=== PATIENT | female | born 1950 | race Caucasian/White ===

== ENCOUNTER 2016-04-28 19:50 | Observation (INO) | payer MEDICARE, OTHER, SELFPAY ==
[2016-04-28] MEDS ORDERED: Sodium Chloride 0.9% 1000 ML 1,000 ML IV STA ×2 (20:04→21:57)
[2016-04-28] MEDS ORDERED: PROVENTIL 2.5 MG/3 ML NEB IH ONE ×2 (20:06→20:31)
[2016-04-28] MEDS ORDERED: ROCEPHIN 1 Gm-D5w 50 ml Bag** 50 ML IV ONE ×2 (20:07→20:40)
[2016-04-28] MEDS ORDERED: Zithromax 250 MG TABLET PO ONE (20:08)
[2016-04-28] MEDS ORDERED: Phenergan 25 MG INJ IV ONE (20:08)
--- NOTE | 2016-04-28 20:15 | ERPHSYRPT ---
- History of Present Illness Time Seen by Provider: 04/28/16 19:56 Source: patient Exam Limitations: no limitations Patient Subjective Stated Complaint: reports with c/o "terrible case of the flu " with headache, malaise, productive cough, fever, "fullness in the chest" Triage Nursing Assessment: wc to treatment area - steady gait to cart - moves all extremitied with equal strength. alert/oriented - appropriate affect. skin hot/flushed/dry - no rash or injury appreciated. resps labored per exertion - audible wheezing - ronchi of the left upper lobe with scattered wheezing throughout Physician History: FOR THE PAST 2 DAYS PT HAS HAD NAUSEA, A FRONTAL HEADACHE, GENERALIZED ACHES, COUGH PRODUCTIVE OF YELLOW PHLEGM AND FEVER UP TO 100.4 DEGREES. Allergies/Adverse Reactions: No Known Drug Allergies Allergy (Verified 04/28/16 19:56) Home Medications: Aspirin [Aspirin EC] 325 mg PO QAM 10/09/13 [History] Atorvastatin Calcium [Lipitor] 80 mg PO QHS 10/09/13 [History] Clopidogrel Bisulfate 75 mg [PLAVIX 75 MG Tablet] 75 mg PO DAILY 10/09/13 [History] Levothyroxine Sodium [Synthroid] 150 mcg PO QAM 10/09/13 [History] Lisinopril [Zestril 40 mg] 40 mg PO BID 10/09/13 [History] Metformin HCl 1000 mg [Glucophage 1000 MG] 1,000 mg PO BID 10/09/13 [History] Acetaminophen [Acetaminophen Extra Strength] 500 mg PO Q4HPRN PRN 02/03/15 [ History] Cilostazol [Pletal] 50 mg PO BID 02/03/15 [History] Citalopram Hydrobromide 20 mg* [ceLEXa 20 MG] 20 mg PO HS 02/03/15 [History] Cyclobenzaprine HCl 10 mg [Cyclobenzaprine 10 MG] 10 mg PO DAILY PRN PRN 02/03/15 [History] Ergocalciferol (Vitamin D2) [Vitamin D2] 50,000 iu PO UD 02/03/15 [History] Fluticasone Propionate [Flonase Nasal] 2 spray IH DAILY 02/03/15 [History] Gabapentin [Neurontin] 600 mg PO TID 02/03/15 [History] Glipizide 5 mg PO BID 02/03/15 [History] Metoprolol Succinate [Toprol Xl] 200 mg PO HS 02/03/15 [History] Potassium Chloride [K-Tab ER] 10 meq PO DAILY 02/03/15 [History] Sennosides/Docusate Sodium [Stool Soft-Stimulant Lax Tab] 1 tab PO DAILY PRN PRN 02/03/15 [History] Ropinirole HCl [Requip] 3 mg PO BID 04/19/15 [History] Hx Tetanus, Diphtheria Vaccination/Date Given: (5 years ago) Hx Influenza Vaccination/Date Given: Yes Hx Pneumococcal Vaccination/Date Given: Yes - Review of Systems Constitutional: Fever Respiratory: Cough Abdominal/Gastrointestinal: Nausea Musculoskeletal: Myalgias Neurological: Headache All Other Systems: Reviewed and Negative - Past Medical History Pertinent Past Medical History: Yes Neurological History: No Pertinent History ENT History: No Pertinent History Cardiac History: High Cholesterol, Hypertension, Myocardial Infarction (RI) Respiratory History: COPD Endocrine Medical History: Diabetes Type II, Other Musculoskeletal History: Fractures, Osteoarthritis GI Medical History: No Pertinent History History: No Pertinent History Psycho-Social History: Depression Female Reproductive Disorders: Other Other Medical History: THYROID NODULE, HX RI WITHOUT SURGERY, R ANKLE FX W/ ORIF 2007 - Past Surgical History Past Surgical History: Yes Neuro Surgical History: No Pertinent History Cardiac: No Pertinent History Respiratory: No Pertinent History Gastrointestinal: No Pertinent History Genitourinary: No Pertinent History Musculoskeletal: Other Female Surgical History: Tubal Ligation Other Surgical History: RIGHT ANKLE SURGERY, thyroidectomy - Social History Smoking Status: Current some day smoker How long have you smoked: 1/2 PPD Exposure to second hand smoke: No Drug Use: none Patient Lives Alone: No - Female History Hx Last Menstrual Period: n/a - Nursing Vital Signs Nursing Vital Signs: Initial Vital Signs Temperature 100.1 F Temperature Source Rectal Pulse Rate 134 Respiratory Rate 18 Blood Pressure [] 102/40 Pain Intensity 0 - Physical Exam General Appearance: alert Eye Exam: PERRL/EOMI Ears, Nose, Throat Exam: dry mucous membranes, pharyngeal erythema, other ( CERUMEN OCCLUSION OF RIGHT EAR) Neck Exam: normal inspection Respiratory Exam: wheezing (MILD EXPIRATORY WHEEZING OVER ALL THOMAS.) Cardiovascular Exam: normal heart sounds Gastrointestinal/Abdomen Exam: soft, normal bowel sounds Back Exam: normal range of motion Extremity Exam: pedal edema (+1 ANKLE EDEMA BILATERALLY) Neurologic Exam: alert, cooperative Skin Exam: warm, dry SpO2 Interpretation: normal SpO2: 97 Oxygen Delivery: Room Air - Course Nursing assessment & vital signs reviewed: Yes EKG Interpreted by Me: RATE (121), Sinus Tach, NORMAL AXIS, NORMAL INTERVALS - Radiology Exams Chest X-ray Interpretation: Interpreted by me (QUESTIONABLE LLL INFILTRATE) Ordered Tests: Active Orders 24 hr Category Date Time Status Core Fitter STAT Care 04/28/16 20:04 Active EKG-ER Only STAT Care 04/28/16 20:04 Active IV Insertion STAT Care 04/28/16 20:04 Active Oxygen-ED Only NASAL CANNULA 2 lpm Care 04/28/16 22:05 Active Pulse Oximetry (ED) STAT Care 04/28/16 20:04 Active cath [Cath for Specimen-Straight] STAT Care 04/28/16 21:58 Active CHEST 1 VIEW (PORTABLE) Stat Exams 04/28/16 20:05 Taken AMYLASE Stat Lab 04/28/16 20:25 Completed BLOOD CULTURE Stat Lab 04/28/16 20:30 Received CBC W DIFF Stat Lab 04/28/16 20:25 Completed CMP Stat Lab 04/28/16 20:25 Completed CULTURE, THROAT Stat Lab 04/28/16 20:30 Received CULTURE,SPUTUM Stat Lab 04/28/16 21:59 Ordered LIPASE Stat Lab 04/28/16 20:25 Completed MAGNESIUM Stat Lab 04/28/16 20:25 Completed [place] Screen Stat Lab 04/28/16 20:25 Completed NT PRO BNP Stat Lab 04/28/16 20:25 Completed STREP SCREEN-BETA A Stat Lab 04/28/16 20:30 Completed TROPONIN Stat Lab 04/28/16 20:25 Completed UA Stat Lab 04/28/16 20:05 Ordered Respiratory Nebulizer STAT RT 04/28/16 20:07 Completed Medication Summary Generic Name Dose Route Start Last Admin Trade Name Freq PRN Reason Stop Dose Admin Sodium Chloride 1,000 mls @ 999 mls/hr 04/28/16 21:57 04/28/16 22:00 Sodium Chloride 0.9% 1000 Ml IV 04/28/16 22:57 999 mls/hr .Q1H1M STA Administration Magnesium Oxide 400 mg 04/28/16 22:00 04/28/16 21:43 Mag-Ox 400 PO 05/28/16 21:59 400 mg BID ARELY Administration Discontinued Medications Generic Name Dose Route Start Last Admin Trade Name Belkys PRJa Reason Stop Dose Admin Albuterol Sulfate 2.5 mg 04/28/16 20:06 04/28/16 20:43 Proventil 2.5 Mg/3 Ml Neb IH 04/28/16 20:07 2.5 mg STAT ONE Administration Albuterol Sulfate Confirm 04/28/16 20:31 Proventil 2.5 Mg/3 Ml Neb Administered 04/28/16 20:32 Dose 2.5 mg IH .STK-MED ONE Azithromycin 500 mg 04/28/16 20:08 04/28/16 20:48 Zithromax 250 Mg Tablet PO 04/28/16 20:09 500 mg STAT ONE Administration Azithromycin Confirm 04/28/16 20:40 Zithromax 250 Mg Tablet Administered 04/28/16 20:41 Dose 500 mg .ROUTE .STK-MED ONE Sodium Chloride 1,000 mls @ 999 mls/hr 04/28/16 20:04 04/28/16 20:48 Sodium Chloride 0.9% 1000 Ml IV 04/28/16 21:04 999 mls/hr .Q1H1M STA Administration Ceftriaxone Sodium/Dextrose 50 mls @ 100 mls/hr 04/28/16 20:07 04/28/16 20:48 Rocephin 1 Gm-D5w 50 Ml Bag IV 04/28/16 20:36 100 mls/hr STAT ONE Administration Sodium Chloride Confirm 04/28/16 20:40 Sodium Chloride 0.9% 1000 Ml Administered 04/28/16 20:41 Dose 1,000 mls @ ud .ROUTE .STK-MED ONE Ceftriaxone Sodium/Dextrose Confirm 04/28/16 20:40 Rocephin 1 Gm-D5w 50 Ml Bag Administered 04/28/16 20:41 Dose 50 mls @ ud IV .STK-MED ONE Sodium Chloride Confirm 04/28/16 21:58 Sodium Chloride 0.9% 1000 Ml Administered 04/28/16 21:59 Dose 1,000 mls @ ud .ROUTE .STK-MED ONE Magnesium Oxide Confirm 04/28/16 21:38 Mag-Ox 400 Administered 04/28/16 21:39 Dose 400 mg .ROUTE .STK-MED ONE Promethazine HCl 12.5 mg 04/28/16 20:08 04/28/16 20:48 Phenergan 25 Mg Inj IV 04/28/16 20:09 12.5 mg STAT ONE Administration Promethazine HCl Confirm 04/28/16 20:39 Phenergan 25 Mg Inj Administered 04/28/16 20:40 Dose 25 mg .ROUTE .STK-MED ONE Lab/Rad Data: Laboratory Result Diagrams 04/28/16 20:25 04/28/16 20:25 Laboratory Results 04/28/16 04/28/16 04/28/16 Range/Units 20:30 20:30 20:25 WBC (4.0-10.5) K/mm3 RBC (4.1-5.4) M/mm3 Hgb (12.0-16.0) gm/dl Hct (35-47) % MCV (78-100) fl MCH (26-32) pg MCHC (32-36) g/dl RDW (11.5-14.0) % Plt Count (150-450) K/mm3 MPV (6-9.5) fl Gran % (36.0-66.0) % Lymphocytes % (24.0-44.0) % Monocytes % (0.0-12.0) % Eosinophils % (0.00-5.0) % Basophils % (0.0-0.4) % Basophils # (0-0.4) Sodium (136-145) mEq/L Potassium (3.5-5.1) mEq/L Chloride (98-107) mEq/L Carbon Dioxide (21-32) mEq/L Anion Gap (5-15) MEQ/L BUN (9-20) mg/dL Creatinine (0.55-1.30) mg/dl Estimated GFR ML/MIN Glucose (70-110) MG/DL Calcium (8.5-10.1) mg/dL Magnesium (1.8-2.4) mg/dL Total Bilirubin (0.2-1.0) mg/dL AST (15-37) U/L ALT (12-78) U/L Alkaline Phosphatase (46-116) U/L Troponin I (0.000-0.056) ng/ml NT-Pro-B Natriuret Pep (0-125) pg/ml Serum Total Protein (6.4-8.2) gm/dL Albumin (3.4-5.0) g/dL Amylase (25-115) U/L Lipase (73-393) U/L Monoscreen NEGATIVE (Negative) Streptococcus Screen NEGATIVE (Negative) Resp Infection Panel NEGATIVE (Negative) 04/28/16 04/28/16 04/28/16 Range/Units 20:25 20:25 20:25 WBC 10.2 (4.0-10.5) K/mm3 RBC 4.58 (4.1-5.4) M/mm3 Hgb 12.2 (12.0-16.0) gm/dl Hct 37.7 (35-47) % MCV 82.3 (78-100) fl MCH 26.6 (26-32) pg MCHC 32.4 (32-36) g/dl RDW 15.8 H (11.5-14.0) % Plt Count 290 (150-450) K/mm3 MPV 10.4 H (6-9.5) fl Gran % 75.7 H (36.0-66.0) % Lymphocytes % 16.0 L (24.0-44.0) % Monocytes % 8.0 (0.0-12.0) % Eosinophils % 0.2 (0.00-5.0) % Basophils % 0.1 (0.0-0.4) % Basophils # 0.01 (0-0.4) Sodium 135 L (136-145) mEq/L Potassium 4.2 (3.5-5.1) mEq/L Chloride 95 L (98-107) mEq/L Carbon Dioxide 27.3 (21-32) mEq/L Anion Gap 16.8 H (5-15) MEQ/L BUN 23 H (9-20) mg/dL Creatinine 1.37 H (0.55-1.30) mg/dl Estimated GFR 41 ML/MIN Glucose 307 H (70-110) MG/DL Calcium 7.5 L (8.5-10.1) mg/dL Magnesium 1.7 L (1.8-2.4) mg/dL Total Bilirubin 0.6 (0.2-1.0) mg/dL AST 15 (15-37) U/L ALT 10 L (12-78) U/L Alkaline Phosphatase 124 H (46-116) U/L Troponin I < 0.017 (0.000-0.056) ng/ml NT-Pro-B Natriuret Pep 935 H (0-125) pg/ml Serum Total Protein 7.5 (6.4-8.2) gm/dL Albumin 3.5 (3.4-5.0) g/dL Amylase 32 (25-115) U/L Lipase 163 (73-393) U/L Monoscreen (Negative) Streptococcus Screen (Negative) Resp Infection Panel (Negative) - Progress Discussed with : Rebecca (TFR - 1644) - Departure Time of Disposition: 22:22 Departure Disposition: Observation Clinical Impression: BRONCHITIS, PHARYNGITIS, DM, HTN, ARTHRITIS, DEPRESSION, MILD DEHYDRATION, COPD , TACHYCARDIA Condition: Fair Critical Care Time: No Referrals: ROLANDO SALMERON [Primary Care Provider] -
[2016-04-28 20:38] LABS: BASOPHIL % 0.1 % (0.0-0.4); Eosinophil % 0.2 % (0.00-5.0); Granulocytes % 75.7 % (36.0-66.0); Mean Cell Volume 82.3 fl (78-100); Mean Corpuscular Hemoglobin 26.6 pg (26-32); Mean Platelet Volume 10.4 fl (6-9.5); Platelet Count 290 K/mm3 (150-450); Red Blood Count 4.58 M/mm3 (4.1-5.4); Red Cell Distribution Width 15.8 % (11.5-14.0); White Blood Count 10.2 K/mm3 (4.0-10.5)
[2016-04-28] MEDS ORDERED: Phenergan 25 MG INJ ONE (20:39)
[2016-04-28] MEDS ORDERED: Sodium Chloride 0.9% 1000 ML 1,000 ML ONE (20:40)
[2016-04-28] MEDS ORDERED: Zithromax 250 MG TABLET ONE (20:40)
[2016-04-28 21:06] LABS: ALBUMIN 3.5 g/dL (3.4-5.0); ANION GAP 16.8 MEQ/L (5-15); BILIRUBIN,TOTAL 0.6 mg/dL (0.2-1.0); Carbon Dioxide 27.3 mEq/L (21-32); MAGNESIUM 1.7 mg/dL (1.8-2.4); Potassium 4.2 mEq/L (3.5-5.1); Total Protein 7.5 gm/dL (6.4-8.2)
[2016-04-28] MEDS ORDERED: MAG-OX 400 ONE (21:38)
[2016-04-28] MEDS ORDERED: Sodium Chloride 0.9% 1000 ML 2,000 ML ONE (21:58)
[2016-04-28] MEDS ORDERED: MAG-OX 400 PO SCH (22:00)
[2016-04-28 22:23] LABS: Bacteria RARE /HPF (NEGATIVE); COMPLETE URINE MICROSCOPIC? YES; Collection Type CLEAN CATCH; Epithelial Cells FEW /HPF (FEW)
[2016-04-28] MEDS ORDERED: DILAUDID 2 MG INJECTION IV PRN (22:55)
[2016-04-28] MEDS ORDERED: PROVENTIL 2.5 MG/3 ML NEB IH PRN (22:55)
[2016-04-28] MEDS ORDERED: TYLENOL 325 MG PO PRN (22:55)
[2016-04-28] MEDS ORDERED: Phenergan 25 MG INJ IV PRN (22:55)
[2016-04-28] MEDS ORDERED: ZOCOR 20MG ONE (23:45)
[2016-04-28] MEDS ORDERED: NEURONTIN 300 MG PO ONE (23:49)
[2016-04-28] MEDS ORDERED: REQUIP 2MG TAB PO ONE (23:50)
[2016-04-28] MEDS: Sodium Chloride 0.9% 1000 ML 1,000 ML IV SCH (23:58)
[2016-04-28] MEDS: Pletal 100 MG PO SCH (23:59)
[2016-04-28] MEDS: ZOCOR 20MG PO SCH (23:59)
[2016-04-29] MEDS: NovoLOG Insulin SQ PRN ×5 (00:33→22:38)
[2016-04-29] MEDS: NYSTOP 30 GM CREAM TOP SCH ×3 (00:34→22:31)
[2016-04-29] MEDS: DUONEB 0.5-3 MG/3 ml Neb IH SCH ×6 (03:28→22:44)
[2016-04-29 05:39] LABS: BASOPHIL % 0.1 % (0.0-0.4); Granulocytes % 68.7 % (36.0-66.0); Lymphocytes % 22.7 % (24.0-44.0); Mean Cell Volume 84.6 fl (78-100); Monocytes % 7.5 % (0.0-12.0); Platelet Count 238 K/mm3 (150-450); Red Cell Distribution Width 15.6 % (11.5-14.0); White Blood Count 7.2 K/mm3 (4.0-10.5)
[2016-04-29 05:46] LABS: Mean Corpuscular Hemoglobin 26.8 pg (26-32)
[2016-04-29 06:21] LABS: ALBUMIN 2.7 g/dL (3.4-5.0); ALKALINE PHOSPHATASE 92 U/L (46-116); ANION GAP 15.3 MEQ/L (5-15); BILIRUBIN,TOTAL 0.4 mg/dL (0.2-1.0); BLOOD UREA NITROGEN 14 mg/dL (9-20); CHLORIDE 103 mEq/L (98-107); Carbon Dioxide 25.5 mEq/L (21-32); Glucose 196 MG/DL (70-110); MAGNESIUM 1.6 mg/dL (1.8-2.4); Potassium 3.9 mEq/L (3.5-5.1); SGOT/AST 11 U/L (15-37); SGPT/ALT 8 U/L (12-78); SODIUM 140 mEq/L (136-145)
[2016-04-29 06:22] LABS: TROPONIN < 0.017 ng/ml (0.000-0.056)
[2016-04-29] MEDS: Sodium Chloride 0.9% 1000 ML 1,000 ML IV SCH ×3 (06:34→20:28)
[2016-04-29] MEDS: Pletal 100 MG PO SCH ×2 (07:42→16:35)
[2016-04-29] MEDS: Norco 10/325 MG Tablet PO PRN ×4 (07:42→22:35)
--- NOTE | 2016-04-29 08:34 | XRAY ---
Indication: Cough and general malaise. Comparison: February 03, 2015 Portable chest clear. Heart and mediastinal structures within normal limits for portable technique. Bony thorax intact again with mild degenerative changes. Impression: Nonacute chest.
--- NOTE | 2016-04-29 08:36 | XRAY ---
Indication: Cough. Comparison: One day earlier. Portable apical lordotic chest remains clear. Heart and mediastinal structures stable and within normal limits. No new/acute findings. Impression: Stable nonacute chest.
[2016-04-29] MEDS ORDERED: NYSTOP 15 GM CREAM TOP SCH (10:00)
--- NOTE | 2016-04-29 11:01 | PCM.HP ---
History of Present Illness - Chief Complaint Chief Complaint: bronchitis, deydration, tachycardia History of Present Illness: is a 65 year old female pt of mine from [facility] who came to the ER yesterday d/o 2d of increased sputum and cough, low grade fever, and general malaise. She was not tolerating po well. She was found to have stable chest film but HR stayed elevated in the 120s so she was admitted for bronchitis and dehydration. She is feeling much better this morning and asking to go home. - Review of Systems Constitutional: Fever Respiratory: Cough, Wheezing Abdominal/Gastrointestinal: Nausea, Appetite Changes Psychological: No Suicidal Ideations All Other Systems: Reviewed and Negative Medications & Allergies Home Medications: Home Medication List Aspirin [Aspirin EC] 325 mg PO QAM 10/09/13 [History Confirmed 04/28/16] Atorvastatin Calcium [Lipitor] 80 mg PO QHS 10/09/13 [History Confirmed 04/28/16 ] Clopidogrel Bisulfate 75 mg [PLAVIX 75 MG Tablet] 75 mg PO DAILY 10/09/13 [History Confirmed 04/28/16] Levothyroxine Sodium [Synthroid] 150 mcg PO QAM 10/09/13 [History Confirmed 10/05] Lisinopril [Zestril 40 mg] 40 mg PO BID 10/09/13 [History Confirmed 04/28/16] Metformin HCl 1000 mg [Glucophage 1000 MG] 1,000 mg PO BID 10/09/13 [History Confirmed 04/28/16] Acetaminophen [Acetaminophen Extra Strength] 500 mg PO Q4HPRN PRN 02/03/15 [ History Confirmed 04/28/16] Cilostazol [Pletal] 50 mg PO BID 02/03/15 [History Confirmed 04/28/16] Citalopram Hydrobromide 20 mg* [ceLEXa 20 MG] 20 mg PO HS 02/03/15 [History Confirmed 04/28/16] Cyclobenzaprine HCl 10 mg [Cyclobenzaprine 10 MG] 10 mg PO DAILY PRN PRN 02/03/15 [History Confirmed 04/28/16] Ergocalciferol (Vitamin D2) [Vitamin D2] 50,000 iu PO UD 02/03/15 [History Confirmed 04/28/16] Fluticasone Propionate [Flonase Nasal] 2 spray IH DAILY 02/03/15 [History Confirmed 04/28/16] Gabapentin [Neurontin] 600 mg PO TID 02/03/15 [History Confirmed 04/28/16] Glipizide 5 mg PO BID 02/03/15 [History Confirmed 04/28/16] Metoprolol Succinate [Toprol Xl] 200 mg PO HS 02/03/15 [History Confirmed ] Potassium Chloride [K-Tab ER] 10 meq PO DAILY 02/03/15 [History Confirmed ] Sennosides/Docusate Sodium [Stool Soft-Stimulant Lax Tab] 1 tab PO DAILY PRN PRN 02/03/15 [History Confirmed 04/28/16] Ropinirole HCl [Requip] 3 mg PO BID 04/19/15 [History Confirmed 04/28/16] Allergies/Adverse Reactions: Allergies Allergy/AdvReac Type Severity Reaction Status Date / Time No Known Drug Allergies Allergy Verified 04/28/16 19:56 - Past Medical History Past Medical History: Yes Neurological History: No Pertinent History ENT History: No Pertinent History Cardiac History: High Cholesterol, Hypertension, Myocardial Infarction (RI) Respiratory History: COPD Endocrine Medical History: Diabetes Type II, Other Musculoskelatal History: Fractures, Osteoarthritis GI Medical History: No Pertinent History History: No Pertinent History Pyscho-Social History: Depression Reproductive Disorders: Other Comment: THYROID NODULE, HX RI WITHOUT SURGERY, R ANKLE FX W/ ORIF 2007 - Female History Hx Last Menstrual Period: n/a - Past Surgical History Past Surgical History: Yes Neuro Surgical History: No Pertinent History Cardiac History: No Pertinent History Respiratory Surgery: No Pertinent History GI Surgical History: No Pertinent History Genitourinary Surgical Hx: No Pertinent History Musculskeletal Surgical Hx: Other Female Surgical History: Tubal Ligation Other Surgical History: RIGHT ANKLE SURGERY, thyroidectomy - Social History Smoking Status: Current every day smoker How long have you smoked: 30 years Exposure to second hand smoke: Yes Alcohol: None Drug Use: none - Physical Exam Vital Signs: Vital Signs - 24 hr Temp Pulse Resp BP Pulse Ox 04/29/16 10:43 116 H 20 95 04/29/16 07:32 98.3 F 107 H 22 133/62 04/29/16 07:07 104 H 20 98 04/29/16 03:41 98.7 F 108 H 28 H 100/50 95 04/29/16 03:31 104 H 24 93 L 04/29/16 00:34 125 H 22 94 L 04/29/16 00:03 99.3 F 124 H 25 H 129/57 95 04/28/16 22:22 97 04/28/16 22:01 134 H 18 102/40 95 04/28/16 21:59 100.1 F 130 H 24 94 L 04/28/16 21:44 128 H 20 137/59 94 L 04/28/16 20:57 118 H 18 124/68 96 04/28/16 20:44 118 H 19 94 L 04/28/16 20:15 94 L 04/28/16 19:57 100.2 F 120 H 24 131/61 96 Oxygen-Last 24 hours O2 Percentage 2 Liters = 28% O2 Percentage 2 Liters = 28% O2 Percentage 2 Liters = 28% O2 Percentage 2 Liters = 28% General Appearance: no apparent distress Neurologic Exam: alert, oriented x 3, cooperative Eye Exam: eyes nml inspection Neck Exam: normal inspection, non-tender, No lymphadenopathy Respiratory Exam: wheezing (moderate, throughout), other (fair to good air exchange), No crackles/rales, No rhonchi Cardiovascular Exam: normal heart sounds, tachycardia, No murmur Gastrointestinal/Abdomen Exam: soft, other (hypoactive bowel sounds), No tenderness, No distention Back Exam: normal inspection Extremity Exam: swelling (trace LE edema bilat) Skin Exam: normal color, warm, dry Results - Labs Lab/Micro Results: Accuchecks Date 04/29/16 Date 04/29/16 Time 07:30 Time 00:15 Accucheck Value: 219 Accucheck Value: 277 Lab Results-Last 24 Hours 04/29/16 04/29/16 Range/Units 05:10 05:10 WBC 7.2 (4.0-10.5) K/mm3 RBC 3.50 L (4.1-5.4) M/mm3 Hgb 9.4 L (12.0-16.0) gm/dl Hct 29.6 L (35-47) % MCV 84.6 (78-100) fl MCH 26.8 (26-32) pg MCHC 31.8 L (32-36) g/dl RDW 15.6 H (11.5-14.0) % Plt Count 238 (150-450) K/mm3 MPV 10.0 H (6-9.5) fl Gran % 68.7 H (36.0-66.0) % Lymphocytes % 22.7 L (24.0-44.0) % Monocytes % 7.5 (0.0-12.0) % Eosinophils % 1.0 (0.00-5.0) % Basophils % 0.1 (0.0-0.4) % Basophils # 0.01 (0-0.4) Sodium 140 (136-145) mEq/L Potassium 3.9 (3.5-5.1) mEq/L Chloride 103 (98-107) mEq/L Carbon Dioxide 25.5 (21-32) mEq/L Anion Gap 15.3 H (5-15) MEQ/L BUN 14 (9-20) mg/dL Creatinine 0.97 (0.55-1.30) mg/dl Estimated GFR > 60 ML/MIN Glucose 196 H (70-110) MG/DL Calcium 6.6 L (8.5-10.1) mg/dL Magnesium 1.6 L (1.8-2.4) mg/dL Total Bilirubin 0.4 (0.2-1.0) mg/dL AST 11 L (15-37) U/L ALT 8 L (12-78) U/L Alkaline Phosphatase 92 (46-116) U/L Troponin I < 0.017 (0.000-0.056) ng/ml Serum Total Protein 6.0 L (6.4-8.2) gm/dL Albumin 2.7 L (3.4-5.0) g/dL Accuchecks Date 04/29/16 Date 04/29/16 Time 07:30 Time 00:15 Accucheck Value: 219 Accucheck Value: 277 - Other Procedures and Tests Respiratory Therapy 04/29/16 03:00 neb [Respiratory Nebulizer] Q4H Assessment/Plan (1) COPD exacerbation Current Visit: Yes Status: Acute Assessment & Plan: She feels better but needs at least one more day on IV antibiotics. Quite wheezy here. Code(s): J44.1 - CHRONIC OBSTRUCTIVE PULMONARY DISEASE W (ACUTE) EXACERBATION (2) Renal insufficiency Current Visit: Yes Status: Resolved Assessment & Plan: resolved today with IV fluids. (3) Hypomagnesemia Current Visit: Yes Status: Acute Assessment & Plan: recheck in the morning. Code(s): E83.42 - HYPOMAGNESEMIA (4) Dehydration Current Visit: Yes Status: Resolved Code(s): E86.0 - DEHYDRATION (5) Tachycardia Current Visit: Yes Status: Acute Assessment & Plan: She did not take her home meds the day of admission, which included Toprol XR 200 mg at hs. It was also not ordered last night; nurse did call me to order night time meds but we did not discuss the toprol XR. I ordered a one time short acting dose now, and will start the Toprol XL tonight as usual. Code(s): R00.0 - TACHYCARDIA, UNSPECIFIED (6) Diabetes Current Visit: No Status: Chronic Qualifiers: Diabetes mellitus type: type 2 Diabetes mellitus complication status: without complication Diabetes mellitus tank terminal gauger insulin use: without tank terminal gauger use Qualified Code(s): E11.9 - Type 2 diabetes mellitus without complications Assessment & Plan: will check BS, I held her po meds for worry for hypoglycemia and possibility of further imaging. Code(s): E11.9 - TYPE 2 DIABETES MELLITUS WITHOUT COMPLICATIONS
[2016-04-29] MEDS ORDERED: Toprol Xl 50 MG PO ONE (11:02)
[2016-04-29] MEDS: ENOXAPARIN SODIUM SQ SCH (11:22)
[2016-04-29] MEDS ORDERED: TYLENOL EXTRA STRENGTH 500 MG PO PRN (12:17)
[2016-04-29] MEDS ORDERED: Cyclobenzaprine 10 MG PO PRN (12:17)
[2016-04-29] MEDS: SYNTHROID 150 MCG PO SCH (13:00)
[2016-04-29] MEDS: Klor Con 10 MEQ PO SCH (13:00)
[2016-04-29] MEDS: PLAVIX 75 MG Tablet PO SCH (13:00)
[2016-04-29] MEDS: Robitussin-Dm Syrup PO PRN ×2 (13:06→22:32)
[2016-04-29] MEDS ORDERED: NON-FORMULARY ITEM (Gabapentin [Neurontin] 600 MG) PO SCH (15:00)
[2016-04-29] MEDS: NEURONTIN 300 MG PO SCH ×2 (15:14→22:33)
[2016-04-29] MEDS ORDERED: ceLEXa 20 MG PO SCH (22:00)
[2016-04-29] MEDS ORDERED: Toprol Xl 100 MG PO SCH (22:00)
[2016-04-29] MEDS ORDERED: ROPINIROLE HCL 3 MG PO SCH (22:00)
[2016-04-29] MEDS ORDERED: ROCEPHIN 1 Gm-D5w 50 ml Bag** 50 ML IV SCH (22:00)
[2016-04-29] MEDS ORDERED: NON-FORMULARY ITEM (Lisinopril [Zestril 40 Mg] 40 MG) PO SCH (22:00)
[2016-04-29] MEDS ORDERED: Zithromax 500 MG/ 250 ML NaCl Premix 250 ML IV SCH (22:00)
[2016-04-29] MEDS: REQUIP 2MG TAB PO SCH (22:34)
[2016-04-29] MEDS: Zestril 20 MG PO SCH (22:35)
[2016-04-29] MEDS: ZOCOR 20MG PO SCH (22:35)
[2016-04-30] MEDS: DUONEB 0.5-3 MG/3 ml Neb IH SCH ×2 (03:00→06:57)
[2016-04-30 05:14] LABS: BASOPHIL % 0.1 % (0.0-0.4); Eosinophil % 2.2 % (0.00-5.0); Granulocytes % 73.8 % (36.0-66.0); Lymphocytes % 17.4 % (24.0-44.0); Mean Cell Volume 87.9 fl (78-100); Mean Platelet Volume 10.3 fl (6-9.5); Monocytes % 6.5 % (0.0-12.0); Platelet Count 223 K/mm3 (150-450); Red Blood Count 3.48 M/mm3 (4.1-5.4); Red Cell Distribution Width 15.9 % (11.5-14.0); White Blood Count 8.9 K/mm3 (4.0-10.5)
[2016-04-30] MEDS: Sodium Chloride 0.9% 1000 ML 1,000 ML IV SCH (05:55)
[2016-04-30] MEDS: NovoLOG Insulin SQ PRN (07:56)
[2016-04-30] MEDS: Pletal 100 MG PO SCH (07:56)
[2016-04-30] MEDS: Robitussin-Dm Syrup PO PRN (07:57)
[2016-04-30 08:02] VITALS: BP 139/63; PULSE 105; O2SAT 97
[2016-04-30] MEDS: SYNTHROID 150 MCG PO SCH (08:09)
[2016-04-30] MEDS: PLAVIX 75 MG Tablet PO SCH (08:09)
[2016-04-30] MEDS: REQUIP 2MG TAB PO SCH (08:09)
[2016-04-30] MEDS: Zestril 20 MG PO SCH (08:09)
[2016-04-30] MEDS: NEURONTIN 300 MG PO SCH (08:10)
[2016-04-30] MEDS: Norco 10/325 MG Tablet PO PRN (08:10)
[2016-04-30] MEDS: Klor Con 10 MEQ PO SCH (08:10)
[2016-04-30] MEDS: NYSTOP 30 GM CREAM TOP SCH (08:14)
--- NOTE | 2016-04-30 08:37 | PCM.DS ---
Discharge Summary Date of Admission: 04/28/16 22:53 Admitting Physician: ROLANDO SALMERON Primary Care Provider: ROLANDO SALMERON Allergies Allergies No Known Drug Allergies Allergy (Verified 04/28/16 19:56) Hospital Summary - Hospital Course Hospital Course: She is feeling "fine" this morning just states she is a little rattly. Damián po fine. - Vitals & Intake/Output Vital Signs: Vital Signs Temperature 99.6 F 04/30/16 07:30 Pulse Rate 105 H 04/30/16 07:30 Respiratory Rate 20 04/30/16 07:46 Blood Pressure 139/63 04/30/16 07:30 O2 Sat by Pulse Oximetry 97 04/30/16 07:30 Oxygen-Last Documented O2 Percentage 2 Liters = 28% Intake & Output: Intake & Output 04/27/16 04/28/16 04/29/16 04/30/16 11:59 11:59 11:59 11:59 Intake Total 633 4263 Output Total 800 2600 Balance -167 1663 Weight 104.825 kg 108.817 kg - Lab Result Diagrams: 04/30/16 04:35 04/29/16 05:10 Lab Results-Last 24 Hrs: Accuchecks Date 04/30/16 Date 04/30/16 Date 04/29/16 Time 07:30 Time 22:00 Time 16:30 Accucheck Value: 230 Accucheck Value: 291 Accucheck Value: 286 Accucheck Value: 299 Lab Results-Last 24 Hours 04/30/16 04/30/16 Range/Units 04:35 04:35 WBC 8.9 (4.0-10.5) K/mm3 RBC 3.48 L (4.1-5.4) M/mm3 Hgb 9.4 L (12.0-16.0) gm/dl Hct 30.6 L (35-47) % MCV 87.9 (78-100) fl MCH 27.0 (26-32) pg MCHC 30.7 L (32-36) g/dl RDW 15.9 H (11.5-14.0) % Plt Count 223 (150-450) K/mm3 MPV 10.3 H (6-9.5) fl Gran % 73.8 H (36.0-66.0) % Lymphocytes % 17.4 L (24.0-44.0) % Monocytes % 6.5 (0.0-12.0) % Eosinophils % 2.2 (0.00-5.0) % Basophils % 0.1 (0.0-0.4) % Basophils # 0.01 (0-0.4) Glucose (70-110) MG/DL Magnesium Pending Micro Results-Entire Visit: Accuchecks Date 04/30/16 Date 04/30/16 Date 04/29/16 Time 07:30 Time 22:00 Time 16:30 Accucheck Value: 230 Accucheck Value: 291 Accucheck Value: 286 Accucheck Value: 299 - Procedures and Test Procedures and Tests throughout Hospitalization: Therapy Orders & Screens 04/29/16 03:00 neb [Respiratory Nebulizer] Q4H Comment: Diagnosis: bronchitis, deydration, tachycardia 04/30/16 05:29 neb [Respiratory Nebulizer] UD Comment: ALBUTEROL Q2PRN Diagnosis: bronchitis, deydration, tachycardia Discharge Exam General Appearance: no apparent distress Neurologic Exam: alert, oriented x 3, cooperative Skin Exam: normal color, warm, dry Respiratory Exam: diminished breath sounds (good air exchange), prolonged expirations, wheezing (some exp wheeze in RUL), No crackles/rales, No rhonchi Cardiovascular Exam: regular rate/rhythm, normal heart sounds Extremity Exam: No pedal edema, No swelling Back Exam: normal inspection Final Diagnosis/Problem List - Final Discharge Diagnosis/Problem (1) COPD exacerbation Current Visit: Yes Status: Acute Assessment & Plan: Much improved. Home today and po antibiotics and steroids. f/u in office with me in 1 wk. (2) Renal insufficiency Current Visit: Yes Status: Resolved Assessment & Plan: Good today. (3) Hypomagnesemia Current Visit: Yes Status: Resolved (4) Dehydration Current Visit: Yes Status: Resolved (5) Tachycardia Current Visit: Yes Status: Resolved Assessment & Plan: Likely due to missing her toprol. WNL this morning. (6) Diabetes Current Visit: No Status: Chronic Assessment & Plan: BS elevated here in the 200s. Has only had some sliding scale insulin, which she is not on at home. Will send home on regular home meds, no insulin, as her steroid dose will be lower at home. Recheck BS when off the steroids. - Discharge Disposition: Home, Self-Care Condition: Stable Prescriptions: New Amoxicillin/Potassium Clav [Augmentin 875-125 Tablet] 875 mg PO BID #20 tablet Albuterol/Ipratropium 3ml Neb* [DUONEB 0.5-3 MG/3 ml Neb] 3 ml IH Q4H PRN PRN #30 ampul.neb PRN Reason: Shortness Of Breath Prednisone 20 mg [Deltasone 20 mg] 20 mg PO DAILY #17 tablet Continue Metformin HCl 1000 mg [Glucophage 1000 MG] 1,000 mg PO BID Lisinopril [Zestril 40 mg] 40 mg PO BID Levothyroxine Sodium [Synthroid] 150 mcg PO QAM Clopidogrel Bisulfate 75 mg [PLAVIX 75 MG Tablet] 75 mg PO DAILY Atorvastatin Calcium [Lipitor] 80 mg PO QHS Aspirin [Aspirin EC] 325 mg PO QAM Ergocalciferol (Vitamin D2) [Vitamin D2] 50,000 iu PO UD Metoprolol Succinate [Toprol Xl] 200 mg PO HS Glipizide 5 mg PO BID Potassium Chloride [K-Tab ER] 10 meq PO DAILY Gabapentin [Neurontin] 600 mg PO TID Sennosides/Docusate Sodium [Stool Soft-Stimulant Lax Tab] 1 tab PO DAILY PRN PRN PRN Reason: Constipation Cyclobenzaprine HCl 10 mg [Cyclobenzaprine 10 MG] 10 mg PO DAILY PRN PRN PRN Reason: Pain Cilostazol [Pletal] 50 mg PO BID Acetaminophen [Acetaminophen Extra Strength] 500 mg PO Q4HPRN PRN PRN Reason: Pain Fluticasone Propionate [Flonase Nasal] 2 spray IH DAILY Citalopram Hydrobromide 20 mg* [ceLEXa 20 MG] 20 mg PO HS Ropinirole HCl [Requip] 3 mg PO BID Instructions: Pharyngitis/Tonsillopharyngitis -- Adult, Bronchitis, Quit Smoking Follow up with: ROLANDO SALMERON [Primary Care Provider] -
[2016-04-30] MEDS: ENOXAPARIN SODIUM SQ SCH (09:37)
[2016-04-30] MEDS ORDERED: SYNTHROID 125 MCG PO SCH (10:00)
[2016-04-30] MEDS ORDERED: FLUTICASONE PROPIONATE IH SCH (10:00)
[2016-04-30] MEDS ORDERED: Ecotrin 325 MG PO SCH (10:00)
[2016-04-30] MEDS ORDERED: Flonase NASAL NS SCH (10:00)
[2016-04-30] MEDS ORDERED: ECOTRIN 81 MG PO SCH (10:00)
== END 2016-04-30 10:20 | disposition home or self-care (01) ==
LOC: ED 19:50 → MED SURG 22:53
PROVIDERS: ADMIT Family Medicine; ATTEND Family Medicine
DX: J44.1 Chronic obstructive pulmonary disease with (acute) exacerbation (principal); N28.9 Disorder of kidney and ureter, unspecified; E83.42 Hypomagnesemia; E86.0 Dehydration; R00.0 Tachycardia, unspecified; I10 Essential (primary) hypertension; E11.9 Type 2 diabetes mellitus without complications; Z79.4 Long term (current) use of insulin; M19.90 Unspecified osteoarthritis, unspecified site; Z79.899 Other long term (current) drug therapy; I25.2 Old myocardial infarction; Z72.0 Tobacco use
CPT/HCPCS: 82962 ×3; 93268 ×2; 93041; 96374; 96365; 99285; 99284; 36000; 96360; 96361; 93005 ×2; 87040; 82150; 81000; 86308; 36415 ×3; 87430; 83690; 83880; 83735 ×3; 87070; 85025 ×3; 80048; 80053 ×2; 84484 ×2; 87631; 71010 ×2; 94640 ×5; 94760 ×2; P9612; G0378; J0456; J0696; J1650; J2550

== ENCOUNTER 2016-05-15 16:58 | Inpatient (IN) | payer MEDICARE ==
[2016-05-15] MEDS ORDERED: NovoLOG Insulin SQ PRN ×2 (17:27→19:15)
[2016-05-15] MEDS: DUONEB 0.5-3 MG/3 ml Neb IH SCH (17:31)
[2016-05-15 17:44] LABS: BASOPHIL % 0.2 % (0.0-0.4); Eosinophil % 0.2 % (0.00-5.0); Granulocytes % 73.6 % (36.0-66.0); Lymphocytes % 19.6 % (24.0-44.0); Mean Cell Volume 82.8 fl (78-100); Mean Corpuscular Hemoglobin 27.2 pg (26-32); Mean Platelet Volume 11.4 fl (6-9.5); Monocytes % 6.4 % (0.0-12.0); Platelet Count 346 K/mm3 (150-450); Red Blood Count 4.64 M/mm3 (4.1-5.4); Red Cell Distribution Width 14.9 % (11.5-14.0); White Blood Count 13.7 K/mm3 (4.0-10.5)
[2016-05-15 18:11] LABS: ALBUMIN 3.5 g/dL (3.4-5.0); ANION GAP 15.6 MEQ/L (5-15); BILIRUBIN,TOTAL 0.3 mg/dL (0.2-1.0); Carbon Dioxide 29.2 mEq/L (21-32); Potassium 4.7 mEq/L (3.5-5.1); Total Protein 7.7 gm/dL (6.4-8.2)
[2016-05-15] MEDS ORDERED: Senokot-S Tablet PO PRN (18:27)
[2016-05-15] MEDS ORDERED: TYLENOL EXTRA STRENGTH 500 MG PO PRN (18:27)
[2016-05-15] MEDS ORDERED: DUONEB 0.5-3 MG/3 ml Neb IH PRN (18:27)
[2016-05-15] MEDS ORDERED: Cyclobenzaprine 10 MG PO PRN (18:27)
[2016-05-15] MEDS: solu-MEDROL 40 MG IV SCH (18:57)
[2016-05-15] MEDS: ROCEPHIN 1 Gm-D5w 50 ml Bag** 50 ML IV SCH (19:00)
[2016-05-15] MEDS ORDERED: NovoLOG Insulin SQ ONE ×2 (19:15→21:54)
--- NOTE | 2016-05-15 21:28 | XRAY ---
Indication: COPD exacerbation. Bronchitis. Admission. Comparison: April 29, 2016. PA/lateral chest hyperinflated and clear. Heart and mediastinal structures are stable and within normal limits. No new/acute cardiopulmonary findings. Impression: Nonacute hyperinflated chest. Comment: Preliminary interpretation was made by [facility]. No discrepancy.
[2016-05-15] MEDS ORDERED: NON-FORMULARY ITEM (Gabapentin [Neurontin] 600 MG) PO SCH (22:00)
[2016-05-15] MEDS ORDERED: Lantus Insulin SQ SCH (22:00)
[2016-05-15] MEDS ORDERED: NON-FORMULARY ITEM (Atorvastatin Calcium [Lipitor] 80 MG) PO SCH (22:00)
[2016-05-15] MEDS ORDERED: ROPINIROLE HCL 3 MG PO SCH (22:00)
[2016-05-15] MEDS ORDERED: CILOSTAZOL 50 MG PO SCH (22:00)
[2016-05-15] MEDS: Zithromax 500 MG/ 250 ML NaCl Premix 250 ML IV SCH (22:14)
[2016-05-15] MEDS: Toprol Xl 100 MG PO SCH (22:15)
[2016-05-15] MEDS: NEURONTIN 300 MG PO SCH (22:15)
[2016-05-15] MEDS: ZOCOR 20MG PO SCH (22:15)
[2016-05-15] MEDS: REQUIP 2MG TAB PO SCH (22:15)
[2016-05-15] MEDS: ceLEXa 20 MG PO SCH (22:16)
[2016-05-16] MEDS: DUONEB 0.5-3 MG/3 ml Neb IH SCH ×4 (00:22→19:09)
[2016-05-16 00:52] LABS: Collection Type CLEAN CATCH
[2016-05-16 00:53] LABS: COMPLETE URINE MICROSCOPIC? NO
[2016-05-16] MEDS: solu-MEDROL 40 MG IV SCH ×2 (03:38→09:20)
[2016-05-16] MEDS: Ecotrin 325 MG PO SCH (09:16)
[2016-05-16] MEDS: NEURONTIN 300 MG PO SCH ×3 (09:16→22:51)
[2016-05-16] MEDS: REQUIP 2MG TAB PO SCH ×2 (09:16→22:51)
[2016-05-16] MEDS: Pletal 100 MG PO SCH ×2 (09:17→16:10)
[2016-05-16] MEDS: SYNTHROID 150 MCG PO SCH (09:17)
[2016-05-16] MEDS: Zestril 20 MG PO SCH (09:17)
[2016-05-16] MEDS: Klor Con 10 MEQ PO SCH (09:18)
[2016-05-16] MEDS: PLAVIX 75 MG Tablet PO SCH (09:18)
[2016-05-16] MEDS: ROCEPHIN 1 Gm-D5w 50 ml Bag** 50 ML IV SCH (09:18)
[2016-05-16] MEDS ORDERED: NON-FORMULARY ITEM (Lisinopril [Zestril 40 Mg] 40 MG) PO SCH (10:00)
[2016-05-16] MEDS ORDERED: ECOTRIN 81 MG PO SCH (10:00)
[2016-05-16] MEDS ORDERED: SYNTHROID 125 MCG PO SCH (10:00)
[2016-05-16] MEDS ORDERED: NovoLOG Insulin SQ PRN ×3 (11:57→18:10)
[2016-05-16] MEDS ORDERED: NovoLOG Insulin SQ ONE ×2 (17:40→21:32)
[2016-05-16] MEDS ORDERED: Lantus Insulin SQ ONE (17:40)
[2016-05-16] MEDS: Zithromax 500 MG/ 250 ML NaCl Premix 250 ML IV SCH (21:04)
[2016-05-16] MEDS: ZOCOR 20MG PO SCH (22:50)
[2016-05-16] MEDS: ceLEXa 20 MG PO SCH (22:51)
[2016-05-16] MEDS: Toprol Xl 100 MG PO SCH (22:51)
[2016-05-17] MEDS: DUONEB 0.5-3 MG/3 ml Neb IH SCH ×2 (00:14→06:29)
[2016-05-17] MEDS: NovoLOG Insulin SQ PRN ×2 (06:01→08:32)
[2016-05-17 07:50] VITALS: O2SAT 94
[2016-05-17] MEDS: ROCEPHIN 1 Gm-D5w 50 ml Bag** 50 ML IV SCH (08:30)
[2016-05-17] MEDS: REQUIP 2MG TAB PO SCH (08:30)
[2016-05-17] MEDS: Zestril 20 MG PO SCH (08:30)
[2016-05-17] MEDS: Klor Con 10 MEQ PO SCH (08:31)
[2016-05-17] MEDS: SYNTHROID 150 MCG PO SCH (08:31)
[2016-05-17] MEDS: Pletal 100 MG PO SCH (08:31)
[2016-05-17] MEDS: NEURONTIN 300 MG PO SCH (08:31)
[2016-05-17] MEDS: Ecotrin 325 MG PO SCH (08:32)
[2016-05-17] MEDS: PLAVIX 75 MG Tablet PO SCH (08:32)
[2016-05-17] MEDS ORDERED: DELTASONE 10 MG PO SCH (10:00)
--- NOTE | 2016-05-17 10:54 | PCM.DCORD ---
- Discharge Discharge Date: 05/17/16 Disposition: Home, Self-Care Condition: Stable Prescriptions: New Amoxicillin/Potassium Clav [Augmentin 875-125 Tablet] 1 each PO DAILY #14 tablet Prednisone 5 mg [Deltasone 5 mg] 5 mg PO DAILY #18 tablet Continue Metformin HCl 1000 mg [Glucophage 1000 MG] 1,000 mg PO BID Lisinopril [Zestril 40 mg] 40 mg PO DAILY Levothyroxine Sodium [Synthroid] 150 mcg PO QAM Clopidogrel Bisulfate 75 mg [PLAVIX 75 MG Tablet] 75 mg PO DAILY Atorvastatin Calcium [Lipitor] 80 mg PO QHS Aspirin [Aspirin EC] 325 mg PO QAM Ergocalciferol (Vitamin D2) [Vitamin D2] 50,000 iu PO UD Metoprolol Succinate [Toprol Xl] 200 mg PO HS Glipizide 5 mg PO BID Potassium Chloride [K-Tab ER] 10 meq PO DAILY Gabapentin [Neurontin] 600 mg PO TID Sennosides/Docusate Sodium [Stool Soft-Stimulant Lax Tab] 1 tab PO DAILY PRN PRN PRN Reason: Constipation Cyclobenzaprine HCl 10 mg [Cyclobenzaprine 10 MG] 10 mg PO DAILY PRN PRN PRN Reason: Pain Cilostazol [Pletal] 50 mg PO BID Acetaminophen [Acetaminophen Extra Strength] 500 mg PO Q4HPRN PRN PRN Reason: Pain Citalopram Hydrobromide 20 mg* [ceLEXa 20 MG] 20 mg PO HS Ropinirole HCl [Requip] 3 mg PO BID Albuterol/Ipratropium 3ml Neb* [DUONEB 0.5-3 MG/3 ml Neb] 3 ml IH Q4H PRN PRN #30 ampul.neb PRN Reason: Shortness Of Breath Discontinued Prednisone 20 mg [Deltasone 20 mg] 20 mg PO DAILY #17 tablet Follow up with: ROLANDO SALMERON [Primary Care Provider] - 1 Week Forms: Patient Portal Information
[2016-05-17 11:27] VITALS: BP 142/65; PULSE 91
--- NOTE | 2016-05-18 13:23 | SSS ---
DISCHARGE DIAGNOSES: 1) ACUTE EXACERBATION OF CHRONIC OBSTRUCTIVE PULMONARY DISEASE. 2) DIABETES MELLITUS. 3) HYPERGLYCEMIA. HISTORY: The patient is a 65 year-old white female who had presented to the hospital. She had been admitted a few weeks ago with bronchitis and pneumonia. The patient reports that she was not getting any better and actually getting worse with more shortness of breath. The patient was noted to be wheezing and was felt to need to be admitted to the hospital for evaluation and management. HOSPITAL COURSE: The patient was admitted to the hospital reid and started on Rocephin, Zithromax and given IV steroids. She did improve with her breathing. However her blood sugars were in the 600 range. The patient was treated with high dose sliding scale coverage and given additional coverage with 30 units of IV Humalog as well as 30 units of IV Lantus to get her sugars down. By the morning of 05/17/2016, the patient's sugar was down to 177. The patient was noted to have a sugar high of 601. Her other studies during her stay showed a normal UA other than glucose. She had BUN 53, creatinine 1.71. Sodium slightly low at 132 which was felt to be hyponatremia. Potassium was normal at 4.7. Liver enzymes were normal. Hemoglobin A1C was noted to be 12.6. Her CBC showed a white blood cell count 13,700, hemoglobin 12.6, PLT 346,000. There appeared to be a mild left shift with 73.6% granulocytes. The patient's chest x-ray showed nonacute hyperinflated chest. The patient was treated for exacerbation of chronic obstructive pulmonary disease. She is being sent home on prednisone 15 mg for three days, 10 mg for three days, and then 5 mg for three days and then Augmentin 875 mg twice a day. The patient does not wear home oxygen but she does have a nebulizer machine at home for her use. She was instructed to continue her usual home medications and follow up with her doctor next week.
== END 2016-05-17 11:45 | disposition home or self-care (01) | DRG 192 ==
LOC: MED SURG 16:58
PROVIDERS: ADMIT Family Medicine; ATTEND Family Medicine
DX: J44.1 Chronic obstructive pulmonary disease with (acute) exacerbation (principal); E11.65 Type 2 diabetes mellitus with hyperglycemia; E03.9 Hypothyroidism, unspecified; I25.2 Old myocardial infarction
CPT/HCPCS: 36415; 71020; 80053; 81002; 82947; 82962; 83036; 85025; 94640; 94760; J0456; J0696; J2920; J7506

== ENCOUNTER 2017-09-23 18:55 | Emergency (ER) | payer MEDICARE ==
[2017-09-23 19:20] VITALS: BP 129/82
--- NOTE | 2017-09-23 19:21 | ERPHSYRPT ---
- History of Present Illness Time Seen by Provider: 09/23/17 19:10 Source: patient Exam Limitations: no limitations Physician History: 66 y/o female comes to the ER after having a repeat CBC that showed a Hgb of 7.7. Last week the Hgb was 8.6. Pt mentions she last received a blood transfusion many years ago and had a colonoscopy 15 years ago. Pt denies any dizziness, chest pain, shortness of breath, palpitations, blurry vision, hematochezia or melena. Timing/Duration: today Severity: mild Modifying Factors: Improves With: nothing Associated Symptoms: denies symptoms Allergies/Adverse Reactions: No Known Drug Allergies Allergy (Verified 09/23/17 19:20) Home Medications: Aspirin [Aspirin EC] 325 mg PO QAM 10/09/13 [History] Atorvastatin Calcium [Lipitor] 40 mg PO QHS 10/09/13 [History] Clopidogrel Bisulfate 75 mg [PLAVIX 75 MG Tablet] 75 mg PO DAILY 10/09/13 [History] Levothyroxine Sodium [Synthroid] 88 mcg PO QAM 10/09/13 [History] Lisinopril [Zestril 40 mg] 20 mg PO DAILY 10/09/13 [History] Metformin HCl 1000 mg [Glucophage 1000 MG] 1,000 mg PO BID 10/09/13 [History] Acetaminophen [Acetaminophen Extra Strength] 500 mg PO Q4HPRN PRN 02/03/15 [ History] Cyclobenzaprine HCl 10 mg [Cyclobenzaprine 10 MG] 10 mg PO DAILY PRN PRN 02/03/15 [History] Ergocalciferol (Vitamin D2) [Vitamin D2] 50,000 iu PO UD 02/03/15 [History] Gabapentin [Neurontin] 600 mg PO TID 02/03/15 [History] Glipizide 5 mg PO BID 02/03/15 [History] Metoprolol Succinate [Toprol Xl] 100 mg PO HS 02/03/15 [History] Potassium Chloride [K-Tab ER] 10 meq PO DAILY 02/03/15 [History] Sennosides/Docusate Sodium [Stool Softener-Stim Lax Tablet] 1 tab PO DAILY PRN PRN 02/03/15 [History] Ropinirole HCl [Requip] 3 mg PO TID 04/19/15 [History] Albuterol Sulfate [Ventolin Hfa] 18 gm IH Q4HPRN PRN 08/17/17 [History] Budesonide/Formoterol Fumarate [Symbicort 160-4.5 Mcg Inhaler] 10.2 gm IH BID [History] Calcium Carbonate/Vitamin D3 [Calcium 600 + Vit D Tablet] 1 each PO DAILY [History] Duloxetine HCl 30 mg [Cymbalta 30 MG Capsule] 30 mg PO DAILY 08/17/17 [ History] Duloxetine HCl [Cymbalta] 60 mg PO DAILY 08/17/17 [History] Fluticasone/Salmeterol [Advair 250-50 Diskus] 1 puff IH BID 08/17/17 [History] Furosemide 40 mg [Lasix 40 MG] 40 mg PO DAILY 08/17/17 [History] Insulin Aspart [Novolog Flexpen] 15 unit SQ TID 08/17/17 [History] Insulin Degludec [Tresiba Flextouch U-200] 60 unit SQ DAILY 08/17/17 [History] Levothyroxine Sodium 75 Mcg [Synthroid 75 Mcg] 75 mcg PO DAILY 08/17/17 [ History] Promethazine HCl 25 mg PO Q8HPRN PRN 08/17/17 [History] Tiotropium [place] Inhaler [Spiriva 18 Mcg/Cap Inhaler] 1 puff IH DAILY [History] Amitriptyline HCl 25 mg [Elavil 25 mg] 25 mg PO HS 08/19/17 [History] Aspirin EC 325 mg [Ecotrin 325 MG] 325 mg PO DAILY 08/19/17 [History] Celecoxib 100 mg [celeBREX 100 MG] 100 mg PO DAILY 08/19/17 [History] Methocarbamol [Robaxin-750] 750 mg PO HS 08/19/17 [History] Hx Tetanus, Diphtheria Vaccination/Date Given: (5 years ago) Hx Influenza Vaccination/Date Given: Yes Hx Pneumococcal Vaccination/Date Given: Yes - Review of Systems Constitutional: No Fever, No Chills Eyes: No Symptoms Ears, Nose, & Throat: No Symptoms Respiratory: No Cough, No Dyspnea Cardiac: No Chest Pain, No Edema, No Syncope Abdominal/Gastrointestinal: No Abdominal Pain, No Nausea, No Vomiting, No Diarrhea Genitourinary Symptoms: No Dysuria Musculoskeletal: No Back Pain, No Neck Pain Skin: No Rash Neurological: No Dizziness, No Focal Weakness, No Sensory Changes Psychological: No Symptoms Endocrine: No Symptoms All Other Systems: Reviewed and Negative - Past Medical History Pertinent Past Medical History: Yes Neurological History: No Pertinent History ENT History: No Pertinent History Cardiac History: High Cholesterol, Hypertension, Myocardial Infarction ([place]) Respiratory History: COPD Endocrine Medical History: Diabetes Type II, Other Musculoskeletal History: Fractures, Osteoarthritis GI Medical History: No Pertinent History History: No Pertinent History Psycho-Social History: Depression Female Reproductive Disorders: No Pertinent History Other Medical History: THYROID NODULE, HX [place] WITHOUT SURGERY, R ANKLE FX W/ ORIF 2007 - Past Surgical History Past Surgical History: Yes Neuro Surgical History: No Pertinent History Cardiac: No Pertinent History Respiratory: No Pertinent History Gastrointestinal: No Pertinent History Genitourinary: No Pertinent History Musculoskeletal: Other Female Surgical History: Tubal Ligation Other Surgical History: RIGHT ANKLE SURGERY, thyroidectomy - Social History Smoking Status: Current every day smoker How long have you smoked: 30 years Exposure to second hand smoke: Yes Drug Use: none Patient Lives Alone: No - Nursing Vital Signs Nursing Vital Signs: Initial Vital Signs Temperature 99 F 09/23/17 19:05 Pulse Rate 94 H 09/23/17 19:05 Respiratory Rate 18 09/23/17 19:05 Blood Pressure 129/82 09/23/17 19:05 O2 Sat by Pulse Oximetry 96 09/23/17 19:05 Pain Scale Pain Intensity 0 - Physical Exam General Appearance: no apparent distress, alert Eye Exam: PERRL/EOMI, pale conjunctivae Ears, Nose, Throat Exam: normal ENT inspection, TMs normal, pharynx normal, moist mucous membranes Neck Exam: normal inspection, non-tender, supple, full range of motion Respiratory Exam: normal breath sounds, lungs clear, No respiratory distress Cardiovascular Exam: regular rate/rhythm, normal heart sounds, normal peripheral pulses Gastrointestinal/Abdomen Exam: soft, normal bowel sounds, No tenderness, No mass Back Exam: normal inspection, normal range of motion, No CVA tenderness, No vertebral tenderness Extremity Exam: normal inspection, normal range of motion, pelvis stable Neurologic Exam: alert, oriented x 3, cooperative, normal mood/affect, nml cerebellar function, nml station & gait, sensation nml, No motor deficits Skin Exam: normal color, warm, dry, No rash Lymphatic Exam: No adenopathy - Course Nursing assessment & vital signs reviewed: Yes EKG Interpreted by Me: RATE, NORMAL AXIS, NORMAL INTERVALS, NORMAL QRS Ordered Tests: Active Orders 24 hr Category Date Time Status Line Puller STAT Care 09/23/17 19:15 Active EKG-ER Only STAT Care 09/23/17 19:13 Active IV Insertion STAT Care 09/23/17 19:13 Active CBC W DIFF Stat Lab 09/23/17 19:15 Completed CK-Creatinine Phosphokinase Stat Lab 09/23/17 19:15 Completed CMP Stat Lab 09/23/17 19:15 Completed MAGNESIUM Stat Lab 09/23/17 19:15 Completed PROTIME WITH INR Stat Lab 09/23/17 19:15 Completed PTT Stat Lab 09/23/17 19:15 Completed TROPONIN Q3H Lab 09/23/17 19:15 Completed TROPONIN Q3H Lab 09/23/17 22:15 Ordered TROPONIN Q3H Lab 09/24/17 01:15 Ordered TROPONIN Q3H Lab 09/24/17 04:15 Ordered TROPONIN Q3H Lab 09/24/17 07:15 Ordered Respiratory Nebulizer STAT RT 09/23/17 19:37 Active Medication Summary Discontinued Medications Generic Name Dose Route Start Last Admin Trade Name Freq PRN Reason Stop Dose Admin Albuterol/Ipratropium 3 ml 09/23/17 19:37 09/23/17 20:11 Duoneb 0.5-3 Mg/3 Ml Neb IH 09/23/17 19:38 3 ml STAT ONE Administration Albuterol/Ipratropium Confirm 09/23/17 20:07 Duoneb 0.5-3 Mg/3 Ml Neb Administered 09/23/17 20:08 Dose 3 ml IH .STK-MED ONE Lab/Rad Data: Laboratory Result Diagrams 09/23/17 19:15 09/23/17 19:15 Laboratory Results 09/23/17 09/23/17 09/23/17 Range/Units 19:15 19:15 19:15 WBC (4.0-10.5) K/mm3 RBC (4.1-5.4) M/mm3 Hgb (12.0-16.0) gm/dl Hct (35-47) % MCV (78-100) fl MCH (26-32) pg MCHC (32-36) g/dl RDW (11.5-14.0) % Plt Count (150-450) K/mm3 MPV (6-9.5) fl Gran % (36.0-66.0) % Eos # (Auto) (0-0.5) Absolute Lymphs (auto) (1.0-4.6) Absolute Monos (auto) (0.0-1.3) Lymphocytes % (24.0-44.0) % Monocytes % (0.0-12.0) % Eosinophils % (0.00-5.0) % Basophils % (0.0-0.4) % Absolute Granulocytes (1.4-6.9) Basophils # (0-0.4) PT 11.3 (9.95-12.35) SECONDS INR 0.97 (0.8-3.0) APTT 29.8 (25.3-37.0) SECONDS Sodium (137-145) mmol/L Potassium (3.5-5.1) mmol/L Chloride (98-107) mmol/L Carbon Dioxide (22-30) mmol/L Anion Gap (5-15) MEQ/L BUN (7-17) mg/dL Creatinine (0.52-1.04) mg/dL Estimated GFR ML/MIN Glucose (74-106) mg/dL Calcium (8.4-10.2) mg/dL Magnesium (1.6-2.3) mg/dL Total Bilirubin (0.2-1.3) mg/dL AST (14-36) U/L ALT (0-35) U/L Alkaline Phosphatase (38-126) U/L Creatine Kinase (30-135) U/L Troponin I < 0.012 (0.000-0.034) ng/mL Serum Total Protein (6.3-8.2) g/dL Albumin (3.5-5.0) g/dL ABO Group A Rh Factor POSITIVE Antibody Screen NEGATIVE (NEGATIVE) 09/23/17 09/23/17 Range/Units 19:15 19:15 WBC 9.5 (4.0-10.5) K/mm3 RBC 3.72 L (4.1-5.4) M/mm3 Hgb 8.0 L (12.0-16.0) gm/dl Hct 25.8 L (35-47) % MCV 69.4 L (78-100) fl MCH 21.5 L (26-32) pg MCHC 31.0 L (32-36) g/dl RDW 17.4 H (11.5-14.0) % Plt Count 334 (150-450) K/mm3 MPV 9.8 H (6-9.5) fl Gran % 75.1 H (36.0-66.0) % Eos # (Auto) 0.11 (0-0.5) Absolute Lymphs (auto) 1.67 (1.0-4.6) Absolute Monos (auto) 0.56 (0.0-1.3) Lymphocytes % 17.7 L (24.0-44.0) % Monocytes % 5.9 (0.0-12.0) % Eosinophils % 1.2 (0.00-5.0) % Basophils % 0.1 (0.0-0.4) % Absolute Granulocytes 7.11 H (1.4-6.9) Basophils # 0.01 (0-0.4) PT (9.95-12.35) SECONDS INR (0.8-3.0) APTT (25.3-37.0) SECONDS Sodium 129 L (137-145) mmol/L Potassium 4.3 (3.5-5.1) mmol/L Chloride 90 L (98-107) mmol/L Carbon Dioxide 29 (22-30) mmol/L Anion Gap 15.5 H (5-15) MEQ/L BUN 14 (7-17) mg/dL Creatinine 1.09 H (0.52-1.04) mg/dL Estimated GFR 53.4 ML/MIN Glucose 150 H (74-106) mg/dL Calcium 7.3 L (8.4-10.2) mg/dL Magnesium 1.3 L (1.6-2.3) mg/dL Total Bilirubin 0.30 (0.2-1.3) mg/dL AST 17 (14-36) U/L ALT 11 (0-35) U/L Alkaline Phosphatase 105 (38-126) U/L Creatine Kinase 44 (30-135) U/L Troponin I (0.000-0.034) ng/mL Serum Total Protein 7.3 (6.3-8.2) g/dL Albumin 4.4 (3.5-5.0) g/dL ABO Group Rh Factor Antibody Screen (NEGATIVE) - Progress Progress: improved Progress Note: 09/23/17 20:49 Pt has a Hgb of 8.0 and remains asymptomatic. From previous labs, patient has Fe deficiency anemia. Pt will be started on iron supplementation. I spoke to Dr Jorge who agrees that the patient does not need any blood transfusion. Pt has agreed to F/U with Dr Fernandez as an outpatient next week. - Departure Time of Disposition: 20:51 Departure Disposition: Home Clinical Impression: Iron deficiency anemia Qualifiers: Iron deficiency anemia type: unspecified iron deficiency Qualified Code(s): D50.9 - Iron deficiency anemia, unspecified Condition: Stable Critical Care Time: No Referrals: ROLANDO FERNANDEZ [Primary Care Provider] - Instructions: Anemia Caused by Low Iron, Adult (DC) Additional Instructions: Follow up with Dr Fernandez next week. Return to the ER if you should have any dizziness, shortness of breath, chest pain or worsening weakness. Prescriptions: Ferrous Sulfate 325 mg PO TID #90 tablet
[2017-09-23 19:28] LABS: BASOPHIL % 0.1 % (0.0-0.4); Basophil (Absolute #) 0.01 (0-0.4); Eosinophil % 1.2 % (0.00-5.0); Eosinophil (Absolute #) 0.11 (0-0.5); Granulocyte Absolute (ANC) 7.11 (1.4-6.9); Granulocytes % 75.1 % (36.0-66.0); Hematocrit 25.8 % (35-47); Lymphocyte (Absolute #) 1.67 (1.0-4.6); Lymphocytes % 17.7 % (24.0-44.0); Mean Cell Volume 69.4 fl (78-100); Mean Corpuscular Hemoglobin 21.5 pg (26-32); Mean Platelet Volume 9.8 fl (6-9.5); Monocyte (Absolute #) 0.56 (0.0-1.3); Monocytes % 5.9 % (0.0-12.0); Platelet Count 334 K/mm3 (150-450); Red Blood Count 3.72 M/mm3 (4.1-5.4); Red Cell Distribution Width 17.4 % (11.5-14.0); White Blood Count 9.5 K/mm3 (4.0-10.5)
[2017-09-23] MEDS ORDERED: DUONEB 0.5-3 MG/3 ml Neb IH ONE ×2 (19:37→20:07)
[2017-09-23 19:49] LABS: INR 0.97 (0.8-3.0)
[2017-09-23 19:51] LABS: PTT 29.8 SECONDS (25.3-37.0)
[2017-09-23 19:52] LABS: ALBUMIN 4.4 g/dL (3.5-5.0); ANION GAP 15.5 MEQ/L (5-15); BILIRUBIN,TOTAL 0.3 mg/dL (0.2-1.3); Calcium 7.3 mg/dL (8.4-10.2); Creatinine 1 1.09 mg/dL (0.52-1.04); Potassium 4.3 mmol/L (3.5-5.1); Total Protein 7.3 g/dL (6.3-8.2)
[2017-09-23 20:39] LABS: ABO TYPING A; Antibody Screen NEGATIVE (NEGATIVE); RH TYPING POSITIVE
[2017-09-23 21:21] VITALS: PULSE 90; O2SAT 96
== END 2017-09-23 21:26 | disposition home or self-care (01) ==
LOC: ED 18:55
DX: D50.9 Iron deficiency anemia, unspecified (principal); Z79.82 Long term (current) use of aspirin; Z79.899 Other long term (current) drug therapy
CPT/HCPCS: 36000; 36415; 80053; 82550; 83735; 84484; 85025; 85610; 85730; 86850; 86900; 86901; 93005; 93041; 94640; 99284; A9270-GY

== ENCOUNTER 2018-07-15 20:06 | Inpatient (IN) | payer MEDICARE ==
[~2018-07-15 20:06] MED LIST: Calcium 500MG W/Vit D Tablet ONE; Cymbalta 30 MG Capsule ONE; DUONEB 0.5-3 MG/3 ml Neb IH ONE; Neurontin 400 MG ONE; NovoLOG Insulin ONE; PLAVIX 75 MG Tablet ONE; REQUIP 2MG TAB ONE; ROCEPHIN 1 Gm-D5w 50 ml Bag** 1 G/50 ML IVPB IV ONE; Toprol Xl 100 MG PO ONE; Toprol Xl 50 MG PO ONE; Zithromax 500 MG/ 250 ML NaCl Premix 500 MG/250 ML IVPB IV ONE
[2018-07-15] MEDS ORDERED: TYLENOL 325 MG PO ONE (20:14)
[2018-07-15] MEDS ORDERED: solu-MEDROL 125 MG IV ONE (20:14)
[2018-07-15] MEDS ORDERED: ROCEPHIN 1 Gm-D5w 50 ml Bag** 1 G/50 ML IVPB IV STA (20:14)
[2018-07-15] MEDS ORDERED: DUONEB 0.5-3 MG/3 ml Neb IH ONE ×2 (20:14→20:39)
[2018-07-15] MEDS ORDERED: Zithromax 500 MG/ 250 ML NaCl Premix 500 MG/250 ML IVPB IV STA (20:14)
[2018-07-15 20:49] LABS: BASOPHIL % 0.1 % (0.0-0.4); Basophil (Absolute #) 0.02 (0-0.4); Eosinophil % 0.1 % (0.00-5.0); Eosinophil (Absolute #) 0.02 (0-0.5); Granulocyte Absolute (ANC) 18.03 (1.4-6.9); Granulocytes % 89.6 % (36.0-66.0); Lymphocyte (Absolute #) 1.21 (1.0-4.6); Mean Cell Volume 75.9 fl (78-100); Mean Corpuscular Hgb Concent. 31.4 g/dl (32-36); Mean Platelet Volume 10.1 fl (6-9.5); Monocyte (Absolute #) 0.84 (0.0-1.3); Monocytes % 4.2 % (0.0-12.0); Platelet Count 298 K/mm3 (150-450); Red Blood Count 4.61 M/mm3 (4.1-5.4); Red Cell Distribution Width 17.1 % (11.5-14.0); White Blood Count 20.1 K/mm3 (4.0-10.5)
[2018-07-15 21:00] LABS: ALBUMIN 4.4 g/dL (3.5-5.0); ANION GAP 19.2 MEQ/L (5-15); BILIRUBIN,TOTAL 0.8 mg/dL (0.2-1.3); Calcium 7.2 mg/dL (8.4-10.2); Creatinine 1 1.11 mg/dL (0.52-1.04); Mean Corpuscular Hemoglobin 23.8 pg (26-32); Potassium 4.1 mmol/L (3.5-5.1); Total Protein 8.2 g/dL (6.3-8.2)
[2018-07-15] MEDS ORDERED: TYLENOL 325 MG ONE (21:03)
[2018-07-15] MEDS ORDERED: solu-MEDROL 125 MG ONE (21:03)
[2018-07-15] MEDS ORDERED: Zithromax 500 MG/ 250 ML NaCl Premix 500 MG/250 ML IVPB IV ONE ×2 (21:04→22:19)
[2018-07-15] MEDS ORDERED: ROCEPHIN 1 Gm-D5w 50 ml Bag** 1 G/50 ML IVPB IV ONE (21:04)
[2018-07-15 21:19] LABS: Slide Review 1 YES
[2018-07-15 21:27] LABS: INFLUENZA A NEGATIVE (NEGATIVE); INFLUENZA B NEGATIVE (NEGATIVE); RESPIRATORY SYNCTIAL VIRUS NEGATIVE (Negative)
[2018-07-15] MEDS ORDERED: Lasix 40 MG/4 ML IV ONE (21:31)
--- NOTE | 2018-07-15 22:04 | ERPHSYRPT ---
- History of Present Illness Source: patient Exam Limitations: no limitations Patient Subjective Stated Complaint: family states that pt has had pne and was sick from february until may. states she started coughing again on wednesday and has had fever today of 101.4- no tylenol or motrin taken at home. family states pt was seen by social economist today. Triage Nursing Assessment: pt alert and oreinted, answers questions approp. pt in per wheelchiar, transfer to stretcher with assist of 2. respirations nonlabored. lungs with insp and exp wheezes and coarse. skin warm and dry. heart rate Physician History: Pt is a 67 y/o female with a h/o PNA. She presented to the ED complaining of cough, SOB and fever. Pt is a smoker and smokes 1-2 ppd. She does have a h/o COPD and CHF. Today, secondary to her dyspnea, she came to the ED. Pt denies chest pain or palpitations. Nop N/V/D or abdominal pain. No dysuria, frequency and urgency. Timing/Duration: day(s) Activities at Onset: none Severity of Dyspnea-Max: moderate Severity of Dyspnea-Current: moderate Possible Cause: occasional episodes Modifying Factors: Improves With: albuterol nebulizer, exertion, oxygen Associated Symptoms: cough, edema, fever, wheezing, weakness, leg swelling Allergies/Adverse Reactions: No Known Drug Allergies Allergy (Verified 07/15/18 20:26) Home Medications: Aspirin [Aspirin EC] 325 mg PO QAM 10/09/13 [History] Atorvastatin Calcium [Lipitor] 40 mg PO QHS 10/09/13 [History] Clopidogrel Bisulfate 75 mg [PLAVIX 75 MG Tablet] 75 mg PO DAILY 10/09/13 [History] Levothyroxine Sodium [Synthroid] 88 mcg PO QAM 10/09/13 [History] Lisinopril [Zestril 40 mg] 20 mg PO DAILY 10/09/13 [History] Metformin HCl 1000 mg [Glucophage 1000 MG] 1,000 mg PO BID 10/09/13 [History] Acetaminophen [Acetaminophen Extra Strength] 500 mg PO Q4HPRN PRN 02/03/15 [ History] Cyclobenzaprine HCl 10 mg [Cyclobenzaprine 10 MG] 10 mg PO DAILY PRN PRN 02/03/15 [History] Ergocalciferol (Vitamin D2) [Vitamin D2] 50,000 iu PO UD 02/03/15 [History] Gabapentin [Neurontin] 600 mg PO TID 02/03/15 [History] Glipizide 5 mg PO BID 02/03/15 [History] Metoprolol Succinate [Toprol Xl] 100 mg PO HS 02/03/15 [History] Potassium Chloride [K-Tab ER] 10 meq PO DAILY 02/03/15 [History] Sennosides/Docusate Sodium [Stool Softener-Stim Lax Tablet] 1 tab PO DAILY PRN PRN 02/03/15 [History] Ropinirole HCl [Requip] 3 mg PO TID 04/19/15 [History] Albuterol Sulfate [Ventolin Hfa] 18 gm IH Q4HPRN PRN 08/17/17 [History] Budesonide/Formoterol Fumarate [Symbicort 160-4.5 Mcg Inhaler] 10.2 gm IH BID [History] Calcium Carbonate/Vitamin D3 [Calcium 600 + Vit D Tablet] 1 each PO DAILY [History] Duloxetine HCl 30 mg [Cymbalta 30 MG Capsule] 30 mg PO DAILY 08/17/17 [ History] Duloxetine HCl [Cymbalta] 60 mg PO DAILY 08/17/17 [History] Fluticasone/Salmeterol [Advair 250-50 Diskus] 1 puff IH BID 08/17/17 [History] Furosemide 40 mg [Lasix 40 MG] 40 mg PO DAILY 08/17/17 [History] Insulin Aspart [Novolog Flexpen] 15 unit SQ TID 08/17/17 [History] Insulin Degludec [Tresiba Flextouch U-200] 60 unit SQ DAILY 08/17/17 [History] Levothyroxine Sodium 75 Mcg [Synthroid 75 Mcg] 75 mcg PO DAILY 08/17/17 [ History] Promethazine HCl 25 mg PO Q8HPRN PRN 08/17/17 [History] Tiotropium [place] Inhaler [Spiriva 18 Mcg/Cap Inhaler] 1 puff IH DAILY [History] Amitriptyline HCl 25 mg [Elavil 25 mg] 25 mg PO HS 08/19/17 [History] Aspirin EC 325 mg [Ecotrin 325 MG] 325 mg PO DAILY 08/19/17 [History] Celecoxib 100 mg [celeBREX 100 MG] 100 mg PO DAILY 08/19/17 [History] Methocarbamol [Robaxin-750] 750 mg PO HS 08/19/17 [History] Hx Tetanus, Diphtheria Vaccination/Date Given: Yes (5 years ago) Hx Influenza Vaccination/Date Given: Yes Hx Pneumococcal Vaccination/Date Given: Yes Immunizations Up to Date: Yes - Review of Systems Constitutional: Fever, Lethargy, Weakness Eyes: No Symptoms Ears, Nose, & Throat: No Symptoms Respiratory: Cough, Dyspnea, Dyspnea on Exertion (FOSTER), Wheezing Cardiac: Edema Abdominal/Gastrointestinal: No Abdominal Pain, No Nausea, No Vomiting, No Diarrhea Genitourinary Symptoms: No Dysuria Musculoskeletal: No Back Pain, No Neck Pain Skin: No Rash Neurological: No Dizziness, No Focal Weakness, No Sensory Changes Psychological: No Symptoms - Past Medical History Pertinent Past Medical History: Yes Neurological History: No Pertinent History ENT History: No Pertinent History Cardiac History: High Cholesterol, Hypertension, Myocardial Infarction (PR) Respiratory History: COPD Endocrine Medical History: Diabetes Type II, Other Musculoskeletal History: Fractures, Osteoarthritis GI Medical History: No Pertinent History History: No Pertinent History Psycho-Social History: Depression Female Reproductive Disorders: No Pertinent History Other Medical History: THYROID NODULE, HX PR WITHOUT SURGERY, R ANKLE FX W/ ORIF 2007 - Past Surgical History Past Surgical History: Yes Neuro Surgical History: No Pertinent History Cardiac: No Pertinent History Respiratory: No Pertinent History Gastrointestinal: No Pertinent History Genitourinary: No Pertinent History Musculoskeletal: Other Female Surgical History: Tubal Ligation Other Surgical History: RIGHT ANKLE SURGERY, thyroidectomy - Social History Smoking Status: Current every day smoker How long have you smoked: years Exposure to second hand smoke: Yes Drug Use: none Patient Lives Alone: No - Nursing Vital Signs Nursing Vital Signs: Initial Vital Signs Temperature 101.9 F 07/15/18 20:12 Pulse Rate 115 H 07/15/18 20:12 Respiratory Rate 32 H 07/15/18 20:12 Blood Pressure 146/64 07/15/18 20:12 O2 Sat by Pulse Oximetry 95 07/15/18 20:12 Pain Scale Pain Intensity 0 - Physical Exam General Appearance: moderate distress, lethargy Eye Exam: PERRL/EOMI Neck Exam: normal inspection, supple Respiratory Exam: respiratory distress, accessory muscle use, rhonchi, wheezing Cardiovascular/Chest Exam: normal heart sounds, regular rate/rhythm, tachycardia Abdominal/Gastrointestinal Exam: soft, No tenderness, No distention, No mass Extremity Exam: non-tender, normal range of motion, normal inspection, no calf tenderness, swelling Neurologic Exam: alert, oriented x 3, cooperative, japanese tutor II-XII nml as tested, sensation nml, No motor deficits Skin Exam: normal color, warm, No dry SpO2 Interpretation: hypoxic SpO2: 93 O2 Delivery: Nasal Cannula - Course Nursing assessment & vital signs reviewed: Yes Ordered Tests: Active Orders 24 hr Category Date Time Status EKG-ER Only STAT Care 07/15/18 20:23 Active IV Insertion STAT Care 07/15/18 20:14 Active CHEST 1 VIEW (PORTABLE) Stat Exams 07/15/18 20:16 Completed CHEST WITH CONTRAST [CT] Stat Exams 07/15/18 22:54 Taken BLOOD CULTURE Stat Lab 07/15/18 20:39 Received BNP [NT PRO BNP] Stat Lab 07/15/18 20:22 Completed CBC W DIFF Stat Lab 07/15/18 20:25 Completed CMP Stat Lab 07/15/18 20:25 Completed CULTURE,SPUTUM Stat Lab 07/15/18 20:15 Uncollected D-DIMER QUANTITATION Stat Lab 07/15/18 22:36 Completed TROPONIN Q3H Lab 07/15/18 20:30 Completed TROPONIN Q3H Lab 07/15/18 23:30 Ordered UA W/RFX UR CULTURE Stat Lab 07/16/18 00:54 Received Peak Expiratory Flow Rate ONCE RT 07/15/18 20:14 Active Respiratory Nebulizer STAT RT 07/15/18 20:17 Completed Respiratory Therapy Assessment UD RT 07/15/18 20:54 Active Medication Summary Discontinued Medications Generic Name Dose Route Start Last Admin Trade Name Freq PRN Reason Stop Dose Admin Acetaminophen 975 mg 07/15/18 20:14 07/15/18 21:07 Tylenol 325 Mg PO 07/15/18 20:15 975 mg STAT ONE Administration Acetaminophen Confirm 07/15/18 21:03 Tylenol 325 Mg Administered 07/15/18 21:04 Dose 975 mg .ROUTE .STK-MED ONE Albuterol/Ipratropium 3 ml 07/15/18 20:14 07/15/18 20:40 Duoneb 0.5-3 Mg/3 Ml Neb IH 07/15/18 20:15 3 ml STAT ONE Administration Albuterol/Ipratropium Confirm 07/15/18 20:39 Duoneb 0.5-3 Mg/3 Ml Neb Administered 07/15/18 20:40 Dose 3 ml IH .STK-MED ONE Furosemide 40 mg 07/15/18 21:31 07/15/18 22:23 Lasix 40 Mg/4 Ml IV 07/15/18 21:32 40 mg STAT ONE Administration Furosemide Confirm 07/15/18 22:18 Lasix 40 Mg/4 Ml Administered 07/15/18 22:19 Dose 40 mg .ROUTE .STK-MED ONE Ceftriaxone Sodium/Dextrose 1 g in 50 mls @ 100 mls/hr 07/15/18 20:14 21:09 Rocephin 1 Gm-D5w 50 Ml Bag IV 07/15/18 20:43 100 ml/hr STAT STA 100 mls/hr Administration Azithromycin 500 mg in 250 mls @ 250 mls/hr 07/15/18 20:14 07/15/18 22:23 Zithromax 500 Mg/ 250 Ml Nacl Premix IV 07/15/18 21:13 250 mls/hr STAT STA Administration Azithromycin Confirm 07/15/18 21:04 Zithromax 500 Mg/ 250 Ml Nacl Premix Administered 07/15/18 21:05 Dose 500 mg in 250 mls @ ud IV .STK-MED ONE Ceftriaxone Sodium/Dextrose Confirm 07/15/18 21:04 Rocephin 1 Gm-D5w 50 Ml Bag Administered 07/15/18 21:05 Dose 1 g in 50 mls @ ud IV .STK-MED ONE Azithromycin Confirm 07/15/18 22:19 Zithromax 500 Mg/ 250 Ml Nacl Premix Administered 07/15/18 22:20 Dose 500 mg in 250 mls @ ud IV .STK-MED ONE Methylprednisolone Sodium Succinate 125 mg 07/15/18 20:14 07/15/18 21:08 Solu-Medrol 125 Mg IV 07/15/18 20:15 125 mg STAT ONE Administration Methylprednisolone Sodium Succinate Confirm 07/15/18 21:03 Solu-Medrol 125 Mg Administered 07/15/18 21:04 Dose 125 mg .ROUTE .STK-MED ONE Lab/Rad Data: Laboratory Result Diagrams 07/15/18 20:25 07/15/18 20:25 Laboratory Results 07/15/18 07/15/18 07/15/18 Range/Units 22:36 20:30 20:25 WBC (4.0-10.5) K/mm3 RBC (4.1-5.4) M/mm3 Hgb (12.0-16.0) gm/dl Hct (35-47) % MCV (78-100) fl MCH (26-32) pg MCHC (32-36) g/dl RDW (11.5-14.0) % Plt Count (150-450) K/mm3 MPV (6-9.5) fl Gran % (36.0-66.0) % Eos # (Auto) (0-0.5) Absolute Lymphs (auto) (1.0-4.6) Absolute Monos (auto) (0.0-1.3) Lymphocytes % (24.0-44.0) % Monocytes % (0.0-12.0) % Eosinophils % (0.00-5.0) % Basophils % (0.0-0.4) % Absolute Granulocytes (1.4-6.9) Basophils # (0-0.4) D-Dimer 782 H* (215-500) ng/mL Sodium (137-145) mmol/L Potassium (3.5-5.1) mmol/L Chloride (98-107) mmol/L Carbon Dioxide (22-30) mmol/L Anion Gap (5-15) MEQ/L BUN (7-17) mg/dL Creatinine (0.52-1.04) mg/dL Estimated GFR ML/MIN Glucose (74-106) mg/dL Calcium (8.4-10.2) mg/dL Total Bilirubin (0.2-1.3) mg/dL AST (14-36) U/L ALT (0-35) U/L Alkaline Phosphatase (38-126) U/L Troponin I < 0.012 (0.000-0.034) ng/mL NT-Pro-B Natriuret Pep (0-900) pg/mL Serum Total Protein (6.3-8.2) g/dL Albumin (3.5-5.0) g/dL Influenza Type A Ag NEGATIVE (NEGATIVE) Influenza Type B Ag NEGATIVE (NEGATIVE) RSV (PCR) NEGATIVE (Negative) Slides for Path Review 07/15/18 07/15/18 07/15/18 Range/Units 20:25 20:25 20:22 WBC 20.1 H (4.0-10.5) K/mm3 RBC 4.61 (4.1-5.4) M/mm3 Hgb 11.0 L (12.0-16.0) gm/dl Hct 35.0 (35-47) % MCV 75.9 L (78-100) fl MCH 23.8 L (26-32) pg MCHC 31.4 L (32-36) g/dl RDW 17.1 H (11.5-14.0) % Plt Count 298 (150-450) K/mm3 MPV 10.1 H (6-9.5) fl Gran % 89.6 H (36.0-66.0) % Eos # (Auto) 0.02 (0-0.5) Absolute Lymphs (auto) 1.21 (1.0-4.6) Absolute Monos (auto) 0.84 (0.0-1.3) Lymphocytes % 6.0 L (24.0-44.0) % Monocytes % 4.2 (0.0-12.0) % Eosinophils % 0.1 (0.00-5.0) % Basophils % 0.1 (0.0-0.4) % Absolute Granulocytes 18.03 H (1.4-6.9) Basophils # 0.02 (0-0.4) D-Dimer (215-500) ng/mL Sodium 136 L (137-145) mmol/L Potassium 4.1 (3.5-5.1) mmol/L Chloride 94 L (98-107) mmol/L Carbon Dioxide 26 (22-30) mmol/L Anion Gap 19.2 H (5-15) MEQ/L BUN 12 (7-17) mg/dL Creatinine 1.11 H (0.52-1.04) mg/dL Estimated GFR 52.1 ML/MIN Glucose 194 H (74-106) mg/dL Calcium 7.2 L (8.4-10.2) mg/dL Total Bilirubin 0.80 (0.2-1.3) mg/dL AST 20 (14-36) U/L ALT 12 (0-35) U/L Alkaline Phosphatase 145 H (38-126) U/L Troponin I (0.000-0.034) ng/mL NT-Pro-B Natriuret Pep 2770 H (0-900) pg/mL Serum Total Protein 8.2 (6.3-8.2) g/dL Albumin 4.4 (3.5-5.0) g/dL Influenza Type A Ag (NEGATIVE) Influenza Type B Ag (NEGATIVE) RSV (PCR) (Negative) Slides for Path Review YES - Progress Air Movement: fair Progress Note: 07/16/18 01:16 Pt was evaluated in the ED. She is severely SOB, and coughing. She has fever and chills. WBCs are 20, and pro BNP is 2770. Pt was given Azithromycin, and Rocephin, Solu Medrol, and nebs were ordered, and Lasix 40 [address] IV was ordered[address] Hilton accepted the pt for admission. Pt is agreeable. Blood Culture(s) Obtained: Yes Antibiotics given: Yes Discussed with : Rebecca Will see patient in: other - Departure Departure Disposition: In-patient Admission Clinical Impression: PNA (pneumonia) Condition: Stable Critical Care Time: No Referrals: ROLANDO SALMERON [Primary Care Provider] - Additional Instructions: Pt will be admitted to the hospital for CAP and CHF.
[2018-07-15] MEDS ORDERED: Lasix 40 MG/4 ML ONE (22:18)
--- NOTE | 2018-07-15 22:18 | XRAY ---
Indication: Fever, cough, short of breath. Comparison: May 16, 2018. Portable chest again demonstrates right infrahilar infiltrate versus atelectasis. Remaining heart and lungs unremarkable. Bony thorax intact.
[2018-07-16] MEDS ORDERED: solu-MEDROL 40 MG IV SCH (01:30)
[2018-07-16] MEDS ORDERED: DUONEB 0.5-3 MG/3 ml Neb IH ONE (01:31)
[2018-07-16 01:39] LABS: Appearance CLEAR (CLEAR); Bilirubin NEGATIVE (NEGATIVE); Blood SMALL Ery/ul (0-5); Glucose NEGATIVE (NEGATIVE); Ketones NEGATIVE (NEGATIVE); Leukocyte Esterase NEGATIVE (NEGATIVE); Nitrite NEGATIVE (NEGATIVE); Protein,Urine Dip 30 (Negative); Specific Gravity 1.008 (1.005-1.025); Urobilinogen NEGATIVE mg/dL (0-1)
[2018-07-16] MEDS ORDERED: solu-MEDROL 125 MG ONE (01:51)
[2018-07-16] MEDS: DUONEB 0.5-3 MG/3 ml Neb IH SCH ×6 (02:54→23:13)
[2018-07-16] MEDS ORDERED: solu-MEDROL 40 MG ONE (06:01)
[2018-07-16 06:04] LABS: Hemoglobin 10.6 gm/dl (12.0-16.0); Mean Cell Volume 75.2 fl (78-100); Mean Corpuscular Hgb Concent. 31.2 g/dl (32-36); Mean Platelet Volume 10.1 fl (6-9.5); Platelet Count 300 K/mm3 (150-450); Red Blood Count 4.52 M/mm3 (4.1-5.4); Red Cell Distribution Width 17.4 % (11.5-14.0); White Blood Count 19.1 K/mm3 (4.0-10.5)
[2018-07-16 06:09] LABS: Mean Corpuscular Hemoglobin 23.4 pg (26-32)
[2018-07-16 06:26] LABS: ANION GAP 16.4 MEQ/L (5-15); Creatinine 1 1.2 mg/dL (0.52-1.04)
[2018-07-16] MEDS: Advair Hfa 115/21 Common canister IH SCH ×2 (07:32→20:08)
--- NOTE | 2018-07-16 07:34 | XRAY ---
Indication: Fever, cough, short of breath. Elevated d-dimer. Elevated WBC. Multiple contiguous axial images obtained through the chest using 80 cc Isovue 370 contrast and PE protocol. Comparison: None There is satisfactory opacification of the pulmonary arteries to include the lobar and segmental branches. No filling defect or pulmonary embolus. Heart is not enlarged. Aorta is normal in course and caliber. No pathologic mediastinal/hilar lymphadenopathy. Examination of the lung parenchyma demonstrates diffuse patchy airspace disease bilaterally without consolidation or large effusion. Bony thorax intact with mild degenerative changes throughout the spine. Limited upper abdomen demonstrates fatty liver and 13.5 cm splenomegaly. Impression: 1. Negative pulmonary embolus. 2. Diffuse bilateral patchy airspace disease. 3. Incidental fatty liver and splenomegaly. Comment: Preliminary interpretation was made by [facility]. No critical discrepancy. CTDI 23.69
--- NOTE | 2018-07-16 08:50 | PCM.HP ---
History of Present Illness - Chief Complaint Chief Complaint: PNE History of Present Illness: is a 67 year old female pt familiar to me (but has been seeing MONICA Connelly) with COPD, DM II (on insulin), HTN, depression, hypothyroidism, carotid artery stenosis, CAD (with hx HI) and tobacco abuse who was admitted through the ER with PNA. Per pt she had been treated for pneumonia about February through May by Ashlie June and felt good for about 3 weeks, then 6d ago she started having increased cough. Per her family she was "lethargic," sleeping a lot, with poor po intake. In the ER temp was 101.9 and her WBC were 20.1. BNP 2770. Her d-dimer was elevated but CTA of the chest was negative for PE. Her CXR showed R infrahilar infiltrates v atelectasis. Estimated GFR was 52.1. She was started on IV zithromax and rocephin and given 1 dose IV lasix in the ER. CTA of the chest did show, on preliminary read, scattered mass-like ground glass consolidations bilaterally up to 2cm in size which could be infection vs inhalation vs inflammation. Pt is a poor historian. She would like to go home today. Her family notes she is much more awake than she has been for some time. She is tolerating po. WBC are 19.1 this morning. Estimated GFR is 47.6. - Review of Systems Constitutional: Fever, Lethargy Respiratory: Cough Cardiac: Edema (chronic in bilat LE; increased recently) Psychological: No Suicidal Ideations All Other Systems: Reviewed and Negative Medications & Allergies Home Medications: Home Medication List Aspirin [Aspirin EC] 325 mg PO [facility] 10/09/13 [History Confirmed 07/16/18] Clopidogrel Bisulfate 75 mg [PLAVIX 75 MG Tablet] 75 mg PO HS 10/09/13 [ History Confirmed 07/16/18] Metformin HCl 1000 mg [Glucophage 1000 MG] 1,000 mg PO BID 10/09/13 [History Confirmed 07/16/18] Metoprolol Succinate [Toprol Xl] 100 mg PO HS 02/03/15 [History Confirmed ] Potassium Chloride [K-Tab ER] 10 meq PO DAILY 02/03/15 [History Confirmed ] Duloxetine HCl [Cymbalta] 60 mg PO HS 08/17/17 [History Confirmed 07/16/18] Fluticasone/Salmeterol [Advair 250-50 Diskus] 1 puff IH BID 08/17/17 [History Confirmed 07/16/18] Furosemide 40 mg [Lasix 40 MG] 40 mg PO QAM 08/17/17 [History Confirmed ] Insulin Aspart [Novolog Flexpen] 15 unit SQ AC 08/17/17 [History Confirmed 07/16] Insulin Degludec [Tresiba Flextouch U-200] 90 unit SQ QAM 08/17/17 [History Confirmed 07/16/18] Promethazine HCl 25 mg PO Q8HPRN PRN 08/17/17 [History Confirmed 07/16/18] AMITRIPTYLINE HCL 50 mg Tab [AMITRIPTYLINE HCL 50 mg Tablet] 50 mg PO HS [History Confirmed 07/16/18] Albuterol 8 gm Mdi Hfa [Ventolin Hfa MDI] 2 puff IH Q4HPRN PRN 07/16/18 [ History Confirmed 07/16/18] Albuterol/Ipratropium 3ml Neb* [DUONEB 0.5-3 MG/3 ml Neb] 2.5 mg IH Q6HPRN PRN 07/16/18 [History Confirmed 07/16/18] Atorvastatin Calcium [Lipitor] 40 mg PO HS 07/16/18 [History Confirmed 07/16/18] Gabapentin [Neurontin] 800 mg PO QID 07/16/18 [History Confirmed 07/16/18] Levothyroxine Sodium 100 Mcg [Synthroid 100 Mcg] 100 mcg PO DAILY 07/16/18 [History Confirmed 07/16/18] Levothyroxine Sodium 88 Mcg [Synthroid 88 Mcg] 88 mcg PO DAILY 07/16/18 [ History Confirmed 07/16/18] Lisinopril 20 mg [Zestril 20 MG] 20 mg PO DAILY 07/16/18 [History Confirmed 07/16/18] Ropinirole HCl 4 mg PO TID 07/16/18 [History Confirmed 07/16/18] Topiramate 25 mg [Topamax 25 MG] 25 mg PO HS 07/16/18 [History Confirmed 07/16/18] Allergies/Adverse Reactions: Allergies Allergy/AdvReac Type Severity Reaction Status Date / Time No Known Drug Allergies Allergy Verified 07/15/18 20:26 - Past Medical History Past Medical History: Yes Neurological History: No Pertinent History ENT History: No Pertinent History Cardiac History: High Cholesterol, Hypertension, Myocardial Infarction (HI) Respiratory History: COPD Endocrine Medical History: Diabetes Type II, Other Musculoskelatal History: Fractures, Osteoarthritis GI Medical History: No Pertinent History History: No Pertinent History Pyscho-Social History: Depression Reproductive Disorders: No Pertinent History Comment: THYROID NODULE, HX HI WITHOUT SURGERY, R ANKLE FX W/ ORIF 2007 - Female History Are you now?: No - Past Surgical History Past Surgical History: Yes Neuro Surgical History: No Pertinent History Cardiac History: No Pertinent History Respiratory Surgery: No Pertinent History GI Surgical History: No Pertinent History, Other Genitourinary Surgical Hx: No Pertinent History Musculskeletal Surgical Hx: Other Female Surgical History: Tubal Ligation Other Surgical History: RIGHT ANKLE SURGERY, thyroidectomy, left carotid endartertectomy - Social History Smoking Status: Current every day smoker How long have you smoked: years Exposure to second hand smoke: Yes Alcohol: None Drug Use: none - Physical Exam Vital Signs: Vital Signs - 24 hr Temp Pulse Resp BP Pulse Ox 07/16/18 07:32 86 18 95 07/16/18 07:30 98.5 F 89 19 139/59 93 L 07/16/18 04:30 98.5 F 93 H 19 145/66 96 07/16/18 04:00 19 07/16/18 03:39 98.4 F 98 H 18 133/61 96 07/16/18 03:08 96 07/16/18 03:02 96 H 20 96 07/16/18 02:37 98.5 F 93 H 19 145/66 96 07/16/18 02:07 96 H 18 169/79 96 07/16/18 01:19 93 L 07/15/18 23:53 98.4 F 94 H 24 146/64 95 07/15/18 20:40 111 H 18 93 L 07/15/18 20:12 101.9 F 115 H 32 H 146/64 95 Oxygen-Last 24 hours O2 Percentage 2 Liters = 28% O2 Percentage 2 Liters = 28% O2 Percentage 2 Liters = 28% O2 Percentage 2 Liters = 28% O2 Percentage 2 Liters = 28% O2 Percentage 2 Liters = 28% General Appearance: no apparent distress, alert Neurologic Exam: oriented x 3, cooperative Eye Exam: eyes nml inspection Ears, Nose, Throat Exam: moist mucous membranes Neck Exam: normal inspection, non-tender, No lymphadenopathy Respiratory Exam: diminished breath sounds (fair to good air exchange) Cardiovascular Exam: regular rate/rhythm, normal heart sounds, No murmur Gastrointestinal/Abdomen Exam: soft, normal bowel sounds, No tenderness, No distention, No mass, No guarding, No rebound Back Exam: normal inspection, No rash Extremity Exam: other (bilat LE with chronic venous stasis change, mild erythma , trace pitting edema) Skin Exam: warm, dry, No rash Results - Labs Lab/Micro Results: Lab Results-Last 24 Hours 07/15/18 07/15/18 07/15/18 Range/Units 02:17 20:22 20:25 WBC 20.1 H (4.0-10.5) K/mm3 RBC 4.61 (4.1-5.4) M/mm3 Hgb 11.0 L (12.0-16.0) gm/dl Hct 35.0 (35-47) % MCV 75.9 L (78-100) fl MCH 23.8 L (26-32) pg MCHC 31.4 L (32-36) g/dl RDW 17.1 H (11.5-14.0) % Plt Count 298 (150-450) K/mm3 MPV 10.1 H (6-9.5) fl Gran % 89.6 H (36.0-66.0) % Eos # (Auto) 0.02 (0-0.5) Absolute Lymphs (auto) 1.21 (1.0-4.6) Absolute Monos (auto) 0.84 (0.0-1.3) Lymphocytes % 6.0 L (24.0-44.0) % Monocytes % 4.2 (0.0-12.0) % Eosinophils % 0.1 (0.00-5.0) % Basophils % 0.1 (0.0-0.4) % Absolute Granulocytes 18.03 H (1.4-6.9) Basophils # 0.02 (0-0.4) D-Dimer (215-500) ng/mL Sodium (137-145) mmol/L Potassium (3.5-5.1) mmol/L Chloride (98-107) mmol/L Carbon Dioxide (22-30) mmol/L Anion Gap (5-15) MEQ/L BUN (7-17) mg/dL Creatinine (0.52-1.04) mg/dL Estimated GFR ML/MIN Glucose (74-106) mg/dL Lactic Acid (0.4-2.0) Calcium (8.4-10.2) mg/dL Total Bilirubin (0.2-1.3) mg/dL AST (14-36) U/L ALT (0-35) U/L Alkaline Phosphatase (38-126) U/L Troponin I < 0.012 (0.000-0.034) ng/mL NT-Pro-B Natriuret Pep 2770 H (0-900) pg/mL Serum Total Protein (6.3-8.2) g/dL Albumin (3.5-5.0) g/dL Urine Color (YELLOW) Urine Appearance (CLEAR) Urine pH (5-6) Ur Specific [place] (1.005-1.025) Urine Protein (Negative) Urine Ketones (NEGATIVE) Urine Blood (0-5) Jose/ul Urine Nitrite (NEGATIVE) Urine Bilirubin (NEGATIVE) Urine Urobilinogen (0-1) mg/dL Ur Leukocyte Esterase (NEGATIVE) Urine WBC (Auto) (0-5) /HPF Urine RBC (Auto) (0-2) /HPF U Hyaline Cast (Auto) (0-2) /LPF U Epithel Cells (Auto) (FEW) /HPF Urine Bacteria (Auto) (NEGATIVE) /HPF Urine Culture Reflexed (NO) Urine Glucose (NEGATIVE) mg/dL Influenza Type A Ag (NEGATIVE) Influenza Type B Ag (NEGATIVE) RSV (PCR) (Negative) Slides for Path Review YES 07/15/18 07/15/18 07/15/18 Range/Units 20:25 20:25 20:30 WBC (4.0-10.5) K/mm3 RBC (4.1-5.4) M/mm3 Hgb (12.0-16.0) gm/dl Hct (35-47) % MCV (78-100) fl MCH (26-32) pg MCHC (32-36) g/dl RDW (11.5-14.0) % Plt Count (150-450) K/mm3 MPV (6-9.5) fl Gran % (36.0-66.0) % Eos # (Auto) (0-0.5) Absolute Lymphs (auto) (1.0-4.6) Absolute Monos (auto) (0.0-1.3) Lymphocytes % (24.0-44.0) % Monocytes % (0.0-12.0) % Eosinophils % (0.00-5.0) % Basophils % (0.0-0.4) % Absolute Granulocytes (1.4-6.9) Basophils # (0-0.4) D-Dimer (215-500) ng/mL Sodium 136 L (137-145) mmol/L Potassium 4.1 (3.5-5.1) mmol/L Chloride 94 L (98-107) mmol/L Carbon Dioxide 26 (22-30) mmol/L Anion Gap 19.2 H (5-15) MEQ/L BUN 12 (7-17) mg/dL Creatinine 1.11 H (0.52-1.04) mg/dL Estimated GFR 52.1 ML/MIN Glucose 194 H (74-106) mg/dL Lactic Acid (0.4-2.0) Calcium 7.2 L (8.4-10.2) mg/dL Total Bilirubin 0.80 (0.2-1.3) mg/dL AST 20 (14-36) U/L ALT 12 (0-35) U/L Alkaline Phosphatase 145 H (38-126) U/L Troponin I < 0.012 (0.000-0.034) ng/mL NT-Pro-B Natriuret Pep (0-900) pg/mL Serum Total Protein 8.2 (6.3-8.2) g/dL Albumin 4.4 (3.5-5.0) g/dL Urine Color (YELLOW) Urine Appearance (CLEAR) Urine pH (5-6) Ur Specific [place] (1.005-1.025) Urine Protein (Negative) Urine Ketones (NEGATIVE) Urine Blood (0-5) Jose/ul Urine Nitrite (NEGATIVE) Urine Bilirubin (NEGATIVE) Urine Urobilinogen (0-1) mg/dL Ur Leukocyte Esterase (NEGATIVE) Urine WBC (Auto) (0-5) /HPF Urine RBC (Auto) (0-2) /HPF U Hyaline Cast (Auto) (0-2) /LPF U Epithel Cells (Auto) (FEW) /HPF Urine Bacteria (Auto) (NEGATIVE) /HPF Urine Culture Reflexed (NO) Urine Glucose (NEGATIVE) mg/dL Influenza Type A Ag NEGATIVE (NEGATIVE) Influenza Type B Ag NEGATIVE (NEGATIVE) RSV (PCR) NEGATIVE (Negative) Slides for Path Review 07/15/18 07/16/18 07/16/18 Range/Units 22:36 00:54 05:30 WBC (4.0-10.5) K/mm3 RBC (4.1-5.4) M/mm3 Hgb (12.0-16.0) gm/dl Hct (35-47) % MCV (78-100) fl MCH (26-32) pg MCHC (32-36) g/dl RDW (11.5-14.0) % Plt Count (150-450) K/mm3 MPV (6-9.5) fl Gran % (36.0-66.0) % Eos # (Auto) (0-0.5) Absolute Lymphs (auto) (1.0-4.6) Absolute Monos (auto) (0.0-1.3) Lymphocytes % (24.0-44.0) % Monocytes % (0.0-12.0) % Eosinophils % (0.00-5.0) % Basophils % (0.0-0.4) % Absolute Granulocytes (1.4-6.9) Basophils # (0-0.4) D-Dimer 782 H* (215-500) ng/mL Sodium (137-145) mmol/L Potassium (3.5-5.1) mmol/L Chloride (98-107) mmol/L Carbon Dioxide (22-30) mmol/L Anion Gap (5-15) MEQ/L BUN (7-17) mg/dL Creatinine (0.52-1.04) mg/dL Estimated GFR ML/MIN Glucose (74-106) mg/dL Lactic Acid 1.3 (0.4-2.0) Calcium (8.4-10.2) mg/dL Total Bilirubin (0.2-1.3) mg/dL AST (14-36) U/L ALT (0-35) U/L Alkaline Phosphatase (38-126) U/L Troponin I (0.000-0.034) ng/mL NT-Pro-B Natriuret Pep (0-900) pg/mL Serum Total Protein (6.3-8.2) g/dL Albumin (3.5-5.0) g/dL Urine Color STRAW (YELLOW) Urine Appearance CLEAR (CLEAR) Urine pH 6.0 (5-6) Ur Specific [place] 1.008 (1.005-1.025) Urine Protein 30 (Negative) Urine Ketones NEGATIVE (NEGATIVE) Urine Blood SMALL (0-5) Jose/ul Urine Nitrite NEGATIVE (NEGATIVE) Urine Bilirubin NEGATIVE (NEGATIVE) Urine Urobilinogen NEGATIVE (0-1) mg/dL Ur Leukocyte Esterase NEGATIVE (NEGATIVE) Urine WBC (Auto) NONE (0-5) /HPF Urine RBC (Auto) NONE (0-2) /HPF U Hyaline Cast (Auto) 6-10 (0-2) /LPF U Epithel Cells (Auto) NONE (FEW) /HPF Urine Bacteria (Auto) NONE (NEGATIVE) /HPF Urine Culture Reflexed YES (NO) Urine Glucose NEGATIVE (NEGATIVE) mg/dL Influenza Type A Ag (NEGATIVE) Influenza Type B Ag (NEGATIVE) RSV (PCR) (Negative) Slides for Path Review 07/16/18 07/16/18 Range/Units 05:33 05:33 WBC 19.1 H (4.0-10.5) K/mm3 RBC 4.52 (4.1-5.4) M/mm3 Hgb 10.6 L (12.0-16.0) gm/dl Hct 34.0 L (35-47) % MCV 75.2 L (78-100) fl MCH 23.4 L (26-32) pg MCHC 31.2 L (32-36) g/dl RDW 17.4 H (11.5-14.0) % Plt Count 300 (150-450) K/mm3 MPV 10.1 H (6-9.5) fl Gran % (36.0-66.0) % Eos # (Auto) (0-0.5) Absolute Lymphs (auto) (1.0-4.6) Absolute Monos (auto) (0.0-1.3) Lymphocytes % (24.0-44.0) % Monocytes % (0.0-12.0) % Eosinophils % (0.00-5.0) % Basophils % (0.0-0.4) % Absolute Granulocytes (1.4-6.9) Basophils # (0-0.4) D-Dimer (215-500) ng/mL Sodium 135 L (137-145) mmol/L Potassium 4.0 (3.5-5.1) mmol/L Chloride 94 L (98-107) mmol/L Carbon Dioxide 29 (22-30) mmol/L Anion Gap 16.4 H (5-15) MEQ/L BUN 15 (7-17) mg/dL Creatinine 1.20 H (0.52-1.04) mg/dL Estimated GFR 47.6 ML/MIN Glucose 343 H (74-106) mg/dL Lactic Acid (0.4-2.0) Calcium 7.0 L (8.4-10.2) mg/dL Total Bilirubin (0.2-1.3) mg/dL AST (14-36) U/L ALT (0-35) U/L Alkaline Phosphatase (38-126) U/L Troponin I (0.000-0.034) ng/mL NT-Pro-B Natriuret Pep 4070 H (0-900) pg/mL Serum Total Protein (6.3-8.2) g/dL Albumin (3.5-5.0) g/dL Urine Color (YELLOW) Urine Appearance (CLEAR) Urine pH (5-6) Ur Specific [place] (1.005-1.025) Urine Protein (Negative) Urine Ketones (NEGATIVE) Urine Blood (0-5) Jose/ul Urine Nitrite (NEGATIVE) Urine Bilirubin (NEGATIVE) Urine Urobilinogen (0-1) mg/dL Ur Leukocyte Esterase (NEGATIVE) Urine WBC (Auto) (0-5) /HPF Urine RBC (Auto) (0-2) /HPF U Hyaline Cast (Auto) (0-2) /LPF U Epithel Cells (Auto) (FEW) /HPF Urine Bacteria (Auto) (NEGATIVE) /HPF Urine Culture Reflexed (NO) Urine Glucose (NEGATIVE) mg/dL Influenza Type A Ag (NEGATIVE) Influenza Type B Ag (NEGATIVE) RSV (PCR) (Negative) Slides for Path Review - Radiology Impressions Radiology Exams & Impressions: Radiology Procedures Category Date Time Status CHEST 1 VIEW (PORTABLE) Stat Exams 07/15/18 20:16 Completed CHEST WITH CONTRAST [CT] Stat Exams 07/15/18 22:54 Completed ECHO W/2D AND DOPPLER [US] Routine Exams 07/18/18 09:00 Ordered - Other Procedures and Tests Respiratory Therapy 07/15/18 20:14 Peak Expiratory Flow Rate ONCE 07/15/18 20:54 Respiratory Therapy Assessment Q4H 07/16/18 01:20 Oxygen NASAL CANNULA 2 lpm Assessment/Plan (1) COPD exacerbation Current Visit: No Status: Acute Assessment & Plan: Just started IV rocephin and zithromax last night. In ER it was reported that her lungs sounded "terrible" actually but this morning approx 1 hr after her breathing tx she sounds fairly good. She wants to go right home but I discussed with her the severity of her illness with elevated temperature and WBC of 20,000 on admission, with risk of sepsis. She agrees to stay several days; I let her know she has to be afebrile for 24 hours and WBC have to be decreased; however attaining both these goals does not ensure she will be discharged to home that day. Code(s): J44.1 - CHRONIC OBSTRUCTIVE PULMONARY DISEASE W (ACUTE) EXACERBATION (2) CAD (coronary artery disease) Current Visit: Yes Status: Chronic Qualifiers: Coronary Disease-Associated Artery/Lesion type: unspecified vessel or lesion type [place] vs. transplanted heart: [place] heart Associated angina: without angina Qualified Code(s): I25.10 - Atherosclerotic heart disease of [place] coronary artery without angina pectoris Code(s): I25.10 - ATHSCL HEART DISEASE OF [place] CORONARY ARTERY W/O ANG PCTRS (3) CHF (congestive heart failure) Current Visit: Yes Status: Chronic Qualifiers: Heart failure chronicity: unspecified Assessment & Plan: She does have some mild edema and elevated BNP but I think the majority of her issue is infectious; however will keep fluid status in mind as I am gently hydrating while keeping her po lasix. Code(s): I50.9 - HEART FAILURE, UNSPECIFIED (4) Carotid artery stenosis Current Visit: Yes Status: Chronic Qualifiers: Laterality: unspecified laterality Qualified Code(s): I65.29 - Occlusion and stenosis of unspecified carotid artery Assessment & Plan: sees Dr. Huitron - last seen yesterday. He ordered an arterial doppler of the LE which we will do on Wednesday if she is still here. Code(s): I65.29 - OCCLUSION AND STENOSIS OF UNSPECIFIED CAROTID ARTERY (5) Diabetes Current Visit: No Status: Chronic Qualifiers: Diabetes mellitus type: type 2 Diabetes mellitus termite control representative insulin use: without assisted use Diabetes mellitus complication status: without complication Qualified Code(s): E11.9 - Type 2 diabetes mellitus without complications Code(s): E11.9 - TYPE 2 DIABETES MELLITUS WITHOUT COMPLICATIONS
[2018-07-16] MEDS: NovoLOG Insulin SQ PRN ×4 (09:18→21:34)
[2018-07-16] MEDS ORDERED: PHENERGAN 25 MG PO PRN (09:48)
[2018-07-16] MEDS ORDERED: Ventolin Hfa MDI IH PRN (09:48)
[2018-07-16] MEDS ORDERED: PROVENTIL COMMON CANISTER IH PRN (09:58)
[2018-07-16] MEDS ORDERED: Lasix 40 MG/4 ML IV SCH (10:00)
[2018-07-16] MEDS ORDERED: ROPINIROLE HCL 4 MG PO SCH (10:00)
[2018-07-16] MEDS ORDERED: INSULIN DEGLUDEC 90 UNIT SQ SCH (10:00)
[2018-07-16] MEDS: REQUIP 2MG TAB PO SCH ×3 (10:23→20:42)
[2018-07-16] MEDS: Lantus Insulin SQ SCH (10:23)
[2018-07-16] MEDS: Neurontin 400 MG PO SCH ×4 (10:23→20:42)
[2018-07-16] MEDS: Ecotrin 325 MG PO SCH (10:24)
[2018-07-16] MEDS: SYNTHROID 88 MCG PO SCH (10:24)
[2018-07-16] MEDS: Sodium Chloride 0.9% 1000 ML 1,000 ML IV SCH (10:24)
[2018-07-16] MEDS: Klor Con 10 MEQ PO SCH (10:24)
[2018-07-16] MEDS: Zestril 20 MG PO SCH (10:24)
[2018-07-16] MEDS: SYNTHROID 100 MCG PO SCH (10:24)
[2018-07-16] MEDS ORDERED: INSULIN ASPART 15 UNIT SQ SCH (11:30)
[2018-07-16] MEDS: ENOXAPARIN SODIUM SQ SCH (11:51)
[2018-07-16] MEDS: NovoLOG Insulin SQ SCH ×2 (11:52→17:32)
[2018-07-16] MEDS: solu-MEDROL 40 MG IV SCH (17:35)
[2018-07-16 17:39] LABS: A-aADO2 74; ABG HEMOGLOBIN 9.7; ABG POTASSIUM 3.3 (3.5-5.1); ABG SITE LEFT BRACHIAL; ARTERIAL BLD GAS O2 SATURATION 97.8 % (95-100); ARTERIAL BLOOD GAS FIO2 28 %; ARTERIAL BLOOD GAS PCO2 40 mmHg (35-45); ARTERIAL BLOOD GAS PO2 76 mmHg (75-100); ARTERIAL BLOOD GAS pH 7.43 (7.35-7.45); HCO3- 26.5 (22-28); HGB O2 SAT 95.3 g/dF (94-100); Methhemoglobin 0.6 % (1.4-1.5); paO2 pAO1 0.51
[2018-07-16] MEDS: Zithromax 500 MG/ 250 ML NaCl Premix 500 MG/250 ML IVPB IV SCH (20:40)
[2018-07-16] MEDS: Cymbalta 30 MG Capsule PO SCH (20:41)
[2018-07-16] MEDS: Toprol Xl 100 MG PO SCH (20:41)
[2018-07-16] MEDS: PLAVIX 75 MG Tablet PO SCH (20:42)
[2018-07-16] MEDS: ZOCOR 20MG PO SCH (20:42)
[2018-07-16] MEDS: Topamax 25 MG PO SCH (20:43)
[2018-07-16] MEDS: ROCEPHIN 1 Gm-D5w 50 ml Bag** 1 G/50 ML IVPB IV SCH (21:34)
[2018-07-16] MEDS ORDERED: NON-FORMULARY ITEM (Atorvastatin Calcium [Lipitor] 40 MG) PO SCH (22:00)
[2018-07-16] MEDS ORDERED: NON-FORMULARY ITEM (Duloxetine Hcl [Cymbalta] 60 MG) PO SCH (22:00)
[2018-07-17] MEDS: Sodium Chloride 0.9% 1000 ML 1,000 ML IV SCH ×3 (00:14→23:51)
[2018-07-17] MEDS: DUONEB 0.5-3 MG/3 ml Neb IH SCH ×6 (03:50→23:37)
[2018-07-17] MEDS: solu-MEDROL 40 MG IV SCH ×3 (05:47→21:01)
[2018-07-17 06:17] LABS: Hematocrit 27.5 % (35-47); Hemoglobin 8.6 gm/dl (12.0-16.0); Mean Cell Volume 75.5 fl (78-100); Mean Corpuscular Hemoglobin 23.6 pg (26-32); Mean Corpuscular Hgb Concent. 31.3 g/dl (32-36); Mean Platelet Volume 10.1 fl (6-9.5); Platelet Count 269 K/mm3 (150-450); Red Blood Count 3.64 M/mm3 (4.1-5.4); Red Cell Distribution Width 17.6 % (11.5-14.0); White Blood Count 17.1 K/mm3 (4.0-10.5)
[2018-07-17 06:45] LABS: ANION GAP 16.7 MEQ/L (5-15); Creatinine 1 1.88 mg/dL (0.52-1.04)
[2018-07-17] MEDS: Advair Hfa 115/21 Common canister IH SCH ×2 (07:39→19:30)
[2018-07-17] MEDS: NovoLOG Insulin SQ SCH ×3 (08:23→17:13)
[2018-07-17] MEDS: NovoLOG Insulin SQ PRN ×4 (08:24→21:44)
[2018-07-17] MEDS ORDERED: Sodium Chloride 0.9% 500 ML 500 ML IV ONE ×2 (09:00→16:03)
[2018-07-17] MEDS: Neurontin 400 MG PO SCH ×4 (12:15→21:01)
[2018-07-17] MEDS: SYNTHROID 100 MCG PO SCH (12:15)
[2018-07-17] MEDS: REQUIP 2MG TAB PO SCH ×3 (12:15→21:02)
[2018-07-17] MEDS: Ecotrin 325 MG PO SCH (12:15)
[2018-07-17] MEDS: Zestril 20 MG PO SCH (12:16)
[2018-07-17] MEDS: Klor Con 10 MEQ PO SCH (12:16)
[2018-07-17] MEDS: Lasix 40 MG PO SCH (12:16)
[2018-07-17] MEDS: SYNTHROID 88 MCG PO SCH (12:16)
[2018-07-17] MEDS: ENOXAPARIN SODIUM SQ SCH (12:21)
[2018-07-17] MEDS: Lantus Insulin SQ SCH (12:21)
--- NOTE | 2018-07-17 13:18 | PCM.NOTE ---
Date and Time: 07/17/18 1311 Subjective Assessment: Pt is sitting up getting a breathing tx. Damián po. would like to go home today but understands the need to stay. Her Calcium came back 6.0 this morning. She does note that her thyroid has been removed, and when she saw Dr. Almeida last week he prescibed some calcium and she had not picked that up yet. - Review of Systems Constitutional: No Fever Respiratory: Cough, Short Of Breath Objective Exam General Appearance: no apparent distress, alert Neurologic Exam: oriented x 3, cooperative Skin Exam: normal color, warm, dry, No rash Ears, Nose, Throat Exam: moist mucous membranes Respiratory Exam: diminished breath sounds (poor to fair air exchang), prolonged expirations, wheezing (throughout), No crackles/rales, No rhonchi Cardiovascular Exam: regular rate/rhythm, normal heart sounds, No murmur Extremity Exam: normal inspection, No pedal edema, No swelling Back Exam: normal inspection, No rash OBJECTIVE DATA Vital Signs: Vital Signs - 24 hr Temp Pulse Resp BP Pulse Ox 07/17/18 11:58 98.0 F 89 19 115/58 98 07/17/18 11:23 78 18 97 07/17/18 07:40 78 18 96 07/17/18 07:34 97.5 F 85 20 108/57 98 07/17/18 04:00 97.6 F 96 H 20 108/53 99 07/17/18 03:51 100 H 22 97 07/17/18 00:00 97.8 F 94 H 24 112/53 95 07/16/18 23:14 97 H 18 88 L 07/16/18 20:10 102 H 18 95 07/16/18 20:00 98.3 F 106 H 22 110/53 95 07/16/18 16:00 98.7 F 105 H 18 131/57 93 L 07/16/18 14:35 101 H 18 98 Oxygen-Last 24 hours O2 Percentage 2 Liters = 28% O2 Percentage 2 Liters = 28% O2 Percentage 2 Liters = 28% O2 Percentage 2 Liters = 28% O2 Percentage 2 Liters = 28% O2 Percentage 2 Liters = 28% Pain Assessment - Last Documented Pain Intensity 0 Pain Scale Used 0-10 Pain Scale Intake and Output: Intake & Output 07/15/18 07/16/18 07/17/1819 11:59 11:59 11:59 11:59 Intake Total 120 1436 Output Total 8780 Balance 120 -314 Weight 101.3 kg 103.9 kg Lab Results: Accuchecks Date 07/17/18 Date 07/16/18 Date 07/16/18 Time 08:24 Time 22:00 Time 16:30 Accucheck Value: 488 Accucheck Value: 274 Accucheck Value: 254 Accucheck Value: 447 Lab Results-Last 24 Hours 07/16/18 07/17/18 07/17/18 Range/Units 07:25 05:47 05:47 WBC 17.1 H (4.0-10.5) K/mm3 RBC 3.64 L (4.1-5.4) M/mm3 Hgb 8.6 L (12.0-16.0) gm/dl Hct 27.5 L (35-47) % MCV 75.5 L (78-100) fl MCH 23.6 L (26-32) pg MCHC 31.3 L (32-36) g/dl RDW 17.6 H (11.5-14.0) % Plt Count 269 (150-450) K/mm3 MPV 10.1 H (6-9.5) fl Puncture Site LEFT BRACHIAL pCO2 40 (35-45) mmHg pO2 76 (75-100) mmHg Base Excess 2.0 (-2.0-2.0) O2 Saturation 95.3 (94-100) g/dF ABG pH 7.43 (7.35-7.45) ABG HCO3 26.5 (22-28) ABG O2 Sat (Measured) 97.8 (95-100) % Valentino Test NOT APPLICABLE A-a Gradient 74 a/A Ratio 0.51 Hemoglobin 9.7 Carboxyhemoglobin 2.0 (0.0-6.9) % THgb Methemoglobin 0.6 L (1.4-1.5) % Potassium 3.3 L 4.0 (3.5-5.1) Temperature 37.0 C POC O2 Flow Rate 28 % Sodium 134 L (137-145) mmol/L Chloride 94 L (98-107) mmol/L Carbon Dioxide 27 (22-30) mmol/L Anion Gap 16.7 H (5-15) MEQ/L BUN 36 H (7-17) mg/dL Creatinine 1.88 H (0.52-1.04) mg/dL Estimated GFR 28.4 ML/MIN Glucose 260 H (74-106) mg/dL Calcium 6.0 L (8.4-10.2) mg/dL Radiology Exams: Radiology Procedures Category Date Time Status CHEST 1 VIEW (PORTABLE) Stat Exams 07/15/18 20:16 Completed CHEST WITH CONTRAST [CT] Stat Exams 07/15/18 22:54 Completed ECHO W/2D AND DOPPLER [US] Routine Exams 07/18/18 09:00 Ordered Assessment/Plan (1) COPD exacerbation Current Visit: No Status: Acute Assessment & Plan: She is quite wheezy today. On zithromax and rocephin IV day #2. On IV steroid 40mg q12h - I have changed to to 40mg IV q8h. Receiving breathing tx. Her WBC are starting to decrease; was 20.1 at admission, now 17.1. Will become confounded by steroid effect. Code(s): J44.1 - CHRONIC OBSTRUCTIVE PULMONARY DISEASE W (ACUTE) EXACERBATION (2) Chronic renal failure Current Visit: Yes Status: Acute Qualifiers: Chronic kidney disease stage: stage 3 (moderate) Qualified Code(s): N18.3 - Chronic kidney disease, stage 3 (moderate) Assessment & Plan: kidney function has actually worsened; gave pt 500cc bolus NS this morning and will repeat this afternoon. IVF to run at 100cc/hr otherwise. (3) Hypocalcemia Current Visit: Yes Status: Acute Assessment & Plan: I have ordered an ionized ca, PTH, and Vit D level. I anticipate the PTH will be low given her thyroid resection. Code(s): E83.51 - HYPOCALCEMIA (4) CAD (coronary artery disease) Current Visit: Yes Status: Chronic Qualifiers: Coronary Disease-Associated Artery/Lesion type: unspecified vessel or lesion type [place] vs. transplanted heart: [place] heart Associated angina: without angina Qualified Code(s): I25.10 - Atherosclerotic heart disease of [place] coronary artery without angina pectoris Code(s): I25.10 - ATHSCL HEART DISEASE OF [place] CORONARY ARTERY W/O ANG PCTRS (5) CHF (congestive heart failure) Current Visit: Yes Status: Chronic Qualifiers: Heart failure chronicity: unspecified Code(s): I50.9 - HEART FAILURE, UNSPECIFIED (6) Carotid artery stenosis Current Visit: Yes Status: Chronic Qualifiers: Laterality: unspecified laterality Qualified Code(s): I65.29 - Occlusion and stenosis of unspecified carotid artery Code(s): I65.29 - OCCLUSION AND STENOSIS OF UNSPECIFIED CAROTID ARTERY (7) Diabetes Current Visit: No Status: Chronic Qualifiers: Diabetes mellitus type: type 2 Diabetes mellitus nursing home insulin use: without nursing home use Diabetes mellitus complication status: with kidney complications Diabetes mellitus complication detail: with chronic kidney disease Chronic kidney disease stage: stage 3 (moderate) Qualified Code(s): E11.22 - Type 2 diabetes mellitus with diabetic chronic kidney disease; N18.3 - Chronic kidney disease, stage 3 (moderate) Code(s): E11.9 - TYPE 2 DIABETES MELLITUS WITHOUT COMPLICATIONS (8) Anemia Current Visit: Yes Status: Acute Qualifiers: Anemia type: due to chronic kidney disease Chronic kidney disease stage: stage 3 (moderate) Qualified Code(s): N18.3 - Chronic kidney disease, stage 3 (moderate); D63.1 - Anemia in chronic kidney disease Assessment & Plan: acute on chronic - probably exacerbated by fluid resuscitation. recheck tomorrow. hgb 8.6 today, was 10.6 yesterday and 11 at admission. Code(s): D64.9 - ANEMIA, UNSPECIFIED
[2018-07-17] MEDS: Calcium 500MG W/Vit D Tablet PO SCH ×2 (14:40→21:01)
[2018-07-17] MEDS: ROCEPHIN 1 Gm-D5w 50 ml Bag** 1 G/50 ML IVPB IV SCH (21:00)
[2018-07-17] MEDS: ZOCOR 20MG PO SCH (21:01)
[2018-07-17] MEDS: Topamax 25 MG PO SCH (21:01)
[2018-07-17] MEDS: Cymbalta 30 MG Capsule PO SCH (21:01)
[2018-07-17] MEDS: PLAVIX 75 MG Tablet PO SCH (21:02)
[2018-07-17] MEDS: Toprol Xl 100 MG PO SCH (21:02)
[2018-07-17] MEDS: Zithromax 500 MG/ 250 ML NaCl Premix 500 MG/250 ML IVPB IV SCH (21:44)
[2018-07-18] MEDS: DUONEB 0.5-3 MG/3 ml Neb IH SCH ×6 (03:52→22:54)
[2018-07-18 06:00] LABS: Hematocrit 27.4 % (35-47); Hemoglobin 8.3 gm/dl (12.0-16.0); Mean Cell Volume 76.8 fl (78-100); Mean Corpuscular Hemoglobin 23.2 pg (26-32); Mean Corpuscular Hgb Concent. 30.3 g/dl (32-36); Mean Platelet Volume 9.8 fl (6-9.5); Platelet Count 264 K/mm3 (150-450); Red Blood Count 3.57 M/mm3 (4.1-5.4); Red Cell Distribution Width 17.8 % (11.5-14.0); White Blood Count 13.6 K/mm3 (4.0-10.5)
[2018-07-18 06:43] LABS: ANION GAP 16.8 MEQ/L (5-15); Calcium 6.6 mg/dL (8.4-10.2); Creatinine 1 1.8 mg/dL (0.52-1.04); Potassium 4.4 mmol/L (3.5-5.1)
[2018-07-18] MEDS: solu-MEDROL 40 MG IV SCH ×3 (06:46→21:34)
[2018-07-18] MEDS: Advair Hfa 115/21 Common canister IH SCH ×2 (07:05→19:01)
[2018-07-18] MEDS: NovoLOG Insulin SQ PRN ×4 (08:24→21:35)
[2018-07-18] MEDS: NovoLOG Insulin SQ SCH ×3 (08:24→16:32)
[2018-07-18] MEDS: REQUIP 2MG TAB PO SCH ×3 (08:49→21:33)
[2018-07-18] MEDS: SYNTHROID 100 MCG PO SCH (08:49)
[2018-07-18] MEDS: Lasix 40 MG PO SCH (08:49)
[2018-07-18] MEDS: Zestril 20 MG PO SCH (08:49)
[2018-07-18] MEDS: ENOXAPARIN SODIUM SQ SCH (08:49)
[2018-07-18] MEDS: SYNTHROID 88 MCG PO SCH (08:50)
[2018-07-18] MEDS: Calcium 500MG W/Vit D Tablet PO SCH ×2 (08:50→21:32)
[2018-07-18] MEDS: Lantus Insulin SQ SCH (08:50)
[2018-07-18] MEDS: Klor Con 10 MEQ PO SCH (08:50)
[2018-07-18] MEDS: Ecotrin 325 MG PO SCH (08:50)
[2018-07-18] MEDS: Neurontin 400 MG PO SCH ×4 (08:50→21:33)
--- NOTE | 2018-07-18 09:02 | PCM.NOTE ---
Date and Time: 07/18/18 0856 Subjective Assessment: Pt is feeling better. Sat 95% on 2L NC. Damián po. - Review of Systems Constitutional: No Fever Respiratory: Cough, Short Of Breath Objective Exam General Appearance: no apparent distress, alert Neurologic Exam: oriented x 3, cooperative Skin Exam: normal color, warm, dry, No rash Respiratory Exam: diminished breath sounds (fair air exchange), prolonged expirations, wheezing (throughout), No crackles/rales, No rhonchi Cardiovascular Exam: regular rate/rhythm, normal heart sounds, No murmur Gastrointestinal/Abdomen Exam: soft, normal bowel sounds, No tenderness Extremity Exam: No pedal edema, No swelling Back Exam: normal inspection, No rash OBJECTIVE DATA Vital Signs: Vital Signs - 24 hr Temp Pulse Resp BP Pulse Ox 07/18/18 07:45 98.2 F 89 17 182/85 95 07/18/18 07:30 82 16 98 07/18/18 04:05 98.5 F 94 H 24 137/65 95 07/18/18 04:00 24 07/18/18 03:53 94 H 20 96 07/18/18 00:10 98.5 F 103 H 19 145/66 96 07/18/18 00:00 20 07/17/18 23:39 97 H 20 95 07/17/18 20:00 98.3 F 106 H 21 136/70 94 L 07/17/18 19:32 99 H 18 96 07/17/18 16:00 97.9 F 100 H 18 98/61 96 07/17/18 15:00 84 20 97 07/17/18 11:58 98.0 F 89 19 115/58 98 07/17/18 11:23 78 18 97 Oxygen-Last 24 hours O2 Percentage 2 Liters = 28% O2 Percentage 2 Liters = 28% O2 Percentage 2 Liters = 28% O2 Percentage 2 Liters = 28% O2 Percentage 2 Liters = 28% O2 Percentage 2 Liters = 28% Pain Assessment - Last Documented Pain Intensity 0 Pain Scale Used 0-10 Pain Scale Intake and Output: Intake & Output 07/15/18 07/16/18 07/17/18 07/18/18 11:59 11:59 11:59 11:59 Intake Total 120 1436 4073 Output Total 1750 1500 Balance 120 -314 5923 Weight 101.3 kg 103.9 kg 107.3 kg Lab Results: Accuchecks Date 07/17/18 Time 21:30 Accucheck Value: 194 Accucheck Value: 347 Accucheck Value: 417 Accucheck Value: 488 Lab Results-Last 24 Hours 07/17/18 07/17/18 07/17/18 Range/Units 13:21 13:30 13:30 WBC (4.0-10.5) K/mm3 RBC (4.1-5.4) M/mm3 Hgb (12.0-16.0) gm/dl Hct (35-47) % MCV (78-100) fl MCH (26-32) pg MCHC (32-36) g/dl RDW (11.5-14.0) % Plt Count (150-450) K/mm3 MPV (6-9.5) fl Ionized Calcium 0.73 L* (1.12-1.32) mmml/L Sodium (137-145) mmol/L Potassium (3.5-5.1) mmol/L Chloride (98-107) mmol/L Carbon Dioxide (22-30) mmol/L Anion Gap (5-15) MEQ/L BUN (7-17) mg/dL Creatinine (0.52-1.04) mg/dL Estimated GFR ML/MIN Glucose (74-106) mg/dL Calcium (8.4-10.2) mg/dL Magnesium 1.8 (1.6-2.3) mg/dL 25-OH Vitamin D Total 44.7 (30-100) ng/mL 07/18/18 07/18/18 Range/Units 05:00 05:26 WBC 13.6 H (4.0-10.5) K/mm3 RBC 3.57 L (4.1-5.4) M/mm3 Hgb 8.3 L (12.0-16.0) gm/dl Hct 27.4 L (35-47) % MCV 76.8 L (78-100) fl MCH 23.2 L (26-32) pg MCHC 30.3 L (32-36) g/dl RDW 17.8 H (11.5-14.0) % Plt Count 264 (150-450) K/mm3 MPV 9.8 H (6-9.5) fl Ionized Calcium (1.12-1.32) mmml/L Sodium 136 L (137-145) mmol/L Potassium 4.4 (3.5-5.1) mmol/L Chloride 98 (98-107) mmol/L Carbon Dioxide 25 (22-30) mmol/L Anion Gap 16.8 H (5-15) MEQ/L BUN 48 H (7-17) mg/dL Creatinine 1.80 H (0.52-1.04) mg/dL Estimated GFR 29.8 ML/MIN Glucose 179 H (74-106) mg/dL Calcium 6.6 L (8.4-10.2) mg/dL Magnesium (1.6-2.3) mg/dL 25-OH Vitamin D Total (30-100) ng/mL Radiology Exams: Radiology Procedures Category Date Time Status ECHO W/2D AND DOPPLER [US] Routine Exams 07/18/18 09:00 Ordered Assessment/Plan (1) COPD exacerbation Current Visit: No Status: Acute Assessment & Plan: She is on zithromax/rocephin day #3 and solumedrol 40mg IV TID. Improving. Code(s): J44.1 - CHRONIC OBSTRUCTIVE PULMONARY DISEASE W (ACUTE) EXACERBATION (2) Chronic renal failure Current Visit: Yes Status: Acute Qualifiers: Chronic kidney disease stage: stage 3 (moderate) Qualified Code(s): N18.3 - Chronic kidney disease, stage 3 (moderate) Assessment & Plan: Her renal function is not improving, despite IV fluids. Will consult Dr. Almeida today - she saw his DRILL SERGEANT last week but didn't picker box operator the calcium pills yet. (3) Hypocalcemia Current Visit: Yes Status: Acute Assessment & Plan: s/p thyroidectomy. Code(s): E83.51 - HYPOCALCEMIA (4) CAD (coronary artery disease) Current Visit: Yes Status: Chronic Qualifiers: Coronary Disease-Associated Artery/Lesion type: unspecified vessel or lesion type [place] vs. transplanted heart: [place] heart Associated angina: without angina Qualified Code(s): I25.10 - Atherosclerotic heart disease of [place] coronary artery without angina pectoris Code(s): I25.10 - ATHSCL HEART DISEASE OF [place] CORONARY ARTERY W/O ANG PCTRS (5) CHF (congestive heart failure) Current Visit: Yes Status: Chronic Qualifiers: Heart failure chronicity: unspecified Code(s): I50.9 - HEART FAILURE, UNSPECIFIED (6) Carotid artery stenosis Current Visit: Yes Status: Chronic Qualifiers: Laterality: unspecified laterality Qualified Code(s): I65.29 - Occlusion and stenosis of unspecified carotid artery Code(s): I65.29 - OCCLUSION AND STENOSIS OF UNSPECIFIED CAROTID ARTERY (7) Diabetes Current Visit: No Status: Chronic Qualifiers: Diabetes mellitus type: type 2 Diabetes mellitus intermediate card tender insulin use: without intermediate card tender use Diabetes mellitus complication status: with kidney complications Diabetes mellitus complication detail: with chronic kidney disease Chronic kidney disease stage: stage 3 (moderate) Qualified Code(s): E11.22 - Type 2 diabetes mellitus with diabetic chronic kidney disease; N18.3 - Chronic kidney disease, stage 3 (moderate) Code(s): E11.9 - TYPE 2 DIABETES MELLITUS WITHOUT COMPLICATIONS (8) Anemia Current Visit: Yes Status: Acute Qualifiers: Anemia type: due to chronic kidney disease Chronic kidney disease stage: stage 3 (moderate) Qualified Code(s): N18.3 - Chronic kidney disease, stage 3 (moderate); D63.1 - Anemia in chronic kidney disease Assessment & Plan: hgb stable at 8.3 today. Code(s): D64.9 - ANEMIA, UNSPECIFIED
[2018-07-18] MEDS: Sodium Chloride 0.9% 1000 ML 1,000 ML IV SCH (12:37)
[2018-07-18] MEDS ORDERED: Sodium Chloride 0.9% 500 ML 500 ML IV SCH (14:00)
[2018-07-18 14:16] LABS: Iron 33 ug/dL (37-170); Iron Saturation 9 % (20-39); TIBC 360 ug/dL (265-462)
[2018-07-18 15:16] LABS: Folate (Folic Acid) 5.39 ng/mL (2.76 - >20)
[2018-07-18] MEDS ORDERED: BUMEX 1 MG IV SCH (17:00)
[2018-07-18] MEDS: BUMEX 1 MG IV SCH (18:07)
[2018-07-18] MEDS: NON-FORMULARY ITEM PO SCH (18:08)
[2018-07-18] MEDS: Venofer 100 MG/5 ML*** 200 MG in Sodium Chloride 0.9% 100 ML IVPB 100 ML IV SCH (18:13)
[2018-07-18 18:15] LABS: Appearance CLEAR (CLEAR); Bilirubin NEGATIVE (NEGATIVE); Blood NEGATIVE Ery/ul (0-5); Glucose NEGATIVE (NEGATIVE); Ketones NEGATIVE (NEGATIVE); Leukocyte Esterase NEGATIVE (NEGATIVE); Nitrite NEGATIVE (NEGATIVE); Protein,Urine Dip NEGATIVE (Negative); Urobilinogen NEGATIVE mg/dL (0-1)
[2018-07-18 18:56] LABS: CREATININE,URINE RANDOM 35.3 MG/DL
[2018-07-18] MEDS: Cymbalta 30 MG Capsule PO SCH (21:32)
[2018-07-18] MEDS: PLAVIX 75 MG Tablet PO SCH (21:33)
[2018-07-18] MEDS: Topamax 25 MG PO SCH (21:34)
[2018-07-18] MEDS: ROCEPHIN 1 Gm-D5w 50 ml Bag** 1 G/50 ML IVPB IV SCH (21:34)
[2018-07-18] MEDS: Toprol Xl 100 MG PO SCH (21:34)
[2018-07-18] MEDS: Zithromax 500 MG/ 250 ML NaCl Premix 500 MG/250 ML IVPB IV SCH (23:25)
[2018-07-19] MEDS: DUONEB 0.5-3 MG/3 ml Neb IH SCH ×6 (03:23→23:53)
[2018-07-19] MEDS: solu-MEDROL 40 MG IV SCH ×2 (06:04→17:39)
[2018-07-19 06:05] LABS: Hemoglobin 9.6 gm/dl (12.0-16.0); Mean Cell Volume 77.9 fl (78-100); Mean Platelet Volume 9.9 fl (6-9.5); Platelet Count 302 K/mm3 (150-450); Red Blood Count 4.11 M/mm3 (4.1-5.4); White Blood Count 11.9 K/mm3 (4.0-10.5)
[2018-07-19 06:07] LABS: Mean Corpuscular Hemoglobin 23.3 pg (26-32)
[2018-07-19 06:13] LABS: ALBUMIN 4.1 g/dL (3.5-5.0); ANION GAP 17.3 MEQ/L (5-15); BILIRUBIN,TOTAL 0.3 mg/dL (0.2-1.3); Calcium 7.2 mg/dL (8.4-10.2); Creatinine 1 1.75 mg/dL (0.52-1.04); MAGNESIUM 1.9 mg/dL (1.6-2.3); Total Protein 7.6 g/dL (6.3-8.2)
[2018-07-19] MEDS: Advair Hfa 115/21 Common canister IH SCH ×2 (07:06→19:41)
[2018-07-19] MEDS: NovoLOG Insulin SQ SCH ×3 (08:18→17:00)
--- NOTE | 2018-07-19 09:12 | PCM.NOTE ---
Date and Time: 07/19/18907 Subjective Assessment: Pt slept well. Still having SOB but is better than at admission. She is on 2L NC. - Review of Systems Constitutional: No Fever Respiratory: Cough, Short Of Breath Objective Exam General Appearance: no apparent distress, alert Neurologic Exam: oriented x 3, cooperative Skin Exam: normal color, warm, dry, No rash Respiratory Exam: diminished breath sounds (poor to fair air exchange), rhonchi (scattered), wheezing (throughout), No crackles/rales Cardiovascular Exam: regular rate/rhythm, normal heart sounds, No murmur Extremity Exam: No pedal edema, No swelling OBJECTIVE DATA Vital Signs: Vital Signs - 24 hr Temp Pulse Resp BP Pulse Ox 07/19/18 08:00 97.4 F 81 18 174/73 98 07/19/18 06:50 84 20 92 L 07/19/18 04:00 97.4 F 79 27 H 153/67 94 L 07/19/18 03:23 16 07/19/18 00:00 96.7 F 83 18 189/81 95 07/18/18 22:54 86 18 95 07/18/18 20:00 98.3 F 96 H 28 H 170/79 93 L 07/18/18 19:00 94 H 20 98 07/18/18 16:00 98.0 F 90 18 172/74 07/18/18 15:12 88 18 96 07/18/18 12:00 98.4 F 88 18 170/72 94 L 07/18/18 10:13 84 18 96 Oxygen-Last 24 hours O2 Percentage 2 Liters = 28% O2 Percentage 2 Liters = 28% O2 Percentage 2 Liters = 28% O2 Percentage 2 Liters = 28% O2 Percentage 2 Liters = 28% Pain Assessment - Last Documented Pain Intensity 0 Pain Scale Used 0-10 Pain Scale Intake and Output: Intake & Output 07/16/18 07/17/18 07/18/18 07/19/18 11:59 11:59 11:59 11:59 Intake Total 120 1436 4073 1941 Output Total 1750 1500 1900 Balance 120 -743 7335 41 Weight 101.3 kg 103.9 kg 107.3 kg 108 kg Lab Results: Accuchecks Date 07/18/18 Date 07/18/18 Date 07/18/18 Time 16:35 Time 12:05 Accucheck Value: 184 Accucheck Value: 197 Accucheck Value: 217 Lab Results-Last 24 Hours 07/18/18 07/18/18 07/18/18 Range/Units 05:00 05:00 17:20 WBC (4.0-10.5) K/mm3 RBC (4.1-5.4) M/mm3 Hgb (12.0-16.0) gm/dl Hct (35-47) % MCV (78-100) fl MCH (26-32) pg MCHC (32-36) g/dl RDW (11.5-14.0) % Plt Count (150-450) K/mm3 MPV (6-9.5) fl Sodium (137-145) mmol/L Potassium (3.5-5.1) mmol/L Chloride (98-107) mmol/L Carbon Dioxide (22-30) mmol/L Anion Gap (5-15) MEQ/L BUN (7-17) mg/dL Creatinine (0.52-1.04) mg/dL Estimated GFR ML/MIN Glucose (74-106) mg/dL Calcium (8.4-10.2) mg/dL Magnesium (1.6-2.3) mg/dL Iron 33 L (37-170) ug/dL TIBC 360 (265-462) ug/dL Iron Saturation 9 L (20-39) % Ferritin 25.0 (11.1-264) ng/mL Total Bilirubin (0.2-1.3) mg/dL AST (14-36) U/L ALT (0-35) U/L Alkaline Phosphatase (38-126) U/L Serum Total Protein (6.3-8.2) g/dL Albumin (3.5-5.0) g/dL Vitamin B12 318 (239-931) pg/mL Folic Acid 5.39 (2.76 - >20) ng/mL Urine Color STRAW (YELLOW) Urine Appearance CLEAR (CLEAR) Urine pH 5.0 (5-6) Ur Specific [place] 1.010 (1.005-1.025) Urine Protein NEGATIVE (Negative) Urine Ketones NEGATIVE (NEGATIVE) Urine Blood NEGATIVE (0-5) Jose/ul Urine Nitrite NEGATIVE (NEGATIVE) Urine Bilirubin NEGATIVE (NEGATIVE) Urine Urobilinogen NEGATIVE (0-1) mg/dL Ur Leukocyte Esterase NEGATIVE (NEGATIVE) Urine WBC (Auto) NONE (0-5) /HPF Urine RBC (Auto) NONE (0-2) /HPF U Hyaline Cast (Auto) 3-5 (0-2) /LPF U Epithel Cells (Auto) NONE (FEW) /HPF Urine Bacteria (Auto) NONE (NEGATIVE) /HPF Ur Random Creatinine MG/DL U Random Total Protein (0-12) mg/dL Urine Glucose NEGATIVE (NEGATIVE) mg/dL 07/18/18 07/19/18 07/19/18 Range/Units 17:20 05:25 05:25 WBC 11.9 H (4.0-10.5) K/mm3 RBC 4.11 (4.1-5.4) M/mm3 Hgb 9.6 L (12.0-16.0) gm/dl Hct 32.0 L (35-47) % MCV 77.9 L (78-100) fl MCH 23.3 L (26-32) pg MCHC 30.0 L (32-36) g/dl RDW 18.0 H (11.5-14.0) % Plt Count 302 (150-450) K/mm3 MPV 9.9 H (6-9.5) fl Sodium 138 (137-145) mmol/L Potassium 5.0 (3.5-5.1) mmol/L Chloride 97 L (98-107) mmol/L Carbon Dioxide 29 (22-30) mmol/L Anion Gap 17.3 H (5-15) MEQ/L BUN 51 H (7-17) mg/dL Creatinine 1.75 H (0.52-1.04) mg/dL Estimated GFR 30.8 ML/MIN Glucose 129 H (74-106) mg/dL Calcium 7.2 L (8.4-10.2) mg/dL Magnesium 1.9 (1.6-2.3) mg/dL Iron (37-170) ug/dL TIBC (265-462) ug/dL Iron Saturation (20-39) % Ferritin (11.1-264) ng/mL Total Bilirubin 0.30 (0.2-1.3) mg/dL AST 27 (14-36) U/L ALT 19 (0-35) U/L Alkaline Phosphatase 86 (38-126) U/L Serum Total Protein 7.6 (6.3-8.2) g/dL Albumin 4.1 (3.5-5.0) g/dL Vitamin B12 (239-931) pg/mL Folic Acid (2.76 - >20) ng/mL Urine Color (YELLOW) Urine Appearance (CLEAR) Urine pH (5-6) Ur Specific [place] (1.005-1.025) Urine Protein (Negative) Urine Ketones (NEGATIVE) Urine Blood (0-5) Jose/ul Urine Nitrite (NEGATIVE) Urine Bilirubin (NEGATIVE) Urine Urobilinogen (0-1) mg/dL Ur Leukocyte Esterase (NEGATIVE) Urine WBC (Auto) (0-5) /HPF Urine RBC (Auto) (0-2) /HPF U Hyaline Cast (Auto) (0-2) /LPF U Epithel Cells (Auto) (FEW) /HPF Urine Bacteria (Auto) (NEGATIVE) /HPF Ur Random Creatinine 35.3 MG/DL U Random Total Protein 18 H (0-12) mg/dL Urine Glucose (NEGATIVE) mg/dL Radiology Exams: Radiology Procedures Category Date Time Status ECHO W/2D AND DOPPLER [US] Routine Exams 07/18/18 09:00 Taken Multi-Disciplinary Progress Notes: Multi-Disciplinary Progress Notes 07/18/18 11:51 Case Management Note by Meme Trujillo DISCHARGE PLAN REVIEWED, INDEPENDENT WITH ALL ADL'S. DENIES ADDNL NEEDS FOR DISCHARGE. PLANS FOR [facility] TO CONTINUE FOR ALL HOME OXYGEN NEEDS. CAN ASSIST IF NEEDED. Initialized on 07/18/18 11:51 - END OF NOTE Assessment/Plan (1) COPD exacerbation Current Visit: No Status: Acute Assessment & Plan: with some improvement. On zithromax and rocephin day #4. On IV solumedrol 40mg TID. Will decrease the solumedrol and see how she does - she is anxious to go home but will not be ready likely for several days. Code(s): J44.1 - CHRONIC OBSTRUCTIVE PULMONARY DISEASE W (ACUTE) EXACERBATION (2) Chronic renal failure Current Visit: Yes Status: Acute Qualifiers: Chronic kidney disease stage: stage 3 (moderate) Qualified Code(s): N18.3 - Chronic kidney disease, stage 3 (moderate) Assessment & Plan: Dr. Almeida saw her yesterday, thank you. Her renal function mildly improved today , with BUN/Cr 51 and 1.75. (3) Hypocalcemia Current Visit: Yes Status: Chronic Assessment & Plan: asx Code(s): E83.51 - HYPOCALCEMIA (4) CAD (coronary artery disease) Current Visit: Yes Status: Chronic Qualifiers: Coronary Disease-Associated Artery/Lesion type: unspecified vessel or lesion type [place] vs. transplanted heart: [place] heart Associated angina: without angina Qualified Code(s): I25.10 - Atherosclerotic heart disease of [place] coronary artery without angina pectoris Code(s): I25.10 - ATHSCL HEART DISEASE OF [place] CORONARY ARTERY W/O ANG PCTRS (5) CHF (congestive heart failure) Current Visit: Yes Status: Chronic Qualifiers: Heart failure chronicity: unspecified Code(s): I50.9 - HEART FAILURE, UNSPECIFIED (6) Carotid artery stenosis Current Visit: Yes Status: Chronic Qualifiers: Laterality: unspecified laterality Qualified Code(s): I65.29 - Occlusion and stenosis of unspecified carotid artery Code(s): I65.29 - OCCLUSION AND STENOSIS OF UNSPECIFIED CAROTID ARTERY (7) Diabetes Current Visit: No Status: Chronic Qualifiers: Diabetes mellitus type: type 2 Diabetes mellitus senior living insulin use: without intermediate frame tender use Diabetes mellitus complication status: with kidney complications Diabetes mellitus complication detail: with chronic kidney disease Chronic kidney disease stage: stage 3 (moderate) Qualified Code(s): E11.22 - Type 2 diabetes mellitus with diabetic chronic kidney disease; N18.3 - Chronic kidney disease, stage 3 (moderate) Assessment & Plan: BS 184-197 Code(s): E11.9 - TYPE 2 DIABETES MELLITUS WITHOUT COMPLICATIONS (8) Anemia Current Visit: Yes Status: Acute Qualifiers: Anemia type: due to chronic kidney disease Chronic kidney disease stage: stage 3 (moderate) Qualified Code(s): N18.3 - Chronic kidney disease, stage 3 (moderate); D63.1 - Anemia in chronic kidney disease Code(s): D64.9 - ANEMIA, UNSPECIFIED (9) HTN (hypertension) Current Visit: Yes Status: Acute Qualifiers: Hypertension type: essential hypertension Qualified Code(s): I10 - Essential (primary) hypertension Assessment & Plan: BP 184-197 systolic - on recheck 174 systolic. Increasing amlodipine to 10mg po daily. Code(s): I10 - ESSENTIAL (PRIMARY) HYPERTENSION
--- NOTE | 2018-07-19 09:34 | CONS ---
CONSULT DATE: 07/18/2018 REASON FOR CONSULT: Evaluation of increased BUN and creatinine. HISTORY: Teresa Joseph is a very pleasant 67 year-old lady who is well known to me. The patient has a baseline creatinine of around 1.4 to 1.5 mg%. She has chronic kidney disease stage III. The patient is a chronic smoker and still smokes about one to two packs of cigarettes per day. She was brought to the hospital because of complaints of cough. The patient had fever. The patient's creatinine initially was recorded around 1.2. Subsequently it was noted to have gone to around 1.88 mg%. A renal consultation was called. During the course of hospitalization the patient was initially was given IV Lasix and p.o. Lasix was continued. She was given high dose steroids. She was also given fluids. Creatinine remained high as a result creatinine remained high. The patient is eating and drinking well. There is no issue with p.o. intake. Leg swelling is present. Shortness of breath is present. Cough is present. No dysuria. No hematuria. She had been hemodynamically fluctuating. She has been hypo and hypertensive both. At this time she is on fluids at 70 cc/hour. The patient is not on any nonsteroidal. She was not on any nonsteroidal at home. She wears intranasal oxygen. No dysuria at this time. She is on Zocor and Zithromax and is not on any nephrotoxic medications. MEDICATIONS: Home medications were reviewed which include: Lipitor, Plavix, Celebrex, lisinopril, Lasix, potassium, Calcitriol, gabapentin, metoprolol. In the hospital medications were noted. Details of those were noted. ALLERGIES: NKDA. REVIEW OF SYSTEMS: Basically positive for shortness of breath, leg swelling. Cough is present, yellow color phlegm was present. No chest pain. No abdominal pain. No fall, trauma, focal weaknesses. Appetite has been fair. No dysuria or hematuria. No bleeding from any of the orifices. All systems were reviewed in detail and pertinent mentioned here and in history of present illness and the rest was negative. PAST MEDICAL HISTORY: Dyslipidemia. Chronic kidney disease stage IV. Coronary artery disease. Hypertension. Diabetes mellitus type 2. Diabetic peripheral neuropathy. Tendency for fluid retention and edema. Hypothyroidism. Depression. The patient was on chronic use of nonsteroidals at home in the form of Celebrex. PAST SURGICAL HISTORY: Right ankle surgery. Thyroidectomy. Tubal ligation. SOCIAL HISTORY: Lifelong smoker. Smokes one to two packs per day. FAMILY HISTORY: No history of renal problems in the family. PHYSICAL EXAMINATION: Reveals a lady who is lying in bed in mild respiratory distress when she talks in full sentences. Blood pressure was noted to be 137/65, pulse rate 94/minute, respiratory rate 24/minute, temperature 98.5F. Saturating 95% on 2 liters. HEENT: Normocephalic, atraumatic, pale conjunctivae, nonicteric sclera. NECK: Supple. Questionable hepatojugular reflex. CHEST: Bilateral rales, occasional rhonchi. CVS: S1, S2 normal. No rub or gallop. ABDOMEN: Soft, nontender. No organomegaly. EXTREMITIES: 1 to +2 edema bilaterally. SKIN: No skin rash seen. Skin turgor normal. MUSCULOSKELETAL: No acute joint swelling or redness noted. NEUROLOGIC: Nonfocal exam. Alert, awake, oriented x3. LAB DATA AND TESTS: Labs were reviewed and pertinent labs creatinine 1.8, glucose 179, BUN 48, sodium 136, calcium 6.6. ASSESSMENT: 1) ACUTE KIDNEY INJURY ON CHRONIC KIDNEY DISEASE STAGE III: Etiology of acute kidney injury could be multifactorial. Initially the patient had hypoxemia infection which could have contributed. The possibility of cardiorenal syndrome arises. Also fluctuating blood pressure, high blood sugar could have further caused acute kidney injury in patient. The patient throughout has been on lisinopril as well. At this time creatinine levels are flattening. Baseline is around 1.4 mg%. Recently creatinine has been around 1.8 mg% in hospital. I doubt presence of any dehydration. The patient is eating and drinking well. Clinically appears to be swollen. I will reduce IV fluids to 10 cc/hour, start her on IV diuretic. Hold lisinopril, monitor urine studies. If the patient has a component of ATN may take a few days to week before it improves. If it is pure cardiorenal the renal function should improve with diuretics. Continue to monitor closely. 2) HYPOCALCEMIA: Status post thyroidectomy with possible removal of parathyroid. Calcium level 6.6. Start Calcitriol. Increase calcium supplementation. May worsen because of initiation of IV diuretics. It could have also become low in the recent past because of aggressive IV fluids given. 3) ANEMIA, NOT OTHERWISE SPECIFIED: Hemoglobin was less than 9. I did order iron studies and subsequently reviewed them. They were low. Will start IV iron. 4) HYPERTENSION: Fluctuating blood pressure. It had been low yesterday at around 98/61. At this time around 137 hold lisinopril. Diuretics are being increased. 5) ACUTE BRONCHITIS/CAP (COMMUNITY-ACQUIRED PNEUMONIA): Continue present antibiotics. 6) DIABETES MELLITUS TYPE 2: Hyperglycemia has been present more so because of recent increase in steroids. We will increase to high dose sliding scale coverage. I concur with the present medications. I will follow up the patient closely.
[2018-07-19] MEDS: Ecotrin 325 MG PO SCH (10:25)
[2018-07-19] MEDS: Calcium 500MG W/Vit D Tablet PO SCH ×3 (10:25→21:27)
[2018-07-19] MEDS: BUMEX 1 MG IV SCH ×2 (10:25→17:10)
[2018-07-19] MEDS: ENOXAPARIN SODIUM SQ SCH (10:26)
[2018-07-19] MEDS: Klor Con 10 MEQ PO SCH (10:26)
[2018-07-19] MEDS: Neurontin 400 MG PO SCH ×4 (10:27→21:28)
[2018-07-19] MEDS: SYNTHROID 88 MCG PO SCH (10:27)
[2018-07-19] MEDS: REQUIP 2MG TAB PO SCH ×3 (10:27→21:26)
[2018-07-19] MEDS: SYNTHROID 100 MCG PO SCH (10:27)
[2018-07-19] MEDS: NON-FORMULARY ITEM PO SCH (10:27)
[2018-07-19] MEDS: Lantus Insulin SQ SCH (10:28)
[2018-07-19] MEDS: Venofer 100 MG/5 ML*** 200 MG in Sodium Chloride 0.9% 100 ML IVPB 100 ML IV SCH (11:42)
[2018-07-19] MEDS: NovoLOG Insulin SQ PRN ×3 (11:44→21:25)
[2018-07-19] MEDS ORDERED: TYLENOL 325 MG PO PRN (17:20)
[2018-07-19] MEDS: ROCEPHIN 1 Gm-D5w 50 ml Bag** 1 G/50 ML IVPB IV SCH (21:19)
[2018-07-19] MEDS: Topamax 25 MG PO SCH (21:25)
[2018-07-19] MEDS: Cymbalta 30 MG Capsule PO SCH (21:26)
[2018-07-19] MEDS: PLAVIX 75 MG Tablet PO SCH (21:27)
[2018-07-19] MEDS: Toprol Xl 100 MG PO SCH (21:55)
[2018-07-19] MEDS: Zithromax 500 MG/ 250 ML NaCl Premix 500 MG/250 ML IVPB IV SCH (21:56)
[2018-07-20] MEDS: DUONEB 0.5-3 MG/3 ml Neb IH SCH ×6 (03:51→23:22)
[2018-07-20] MEDS: solu-MEDROL 40 MG IV SCH ×2 (05:16→17:36)
[2018-07-20 06:09] LABS: Hematocrit 31.7 % (35-47); Hemoglobin 9.7 gm/dl (12.0-16.0); Mean Cell Volume 76.9 fl (78-100); Mean Corpuscular Hemoglobin 23.5 pg (26-32); Mean Corpuscular Hgb Concent. 30.6 g/dl (32-36); Mean Platelet Volume 9.6 fl (6-9.5); Platelet Count 297 K/mm3 (150-450); Red Blood Count 4.12 M/mm3 (4.1-5.4); Red Cell Distribution Width 17.8 % (11.5-14.0); White Blood Count 12.9 K/mm3 (4.0-10.5)
[2018-07-20 06:32] LABS: ANION GAP 14.8 MEQ/L (5-15); Calcium 7.7 mg/dL (8.4-10.2); Creatinine 1 1.28 mg/dL (0.52-1.04); Potassium 4.2 mmol/L (3.5-5.1)
[2018-07-20] MEDS: Advair Hfa 115/21 Common canister IH SCH ×2 (07:10→19:41)
[2018-07-20] MEDS: NovoLOG Insulin SQ SCH ×3 (07:45→17:36)
--- NOTE | 2018-07-20 07:59 | PCM.NOTE ---
Date and Time: 07/20/18 0756 Subjective Assessment: She is still feeling wheezy. Damián po. Her BS this a.m. was 37 - has been elevated prior to that. - Review of Systems Constitutional: No Fever Respiratory: Cough, Short Of Breath Objective Exam General Appearance: no apparent distress, alert Neurologic Exam: oriented x 3, cooperative Skin Exam: normal color, warm, dry, No rash Ears, Nose, Throat Exam: moist mucous membranes Respiratory Exam: diminished breath sounds (fair air exchange), prolonged expirations, wheezing (throughout), No crackles/rales, No rhonchi Cardiovascular Exam: regular rate/rhythm, normal heart sounds, No murmur Gastrointestinal/Abdomen Exam: soft, normal bowel sounds, No tenderness, No distention, No mass, No guarding, No rebound Extremity Exam: normal inspection, No pedal edema, No swelling Back Exam: normal inspection, No rash OBJECTIVE DATA Vital Signs: Vital Signs - 24 hr Temp Pulse Resp BP Pulse Ox 07/20/18 07:14 80 20 92 L 07/20/18 04:00 98.1 F 82 19 172/72 96 07/20/18 03:51 73 18 95 07/20/18 00:00 97.5 F 81 17 161/67 96 07/19/18 23:54 96 H 20 96 07/19/18 20:00 98.6 F 94 H 22 168/71 98 07/19/18 19:41 96 H 18 96 07/19/18 16:00 18 07/19/18 15:56 98.7 F 88 18 184/79 95 07/19/18 15:53 88 18 93 L 07/19/18 15:00 88 18 97 07/19/18 11:25 98.4 F 88 18 149/63 97 07/19/18 10:55 89 20 94 L 07/19/18 08:00 97.4 F 81 18 174/73 98 Oxygen-Last 24 hours O2 Percentage 2 Liters = 28% O2 Percentage 2 Liters = 28% O2 Percentage 2 Liters = 28% O2 Percentage 3 Liters = 32% O2 Percentage 2 Liters = 28% O2 Percentage 2 Liters = 28% Pain Assessment - Last Documented Pain Intensity 0 Pain Scale Used 0-10 Pain Scale Intake and Output: Intake & Output 07/17/18 07/18/18 07/19/18 07/20/18 11:59 11:59 11:59 11:59 Intake Total 1431 2581 1941 969 Output Total 1750 1500 1900 4950 Balance -314 5309 41 -3981 Weight 103.9 kg 107.3 kg 108 kg Lab Results: Accuchecks Date 07/19/18 Date 07/19/18 Time 21:00 Time 16:30 Accucheck Value: 182 Accucheck Value: 222 Accucheck Value: 370 Lab Results-Last 24 Hours 07/20/18 07/20/18 Range/Units 05:40 05:40 WBC 12.9 H (4.0-10.5) K/mm3 RBC 4.12 (4.1-5.4) M/mm3 Hgb 9.7 L (12.0-16.0) gm/dl Hct 31.7 L (35-47) % MCV 76.9 L (78-100) fl MCH 23.5 L (26-32) pg MCHC 30.6 L (32-36) g/dl RDW 17.8 H (11.5-14.0) % Plt Count 297 (150-450) K/mm3 MPV 9.6 H (6-9.5) fl Sodium 138 (137-145) mmol/L Potassium 4.2 (3.5-5.1) mmol/L Chloride 95 L (98-107) mmol/L Carbon Dioxide 33 H (22-30) mmol/L Anion Gap 14.8 (5-15) MEQ/L BUN 49 H (7-17) mg/dL Creatinine 1.28 H (0.52-1.04) mg/dL Estimated GFR 44.2 ML/MIN Glucose 37 L* (74-106) mg/dL Calcium 7.7 L (8.4-10.2) mg/dL Radiology Exams: Radiology Procedures Category Date Time Status ECHO W/2D AND DOPPLER [US] Routine Exams 07/18/18 09:00 Taken Multi-Disciplinary Progress Notes: Multi-Disciplinary Progress Notes 07/19/18 10:15 (created 07/19/18 13:15) Case Management Note by Meme Trujillo PLANS TO RETURN HOME TO PRE EPISODIC LEVEL OF FNX, INDEPENDENT WITH ALL ADL'S. DENIES ADDNL NEEDS AT PRESENT TIME. Initialized on 07/19/18 13:15 - END OF NOTE Assessment/Plan (1) COPD exacerbation Current Visit: No Status: Acute Assessment & Plan: Still quite wheezy. Changing abx from rocephin/zithromax (completed 4d) to levaquin. Pt may be interested in swing bed stay; would start that tomorrow if stable. Still on IV solumedrol 40 BID and 2L O2 per NC. Code(s): J44.1 - CHRONIC OBSTRUCTIVE PULMONARY DISEASE W (ACUTE) EXACERBATION (2) Chronic renal failure Current Visit: Yes Status: Chronic Qualifiers: Chronic kidney disease stage: stage 3 (moderate) Qualified Code(s): N18.3 - Chronic kidney disease, stage 3 (moderate) Assessment & Plan: Improved eGFR this morning at 44.2. (3) Hypocalcemia Current Visit: Yes Status: Chronic Code(s): E83.51 - HYPOCALCEMIA (4) CAD (coronary artery disease) Current Visit: Yes Status: Chronic Qualifiers: Coronary Disease-Associated Artery/Lesion type: unspecified vessel or lesion type [place] vs. transplanted heart: [place] heart Associated angina: without angina Qualified Code(s): I25.10 - Atherosclerotic heart disease of [place] coronary artery without angina pectoris Code(s): I25.10 - ATHSCL HEART DISEASE OF [place] CORONARY ARTERY W/O ANG PCTRS (5) CHF (congestive heart failure) Current Visit: Yes Status: Chronic Qualifiers: Heart failure chronicity: unspecified Code(s): I50.9 - HEART FAILURE, UNSPECIFIED (6) Carotid artery stenosis Current Visit: Yes Status: Chronic Qualifiers: Laterality: unspecified laterality Qualified Code(s): I65.29 - Occlusion and stenosis of unspecified carotid artery Code(s): I65.29 - OCCLUSION AND STENOSIS OF UNSPECIFIED CAROTID ARTERY (7) Diabetes Current Visit: No Status: Chronic Qualifiers: Diabetes mellitus type: type 2 Diabetes mellitus alf insulin use: without termite control representative use Diabetes mellitus complication status: with kidney complications Diabetes mellitus complication detail: with chronic kidney disease Chronic kidney disease stage: stage 3 (moderate) Qualified Code(s): E11.22 - Type 2 diabetes mellitus with diabetic chronic kidney disease; N18.3 - Chronic kidney disease, stage 3 (moderate) Assessment & Plan: Decreased her lantus to 80 units from 90 each morning. decreased her regular insulin from 15 units with meals to 10 units with meals. Code(s): E11.9 - TYPE 2 DIABETES MELLITUS WITHOUT COMPLICATIONS (8) Anemia Current Visit: Yes Status: Acute Qualifiers: Anemia type: due to chronic kidney disease Chronic kidney disease stage: stage 3 (moderate) Qualified Code(s): N18.3 - Chronic kidney disease, stage 3 (moderate); D63.1 - Anemia in chronic kidney disease Code(s): D64.9 - ANEMIA, UNSPECIFIED (9) HTN (hypertension) Current Visit: Yes Status: Acute Qualifiers: Hypertension type: essential hypertension Qualified Code(s): I10 - Essential (primary) hypertension Assessment & Plan: Increased amlodipine yesterday - to 10mg. Still bp 160s-170s. will see what they are tomorrow. Code(s): I10 - ESSENTIAL (PRIMARY) HYPERTENSION
[2018-07-20] MEDS: ENOXAPARIN SODIUM SQ SCH (09:44)
[2018-07-20] MEDS: Klor Con 10 MEQ PO SCH (09:44)
[2018-07-20] MEDS: SYNTHROID 100 MCG PO SCH (09:44)
[2018-07-20] MEDS: REQUIP 2MG TAB PO SCH ×3 (09:44→22:58)
[2018-07-20] MEDS: Neurontin 400 MG PO SCH ×4 (09:44→22:57)
[2018-07-20] MEDS: SYNTHROID 88 MCG PO SCH (09:44)
[2018-07-20] MEDS: Calcium 500MG W/Vit D Tablet PO SCH ×3 (09:44→22:58)
[2018-07-20] MEDS: Levofloxacin 500MG/100ML D5W 500 MG/100 ML BAG IV SCH (09:45)
[2018-07-20] MEDS: Ecotrin 325 MG PO SCH (09:45)
[2018-07-20] MEDS: NON-FORMULARY ITEM PO SCH (09:45)
[2018-07-20] MEDS: BUMEX 1 MG IV SCH ×4 (09:45→23:40)
[2018-07-20] MEDS ORDERED: Lantus Insulin SQ SCH (10:00)
[2018-07-20] MEDS: Venofer 100 MG/5 ML*** 200 MG in Sodium Chloride 0.9% 100 ML IVPB 100 ML IV SCH (11:16)
[2018-07-20] MEDS: NovoLOG Insulin SQ PRN ×2 (11:57→22:57)
[2018-07-20] MEDS: Toprol Xl 100 MG PO SCH (22:57)
[2018-07-20] MEDS: PLAVIX 75 MG Tablet PO SCH (22:57)
[2018-07-20] MEDS: Topamax 25 MG PO SCH (22:58)
[2018-07-20] MEDS: Cymbalta 30 MG Capsule PO SCH (22:58)
[2018-07-20] MEDS: Apresoline 25 MG TABLET PO SCH (22:58)
[2018-07-21] MEDS: DUONEB 0.5-3 MG/3 ml Neb IH SCH ×4 (03:25→14:50)
[2018-07-21] MEDS: solu-MEDROL 40 MG IV SCH (05:28)
[2018-07-21] MEDS: BUMEX 1 MG IV SCH ×2 (05:28→13:08)
[2018-07-21 06:18] LABS: Hematocrit 32.1 % (35-47); Hemoglobin 10.1 gm/dl (12.0-16.0); Mean Corpuscular Hgb Concent. 31.5 g/dl (32-36); Mean Platelet Volume 9.7 fl (6-9.5); Platelet Count 353 K/mm3 (150-450); Red Blood Count 4.28 M/mm3 (4.1-5.4); Red Cell Distribution Width 17.5 % (11.5-14.0); White Blood Count 15.1 K/mm3 (4.0-10.5)
[2018-07-21 06:26] LABS: Mean Corpuscular Hemoglobin 23.5 pg (26-32)
[2018-07-21 06:32] LABS: ALBUMIN 3.7 g/dL (3.5-5.0); ANION GAP 13.4 MEQ/L (5-15); BILIRUBIN,TOTAL 0.3 mg/dL (0.2-1.3); Calcium 8.1 mg/dL (8.4-10.2); Creatinine 1 1.14 mg/dL (0.52-1.04); MAGNESIUM 1.7 mg/dL (1.6-2.3); Potassium 3.6 mmol/L (3.5-5.1); Total Protein 6.9 g/dL (6.3-8.2)
[2018-07-21] MEDS: Advair Hfa 115/21 Common canister IH SCH (07:34)
[2018-07-21] MEDS ORDERED: Lantus Insulin SQ SCH ×2 (08:17→09:05)
--- NOTE | 2018-07-21 09:04 | PCM.DS ---
Discharge Summary Date of Admission: 07/16/18 02:36 Admitting Physician: ROLANDO SALMERON Consults: Consults on Case 07/18/18 08:56 Consult Nephrology ROUTINE Primary Care Provider: ROLANDO SALMERON Allergies Allergies No Known Drug Allergies Allergy (Verified 07/15/18 20:26) Hospital Summary - Hospital Course Hospital Course: Pt is a 67 yo pt of mine from [facility] with DM, COPD, HTN, hypothyroid, and hx [place] who was admitted to [facility] for PNA and COPD exacerbation. CXR showed infrahilar infiltrate; CT chest with neg PE, diffuse patchy airspace dz. She was treated with several days of IV rocephin and zithromax, with IV solumedrol; she remained quite wheezy up until today. Did change abx to levaquin yesterday. SHe is feeling much better. She has an echo cardiogram for which the read is pending. Her BS were initially in the 300s-400s, but the last 2 mornings her BS was 37 on BMP. She improved with po intake. I decreased her home lantus to 80units yesterday - upon further questioning today, she doesn't always take her home insulin and yesterday's BS were all in the 100s - decreasing further to 60 units today. Her IV solumedrol will be discontinued today and she will start on po. Renal function was poor when she was admitted, with eGFR of 28. Nephrology was consulted, thank you. Her eGFR has gradually risen and is 50.5 today. Pt's hemoglobin was 8.1 initiall, now 10 this morning. She was started on IV infusion by Dr. Hunt. Will be discharged to swing bed. - Vitals & Intake/Output Vital Signs: Vital Signs Temperature 96.0 F 07/21/18 08:00 Pulse Rate 75 07/21/18 08:00 Respiratory Rate 18 07/21/18 08:00 Blood Pressure 126/58 07/21/18 08:00 O2 Sat by Pulse Oximetry 98 07/21/18 08:00 Oxygen-Last Documented O2 Percentage 2 Liters = 28% Intake & Output: Intake & Output 07/18/18 07/19/18 07/20/18 07/21/18 11:59 11:59 11:59 11:59 Intake Total 4073 7844 287 9525 Output Total 7707 9181 0675 9635 Balance 5620 70 -1329 -1822 Weight 107.3 kg 108 kg 108.1 kg 104.8 kg - Lab Result Diagrams: 07/21/18 05:41 07/21/18 05:41 Lab Results-Last 24 Hrs: Accuchecks Accucheck Value: 188 Accucheck Value: 124 Accucheck Value: 170 Lab Results-Last 24 Hours 07/17/18 07/21/18 07/21/18 Range/Units 13:30 05:41 05:41 WBC 15.1 H (4.0-10.5) K/mm3 RBC 4.28 (4.1-5.4) M/mm3 Hgb 10.1 L (12.0-16.0) gm/dl Hct 32.1 L (35-47) % MCV 75.0 L (78-100) fl MCH 23.5 L (26-32) pg MCHC 31.5 L (32-36) g/dl RDW 17.5 H (11.5-14.0) % Plt Count 353 (150-450) K/mm3 MPV 9.7 H (6-9.5) fl Sodium 138 (137-145) mmol/L Potassium 3.6 (3.5-5.1) mmol/L Chloride 90 L (98-107) mmol/L Carbon Dioxide 38 H (22-30) mmol/L Anion Gap 13.4 (5-15) MEQ/L BUN 46 H (7-17) mg/dL Creatinine 1.14 H (0.52-1.04) mg/dL Estimated GFR 50.5 ML/MIN Glucose 37 L* (74-106) mg/dL Calcium 8.1 L (8.4-10.2) mg/dL Magnesium 1.7 (1.6-2.3) mg/dL Total Bilirubin 0.30 (0.2-1.3) mg/dL AST 27 (14-36) U/L ALT 21 (0-35) U/L Alkaline Phosphatase 69 (38-126) U/L Serum Total Protein 6.9 (6.3-8.2) g/dL Albumin 3.7 (3.5-5.0) g/dL PTH Intact 18 (15-72) pg/mL Micro Results-Entire Visit: Microbiology 07/15/18 20:25 Blood Culture Gram Stain - Final Blood Not Reportable Blood Culture - Final NO GROWTH 07/15/18 20:39 Blood Culture Gram Stain - Final Blood Not Reportable Blood Culture - Final NO GROWTH 07/16/18 00:54 Urine Culture - Final Clean Catch Midstream NO GROWTH Accuchecks Accucheck Value: 188 Accucheck Value: 124 Accucheck Value: 170 - Procedures and Test Procedures and Tests throughout Hospitalization: Therapy Orders & Screens 07/15/18 20:14 Peak Expiratory Flow Rate ONCE Comment: Reason For Exam: 07/15/18 20:17 Respiratory Nebulizer STAT Comment: Diagnosis: Shortness of Breath 07/15/18 20:54 Respiratory Therapy Assessment Q4H Comment: Diagnosis: Shortness of Breath 07/16/18 01:20 Oxygen NASAL CANNULA 2 lpm Comment: Diagnosis: Shortness of Breath 07/16/18 04:46 OT Screen per Nursing Assess Comment: Protocol Order Physician Instructions: Greater than 3 points order OT Admission Screening Reason For Exam: Triggered on Admission Diagnosis: PNE Open Wound/Cellutlitis/Pressure Ulcers: No Acute Fx/ORIF/Change in wt bearing status: No Severe MUSCULOSKELETAL pain: No ADL Dysfunction: Yes Acute CVA w/Hemiparesis/Hemiplegia: No Decreased Functional Mobility/Strength: Yes Sprain/Strain: No Acute Post-op Mobility Dysfunction: No Total Points: 4 PT Screen per Nursing Assess ONCE Comment: Protocol Order Physician Instructions: Greater than 3 points order PT Admission Screenin Reason For Exam: Triggered on Admission Diagnosis: PNE Open Wound/Cellutlitis/Pressure Ulcers: No Acute Fx/ORIF/Change in wt bearing status: No Severe MUSCULOSKELETAL pain: No ADL Dysfunction: Yes Acute CVA w/Hemiparesis/Hemiplegia: No Decreased Functional Mobility/Strength: Yes Sprain/Strain: No Acute Post-op Mobility Dysfunction: No Total Points: 4 RT Screen per Nursing Assess ONCE Comment: Protocol Order Physician Instructions: Greater than 3 points order RT Admission Screen Reason For Exam: Triggered on Admission Diagnosis: PNE Diagnosis: PNE Pneumonia: Yes Home O2: Yes: 2L-pt will not wear at home Asthma: No CHF: Yes Home CPAP/BIPAP: No Home Nebs/MDI: Yes Total Points: 16 Discharge Exam General Appearance: no apparent distress, alert, other (sitting on side of bed, comfortable) Neurologic Exam: oriented x 3, cooperative Skin Exam: normal color, warm, dry, No rash Respiratory Exam: diminished breath sounds (good air exchange), prolonged expirations, No crackles/rales, No rhonchi, No wheezing Cardiovascular Exam: regular rate/rhythm, normal heart sounds, No murmur Extremity Exam: swelling (1+ pretibial edema bilat) Back Exam: normal inspection, No rash Final Diagnosis/Problem List - Final Discharge Diagnosis/Problem (1) PNA (pneumonia) Current Visit: Yes Status: Acute Assessment & Plan: Much better since changing antibiotic to levaquin - day #2 today. Will discharge pt to swing bed. Start po prednisone instead of IV steroid. I anticipate she will need several days on the levaquin before discharge - goal is home Wednesday. Code(s): J18.9 - PNEUMONIA, UNSPECIFIED ORGANISM (2) COPD exacerbation Current Visit: No Status: Acute Code(s): J44.1 - CHRONIC OBSTRUCTIVE PULMONARY DISEASE W (ACUTE) EXACERBATION (3) Chronic renal failure Current Visit: Yes Status: Chronic Assessment & Plan: improved. (4) Hypocalcemia Current Visit: Yes Status: Chronic Code(s): E83.51 - HYPOCALCEMIA (5) CAD (coronary artery disease) Current Visit: Yes Status: Chronic Code(s): I25.10 - ATHSCL HEART DISEASE OF [place] CORONARY ARTERY W/O ANG PCTRS (6) CHF (congestive heart failure) Current Visit: Yes Status: Chronic Code(s): I50.9 - HEART FAILURE, UNSPECIFIED (7) Carotid artery stenosis Current Visit: Yes Status: Chronic Code(s): I65.29 - OCCLUSION AND STENOSIS OF UNSPECIFIED CAROTID ARTERY (8) Diabetes Current Visit: No Status: Chronic Code(s): E11.9 - TYPE 2 DIABETES MELLITUS WITHOUT COMPLICATIONS (9) Anemia Current Visit: Yes Status: Acute Assessment & Plan: on iron infusion Code(s): D64.9 - ANEMIA, UNSPECIFIED (10) HTN (hypertension) Current Visit: Yes Status: Chronic Assessment & Plan: increased BP here - Dr. Hunt added hydralazine TID yesterday. Code(s): I10 - ESSENTIAL (PRIMARY) HYPERTENSION - Discharge Disposition: Swing Bed @ [facility] Condition: Stable Prescriptions: No Action Metformin HCl 1000 mg [Glucophage 1000 MG] 1,000 mg PO BID Clopidogrel Bisulfate 75 mg [PLAVIX 75 MG Tablet] 75 mg PO HS Aspirin [Aspirin EC] 325 mg PO QAM Metoprolol Succinate [Toprol Xl] 100 mg PO HS Potassium Chloride [K-Tab ER] 10 meq PO DAILY Insulin Degludec [Tresiba Flextouch U-200] 90 unit SQ QAM Promethazine HCl 25 mg PO Q8HPRN PRN PRN Reason: Nausea/Vomiting Insulin Aspart [Novolog Flexpen] 15 unit SQ AC Furosemide 40 mg [Lasix 40 MG] 40 mg PO QAM Duloxetine HCl [Cymbalta] 60 mg PO HS Fluticasone/Salmeterol [Advair 250-50 Diskus] 1 puff IH BID Ropinirole HCl 4 mg PO TID Gabapentin [Neurontin] 800 mg PO QID Lisinopril 20 mg [Zestril 20 MG] 20 mg PO DAILY Levothyroxine Sodium 88 Mcg [Synthroid 88 Mcg] 88 mcg PO DAILY Levothyroxine Sodium 100 Mcg [Synthroid 100 Mcg] 100 mcg PO DAILY Topiramate 25 mg [Topamax 25 MG] 25 mg PO HS AMITRIPTYLINE HCL 50 mg Tab [AMITRIPTYLINE HCL 50 mg Tablet] 50 mg PO HS Atorvastatin Calcium [Lipitor] 40 mg PO HS Albuterol/Ipratropium 3ml Neb* [DUONEB 0.5-3 MG/3 ml Neb] 2.5 mg IH Q6HPRN PRN PRN Reason: Shortness Of Breath/Wheezing Albuterol 8 gm Mdi Hfa [Ventolin Hfa MDI] 2 puff IH Q4HPRN PRN PRN Reason: Shortness Of Breath/Wheezing Follow up with: ROLANDO SALMERON [Primary Care Provider] - 1 Week
[2018-07-21] MEDS: SYNTHROID 88 MCG PO SCH (09:26)
[2018-07-21] MEDS: Neurontin 400 MG PO SCH ×2 (09:26→13:17)
[2018-07-21] MEDS: Apresoline 25 MG TABLET PO SCH ×2 (09:26→15:12)
[2018-07-21] MEDS: Klor Con 10 MEQ PO SCH (09:27)
[2018-07-21] MEDS: ENOXAPARIN SODIUM SQ SCH (09:27)
[2018-07-21] MEDS: SYNTHROID 100 MCG PO SCH (09:27)
[2018-07-21] MEDS: REQUIP 2MG TAB PO SCH ×2 (09:27→15:12)
[2018-07-21] MEDS: Calcium 500MG W/Vit D Tablet PO SCH ×2 (09:27→15:12)
[2018-07-21] MEDS: Ecotrin 325 MG PO SCH (09:27)
[2018-07-21] MEDS: NON-FORMULARY ITEM PO SCH (09:28)
[2018-07-21] MEDS: Levofloxacin 500MG/100ML D5W 500 MG/100 ML BAG IV SCH (09:29)
[2018-07-21] MEDS ORDERED: DELTASONE 20 MG PO SCH (10:00)
[2018-07-21] MEDS: Venofer 100 MG/5 ML*** 200 MG in Sodium Chloride 0.9% 100 ML IVPB 100 ML IV SCH (10:48)
[2018-07-21] MEDS: NovoLOG Insulin SQ PRN (13:19)
[2018-07-21 13:24] VITALS: BP 116/85
[2018-07-21 14:59] VITALS: PULSE 89; O2SAT 98
[2018-07-23] MEDS ORDERED: BUMEX 1 MG IV SCH (22:00)
== END 2018-07-21 15:20 | disposition swing bed (61) | DRG 194 ==
LOC: ED 20:06 → MED SURG 07-16 02:36
PROVIDERS: ADMIT Family Medicine; ATTEND Family Medicine
DX: J18.9 Pneumonia, unspecified organism (principal); J44.1 Chronic obstructive pulmonary disease with (acute) exacerbation; E11.9 Type 2 diabetes mellitus without complications; F17.200 Nicotine dependence, unspecified, uncomplicated; I12.9 Hypertensive chronic kidney disease with stage 1 through stage 4 chronic kidney disease, or unspecified chronic kidney disease; Z79.01 Long term (current) use of anticoagulants; Z79.899 Other long term (current) drug therapy; N18.3 Chronic kidney disease, stage 3 (moderate); E03.9 Hypothyroidism, unspecified; E83.51 Hypocalcemia; I50.9 Heart failure, unspecified; I25.10 Atherosclerotic heart disease of native coronary artery without angina pectoris; R91.1 Solitary pulmonary nodule; E78.00 Pure hypercholesterolemia, unspecified; I65.29 Occlusion and stenosis of unspecified carotid artery; D50.9 Iron deficiency anemia, unspecified
CPT/HCPCS: 36000; 36415; 36600; 71045; 71260; 80048; 80053; 81001; 82306; 82330; 82375; 82570; 82607; 82728; 82746; 82803; 82962; 83540; 83550; 83605; 83735; 83880; 83970; 84156; 84300; 84484; 85025; 85027; 85379; 87040; 87086; 87205; 87631; 93306; 94150; 94640; 94760; 94762; 96365; 96367; 96374; 96375; 99285; J0456; J0696; J1650; J1756; J1940; J1956; J2920; J2930; A9270-GY

== ENCOUNTER 2018-07-21 13:28 | Inpatient (IN) | payer MEDICARE ==
[2018-07-21] MEDS ORDERED: PHENERGAN 25 MG PO PRN (15:31)
[2018-07-21] MEDS ORDERED: PROVENTIL COMMON CANISTER IH PRN (15:31)
[2018-07-21] MEDS ORDERED: Aplisol ID ONE (15:31)
[2018-07-21] MEDS ORDERED: TYLENOL 325 MG PO PRN (15:31)
[2018-07-21] MEDS: Neurontin 400 MG PO SCH ×2 (18:16→22:11)
[2018-07-21] MEDS: NovoLOG Insulin SQ SCH (18:17)
[2018-07-21] MEDS: BUMEX 1 MG IV SCH ×2 (18:17→23:48)
[2018-07-21] MEDS: NovoLOG Insulin SQ PRN ×2 (18:17→22:22)
[2018-07-21] MEDS: DUONEB 0.5-3 MG/3 ml Neb IH SCH ×2 (19:40→23:21)
[2018-07-21] MEDS: Advair Hfa 115/21 Common canister IH SCH (19:43)
[2018-07-21] MEDS: PLAVIX 75 MG Tablet PO SCH (22:11)
[2018-07-21] MEDS: Apresoline 25 MG TABLET PO SCH (22:11)
[2018-07-21] MEDS: Cymbalta 30 MG Capsule PO SCH (22:11)
[2018-07-21] MEDS: Calcium 500MG W/Vit D Tablet PO SCH (22:12)
[2018-07-21] MEDS: REQUIP 2MG TAB PO SCH (22:12)
[2018-07-21] MEDS: Topamax 25 MG PO SCH (22:12)
[2018-07-21] MEDS: Toprol Xl 100 MG PO SCH (22:12)
[2018-07-21] MEDS: Sodium Chloride 0.9% 500 ML 500 ML IV SCH (22:22)
[2018-07-22] MEDS: DUONEB 0.5-3 MG/3 ml Neb IH SCH ×6 (03:29→23:20)
[2018-07-22] MEDS: BUMEX 1 MG IV SCH ×3 (05:28→17:19)
[2018-07-22 05:51] LABS: Hematocrit 33.4 % (35-47); Hemoglobin 10.2 gm/dl (12.0-16.0); Mean Cell Volume 75.7 fl (78-100); Mean Corpuscular Hemoglobin 23.1 pg (26-32); Mean Corpuscular Hgb Concent. 30.5 g/dl (32-36); Mean Platelet Volume 9.2 fl (6-9.5); Platelet Count 278 K/mm3 (150-450); Red Blood Count 4.41 M/mm3 (4.1-5.4); Red Cell Distribution Width 17.8 % (11.5-14.0); White Blood Count 12.7 K/mm3 (4.0-10.5)
[2018-07-22 06:07] LABS: ALBUMIN 3.6 g/dL (3.5-5.0); BILIRUBIN,TOTAL 0.4 mg/dL (0.2-1.3); Calcium 8.1 mg/dL (8.4-10.2); Creatinine 1 1.28 mg/dL (0.52-1.04); MAGNESIUM 1.6 mg/dL (1.6-2.3); Potassium 3.5 mmol/L (3.5-5.1); Total Protein 6.7 g/dL (6.3-8.2)
[2018-07-22 07:03] LABS: ANION GAP 15.5 MEQ/L (5-15)
[2018-07-22] MEDS: Advair Hfa 115/21 Common canister IH SCH ×2 (07:06→19:15)
[2018-07-22] MEDS: NovoLOG Insulin SQ SCH ×2 (08:10→11:39)
[2018-07-22] MEDS: Levofloxacin 500MG/100ML D5W 500 MG/100 ML BAG IV SCH (09:43)
[2018-07-22] MEDS: SYNTHROID 88 MCG PO SCH (09:52)
[2018-07-22] MEDS: Apresoline 25 MG TABLET PO SCH ×3 (09:52→21:55)
[2018-07-22] MEDS: Calcium 500MG W/Vit D Tablet PO SCH ×3 (09:52→21:55)
[2018-07-22] MEDS: DELTASONE 20 MG PO SCH (09:52)
[2018-07-22] MEDS: REQUIP 2MG TAB PO SCH ×3 (09:52→21:55)
[2018-07-22] MEDS: Klor Con 10 MEQ PO SCH (09:52)
[2018-07-22] MEDS: Ecotrin 325 MG PO SCH (09:52)
[2018-07-22] MEDS: SYNTHROID 100 MCG PO SCH (09:52)
[2018-07-22] MEDS: ENOXAPARIN SODIUM SQ SCH (09:52)
[2018-07-22] MEDS: Neurontin 400 MG PO SCH ×4 (09:52→21:55)
[2018-07-22] MEDS: NON-FORMULARY ITEM PO SCH (09:53)
[2018-07-22] MEDS: Lantus Insulin SQ SCH (09:53)
[2018-07-22] MEDS ORDERED: Venofer 100 MG/5 ML*** 200 MG in Sodium Chloride 0.9% 100 ML IVPB 100 ML IV SCH (10:00)
[2018-07-22] MEDS: NovoLOG Insulin SQ PRN ×2 (11:39→21:54)
--- NOTE | 2018-07-22 16:33 | XRAY ---
Indication: Leg pain. CAD. Two-dimensional sonogram and color Doppler imaging of the major arteries of the left and right leg was performed. Comparison: December 11, 2013. Examination of the right leg again demonstrates minimal scattered arteriosclerotic disease in the common femoral and proximal superficial femoral arteries with normal multiphasic arterial waveforms. Mid to distal superficial femoral and popliteal arteries again demonstrate mild/moderate disease with now monophasic arterial waveforms. Widely patent posterior tibial and dorsal pedal arteries with now monophasic arterial waveforms. Right arm brachial pressures 132. Right ankle pressure is 80. Ankle-brachial index is 0.61 favoring moderate ischemic disease. No previous ankle-brachial index. Examination of the left leg again demonstrates minimal scattered disease in the common femoral, superficial femoral,, popliteal, posterior tibial, and dorsal pedal arteries with normal multiphasic arterial waveforms. No critical stenosis/obstruction. Left upper echo pressures 120. Left ankle pressure is 110. Clinical brachial index is 0.83 favoring mild ischemic disease. No previous ankle-brachial index. Impression: 1. Worsening right leg arterial sonogram as detailed. Ankle-brachial index 0.61 favors moderate ischemic disease. 2. Stable scattered arteriosclerotic disease in the left leg without critical stenosis/obstruction. Ankle-brachial index 0.83 favors mild ischemic disease. 3. CTA abdominal aorta with bilateral runoff may yield further information.
[2018-07-22] MEDS: Cymbalta 30 MG Capsule PO SCH (21:55)
[2018-07-22] MEDS: Toprol Xl 100 MG PO SCH (21:56)
[2018-07-22] MEDS: PLAVIX 75 MG Tablet PO SCH (21:56)
[2018-07-22] MEDS: Topamax 25 MG PO SCH (21:56)
[2018-07-23] MEDS: BUMEX 1 MG IV SCH ×3 (00:49→07:30)
[2018-07-23] MEDS: DUONEB 0.5-3 MG/3 ml Neb IH SCH ×6 (03:24→23:13)
[2018-07-23 05:45] LABS: Hematocrit 30.8 % (35-47); Hemoglobin 9.5 gm/dl (12.0-16.0); Mean Cell Volume 76.2 fl (78-100); Mean Corpuscular Hemoglobin 23.5 pg (26-32); Mean Corpuscular Hgb Concent. 30.8 g/dl (32-36); Mean Platelet Volume 9.7 fl (6-9.5); Platelet Count 248 K/mm3 (150-450); Red Blood Count 4.04 M/mm3 (4.1-5.4); Red Cell Distribution Width 17.8 % (11.5-14.0)
[2018-07-23] MEDS: Advair Hfa 115/21 Common canister IH SCH ×2 (06:01→19:05)
[2018-07-23 06:15] LABS: ALBUMIN 3.1 g/dL (3.5-5.0); ALKALINE PHOSPHATASE 53 U/L (38-126); BLOOD UREA NITROGEN 58 mg/dL (7-17); CHLORIDE 84 mmol/L (98-107); Calcium 7.9 mg/dL (8.4-10.2); Creatinine 1 1.46 mg/dL (0.52-1.04); MAGNESIUM 1.7 mg/dL (1.6-2.3); Potassium 3.8 mmol/L (3.5-5.1); SGOT/AST 18 U/L (14-36); SGPT/ALT 19 U/L (0-35); SODIUM 133 mmol/L (137-145); Total Protein 5.9 g/dL (6.3-8.2)
[2018-07-23 06:21] LABS: Carbon Dioxide 39 mmol/L (22-30)
[2018-07-23 06:28] LABS: Glucose 50 mg/dL (74-106)
[2018-07-23] MEDS: NovoLOG Insulin SQ SCH ×2 (07:30→12:18)
[2018-07-23] MEDS: Sodium Chloride 0.9% 500 ML 500 ML IV SCH (07:48)
[2018-07-23] MEDS: ENOXAPARIN SODIUM SQ SCH (09:05)
[2018-07-23] MEDS: REQUIP 2MG TAB PO SCH ×3 (09:05→21:41)
[2018-07-23] MEDS: Ecotrin 325 MG PO SCH (09:06)
[2018-07-23] MEDS: SYNTHROID 88 MCG PO SCH (09:06)
[2018-07-23] MEDS: Klor Con 10 MEQ PO SCH (09:06)
[2018-07-23] MEDS: SYNTHROID 100 MCG PO SCH (09:06)
[2018-07-23] MEDS: Calcium 500MG W/Vit D Tablet PO SCH ×3 (09:06→21:17)
[2018-07-23] MEDS: DELTASONE 20 MG PO SCH (09:06)
[2018-07-23] MEDS: Neurontin 400 MG PO SCH ×4 (09:06→21:16)
[2018-07-23] MEDS: Apresoline 25 MG TABLET PO SCH ×3 (09:06→21:17)
[2018-07-23] MEDS: Levofloxacin 500MG/100ML D5W 500 MG/100 ML BAG IV SCH (09:07)
[2018-07-23] MEDS: NON-FORMULARY ITEM PO SCH (09:20)
[2018-07-23] MEDS ORDERED: Levofloxacin 250MG Tablet PO SCH (10:00)
--- NOTE | 2018-07-23 10:44 | PCM.NOTE ---
Date and Time: 07/23/18 1036 Subjective Assessment: She is feeling "1,000% better" than at admission. Still on O2 per NC. Would like to go home. Her BS was 50 this morning. She does admit that at home she snacks all the time instead of eating meals and she does probably eat at night where she doesn't here. - Review of Systems Constitutional: No Fever Respiratory: Cough Objective Exam General Appearance: no apparent distress, alert Neurologic Exam: oriented x 3, cooperative Skin Exam: normal color, warm, dry, No rash Respiratory Exam: lungs clear, diminished breath sounds (good air exchange), No crackles/rales, No rhonchi, No wheezing Cardiovascular Exam: regular rate/rhythm, normal heart sounds, No murmur Extremity Exam: swelling (trace pretibial edema bilat) Back Exam: normal inspection, No rash OBJECTIVE DATA Vital Signs: Vital Signs - 24 hr Temp Pulse Resp BP Pulse Ox 07/23/18 07:32 98.4 F 77 20 101/55 100 07/23/18 06:02 72 20 98 07/23/18 03:25 71 20 98 07/23/18 03:07 20 07/23/18 00:00 18 07/22/18 23:20 81 18 93 L 07/22/18 20:00 99.0 F 94 H 20 133/60 93 L 07/22/18 19:15 91 H 18 94 L 07/22/18 16:00 18 07/22/18 14:22 857 H 18 96 07/22/18 12:00 18 Oxygen-Last 24 hours O2 Percentage 2 Liters = 28% O2 Percentage 2 Liters = 28% Oxygen Flowrate (L/min)-RT 2 Pain Assessment - Last Documented Pain Intensity 0 Pain Scale Used 0-10 Pain Scale,FLACC Intake and Output: Intake & Output 07/20/18 07/21/18 07/22/18 07/23/18 11:59 11:59 11:59 11:59 Intake Total 2969 907 Output Total 5450 600 Balance -2481 307 Weight 104.1 kg 103.8 kg Lab Results: Accuchecks Date 07/23/18 Date 07/23/18 Date 07/22/18 Date 07/22/18 Date 07/22/18 Time 07:29 Time 06:00 Time 22:00 Time 16:29 Time 11:30 Accucheck Value: 140 Accucheck Value: 50 Accucheck Value: 433 Accucheck Value: 135 Accucheck Value: 245 Lab Results-Last 24 Hours 07/23/18 07/23/18 Range/Units 05:43 05:43 WBC 11.0 H (4.0-10.5) K/mm3 RBC 4.04 L (4.1-5.4) M/mm3 Hgb 9.5 L (12.0-16.0) gm/dl Hct 30.8 L (35-47) % MCV 76.2 L (78-100) fl MCH 23.5 L (26-32) pg MCHC 30.8 L (32-36) g/dl RDW 17.8 H (11.5-14.0) % Plt Count 248 (150-450) K/mm3 MPV 9.7 H (6-9.5) fl Sodium 133 L (137-145) mmol/L Potassium 3.8 (3.5-5.1) mmol/L Chloride 84 L (98-107) mmol/L Carbon Dioxide 39 H (22-30) mmol/L Anion Gap Not Reportable BUN 58 H (7-17) mg/dL Creatinine 1.46 H (0.52-1.04) mg/dL Estimated GFR 38.0 ML/MIN Glucose 50 L (74-106) mg/dL Calcium 7.9 L (8.4-10.2) mg/dL Magnesium 1.7 (1.6-2.3) mg/dL Total Bilirubin 0.30 (0.2-1.3) mg/dL AST 18 (14-36) U/L ALT 19 (0-35) U/L Alkaline Phosphatase 53 (38-126) U/L Serum Total Protein 5.9 L (6.3-8.2) g/dL Albumin 3.1 L (3.5-5.0) g/dL Radiology Exams: Radiology Procedures Category Date Time Status ARTERIAL BILAT LOWER EXTREMITY [US] Routine Exams 07/22/18 15:35 Completed Assessment/Plan (1) PNA (pneumonia) Current Visit: No Status: Acute Qualifiers: Pneumonia type: due to unspecified organism Laterality: unspecified laterality Lung location: unspecified part of lung Qualified Code(s): J18.9 - Pneumonia, unspecified organism Assessment & Plan: Much improved. Likely home tomorrow on po levaquin, po prednisone in a taper. Code(s): J18.9 - PNEUMONIA, UNSPECIFIED ORGANISM (2) Anemia Current Visit: No Status: Acute Qualifiers: Anemia type: due to chronic kidney disease Chronic kidney disease stage: stage 3 (moderate) Qualified Code(s): N18.3 - Chronic kidney disease, stage 3 (moderate); D63.1 - Anemia in chronic kidney disease Assessment & Plan: Had iron infusion. Nephrology has consulted. Code(s): D64.9 - ANEMIA, UNSPECIFIED (3) COPD exacerbation Current Visit: No Status: Acute Code(s): J44.1 - CHRONIC OBSTRUCTIVE PULMONARY DISEASE W (ACUTE) EXACERBATION (4) CAD (coronary artery disease) Current Visit: No Status: Chronic Qualifiers: Coronary Disease-Associated Artery/Lesion type: [place] artery [place] vs. transplanted heart: [place] heart Associated angina: without angina Qualified Code(s): I25.10 - Atherosclerotic heart disease of [place] coronary artery without angina pectoris Assessment & Plan: Her arterial doppler was done (had been ordered by leaf binner) Code(s): I25.10 - ATHSCL HEART DISEASE OF [place] CORONARY ARTERY W/O ANG PCTRS (5) CHF (congestive heart failure) Current Visit: No Status: Chronic Qualifiers: Heart failure type: unspecified Heart failure chronicity: chronic Qualified Code(s): I50.9 - Heart failure, unspecified Assessment & Plan: echo pending Code(s): I50.9 - HEART FAILURE, UNSPECIFIED (6) Chronic renal failure Current Visit: No Status: Chronic Qualifiers: Chronic kidney disease stage: stage 3 (moderate) Assessment & Plan: on bumex. nephrology has been following, thank you. (7) Diabetes Current Visit: No Status: Chronic Qualifiers: Diabetes mellitus type: type 2 Diabetes mellitus termite control technician insulin use: with termite control technician use Diabetes mellitus complication status: with kidney complications Diabetes mellitus complication detail: with chronic kidney disease Assessment & Plan: With recent hypoglycemia, probably because at home she is uncompliant with diet and insulin regimen. Currently on 60 units long acting insulin daily, and 10 units with 1st and 2nd meals of the day. Still had BS 50 this morning. Advised if she usually snacks at night at home, go ahead and snack at night here. Will probably have to adjust the insulin again after she returns home and starts her usual pattern of eating (although she states she is going to do better when she goes home). Code(s): E11.9 - TYPE 2 DIABETES MELLITUS WITHOUT COMPLICATIONS (8) HTN (hypertension) Current Visit: No Status: Chronic Qualifiers: Hypertension type: essential hypertension Assessment & Plan: BP much better. Code(s): I10 - ESSENTIAL (PRIMARY) HYPERTENSION
[2018-07-23] MEDS: Levofloxacin 250MG Tablet PO SCH (10:57)
[2018-07-23] MEDS: Lantus Insulin SQ SCH (10:57)
[2018-07-23] MEDS: BUMEX 1 MG PO SCH ×2 (12:12→17:07)
[2018-07-23] MEDS: NovoLOG Insulin SQ PRN ×2 (17:37→21:21)
[2018-07-23] MEDS: PLAVIX 75 MG Tablet PO SCH (21:16)
[2018-07-23] MEDS: Toprol Xl 100 MG PO SCH (21:16)
[2018-07-23] MEDS: Cymbalta 30 MG Capsule PO SCH (21:16)
[2018-07-23] MEDS: Topamax 25 MG PO SCH (21:16)
[2018-07-24] MEDS: BUMEX 1 MG PO SCH ×3 (00:06→12:00)
[2018-07-24] MEDS: DUONEB 0.5-3 MG/3 ml Neb IH SCH ×3 (03:27→11:20)
[2018-07-24] MEDS: Advair Hfa 115/21 Common canister IH SCH (07:12)
[2018-07-24] MEDS: NovoLOG Insulin SQ SCH ×2 (07:39→12:00)
[2018-07-24] MEDS: Calcium 500MG W/Vit D Tablet PO SCH (10:25)
[2018-07-24] MEDS: DELTASONE 20 MG PO SCH (10:25)
[2018-07-24] MEDS: Apresoline 25 MG TABLET PO SCH (10:25)
[2018-07-24] MEDS: ENOXAPARIN SODIUM SQ SCH (10:26)
[2018-07-24] MEDS: SYNTHROID 88 MCG PO SCH (10:26)
[2018-07-24] MEDS: Neurontin 400 MG PO SCH (10:26)
[2018-07-24] MEDS: SYNTHROID 100 MCG PO SCH (10:26)
[2018-07-24] MEDS: Lantus Insulin SQ SCH (10:26)
[2018-07-24] MEDS: Klor Con 10 MEQ PO SCH (10:26)
[2018-07-24] MEDS: Ecotrin 325 MG PO SCH (10:26)
[2018-07-24] MEDS: Levofloxacin 250MG Tablet PO SCH (10:26)
--- NOTE | 2018-07-24 10:26 | PCM.DS ---
Discharge Summary Date of Admission: 07/21/18 15:21 Admitting Physician: ROLANDO SALMERON Consults: Consults on Case 07/21/18 15:31 Consult Nephrology ROUTINE Primary Care Provider: ROLANDO SALMERON Allergies Allergies No Known Drug Allergies Allergy (Verified 07/15/18 20:26) Hospital Summary - Hospital Course Hospital Course: Pt is a 67 yo female pt of mine from [facility] with COPD, DM, CAD (hx [place]), HTN, PAD, hypothyroid who was admitted from acute care bed while being treated for pneumonia/COPD exacerbation and DM with hypoglycemia. She was treated in acute care then discharged to swing bed, had really started improving when abx changed to IV levaquin. Her breathing has been good while in swing bed. She is on 2-3L NC here - at home previously was on O2 only at night (and was usually noncompliant with that). Pt;s BS into the 30s-50s in the morning x 3 here; I adjusted her insulin several times, but when I was discussing with her she admitted that her diet here is very different than at home. Last night I had instructed her to please go ahead and eat a snack at night and her BS this morning was 105. She is asx with the lows. I emphasized the danger - "(low blood sugar) will kill you" - and will set her up with Dr. Anne. Continue current insulin regimen in the meantime, and pt it is to check BS QID. Dr. Almeida was consulted during this patient's stay; in swing bed Dr. Hunt came to see her, thank you, and increased her bumex. - Vitals & Intake/Output Vital Signs: Vital Signs Temperature 98.0 F 07/24/18 07:35 Pulse Rate 74 07/24/18 07:35 Respiratory Rate 18 07/24/18 07:35 Blood Pressure 125/56 07/24/18 07:35 O2 Sat by Pulse Oximetry 99 07/24/18 07:35 Oxygen-Last Documented O2 Percentage 2 Liters = 28% Intake & Output: Intake & Output 07/21/18 07/22/18 07/23/18 07/24/18 11:59 11:59 11:59 11:59 Intake Total 2969 907 240 Output Total 5450 600 300 Balance -2481 307 -60 Weight 104.1 kg 103.8 kg 102.6 kg - Lab Result Diagrams: 07/23/18 05:43 07/23/18 05:43 Lab Results-Last 24 Hrs: Accuchecks Date 07/24/18 Date 07/23/18 Date 07/23/18 Time 07:30 Time 17:00 Time 11:30 Accucheck Value: 105 Accucheck Value: 381 Accucheck Value: 159 Accucheck Value: 226 Micro Results-Entire Visit: Accuchecks Date 07/24/18 Date 07/23/18 Date 07/23/18 Time 07:30 Time 17:00 Time 11:30 Accucheck Value: 105 Accucheck Value: 381 Accucheck Value: 159 Accucheck Value: 226 - Radiology Exams Ordered Rad Exams-Entire Visit: Radiology Procedures Category Date Time Status ARTERIAL BILAT LOWER EXTREMITY [US] Routine Exams 07/22/18 15:35 Completed - Procedures and Test Procedures and Tests throughout Hospitalization: Therapy Orders & Screens 07/21/18 15:31 PT Eval & Treat (MD Order) ROUTINE Reason for Eval:: DECONDITIONING R/T COPD, CHF, RENAL FAILURE Diagnosis: DECONDITIONING R/T COPD, CHF, RENAL FAILURE Oxygen NASAL CANNULA 2 lpm Comment: Diagnosis: Shortness of Breath Peak Expiratory Flow Rate ONCE Comment: Reason For Exam: Respiratory Therapy Assessment UD Comment: Diagnosis: Shortness of Breath 07/21/18 19:45 Respiratory Therapy Assessment DAILY Comment: Diagnosis: DECONDITIONING R/T COPD, CHF, RENAL FAILURE Discharge Exam General Appearance: no apparent distress, alert, obese Neurologic Exam: oriented x 3, cooperative Skin Exam: normal color, warm, dry, No rash Ears, Nose, Throat Exam: moist mucous membranes Neck Exam: normal inspection Respiratory Exam: normal breath sounds, lungs clear, No crackles/rales, No rhonchi, No wheezing Cardiovascular Exam: regular rate/rhythm, normal heart sounds, No murmur Extremity Exam: swelling (1+ pretibial edema bilat) Final Diagnosis/Problem List - Final Discharge Diagnosis/Problem (1) PNA (pneumonia) Current Visit: No Status: Acute Assessment & Plan: Much improved. Home to finish 10d levaquin. Steroid taper, as she has had a longer course of steroid than usual. on po prednisone already. Code(s): J18.9 - PNEUMONIA, UNSPECIFIED ORGANISM (2) Anemia Current Visit: No Status: Chronic Assessment & Plan: Had iron infusion here. Per Dr. Almeida. My officed to schedule f/u with him in 1 week. Code(s): D64.9 - ANEMIA, UNSPECIFIED (3) COPD exacerbation Current Visit: No Status: Acute Code(s): J44.1 - CHRONIC OBSTRUCTIVE PULMONARY DISEASE W (ACUTE) EXACERBATION (4) CAD (coronary artery disease) Current Visit: No Status: Chronic Code(s): I25.10 - ATHSCL HEART DISEASE OF [place] CORONARY ARTERY W/O ANG PCTRS (5) CHF (congestive heart failure) Current Visit: No Status: Chronic Code(s): I50.9 - HEART FAILURE, UNSPECIFIED (6) Chronic renal failure Current Visit: No Status: Chronic (7) Diabetes Current Visit: No Status: Chronic Assessment & Plan: My office to refer to Dr. Anne. Code(s): E11.9 - TYPE 2 DIABETES MELLITUS WITHOUT COMPLICATIONS (8) HTN (hypertension) Current Visit: No Status: Chronic Assessment & Plan: BP better than at admission - did increase meds. home on new regimen. Code(s): I10 - ESSENTIAL (PRIMARY) HYPERTENSION (9) PAD (peripheral artery disease) Current Visit: Yes Status: Chronic Assessment & Plan: Arterial doppler done while here - my office is faxing results to Dr. Huitron. Code(s): I73.9 - PERIPHERAL VASCULAR DISEASE, UNSPECIFIED (10) Lesion of lung Current Visit: Yes Status: Acute Assessment & Plan: 2 cm ground glass lesions, may be due to infection, vs inhalation - need rechecked. My office to order repeat CT chest in August 2018. Code(s): R91.1 - SOLITARY PULMONARY NODULE - Discharge Disposition: Home, Self-Care Condition: Good Prescriptions: New HydrALAzine HCL 25 MG TAB [Apresoline 25 MG TABLET] 25 mg PO TID #90 tablet Bumetanide 1 mg [Bumex 1 mg] 2 mg PO BID #30 tablet Prednisone 10 mg [Deltasone 10 mg] 10 mg PO DAILY #9 tablet Levofloxacin [Levofloxacin 250MG Tablet] 250 mg PO DAILY #5 tab Insulin Aspart [NovoLOG Insulin] 10 unit SQ AC #1 unit Insulin Aspart [NovoLOG Insulin] 10 unit SQ 0730,1130 #1 unit Insulin Degludec [Tresiba Flextouch U-100] 60 unit SQ QAM #1 insuln.pen Continue Clopidogrel Bisulfate 75 mg [PLAVIX 75 MG Tablet] 75 mg PO HS Aspirin [Aspirin EC] 325 mg PO QAM Metoprolol Succinate [Toprol Xl] 100 mg PO HS Potassium Chloride [K-Tab ER] 10 meq PO DAILY Promethazine HCl 25 mg PO Q8HPRN PRN PRN Reason: Nausea/Vomiting Duloxetine HCl [Cymbalta] 60 mg PO HS Fluticasone/Salmeterol [Advair 250-50 Diskus] 1 puff IH BID Ropinirole HCl 4 mg PO TID Gabapentin [Neurontin] 800 mg PO QID Levothyroxine Sodium 88 Mcg [Synthroid 88 Mcg] 88 mcg PO DAILY Levothyroxine Sodium 100 Mcg [Synthroid 100 Mcg] 100 mcg PO DAILY Topiramate 25 mg [Topamax 25 MG] 25 mg PO HS AMITRIPTYLINE HCL 50 mg Tab [AMITRIPTYLINE HCL 50 mg Tablet] 50 mg PO HS Atorvastatin Calcium [Lipitor] 40 mg PO HS Albuterol/Ipratropium 3ml Neb* [DUONEB 0.5-3 MG/3 ml Neb] 2.5 mg IH Q6HPRN PRN PRN Reason: Shortness Of Breath/Wheezing Albuterol 8 gm Mdi Hfa [Ventolin Hfa MDI] 2 puff IH Q4HPRN PRN PRN Reason: Shortness Of Breath/Wheezing Discontinued Metformin HCl 1000 mg [Glucophage 1000 MG] 1,000 mg PO BID Insulin Degludec [Tresiba Flextouch U-200] 90 unit SQ QAM Insulin Aspart [Novolog Flexpen] 15 unit SQ AC Furosemide 40 mg [Lasix 40 MG] 40 mg PO QAM Lisinopril 20 mg [Zestril 20 MG] 20 mg PO DAILY Follow up with: ROLANDO SALMERON [Primary Care Provider] - 1 Week
[2018-07-24] MEDS: NON-FORMULARY ITEM PO SCH (10:27)
[2018-07-24] MEDS: REQUIP 2MG TAB PO SCH (11:31)
[2018-07-24 13:05] VITALS: BP 130/60; PULSE 85; O2SAT 93
== END 2018-07-24 12:10 | disposition home or self-care (01) | DRG 194 ==
LOC: MED SURG 15:21
PROVIDERS: ADMIT Family Medicine; ATTEND Family Medicine
DX: J18.9 Pneumonia, unspecified organism (principal); J44.1 Chronic obstructive pulmonary disease with (acute) exacerbation; E11.9 Type 2 diabetes mellitus without complications; N18.3 Chronic kidney disease, stage 3 (moderate); I50.9 Heart failure, unspecified; I25.10 Atherosclerotic heart disease of native coronary artery without angina pectoris; E03.9 Hypothyroidism, unspecified; Z99.81 Dependence on supplemental oxygen; D64.9 Anemia, unspecified; I10 Essential (primary) hypertension; I73.9 Peripheral vascular disease, unspecified; R91.1 Solitary pulmonary nodule; Z79.899 Other long term (current) drug therapy
CPT/HCPCS: 36415; 80053; 82962; 83735; 85027; 93925; 94150; 94640; 94760; J1650; J1756; J1956; A9270-GY

== ENCOUNTER 2018-08-01 13:06 | Emergency (ER) | payer MEDICARE ==
[2018-08-01] MEDS ORDERED: DUONEB 0.5-3 MG/3 ml Neb IH ONE ×2 (13:45→13:52)
[2018-08-01 14:16] LABS: BASOPHIL % 0.2 % (0.0-0.4); Basophil (Absolute #) 0.02 (0-0.4); Eosinophil (Absolute #) 0.11 (0-0.5); Granulocyte Absolute (ANC) 8.16 (1.4-6.9); Granulocytes % 76.9 % (36.0-66.0); Hematocrit 28.4 % (35-47); Hemoglobin 8.4 gm/dl (12.0-16.0); Lymphocyte (Absolute #) 1.67 (1.0-4.6); Lymphocytes % 15.7 % (24.0-44.0); Mean Cell Volume 78.9 fl (78-100); Mean Corpuscular Hemoglobin 23.3 pg (26-32); Mean Corpuscular Hgb Concent. 29.6 g/dl (32-36); Mean Platelet Volume 10.5 fl (6-9.5); Monocyte (Absolute #) 0.66 (0.0-1.3); Monocytes % 6.2 % (0.0-12.0); Platelet Count 247 K/mm3 (150-450); Red Cell Distribution Width 19.8 % (11.5-14.0); White Blood Count 10.6 K/mm3 (4.0-10.5)
--- NOTE | 2018-08-01 14:18 | XRAY ---
Indication: Wheezing. Short of breath. Hypoglycemia. Comparison: July 15, 2018. Portable chest is clear. Heart and mediastinal structures within normal limits for AP portable technique. No new/acute findings. Impression: Nonacute chest.
[2018-08-01 14:42] LABS: ALBUMIN 3.6 g/dL (3.5-5.0); ANION GAP 14.2 MEQ/L (5-15); BILIRUBIN,TOTAL 0.4 mg/dL (0.2-1.3); Creatinine 1 1.47 mg/dL (0.52-1.04); MAGNESIUM 1.7 mg/dL (1.6-2.3); Potassium 3.7 mmol/L (3.5-5.1); Total Protein 6.6 g/dL (6.3-8.2)
[2018-08-01 14:45] LABS: Calcium 5.7 mg/dL (8.4-10.2)
[2018-08-01] MEDS ORDERED: solu-MEDROL 125 MG IV ONE (15:35)
[2018-08-01] MEDS ORDERED: Lasix 40 MG/4 ML IV ONE (15:35)
[2018-08-01] MEDS ORDERED: Calcium Gluconate 10% 1000 MG IV ONE ×2 (15:35→16:22)
[2018-08-01] MEDS ORDERED: Lasix 40 MG/4 ML ONE (16:23)
[2018-08-01] MEDS ORDERED: solu-MEDROL 125 MG ONE (16:23)
[2018-08-01] MEDS ORDERED: D5w 100ML Mini Bag 100 ML 100 ML IV ONE (16:23)
[2018-08-01] MEDS ORDERED: VIBRAMYCIN 100 MG IV ONE (16:23)
[2018-08-01] MEDS ORDERED: PROVENTIL 2.5 MG/3 ML NEB IH ONE ×2 (17:09→17:18)
--- NOTE | 2018-08-01 17:15 | ERPHSYRPT ---
- History of Present Illness Source: patient, family Exam Limitations: no limitations Patient Subjective Stated Complaint: pt arrived by POV, in wc, alert, resp labored with movement which is normal for her. she recently just got out of hospital for CHF a week ago. she is here today because her family is concerned with her blood sugar, they are afraid it drop, the lowest bs was 155. pt states she cant explain it but she does not feel right, Triage Nursing Assessment: pt alert, resp easy at rest, arrived per wc, skin w/d /p. edema to lower legs which pt is being treated for, abd soft, Physician History: Pt is a 67 y/o female that presented to the ER with SOB, wheezing and low blood glucose. Per pt her BG was 150, and as she understood, her BG now is too low, and she was worried. Pt states, was hospitalized recently, with CHF and COPD exacerbation, and she is not feeling well now. Timing/Duration: today Activities at Onset: none Severity of Dyspnea-Max: moderate Severity of Dyspnea-Current: mild Possible Cause: occasional episodes Modifying Factors: Improves With: nothing Associated Symptoms: cough, edema, wheezing Allergies/Adverse Reactions: No Known Drug Allergies Allergy (Verified 08/01/18 13:32) Home Medications: Aspirin [Aspirin EC] 325 mg PO QA 10/09/13 [History] Clopidogrel Bisulfate 75 mg [PLAVIX 75 MG Tablet] 75 mg PO HS 10/09/13 [ History] Metoprolol Succinate [Toprol Xl] 100 mg PO HS 02/03/15 [History] Potassium Chloride [K-Tab ER] 10 meq PO DAILY 02/03/15 [History] Duloxetine HCl [Cymbalta] 60 mg PO HS 08/17/17 [History] Fluticasone/Salmeterol [Advair 250-50 Diskus] 1 puff IH BID 08/17/17 [History] Promethazine HCl 25 mg PO Q8HPRN PRN 08/17/17 [History] AMITRIPTYLINE HCL 50 mg Tab [AMITRIPTYLINE HCL 50 mg Tablet] 50 mg PO HS [History] Albuterol 8 gm Mdi Hfa [Ventolin Hfa MDI] 2 puff IH Q4HPRN PRN 07/16/18 [ History] Albuterol/Ipratropium 3ml Neb* [DUONEB 0.5-3 MG/3 ml Neb] 2.5 mg IH Q6HPRN PRN 07/16/18 [History] Atorvastatin Calcium [Lipitor] 40 mg PO HS 07/16/18 [History] Gabapentin [Neurontin] 800 mg PO QID 07/16/18 [History] Levothyroxine Sodium 100 Mcg [Synthroid 100 Mcg] 100 mcg PO DAILY 07/16/18 [History] Levothyroxine Sodium 88 Mcg [Synthroid 88 Mcg] 88 mcg PO DAILY 07/16/18 [ History] Ropinirole HCl 4 mg PO TID 07/16/18 [History] Topiramate 25 mg [Topamax 25 MG] 25 mg PO HS 07/16/18 [History] Hx Tetanus, Diphtheria Vaccination/Date Given: Yes (5 years ago) Hx Influenza Vaccination/Date Given: Yes Hx Pneumococcal Vaccination/Date Given: Yes Immunizations Up to Date: Yes - Review of Systems Constitutional: Fatigue Eyes: No Symptoms Ears, Nose, & Throat: No Symptoms Respiratory: Dyspnea, Dyspnea on Exertion (FOSTER), Wheezing Cardiac: Edema, No Chest Pain, No Syncope Abdominal/Gastrointestinal: No Abdominal Pain, No Nausea, No Vomiting, No Diarrhea Musculoskeletal: No Back Pain, No Neck Pain Neurological: No Dizziness, No Focal Weakness, No Sensory Changes - Past Medical History Pertinent Past Medical History: Yes Neurological History: No Pertinent History ENT History: No Pertinent History Cardiac History: High Cholesterol, Hypertension, Myocardial Infarction ([place]) Respiratory History: COPD Endocrine Medical History: Diabetes Type II, Other Musculoskeletal History: Fractures, Osteoarthritis GI Medical History: No Pertinent History History: No Pertinent History Psycho-Social History: Depression Female Reproductive Disorders: No Pertinent History Other Medical History: THYROID NODULE, HX [place] WITHOUT SURGERY, R ANKLE FX W/ ORIF 2007 - Past Surgical History Past Surgical History: Yes Neuro Surgical History: No Pertinent History Cardiac: No Pertinent History Respiratory: No Pertinent History Gastrointestinal: No Pertinent History, Other Genitourinary: No Pertinent History Musculoskeletal: Other Female Surgical History: Tubal Ligation Other Surgical History: RIGHT ANKLE SURGERY, thyroidectomy, left carotid endartertectomy - Social History Smoking Status: Current every day smoker How long have you smoked: years Exposure to second hand smoke: Yes Drug Use: none Patient Lives Alone: No - Female History Hx Last Menstrual Period: post Hx Now: No - Nursing Vital Signs Nursing Vital Signs: Initial Vital Signs Temperature 98.4 F 08/01/18 13:20 Pulse Rate 80 08/01/18 13:20 Respiratory Rate 16 08/01/18 13:20 Blood Pressure 101/48 08/01/18 13:20 O2 Sat by Pulse Oximetry 96 08/01/18 13:20 Pain Scale Pain Intensity 0 - Physical Exam General Appearance: no apparent distress, alert Eye Exam: PERRL/EOMI Ears, Nose, Throat Exam: hearing grossly normal Neck Exam: normal inspection, supple Respiratory Exam: respiratory distress, accessory muscle use, prolonged expirations, wheezing Cardiovascular/Chest Exam: normal heart sounds, regular rate/rhythm Abdominal/Gastrointestinal Exam: soft, No tenderness, No distention, No mass Extremity Exam: non-tender, normal range of motion, normal inspection, no calf tenderness, no pedal edema Neurologic Exam: alert, oriented x 3, cooperative, accounts receivable specialist II-XII nml as tested, sensation nml, No motor deficits SpO2 Interpretation: normal SpO2: 99 O2 Delivery: Room Air - Course Nursing assessment & vital signs reviewed: Yes - Radiology Exams Chest X-ray Interpretation: Reviewed by me (Non acute chest) Ordered Tests: Active Orders 24 hr Category Date Time Status CHEST 1 VIEW (PORTABLE) Stat Exams 08/01/18 13:44 Completed CBC W DIFF Stat Lab 08/01/18 14:10 Completed CMP Stat Lab 08/01/18 14:10 Completed Lactic Acid Stat Lab 08/01/18 13:43 Completed MAGNESIUM Stat Lab 08/01/18 14:10 Completed NT PRO BNP Stat Lab 08/01/18 14:10 Completed TROPONIN Q3H Lab 08/01/18 14:10 Completed TROPONIN Q3H Lab 08/01/18 16:45 Ordered TROPONIN Q3H Lab 08/01/18 19:45 Ordered TROPONIN Q3H Lab 08/01/18 22:45 Ordered TROPONIN Q3H Lab 08/02/18 01:45 Ordered UA W/RFX UR CULTURE Stat Lab 08/01/18 13:44 Uncollected Peak Expiratory Flow Rate ONCE RT 08/01/18 14:01 Completed Respiratory Therapy Assessment DAILY RT 08/01/18 14:02 Completed Medication Summary Generic Name Dose Route Start Last Admin Trade Name Belkys PRN Reason Stop Dose Admin Doxycycline Hyclate 100 mg/ 100 mls @ 100 mls/hr 08/01/18 22:00 Dextrose IV 08/31/18 21:59 Q12HT ARELY Discontinued Medications Generic Name Dose Route Start Last Admin Trade Name Belkys PRN Reason Stop Dose Admin Albuterol/Ipratropium 3 ml 08/01/18 13:45 08/01/18 13:58 Duoneb 0.5-3 Mg/3 Ml Neb IH 08/01/18 13:46 3 ml STAT ONE Administration Albuterol/Ipratropium Confirm 08/01/18 13:52 Duoneb 0.5-3 Mg/3 Ml Neb Administered 08/01/18 13:53 Dose 3 ml IH .STK-MED ONE Calcium Gluconate 2,000 mg 08/01/18 15:35 08/01/18 16:55 Calcium Gluconate 10% 1000 Mg IV 08/01/18 15:36 2,000 mg STAT ONE Administration Calcium Gluconate Confirm 08/01/18 16:22 Calcium Gluconate 10% 1000 Mg Administered 08/01/18 16:23 Dose 2,000 mg IV .STK-MED ONE Doxycycline Hyclate Confirm 08/01/18 16:23 Vibramycin 100 Mg Administered 08/01/18 16:24 Dose 100 mg IV .STK-MED ONE Furosemide 40 mg 08/01/18 15:35 08/01/18 16:53 Lasix 40 Mg/4 Ml IV 08/01/18 15:36 40 mg STAT ONE Administration Furosemide Confirm 08/01/18 16:23 Lasix 40 Mg/4 Ml Administered 08/01/18 16:24 Dose 40 mg .ROUTE .STK-MED ONE Dextrose Confirm 08/01/18 16:23 D5w 100ml Mini Bag 100 Ml Administered 08/01/18 16:24 Dose 100 mls @ ud IV .STK-MED ONE Methylprednisolone Sodium Succinate 125 mg 08/01/18 15:35 08/01/18 16:46 Solu-Medrol 125 Mg IV 08/01/18 15:36 125 mg STAT ONE Administration Methylprednisolone Sodium Succinate Confirm 08/01/18 16:23 Solu-Medrol 125 Mg Administered 08/01/18 16:24 Dose 125 mg .ROUTE .STK-MED ONE Lab/Rad Data: Laboratory Result Diagrams 08/01/18 14:10 08/01/18 14:10 Laboratory Results 08/01/18 08/01/18 08/01/18 Range/Units 14:10 14:10 14:10 WBC 10.6 H (4.0-10.5) K/mm3 RBC 3.60 L (4.1-5.4) M/mm3 Hgb 8.4 L (12.0-16.0) gm/dl Hct 28.4 L (35-47) % MCV 78.9 (78-100) fl MCH 23.3 L (26-32) pg MCHC 29.6 L (32-36) g/dl RDW 19.8 H (11.5-14.0) % Plt Count 247 (150-450) K/mm3 MPV 10.5 H (6-9.5) fl Gran % 76.9 H (36.0-66.0) % Eos # (Auto) 0.11 (0-0.5) Absolute Lymphs (auto) 1.67 (1.0-4.6) Absolute Monos (auto) 0.66 (0.0-1.3) Lymphocytes % 15.7 L (24.0-44.0) % Monocytes % 6.2 (0.0-12.0) % Eosinophils % 1.0 (0.00-5.0) % Basophils % 0.2 (0.0-0.4) % Absolute Granulocytes 8.16 H (1.4-6.9) Basophils # 0.02 (0-0.4) Sodium 133 L (137-145) mmol/L Potassium 3.7 (3.5-5.1) mmol/L Chloride 86 L (98-107) mmol/L Carbon Dioxide 36 H (22-30) mmol/L Anion Gap 14.2 (5-15) MEQ/L BUN 35 H (7-17) mg/dL Creatinine 1.47 H (0.52-1.04) mg/dL Estimated GFR 37.7 ML/MIN Glucose 96 (74-106) mg/dL Lactic Acid (0.4-2.0) Calcium 5.7 L* (8.4-10.2) mg/dL Magnesium 1.7 (1.6-2.3) mg/dL Total Bilirubin 0.40 (0.2-1.3) mg/dL AST 23 (14-36) U/L ALT 17 (0-35) U/L Alkaline Phosphatase 74 (38-126) U/L Troponin I < 0.012 (0.000-0.034) ng/mL NT-Pro-B Natriuret Pep 649 (0-900) pg/mL Serum Total Protein 6.6 (6.3-8.2) g/dL Albumin 3.6 (3.5-5.0) g/dL 08/01/18 Range/Units 13:43 WBC (4.0-10.5) K/mm3 RBC (4.1-5.4) M/mm3 Hgb (12.0-16.0) gm/dl Hct (35-47) % MCV (78-100) fl MCH (26-32) pg MCHC (32-36) g/dl RDW (11.5-14.0) % Plt Count (150-450) K/mm3 MPV (6-9.5) fl Gran % (36.0-66.0) % Eos # (Auto) (0-0.5) Absolute Lymphs (auto) (1.0-4.6) Absolute Monos (auto) (0.0-1.3) Lymphocytes % (24.0-44.0) % Monocytes % (0.0-12.0) % Eosinophils % (0.00-5.0) % Basophils % (0.0-0.4) % Absolute Granulocytes (1.4-6.9) Basophils # (0-0.4) Sodium (137-145) mmol/L Potassium (3.5-5.1) mmol/L Chloride (98-107) mmol/L Carbon Dioxide (22-30) mmol/L Anion Gap (5-15) MEQ/L BUN (7-17) mg/dL Creatinine (0.52-1.04) mg/dL Estimated GFR ML/MIN Glucose (74-106) mg/dL Lactic Acid 0.4 (0.4-2.0) Calcium (8.4-10.2) mg/dL Magnesium (1.6-2.3) mg/dL Total Bilirubin (0.2-1.3) mg/dL AST (14-36) U/L ALT (0-35) U/L Alkaline Phosphatase (38-126) U/L Troponin I (0.000-0.034) ng/mL NT-Pro-B Natriuret Pep (0-900) pg/mL Serum Total Protein (6.3-8.2) g/dL Albumin (3.5-5.0) g/dL - Progress Progress: improved Air Movement: fair Progress Note: 08/01/18 17:17 Pt presented with SOB and wheezing. Lab work showed elevated sCr that is at her baseline, low Calcium at 5.7, and anemia of 8.4. Lactate and Troponins are negative. Pt got Lasix IV, Solu Medrol Doxycycline, and nebs. Her calcium was replaced with Ca Gluconate 2 gr. Pt is feeling much better and is cleared for d /c. Pt should f/u with her PCP in a couple of days. Doxycycline and medrol dose pack will be e-scribed. - Departure Departure Disposition: Home Clinical Impression: COPD exacerbation Condition: Stable Critical Care Time: No Referrals: ROLANDO SALMERON [Primary Care Provider] - Instructions: Chronic Obstructive Pulmonary Disease Additional Instructions: Finish Doxycycline and Medrol dose pack as ordered. F/U with PCP in a couple of days. Prescriptions: Doxycycline Hyclate 100 mg [Vibramycin 100 MG] 100 mg PO BID 10 Days #20 tab Methylprednisolone Packet [Medrol Dosepack] 4 mg PO UD 6 Days #1 packet
[2018-08-01 17:29] LABS: Appearance CLEAR (CLEAR); Bilirubin NEGATIVE (NEGATIVE); Blood SMALL Ery/ul (0-5); Glucose NEGATIVE (NEGATIVE); Ketones NEGATIVE (NEGATIVE); Leukocyte Esterase NEGATIVE (NEGATIVE); Nitrite NEGATIVE (NEGATIVE); Protein,Urine Dip NEGATIVE (Negative); Specific Gravity 1.005 (1.005-1.025); Urobilinogen NEGATIVE mg/dL (0-1)
[2018-08-01 18:11] VITALS: BP 123/65; PULSE 98; O2SAT 96
[2018-08-01] MEDS ORDERED: VIBRAMYCIN 100 MG*** 100 MG in Dextrose 5%/Water IV Soln. 100ML PLUS BAG 100 ML IV SCH (22:00)
== END 2018-08-01 18:12 | disposition home or self-care (01) ==
LOC: ED 13:06
DX: J44.1 Chronic obstructive pulmonary disease with (acute) exacerbation (principal); I50.9 Heart failure, unspecified; I10 Essential (primary) hypertension; E11.9 Type 2 diabetes mellitus without complications; Z79.899 Other long term (current) drug therapy; E78.00 Pure hypercholesterolemia, unspecified; F32.9 Major depressive disorder, single episode, unspecified; I25.2 Old myocardial infarction
CPT/HCPCS: 36415; 71045; 80053; 81001; 83605; 83735; 83880; 84484; 85025; 94150; 94640; 96360; 96365; 96374; 96375; 99284; J0610; J1940; J2930; J7609; A9270-GY

== ENCOUNTER 2019-02-02 18:24 | Emergency (ER) | payer MEDICARE ==
--- NOTE | 2019-02-02 18:57 | ERPHSYRPT ---
- History of Present Illness Time Seen by Provider: 02/02/19 18:50 Source: patient Exam Limitations: no limitations Patient Subjective Stated Complaint: Cough Triage Nursing Assessment: Patient ambulated back to ED and transferred self to bed. Patient A+O X3. Patient's skin pink, warm and dry. Patient complains of cough for two weeks. Patient states she is unable to get into her doctor until next wednesday. Patient's lungs noted to be wheezy throughout with inspiratory and expiratory noted. Patient denies pain or SOB. O2 99% on room air. Physician History: Patient has had a cough for 2 weeks. Patient is a smoker with a history of COPD. No specific sick contacts she has been exposed. Patient has not been evaluated or treated prior to coming into the emergency department. Timing/Duration: week(s) (2) Cough Quality/Degree: moderate, dry cough Possible Cause: occasional episodes Modifying Factors: Worsens With: coughing, deep breath Associated Symptoms: cough, wheezing, No fever, No chills, No chest pain/ soreness, No dizziness, No earache, No facial pain, No headache, No lightheadedness, No muscle aches, No nasal congestion, No nasal drainage, No shortness of breath, No sinus infection, No sore throat International travel in last 2 weeks: No Allergies/Adverse Reactions: No Known Drug Allergies Allergy (Verified 02/02/19 18:32) Home Medications: Aspirin [Aspirin EC] 325 mg PO QAM 10/09/13 [History] Clopidogrel Bisulfate 75 mg [PLAVIX 75 MG Tablet] 75 mg PO HS 10/09/13 [ History] Metoprolol Succinate [Toprol Xl] 100 mg PO HS 02/03/15 [History] Potassium Chloride [K-Tab ER] 10 meq PO DAILY 02/03/15 [History] Duloxetine HCl [Cymbalta] 60 mg PO HS 08/17/17 [History] Fluticasone/Salmeterol [Advair 250-50 Diskus] 1 puff IH BID 08/17/17 [History] Promethazine HCl 25 mg PO Q8HPRN PRN 08/17/17 [History] AMITRIPTYLINE HCL 50 mg Tab [AMITRIPTYLINE HCL 50 mg Tablet] 50 mg PO HS [History] Albuterol 8 gm Mdi Hfa [Ventolin Hfa MDI] 2 puff IH Q4HPRN PRN 07/16/18 [ History] Albuterol/Ipratropium 3ml Neb* [DUONEB 0.5-3 MG/3 ml Neb] 2.5 mg IH Q6HPRN PRN 07/16/18 [History] Atorvastatin Calcium [Lipitor] 40 mg PO HS 07/16/18 [History] Gabapentin [Neurontin] 800 mg PO QID 07/16/18 [History] Levothyroxine Sodium 100 Mcg [Synthroid 100 Mcg] 100 mcg PO DAILY 07/16/18 [History] Levothyroxine Sodium 88 Mcg [Synthroid 88 Mcg] 88 mcg PO DAILY 07/16/18 [ History] Ropinirole HCl 4 mg PO TID 07/16/18 [History] Topiramate 25 mg [Topamax 25 MG] 25 mg PO HS 07/16/18 [History] Hx Tetanus, Diphtheria Vaccination/Date Given: Yes (5 years ago) Hx Influenza Vaccination/Date Given: No Hx Pneumococcal Vaccination/Date Given: No Immunizations Up to Date: Yes - Review of Systems Constitutional: No Fever, No Chills, No Fatigue Eyes: No Symptoms, No Eye Pain, No Vision Changes Ears, Nose, & Throat: No Symptoms, No Nose Congestion, No Nose Discharge, No Throat Pain, No Throat Swelling, No Painful Swallowing Respiratory: Cough, Wheezing, No Dyspnea Cardiac: No Chest Pain, No Edema, No Syncope Abdominal/Gastrointestinal: No Abdominal Pain, No Nausea, No Vomiting, No Diarrhea, No Hematemesis, No Hematochezia, No Melena Genitourinary Symptoms: No Dysuria, No Hematuria, No Flank Pain Musculoskeletal: No Back Pain, No Neck Pain, No Joint Swelling, No Myalgias Skin: No Rash Neurological: No Dizziness, No Focal Weakness, No Headache, No Parasthesia, No Sensory Changes Psychological: No Anxiety Endocrine: No Excessive Sweating Hematologic/Lymphatic: No Easy Bleeding, No Easy Bruising All Other Systems: Reviewed and Negative - Past Medical History Pertinent Past Medical History: Yes Neurological History: No Pertinent History ENT History: No Pertinent History Cardiac History: High Cholesterol, Hypertension, Myocardial Infarction ([place]) Respiratory History: COPD Endocrine Medical History: Diabetes Type II, Other Musculoskeletal History: Fractures, Osteoarthritis GI Medical History: No Pertinent History History: No Pertinent History Psycho-Social History: Depression Female Reproductive Disorders: No Pertinent History Other Medical History: THYROID NODULE, HX [place] WITHOUT SURGERY, R ANKLE FX W/ ORIF 2007 - Past Surgical History Past Surgical History: Yes Neuro Surgical History: No Pertinent History Cardiac: No Pertinent History Respiratory: No Pertinent History Gastrointestinal: No Pertinent History, Other Genitourinary: No Pertinent History Musculoskeletal: Other Female Surgical History: Tubal Ligation Other Surgical History: RIGHT ANKLE SURGERY, thyroidectomy, left carotid endartertectomy - Social History Smoking Status: Current every day smoker How long have you smoked: years Exposure to second hand smoke: No Drug Use: none Patient Lives Alone: No - Female History Hx Last Menstrual Period: menopausal Hx Now: No - Nursing Vital Signs Nursing Vital Signs: Initial Vital Signs Temperature 99.1 F 02/02/19 18:32 Pulse Rate 108 H 02/02/19 18:32 Respiratory Rate 18 02/02/19 18:32 Blood Pressure 137/78 02/02/19 18:32 O2 Sat by Pulse Oximetry 99 02/02/19 18:32 Pain Scale Pain Intensity 0 - Physical Exam General Appearance: no apparent distress, alert Eye Exam: PERRL/EOMI, eyes nml inspection, No scleral icterus, No pale conjunctivae Ears, Nose, Throat Exam: normal ENT inspection, TMs normal, pharynx normal, moist mucous membranes Neck Exam: normal inspection, non-tender, supple, full range of motion Respiratory Exam: normal breath sounds, wheezing, No respiratory distress, No diminished breath sounds, No accessory muscle use, No crackles/rales Cardiovascular Exam: regular rate/rhythm, normal heart sounds, normal peripheral pulses, capillary refill <2 sec Gastrointestinal/Abdomen Exam: soft, normal bowel sounds, No tenderness, No distention, No guarding, No rebound Back Exam: normal inspection, No CVA tenderness, No vertebral tenderness, No rash Extremity Exam: normal inspection, normal range of motion, pelvis stable, No calf tenderness, No serafin's sign, No inflammation, No swelling Neurologic Exam: alert, oriented x 3, cooperative, alternative education teacher II-XII nml as tested, normal mood/affect, sensation nml, No motor deficits Skin Exam: normal color, warm, dry, No rash, No jaundice, No cyanosis Lymphatic Exam: No adenopathy SpO2 Interpretation: normal SpO2: 99 O2 Delivery: Room Air Ordered Tests: Active Orders 24 hr Category Date Time Status CHEST 1 VIEW (PORTABLE) Stat Exams 02/02/19 19:10 Taken Respiratory Therapy Assessment DAILY RT 02/02/19 19:12 Active Medication Summary Discontinued Medications Generic Name Dose Route Start Last Admin Trade Name Freq PRN Reason Stop Dose Admin Albuterol/Ipratropium 3 ml 02/02/19 18:58 02/02/19 19:09 Duoneb 0.5-3 Mg/3 Ml Neb IH 02/02/19 18:59 3 ml STAT ONE Administration Albuterol/Ipratropium Confirm 02/02/19 19:06 Duoneb 0.5-3 Mg/3 Ml Neb Administered 02/02/19 19:07 Dose 3 ml IH .STK-MED ONE Albuterol/Ipratropium 6 ml 02/02/19 20:45 Duoneb 0.5-3 Mg/3 Ml Neb IH 02/02/19 20:46 STAT ONE Levalbuterol HCl 1.25 mg 02/02/19 18:58 02/02/19 19:17 Xopenex 1.25 Mg/0.5 Ml Ud Nebule IH 02/02/19 18:59 1.25 mg STAT ONE Administration Levalbuterol HCl Confirm 02/02/19 19:06 Xopenex 1.25 Mg/0.5 Ml Ud Nebule Administered 02/02/19 19:07 Dose 1.25 mg IH .STK-MED ONE Prednisone 80 mg 02/02/19 18:58 02/02/19 19:06 Deltasone 20 Mg PO 02/02/19 18:59 80 mg STAT ONE Administration Prednisone Confirm 02/02/19 19:04 Deltasone 20 Mg Administered 02/02/19 19:05 Dose 80 mg .ROUTE .STK-MED ONE Sodium Chloride Confirm 02/02/19 19:06 Sodium Chloride 3 Ml Ud Nebules Administered 02/02/19 19:07 Dose 3 ml IH .STK-MED ONE - Progress Progress: re-examined Air Movement: good Progress Note: 02/02/19 20:50 Patient had improved significantly in terms of her air flow throughout her lungs with some wheezing still appreciated. No hypoxia, no respiratory distress , no accessory muscle use noted. Patient does not need it made it for further treatment as she can do outpatient therapy his nebulizer at home and had a negative chest x-ray per my interpretation with no oxygen support needed at this time. Patient's tachycardia resolved and her hypertension has decreased after improvement in breathing. Blood Culture(s) Obtained: No Antibiotics given: No Counseled pt/family regarding: diagnosis, need for follow-up, rad results - Departure Departure Disposition: Home Clinical Impression: COPD exacerbation HTN (hypertension) Qualifiers: Hypertension type: essential hypertension Qualified Code(s): I10 - Essential ( primary) hypertension Condition: Good Critical Care Time: No Referrals: ROLANDO SALMERON [Primary Care Provider] - 02/03/19 Instructions: Cough, Adult (DC), Exacerbation of COPD (DC), High Blood Pressure (DC) Additional Instructions: Discharge/Care Plan CHADJUAN JOSE DWYER was seen on 02/02/19 in the Emergency Room. The patient was counseled regarding Diagnosis,Imaging studies, and need for follow up and when to return to the Emergency Room. Return immediately back to the emergency department if any increased shortness of breath, chest pain, new productive Cough, new fever, new abdominal pain, new back pain, or any other concerning signs or symptoms that were not present at this emergency department visit for immediate reevaluation in the emergency department. We will notify you tomorrow if the radiologist sees anything different from my interpretation that changes you're course of action. Prescriptions given: DuoNeb Q4 hours, ProAir prn, Prednisone 60mg PO once daily , Advair BID Discharge Note I have spoken with the patient. I have explained the patient's condition, diagnosis and treatment plan based on the information available to me at this time. I have answered the patient's questions and addressed any concerns. The patient has a good understanding of the patient's diagnosis, condition and treatment plan as can be expected at this point. The vital signs have been stable. The patient's condition is stable and appropriate for discharge from the emergency department. The patient will pursue further outpatient evaluation with the primary care physician or other designated or consulting physician as outlined in the discharge instructions. The patient is agreeable to this plan of care and follow -up instructions have been explained in detail. The patient and/or caregivers have received these instruction. The patient is aware that any significant change in condition or worsening of symptoms should prompt an immediate return to this or the closest emergency department or call 911. Prescriptions: Albuterol Sulfate [Proair Hfa] 8.5 gm IH Q4H PRN PRN #1 [email or web address] PRN Reason: Wheezing/Chest Congestion Albuterol/Ipratropium 3ml Neb* [DUONEB 0.5-3 MG/3 ml Neb] 3 ml NEBULIZE Q4H PRN PRN #1 box PRN Reason: Wheezing/Chest Congestion Nebulizer 1 each MC Q4H PRN PRN #1 kit PRN Reason: Wheezing/Shortness of Breath Azithromycin 250 mg [Zithromax 250 MG TABLET] 250 mg PO ZPACK #6 tablet Fluticasone/Salmeterol Disc [Advair 250-50 Diskus 14 Dose] 1 each IH BID # 1 disk.w.dev Prednisone 20 mg [Deltasone 20 mg] 60 mg PO DAILY #9 tablet
[2019-02-02] MEDS ORDERED: Xopenex 1.25 MG/0.5 ML UD NEBULE IH ONE ×2 (18:58→19:06)
[2019-02-02] MEDS ORDERED: DUONEB 0.5-3 MG/3 ml Neb IH ONE ×4 (18:58→21:01)
[2019-02-02] MEDS ORDERED: DELTASONE 20 MG PO ONE (18:58)
[2019-02-02] MEDS ORDERED: DELTASONE 20 MG ONE (19:04)
[2019-02-02] MEDS ORDERED: Sodium Chloride 3 ML UD NEBULES IH ONE (19:06)
[2019-02-02 21:18] VITALS: BP 147/60; PULSE 98; O2SAT 97
--- NOTE | 2019-02-03 09:11 | XRAY ---
Indication: Cough 1 week. Comparison: August 01, 2018. Portable chest again demonstrates normal heart and lungs. Bony thorax intact again with mild degenerative changes. No new/acute findings.
== END 2019-02-02 20:15 | disposition home or self-care (01) ==
LOC: ED 18:24
DX: J44.1 Chronic obstructive pulmonary disease with (acute) exacerbation (principal); I10 Essential (primary) hypertension; Z79.899 Other long term (current) drug therapy; E78.00 Pure hypercholesterolemia, unspecified; I25.2 Old myocardial infarction; E11.9 Type 2 diabetes mellitus without complications
CPT/HCPCS: 71045; 94640; 99284; A9270-GY

== ENCOUNTER 2019-02-26 14:15 | Inpatient (IN) | payer MEDICARE ==
--- NOTE | 2019-02-26 14:22 | ERPHSYRPT ---
- History of Present Illness Time Seen by Provider: 02/26/19 14:22 Source: patient, family, EMS Exam Limitations: clinical condition Physician History: 68 y/o obese, diabetic white female oxygen dependent copd pt presents with worsening weakness and difficulty ambulating. pts blood glucose > 500. pt could not get out of bed this morning. by patient's own admission she is noncompliant with her medications. pt denies cp, has chronic soa, denies abd pain and denies n/v/d. Timing/Duration: worse, other (chronic) Severity: moderate Modifying Factors: Improves With: movement (unable ) Associated Symptoms: shortness of breath, weakness, No nausea, No vomiting, No abdominal pain, No cough, No chest pain, No syncope Allergies/Adverse Reactions: No Known Drug Allergies Allergy (Verified 02/26/19 14:18) Home Medications: Aspirin [Aspirin EC] 325 mg PO QAM 10/09/13 [History] Clopidogrel Bisulfate 75 mg [PLAVIX 75 MG Tablet] 75 mg PO HS 10/09/13 [ History] Metoprolol Succinate [Toprol Xl] 100 mg PO HS 02/03/15 [History] Potassium Chloride [K-Tab ER] 10 meq PO DAILY 02/03/15 [History] Duloxetine HCl [Cymbalta] 60 mg PO HS 08/17/17 [History] AMITRIPTYLINE HCL 50 mg Tab [AMITRIPTYLINE HCL 50 mg Tablet] 50 mg PO HS [History] Albuterol 8 gm Mdi Hfa [Ventolin Hfa MDI] 2 puff IH Q4HPRN PRN 07/16/18 [ History] Atorvastatin Calcium [Lipitor] 40 mg PO HS 07/16/18 [History] Gabapentin [Neurontin] 800 mg PO QID 07/16/18 [History] Ropinirole HCl 4 mg PO TID 07/16/18 [History] Topiramate 25 mg [Topamax 25 MG] 25 mg PO BID 07/16/18 [History] Ferrous Sulfate 325 mg [Feosol 325 mg] 325 mg PO BID 02/26/19 [History] Nitroglycerin 0.4 mg Tablet [Nitrostat 0.4 MG Tablet] 0.4 mg SL UD [History] Umeclidinium [place] [Incruse Ellipta] 62.5 mcg IH DAILY 02/26/19 [History] Hx Tetanus, Diphtheria Vaccination/Date Given: Yes (5 years ago) Hx Influenza Vaccination/Date Given: No Hx Pneumococcal Vaccination/Date Given: No - Review of Systems Constitutional: Lethargy (mild), Weakness Eyes: No Symptoms Ears, Nose, & Throat: No Symptoms Respiratory: No Symptoms Cardiac: No Symptoms, No Chest Pain Abdominal/Gastrointestinal: No Symptoms Genitourinary Symptoms: No Symptoms Musculoskeletal: No Symptoms Skin: No Symptoms Neurological: No Symptoms Psychological: No Symptoms Endocrine: No Symptoms Hematologic/Lymphatic: No Symptoms Immunological/Allergic: No Symptoms All Other Systems: Reviewed and Negative - Past Medical History Pertinent Past Medical History: Yes Neurological History: No Pertinent History ENT History: No Pertinent History Cardiac History: High Cholesterol, Hypertension, Myocardial Infarction ([place]) Respiratory History: COPD Endocrine Medical History: Diabetes Type II, Other Musculoskeletal History: Fractures, Osteoarthritis GI Medical History: No Pertinent History History: No Pertinent History Psycho-Social History: Depression Female Reproductive Disorders: No Pertinent History Other Medical History: THYROID NODULE, HX [place] WITHOUT SURGERY, R ANKLE FX W/ ORIF 2007 - Past Surgical History Past Surgical History: Yes Neuro Surgical History: No Pertinent History Cardiac: No Pertinent History Respiratory: No Pertinent History Gastrointestinal: No Pertinent History, Other Genitourinary: No Pertinent History Musculoskeletal: Other Female Surgical History: Tubal Ligation Other Surgical History: RIGHT ANKLE SURGERY, thyroidectomy, left carotid endartertectomy - Social History Smoking Status: Current every day smoker How long have you smoked: years Exposure to second hand smoke: No Drug Use: none Patient Lives Alone: No - Nursing Vital Signs Nursing Vital Signs: Initial Vital Signs Temperature 98.9 F 02/26/19 14:22 Pulse Rate 87 02/26/19 14:22 Respiratory Rate 18 02/26/19 14:22 Blood Pressure 139/77 02/26/19 14:22 O2 Sat by Pulse Oximetry 96 02/26/19 14:22 Pain Scale Pain Intensity 0 - Physical Exam General Appearance: lethargy (mild but rousable), obese Eye Exam: PERRL/EOMI, eyes nml inspection Ears, Nose, Throat Exam: normal ENT inspection, moist mucous membranes Neck Exam: normal inspection, non-tender, supple, full range of motion Respiratory Exam: normal breath sounds, lungs clear, airway intact, No chest tenderness, No respiratory distress Cardiovascular Exam: regular rate/rhythm, normal heart sounds, normal peripheral pulses Gastrointestinal/Abdomen Exam: soft, normal bowel sounds, No tenderness, No guarding, No rebound Pelvic Exam: not done Rectal Exam: not done Back Exam: normal inspection, normal range of motion, No CVA tenderness Extremity Exam: normal inspection, normal range of motion, pelvis stable Neurologic Exam: alert, oriented x 3, cooperative, postulant II-XII nml as tested Skin Exam: normal color, warm, dry Lymphatic Exam: No adenopathy SpO2 Interpretation: normal O2 Delivery: Room Air - Course Nursing assessment & vital signs reviewed: Yes EKG Interpreted by Me: RATE (85), Sinus Rhythm, NORMAL AXIS, NORMAL INTERVALS, NORMAL QRS, Other (when compared to ekg dated 07/15/18, nonspecific st changes have now resolved. ) Ordered Tests: Active Orders 24 hr Category Date Time Status ACCUCHECK [Accucheck] STAT Care 02/26/19 14:39 Active EKG-ER Only STAT Care 02/26/19 14:56 Active [place] [Catheter-[place]] STAT Care 02/26/19 14:40 Active IV Insertion STAT Care 02/26/19 14:39 Active Pulse Oximetry (ED) STAT Care 02/26/19 14:56 Active CHEST 1 VIEW (PORTABLE) Stat Exams 02/26/19 14:57 Taken BLOOD CULTURE Stat Lab 02/26/19 17:06 Ordered CBC W DIFF Stat Lab 02/26/19 15:08 Completed CMP Stat Lab 02/26/19 15:08 Completed Lactic Acid Stat Lab 02/26/19 14:56 Completed Lactic Acid Stat Lab 02/26/19 17:15 Ordered NT PRO BNP Stat Lab 02/26/19 15:08 Completed PROTIME WITH INR Stat Lab 02/26/19 15:08 Completed TROPONIN Q3H Lab 02/26/19 15:08 Completed TROPONIN Q3H Lab 02/26/19 18:00 Ordered TROPONIN Q3H Lab 02/26/19 21:00 Ordered TROPONIN Q3H Lab 02/27/19 00:00 Ordered TROPONIN Q3H Lab 02/27/19 03:00 Ordered UA W/RFX UR CULTURE Stat Lab 02/26/19 15:00 Completed Transfer Order Routine Transfer 02/26/19 Ordered Medication Summary Generic Name Dose Route Start Last Admin Trade Name Belkys PRN Reason Stop Dose Admin Sodium Chloride 1,000 mls @ 100 mls/hr 02/26/19 15:00 02/26/19 15:06 Sodium Chloride 0.9% 1000 Ml IV 03/28/19 14:59 100 mls/hr .Q10H ARELY Administration Meropenem 500 mg/ Sodium 100 mls @ 200 mls/hr 02/26/19 17:07 Chloride IV 02/26/19 17:36 STAT ONE Discontinued Medications Generic Name Dose Route Start Last Admin Trade Name Belkys PRN Reason Stop Dose Admin Insulin Human Regular 18 unit 02/26/19 16:00 02/26/19 16:12 Novolin R IV 02/26/19 16:01 18 unit STAT ONE Administration Insulin Human Regular Confirm 02/26/19 16:07 Novolin R Administered 02/26/19 16:08 Dose 18 unit .ROUTE .ncyclo ONE Lab/Rad Data: Laboratory Result Diagrams 02/26/19 15:08 02/26/19 15:08 Laboratory Results 02/26/19 02/26/19 02/26/19 Range/Units 15:08 15:08 15:08 WBC (4.0-10.5) K/mm3 RBC (4.1-5.4) M/mm3 Hgb (12.0-16.0) gm/dl Hct (35-47) % MCV (78-100) fl MCH (26-32) pg MCHC (32-36) g/dl RDW (11.5-14.0) % Plt Count (150-450) K/mm3 MPV (6-9.5) fl Gran % (36.0-66.0) % Eos # (Auto) (0-0.5) Absolute Lymphs (auto) (1.0-4.6) Absolute Monos (auto) (0.0-1.3) Lymphocytes % (24.0-44.0) % Monocytes % (0.0-12.0) % Eosinophils % (0.00-5.0) % Basophils % (0.0-0.4) % Absolute Granulocytes (1.4-6.9) Basophils # (0-0.4) PT 10.8 (9.95-12.35) SECONDS INR 0.96 (0.8-3.0) Sodium 133 L (137-145) mmol/L Potassium 4.7 (3.5-5.1) mmol/L Chloride 91 L (98-107) mmol/L Carbon Dioxide 33 H (22-30) mmol/L Anion Gap 12.9 (5-15) MEQ/L BUN 33 H (7-17) mg/dL Creatinine 1.08 H (0.52-1.04) mg/dL Estimated GFR 53.6 ML/MIN Glucose 615 H* (74-106) mg/dL Lactic Acid (0.4-2.0) Calcium 7.9 L (8.4-10.2) mg/dL Total Bilirubin 0.60 (0.2-1.3) mg/dL AST 22 (14-36) U/L ALT 15 (0-35) U/L Alkaline Phosphatase 95 (38-126) U/L Troponin I < 0.012 (0.000-0.034) ng/mL NT-Pro-B Natriuret Pep 651 (0-900) pg/mL Serum Total Protein 6.7 (6.3-8.2) g/dL Albumin 3.6 (3.5-5.0) g/dL Urine Color (YELLOW) Urine Appearance (CLEAR) Urine pH (5-6) Ur Specific [place] (1.005-1.025) Urine Protein (Negative) Urine Ketones (NEGATIVE) Urine Blood (0-5) Jose/ul Urine Nitrite (NEGATIVE) Urine Bilirubin (NEGATIVE) Urine Urobilinogen (0-1) mg/dL Ur Leukocyte Esterase (NEGATIVE) Urine WBC (Auto) (0-5) /HPF Urine RBC (Auto) (0-2) /HPF U Epithel Cells (Auto) (FEW) /HPF Urine Bacteria (Auto) (NEGATIVE) /HPF Urine Mucus (Auto) (NEGATIVE) /HPF Urine Culture Reflexed (NO) Urine Glucose (NEGATIVE) mg/dL 02/26/19 02/26/19 02/26/19 Range/Units 15:08 15:00 14:56 WBC 12.3 H (4.0-10.5) K/mm3 RBC 4.84 (4.1-5.4) M/mm3 Hgb 13.5 (12.0-16.0) gm/dl Hct 41.4 (35-47) % MCV 85.5 (78-100) fl MCH 27.9 (26-32) pg MCHC 32.6 (32-36) g/dl RDW 13.4 (11.5-14.0) % Plt Count 182 (150-450) K/mm3 MPV 12.1 H (6-9.5) fl Gran % 82.9 H (36.0-66.0) % Eos # (Auto) 0.07 (0-0.5) Absolute Lymphs (auto) 1.42 (1.0-4.6) Absolute Monos (auto) 0.59 (0.0-1.3) Lymphocytes % 11.5 L (24.0-44.0) % Monocytes % 4.8 (0.0-12.0) % Eosinophils % 0.6 (0.00-5.0) % Basophils % 0.2 (0.0-0.4) % Absolute Granulocytes 10.20 H (1.4-6.9) Basophils # 0.02 (0-0.4) PT (9.95-12.35) SECONDS INR (0.8-3.0) Sodium (137-145) mmol/L Potassium (3.5-5.1) mmol/L Chloride (98-107) mmol/L Carbon Dioxide (22-30) mmol/L Anion Gap (5-15) MEQ/L BUN (7-17) mg/dL Creatinine (0.52-1.04) mg/dL Estimated GFR ML/MIN Glucose (74-106) mg/dL Lactic Acid 2.6 H (0.4-2.0) Calcium (8.4-10.2) mg/dL Total Bilirubin (0.2-1.3) mg/dL AST (14-36) U/L ALT (0-35) U/L Alkaline Phosphatase (38-126) U/L Troponin I (0.000-0.034) ng/mL NT-Pro-B Natriuret Pep (0-900) pg/mL Serum Total Protein (6.3-8.2) g/dL Albumin (3.5-5.0) g/dL Urine Color STRAW (YELLOW) Urine Appearance CLEAR (CLEAR) Urine pH 5.0 (5-6) Ur Specific [place] 1.014 (1.005-1.025) Urine Protein 30 (Negative) Urine Ketones NEGATIVE (NEGATIVE) Urine Blood NEGATIVE (0-5) Jose/ul Urine Nitrite NEGATIVE (NEGATIVE) Urine Bilirubin NEGATIVE (NEGATIVE) Urine Urobilinogen NEGATIVE (0-1) mg/dL Ur Leukocyte Esterase NEGATIVE (NEGATIVE) Urine WBC (Auto) NONE (0-5) /HPF Urine RBC (Auto) NONE (0-2) /HPF U Epithel Cells (Auto) NONE (FEW) /HPF Urine Bacteria (Auto) NONE (NEGATIVE) /HPF Urine Mucus (Auto) SLIGHT (NEGATIVE) /HPF Urine Culture Reflexed NO (NO) Urine Glucose >=500 (NEGATIVE) mg/dL - Progress Progress: improved, re-examined Progress Note: 02/26/19 17:03 cxr-no acute process. spoke with dr. mahan who is covering for dr. ramírez. i reviewed pts hx, condition, labs, ekg and xray results with her. she accepts pt for admission. agrees to starting antibx after blood cultures. Discussed with : Jean-Claude Counseled pt/family regarding: lab results, diagnosis, rad results - Departure Departure Disposition: In-patient Admission Clinical Impression: Hyperglycemia, Weakness, Leukocytosis Condition: Fair Critical Care Time: Yes Critical Care Time(excluding separately billable procedures): Critical 30-74 mins Referrals: ROLANDO RAMÍREZ [Primary Care Provider] -
[2019-02-26] MEDS: Sodium Chloride 0.9% 1000 ML 1,000 ML IV SCH (15:06)
[2019-02-26 15:09] LABS: BASOPHIL % 0.2 % (0.0-0.4); Basophil (Absolute #) 0.02 (0-0.4); Eosinophil % 0.6 % (0.00-5.0); Eosinophil (Absolute #) 0.07 (0-0.5); Hematocrit 41.4 % (35-47); Hemoglobin 13.5 gm/dl (12.0-16.0); Lymphocyte (Absolute #) 1.42 (1.0-4.6); Lymphocytes % 11.5 % (24.0-44.0); Mean Cell Volume 85.5 fl (78-100); Mean Corpuscular Hemoglobin 27.9 pg (26-32); Mean Corpuscular Hgb Concent. 32.6 g/dl (32-36); Mean Platelet Volume 12.1 fl (6-9.5); Monocyte (Absolute #) 0.59 (0.0-1.3); Monocytes % 4.8 % (0.0-12.0); Neutrophil % 82.9 % (36.0-66.0); Platelet Count 182 K/mm3 (150-450); Red Blood Count 4.84 M/mm3 (4.1-5.4); Red Cell Distribution Width 13.4 % (11.5-14.0); White Blood Count 12.3 K/mm3 (4.0-10.5)
[2019-02-26 15:15] LABS: Lactic Acid 2.6 (0.4-2.0)
[2019-02-26 15:19] LABS: INR 0.96 (0.8-3.0); PROTIME 10.8 SECONDS (9.95-12.35)
[2019-02-26 15:21] LABS: ALBUMIN 3.6 g/dL (3.5-5.0); ANION GAP 12.9 MEQ/L (5-15); BILIRUBIN,TOTAL 0.6 mg/dL (0.2-1.3); Calcium 7.9 mg/dL (8.4-10.2); Creatinine 1 1.08 mg/dL (0.52-1.04); Potassium 4.7 mmol/L (3.5-5.1); Total Protein 6.7 g/dL (6.3-8.2)
[2019-02-26 15:21] LABS: Appearance CLEAR (CLEAR); Bilirubin NEGATIVE (NEGATIVE); Blood NEGATIVE Ery/ul (0-5); Glucose >=500 mg/dL (NEGATIVE); Ketones NEGATIVE (NEGATIVE); Leukocyte Esterase NEGATIVE (NEGATIVE); Mucus SLIGHT /HPF (NEGATIVE); Nitrite NEGATIVE (NEGATIVE); Protein,Urine Dip 30 (Negative); Specific Gravity 1.014 (1.005-1.025); Urobilinogen NEGATIVE mg/dL (0-1)
[2019-02-26] MEDS ORDERED: NovoLIN R IV ONE (16:00)
[2019-02-26] MEDS ORDERED: NovoLIN R ONE (16:07)
[2019-02-26] MEDS ORDERED: MERREM 500MG 500 MG in Sodium Chloride 100ML MINI-BAG PLUS 100 ML IV ONE (17:07)
[2019-02-26] MEDS ORDERED: MERREM 500MG IV ONE ×2 (17:19→21:07)
[2019-02-26] MEDS ORDERED: Sodium Chloride 0.9% 100 ML IVPB 100 ML IV ONE ×2 (17:20→21:09)
[2019-02-26] MEDS ORDERED: NovoLOG Insulin ONE (17:31)
[2019-02-26 17:34] LABS: Lactic Acid 2.3 (0.4-2.0)
[2019-02-26] MEDS ORDERED: NovoLOG Insulin IV ONE (17:34)
[2019-02-26 17:44] LABS: VBG BASE EXCESS 5.6 (-2.0-2.0); VBG CARBOXYHEMOGLOBIN 5.1 % T HGB (0.0-6.9); VBG HCO3- 34.4 meq/L (22-28); VBG HEMOGLOBIN 13.7; VBG O2 SATURATION 96.7 (95-100); VBG POTASSIUM 3.5 (3.5-5.1); VBG pH 7.3 (7.32-7.42)
[2019-02-26] MEDS ORDERED: Zofran 4 MG/2 ML VIAL IV PRN (18:06)
[2019-02-26] MEDS ORDERED: TYLENOL 325 MG PO PRN (18:06)
--- NOTE | 2019-02-26 21:00 | XRAY ---
Indication: Short of breath. Weakness. Comparison: February 02, 2019. Portable chest now demonstrates subtle right base infiltrate versus atelectasis. Remaining heart and lungs normal. Bony thorax intact again with mild degenerative changes.
[2019-02-26 21:21] LABS: A-aADO2 101; ABG HEMOGLOBIN 13.6; ABG POTASSIUM 3.6 (3.5-5.1); ABG SITE RIGHT WRIST; ALLEN TEST OK? YES; ARTERIAL BLD GAS O2 SATURATION 95.3 % (95-100); ARTERIAL BLOOD GAS BASE EXCESS 7.3 (-2.0-2.0); ARTERIAL BLOOD GAS FIO2 32 %; ARTERIAL BLOOD GAS PCO2 58 mmHg (35-45); ARTERIAL BLOOD GAS PO2 55 mmHg (75-100); ARTERIAL BLOOD GAS VENT MODE BiPAP; ARTERIAL BLOOD GAS pH 7.38 (7.35-7.45); CARBOXYHEMOGLOBIN 5.1 % THgb (0.0-6.9); HCO3- 34.3 (22-28); HGB O2 SAT 89.2 g/dF (94-100); Methhemoglobin 1.3 % (1.4-1.5); paO2 pAO1 0.35
[2019-02-26] MEDS: NovoLIN R SQ PRN ×3 (21:22→23:22)
[2019-02-26 22:04] LABS: ANION GAP 7.6 MEQ/L (5-15); Calcium 7.8 mg/dL (8.4-10.2); Creatinine 1 1.04 mg/dL (0.52-1.04); Potassium 3.8 mmol/L (3.5-5.1)
[2019-02-26] MEDS: PLAVIX 75 MG Tablet PO SCH (22:19)
[2019-02-26] MEDS: ZOCOR 20MG PO SCH (22:21)
[2019-02-26] MEDS: FEOSOL 325 MG PO SCH (22:22)
[2019-02-26] MEDS: REQUIP 2MG TAB PO SCH (22:22)
[2019-02-26] MEDS: MERREM 500MG 500 MG in Sodium Chloride 100ML MINI-BAG PLUS 100 ML IV SCH (22:23)
[2019-02-26] MEDS: Cymbalta 30 MG Capsule PO SCH (22:23)
[2019-02-26] MEDS: Topamax 25 MG PO SCH (22:58)
[2019-02-27] MEDS: NovoLIN R SQ PRN ×6 (00:20→23:15)
[2019-02-27] MEDS ORDERED: Sodium Chloride 0.9% 1000 ML 1,000 ML ONE (01:49)
[2019-02-27] MEDS: Sodium Chloride 0.9% 1000 ML 1,000 ML IV SCH ×3 (01:51→22:27)
[2019-02-27 03:42] LABS: Absolute Neutrophil Ct (ANC) 11.81 (1.4-6.9); BASOPHIL % 0.1 % (0.0-0.4); Basophil (Absolute #) 0.02 (0-0.4); Eosinophil % 0.6 % (0.00-5.0); Eosinophil (Absolute #) 0.09 (0-0.5); Hematocrit 37.7 % (35-47); Lymphocyte (Absolute #) 2.12 (1.0-4.6); Lymphocytes % 14.4 % (24.0-44.0); Mean Cell Volume 87.7 fl (78-100); Mean Corpuscular Hemoglobin 27.9 pg (26-32); Mean Corpuscular Hgb Concent. 31.8 g/dl (32-36); Monocytes % 4.7 % (0.0-12.0); Neutrophil % 80.2 % (36.0-66.0); Platelet Count 166 K/mm3 (150-450); Red Cell Distribution Width 13.3 % (11.5-14.0); White Blood Count 14.7 K/mm3 (4.0-10.5)
[2019-02-27 04:16] LABS: ALBUMIN 3.1 g/dL (3.5-5.0); ANION GAP 7.3 MEQ/L (5-15); BILIRUBIN,TOTAL 0.6 mg/dL (0.2-1.3); Calcium 7.4 mg/dL (8.4-10.2); Creatinine 1 1.02 mg/dL (0.52-1.04); Potassium 3.7 mmol/L (3.5-5.1)
[2019-02-27] MEDS: MERREM 500MG 500 MG in Sodium Chloride 100ML MINI-BAG PLUS 100 ML IV SCH ×3 (06:53→23:01)
[2019-02-27] MEDS: DUONEB 0.5-3 MG/3 ml Neb IH PRN ×2 (07:09→11:10)
--- NOTE | 2019-02-27 09:03 | PCM.HP ---
History of Present Illness - Chief Complaint Chief Complaint: hyperglycemia History of Present Illness: is a 68 year old female pt of mine from [facility] with diabetes, COPD, HTN, hx NC, hypothyroid, PVD and spinal stenosis who was admitted through ER with cough and weakness. She was found to have elevated HR, elevated BS > 600, and infiltrate on CXR. Started on meropenem and given insulin in the ER. She has been ill wtih cough for about 3 weeks. Two+ weeks ago she went to ER and was given steroids, which made her feel better for about a week. Then she went to see Edgardo June, got more steroids and antibiotics which helped for a few days then she started feeling worse again. The morning of admission she was so weak she couldn't walk without assistance. BS down to 108 this morning. - Review of Systems Constitutional: Chills, Weakness Ears, Nose, & Throat: Sinus Drainage Respiratory: Cough, Short Of Breath, Wheezing Skin: Other ("gaulded" lower abdomen) All Other Systems: Reviewed and Negative Medications & Allergies Home Medications: Home Medication List Aspirin [Aspirin EC] 325 mg PO [facility] 10/09/13 [History Confirmed 02/26/19] Clopidogrel Bisulfate 75 mg [PLAVIX 75 MG Tablet] 75 mg PO HS 10/09/13 [ History Confirmed 02/26/19] Metoprolol Succinate [Toprol Xl] 100 mg PO HS 02/03/15 [History Confirmed ] Potassium Chloride [K-Tab ER] 10 meq PO DAILY 02/03/15 [History Confirmed ] Duloxetine HCl [Cymbalta] 60 mg PO HS 08/17/17 [History Confirmed 02/26/19] AMITRIPTYLINE HCL 50 mg Tab [AMITRIPTYLINE HCL 50 mg Tablet] 50 mg PO HS [History Confirmed 02/26/19] Albuterol 8 gm Mdi Hfa [Ventolin Hfa MDI] 2 puff IH Q4HPRN PRN 07/16/18 [ History Confirmed 02/26/19] Atorvastatin Calcium [Lipitor] 40 mg PO HS 07/16/18 [History Confirmed 02/26/19] Gabapentin [Neurontin] 800 mg PO QID 07/16/18 [History Confirmed 02/26/19] Ropinirole HCl 4 mg PO TID 07/16/18 [History Confirmed 02/26/19] Topiramate 25 mg [Topamax 25 MG] 25 mg PO BID 07/16/18 [History Confirmed 02/26/19] Bumetanide 1 mg [Bumex 1 mg] 2 mg PO BID #30 tablet 07/24/18 [Rx Confirmed 02/26/19] Insulin Aspart [NovoLOG Insulin] 10 unit SQ 0730,1130 #1 unit 07/24/18 [Rx Confirmed 02/26/19] Insulin Degludec [Tresiba Flextouch U-100] 60 unit SQ QAM #1 insuln.pen [Rx Confirmed 02/26/19] Albuterol/Ipratropium 3ml Neb* [DUONEB 0.5-3 MG/3 ml Neb] 3 ml NEBULIZE Q4H PRN PRN #1 box 02/02/19 [Rx Confirmed 02/26/19] Nebulizer 1 each MC Q4H PRN PRN #1 kit 02/02/19 [Rx Confirmed 02/26/19] Ferrous Sulfate 325 mg [Feosol 325 mg] 325 mg PO BID 02/26/19 [History Confirmed 02/26/19] Levothyroxine Sodium 88 mcg PO DAILY 02/26/19 [History Confirmed 02/26/19] Levothyroxine Sodium 100 mg PO DAILY 02/26/19 [History Confirmed 02/26/19] Nitroglycerin 0.4 mg Tablet [Nitrostat 0.4 MG Tablet] 0.4 mg SL UD [History Confirmed 02/26/19] Umeclidinium [place] [Incruse Ellipta] 62.5 mcg IH DAILY 02/26/19 [History Confirmed 02/26/19] Allergies/Adverse Reactions: Allergies Allergy/AdvReac Type Severity Reaction Status Date / Time No Known Drug Allergies Allergy Verified 02/26/19 14:18 - Past Medical History Past Medical History: Yes Neurological History: No Pertinent History ENT History: No Pertinent History Cardiac History: High Cholesterol, Hypertension, Myocardial Infarction (NC) Respiratory History: COPD Endocrine Medical History: Diabetes Type II, Other Musculoskelatal History: Fractures, Osteoarthritis GI Medical History: No Pertinent History History: No Pertinent History Pyscho-Social History: Depression Reproductive Disorders: No Pertinent History Comment: THYROID NODULE, HX NC WITHOUT SURGERY, R ANKLE FX W/ ORIF 2007 - Female History Are you now?: No - Past Surgical History Past Surgical History: Yes Neuro Surgical History: No Pertinent History Cardiac History: No Pertinent History Respiratory Surgery: No Pertinent History GI Surgical History: No Pertinent History, Other Genitourinary Surgical Hx: No Pertinent History Musculskeletal Surgical Hx: Other Female Surgical History: Tubal Ligation Other Surgical History: RIGHT ANKLE SURGERY, thyroidectomy, left carotid endartertectomy - Social History Smoking Status: Current every day smoker How long have you smoked: 50 + year Exposure to second hand smoke: Yes Alcohol: None Drug Use: none - Physical Exam Vital Signs: Vital Signs - 24 hr Temp Pulse Resp BP Pulse Ox 02/27/19 07:12 92 H 24 96 02/27/19 07:09 98.2 F 87 22 120/56 96 02/27/19 04:13 98.5 F 85 16 119/55 98 02/26/19 23:58 98.5 F 90 20 123/57 98 02/26/19 20:00 98.4 F 72 20 98/50 96 02/26/19 18:16 98.4 F 88 18 134/66 02/26/19 18:06 96 02/26/19 17:30 84 22 105/69 98 02/26/19 16:35 88 20 141/70 98 02/26/19 15:52 88 20 139/67 97 02/26/19 15:09 88 18 122/67 98 02/26/19 15:00 98 02/26/19 14:22 98.9 F 87 18 139/77 96 Oxygen-Last 24 hours O2 Percentage 4 Liters = 36% O2 Percentage 4 Liters = 36% O2 Percentage 4 Liters = 36% O2 Percentage 4 Liters = 36% O2 Percentage 3 Liters = 32% O2 Percentage 3 Liters = 32% O2 Percentage 3 Liters = 32% O2 Percentage 3 Liters = 32% O2 Percentage 3 Liters = 32% O2 Percentage 3 Liters = 32% O2 Percentage 3 Liters = 32% Oxygen Flowrate (L/min)-RT 32 General Appearance: no apparent distress, alert Neurologic Exam: oriented x 3, cooperative Eye Exam: eyes nml inspection Ears, Nose, Throat Exam: moist mucous membranes Neck Exam: normal inspection Respiratory Exam: diminished breath sounds, wheezing (throughout), No crackles/ rales, No rhonchi Cardiovascular Exam: regular rate/rhythm, normal heart sounds, No murmur Gastrointestinal/Abdomen Exam: soft, normal bowel sounds, No tenderness, No distention, No mass, No guarding, No rebound Back Exam: normal inspection, No rash Extremity Exam: normal inspection, No pedal edema, No swelling Skin Exam: normal color, warm, dry, No rash Results - Labs Lab/Micro Results: Accuchecks Date 02/27/19 Date 02/27/19 Date 02/27/19 Date 02/27/19 Date 02/26/19 Date 02/26/19 Time 06:16 Time 02:00 Time 01:17 Time 00:00 Time 23:00 Time 22:10 Accucheck Value: 141 Accucheck Value: 189 Accucheck Value: 249 Accucheck Value: 262 Accucheck Value: 323 Accucheck Value: 285 Accucheck Value: 366 Lab Results-Last 24 Hours 02/26/19 02/26/19 02/26/19 Range/Units 14:56 15:00 15:08 WBC 12.3 H (4.0-10.5) K/mm3 RBC 4.84 (4.1-5.4) M/mm3 Hgb 13.5 (12.0-16.0) gm/dl Hct 41.4 (35-47) % MCV 85.5 (78-100) fl MCH 27.9 (26-32) pg MCHC 32.6 (32-36) g/dl RDW 13.4 (11.5-14.0) % Plt Count 182 (150-450) K/mm3 MPV 12.1 H (6-9.5) fl Gran % 82.9 H (36.0-66.0) % Eos # (Auto) 0.07 (0-0.5) Absolute Lymphs (auto) 1.42 (1.0-4.6) Absolute Monos (auto) 0.59 (0.0-1.3) Lymphocytes % 11.5 L (24.0-44.0) % Monocytes % 4.8 (0.0-12.0) % Eosinophils % 0.6 (0.00-5.0) % Basophils % 0.2 (0.0-0.4) % Absolute Granulocytes 10.20 H (1.4-6.9) Basophils # 0.02 (0-0.4) PT (9.95-12.35) SECONDS INR (0.8-3.0) Puncture Site pCO2 (35-45) mmHg pO2 (75-100) mmHg pO2/FiO2 Ratio % Base Excess (-2.0-2.0) O2 Saturation (94-100) g/dF ABG pH (7.35-7.45) ABG HCO3 (22-28) ABG O2 Sat (Measured) (95-100) % Valentino Test VBG pH (7.32-7.42) VBG pCO2 at Pat Temp (42-55) mm/Hg VBG pO2 at Pat Temp (25-40) mm/Hg VBG HCO3 (22-28) meq/L VBG O2 Sat (Shanthi) (95-100) VBG Base Excess (-2.0-2.0) VBG Hemoglobin VBG Carboxyhemoglobin (0.0-6.9) % T HGB A-a Gradient a/A Ratio Hemoglobin Carboxyhemoglobin (0.0-6.9) % THgb Methemoglobin (1.4-1.5) % POC Potassium (3.5-5.1) Temperature C POC O2 Flow Rate % Vent Mode Tidal Volume cc Inspiratory BiPAP Expiratory BiPAP Sodium (137-145) mmol/L Potassium (3.5-5.1) mmol/L Chloride (98-107) mmol/L Carbon Dioxide (22-30) mmol/L Anion Gap (5-15) MEQ/L BUN (7-17) mg/dL Creatinine (0.52-1.04) mg/dL Estimated GFR ML/MIN Glucose (74-106) mg/dL Hemoglobin A1c (4.5-6.0) % Lactic Acid 2.6 H (0.4-2.0) Calcium (8.4-10.2) mg/dL Total Bilirubin (0.2-1.3) mg/dL AST (14-36) U/L ALT (0-35) U/L Alkaline Phosphatase (38-126) U/L Troponin I (0.000-0.034) ng/mL NT-Pro-B Natriuret Pep (0-900) pg/mL Serum Total Protein (6.3-8.2) g/dL Albumin (3.5-5.0) g/dL Urine Color STRAW (YELLOW) Urine Appearance CLEAR (CLEAR) Urine pH 5.0 (5-6) Ur Specific [place] 1.014 (1.005-1.025) Urine Protein 30 (Negative) Urine Ketones NEGATIVE (NEGATIVE) Urine Blood NEGATIVE (0-5) Jose/ul Urine Nitrite NEGATIVE (NEGATIVE) Urine Bilirubin NEGATIVE (NEGATIVE) Urine Urobilinogen NEGATIVE (0-1) mg/dL Ur Leukocyte Esterase NEGATIVE (NEGATIVE) Urine WBC (Auto) NONE (0-5) /HPF Urine RBC (Auto) NONE (0-2) /HPF U Epithel Cells (Auto) NONE (FEW) /HPF Urine Bacteria (Auto) NONE (NEGATIVE) /HPF Urine Mucus (Auto) SLIGHT (NEGATIVE) /HPF Urine Culture Reflexed NO (NO) Urine Glucose >=500 (NEGATIVE) mg/dL 02/26/19 02/26/19 02/26/19 Range/Units 15:08 15:08 15:08 WBC (4.0-10.5) K/mm3 RBC (4.1-5.4) M/mm3 Hgb (12.0-16.0) gm/dl Hct (35-47) % MCV (78-100) fl MCH (26-32) pg MCHC (32-36) g/dl RDW (11.5-14.0) % Plt Count (150-450) K/mm3 MPV (6-9.5) fl Gran % (36.0-66.0) % Eos # (Auto) (0-0.5) Absolute Lymphs (auto) (1.0-4.6) Absolute Monos (auto) (0.0-1.3) Lymphocytes % (24.0-44.0) % Monocytes % (0.0-12.0) % Eosinophils % (0.00-5.0) % Basophils % (0.0-0.4) % Absolute Granulocytes (1.4-6.9) Basophils # (0-0.4) PT 10.8 (9.95-12.35) SECONDS INR 0.96 (0.8-3.0) Puncture Site pCO2 (35-45) mmHg pO2 (75-100) mmHg pO2/FiO2 Ratio % Base Excess (-2.0-2.0) O2 Saturation (94-100) g/dF ABG pH (7.35-7.45) ABG HCO3 (22-28) ABG O2 Sat (Measured) (95-100) % Valentino Test VBG pH (7.32-7.42) VBG pCO2 at Pat Temp (42-55) mm/Hg VBG pO2 at Pat Temp (25-40) mm/Hg VBG HCO3 (22-28) meq/L VBG O2 Sat (Shanthi) (95-100) VBG Base Excess (-2.0-2.0) VBG Hemoglobin VBG Carboxyhemoglobin (0.0-6.9) % T HGB A-a Gradient a/A Ratio Hemoglobin Carboxyhemoglobin (0.0-6.9) % THgb Methemoglobin (1.4-1.5) % POC Potassium (3.5-5.1) Temperature C POC O2 Flow Rate % Vent Mode Tidal Volume cc Inspiratory BiPAP Expiratory BiPAP Sodium 133 L (137-145) mmol/L Potassium 4.7 (3.5-5.1) mmol/L Chloride 91 L (98-107) mmol/L Carbon Dioxide 33 H (22-30) mmol/L Anion Gap 12.9 (5-15) MEQ/L BUN 33 H (7-17) mg/dL Creatinine 1.08 H (0.52-1.04) mg/dL Estimated GFR 53.6 ML/MIN Glucose 615 H* (74-106) mg/dL Hemoglobin A1c (4.5-6.0) % Lactic Acid (0.4-2.0) Calcium 7.9 L (8.4-10.2) mg/dL Total Bilirubin 0.60 (0.2-1.3) mg/dL AST 22 (14-36) U/L ALT 15 (0-35) U/L Alkaline Phosphatase 95 (38-126) U/L Troponin I < 0.012 (0.000-0.034) ng/mL NT-Pro-B Natriuret Pep 651 (0-900) pg/mL Serum Total Protein 6.7 (6.3-8.2) g/dL Albumin 3.6 (3.5-5.0) g/dL Urine Color (YELLOW) Urine Appearance (CLEAR) Urine pH (5-6) Ur Specific [place] (1.005-1.025) Urine Protein (Negative) Urine Ketones (NEGATIVE) Urine Blood (0-5) Jose/ul Urine Nitrite (NEGATIVE) Urine Bilirubin (NEGATIVE) Urine Urobilinogen (0-1) mg/dL Ur Leukocyte Esterase (NEGATIVE) Urine WBC (Auto) (0-5) /HPF Urine RBC (Auto) (0-2) /HPF U Epithel Cells (Auto) (FEW) /HPF Urine Bacteria (Auto) (NEGATIVE) /HPF Urine Mucus (Auto) (NEGATIVE) /HPF Urine Culture Reflexed (NO) Urine Glucose (NEGATIVE) mg/dL 02/26/19 02/26/19 02/26/19 Range/Units 17:15 17:42 18:00 WBC (4.0-10.5) K/mm3 RBC (4.1-5.4) M/mm3 Hgb (12.0-16.0) gm/dl Hct (35-47) % MCV (78-100) fl MCH (26-32) pg MCHC (32-36) g/dl RDW (11.5-14.0) % Plt Count (150-450) K/mm3 MPV (6-9.5) fl Gran % (36.0-66.0) % Eos # (Auto) (0-0.5) Absolute Lymphs (auto) (1.0-4.6) Absolute Monos (auto) (0.0-1.3) Lymphocytes % (24.0-44.0) % Monocytes % (0.0-12.0) % Eosinophils % (0.00-5.0) % Basophils % (0.0-0.4) % Absolute Granulocytes (1.4-6.9) Basophils # (0-0.4) PT (9.95-12.35) SECONDS INR (0.8-3.0) Puncture Site pCO2 (35-45) mmHg pO2 (75-100) mmHg pO2/FiO2 Ratio 21.0 % Base Excess (-2.0-2.0) O2 Saturation (94-100) g/dF ABG pH (7.35-7.45) ABG HCO3 (22-28) ABG O2 Sat (Measured) (95-100) % Valentino Test VBG pH 7.30 L (7.32-7.42) VBG pCO2 at Pat Temp 70 H* (42-55) mm/Hg VBG pO2 at Pat Temp 66 H (25-40) mm/Hg VBG HCO3 34.4 H* (22-28) meq/L VBG O2 Sat (Shanthi) 96.7 (95-100) VBG Base Excess 5.6 H (-2.0-2.0) VBG Hemoglobin 13.7 VBG Carboxyhemoglobin 5.1 (0.0-6.9) % T HGB A-a Gradient a/A Ratio Hemoglobin Carboxyhemoglobin (0.0-6.9) % THgb Methemoglobin (1.4-1.5) % POC Potassium 3.5 (3.5-5.1) Temperature C POC O2 Flow Rate % Vent Mode Tidal Volume cc Inspiratory BiPAP Expiratory BiPAP Sodium (137-145) mmol/L Potassium (3.5-5.1) mmol/L Chloride (98-107) mmol/L Carbon Dioxide (22-30) mmol/L Anion Gap (5-15) MEQ/L BUN (7-17) mg/dL Creatinine (0.52-1.04) mg/dL Estimated GFR ML/MIN Glucose (74-106) mg/dL Hemoglobin A1c (4.5-6.0) % Lactic Acid 2.3 H (0.4-2.0) Calcium (8.4-10.2) mg/dL Total Bilirubin (0.2-1.3) mg/dL AST (14-36) U/L ALT (0-35) U/L Alkaline Phosphatase (38-126) U/L Troponin I 0.013 (0.000-0.034) ng/mL NT-Pro-B Natriuret Pep (0-900) pg/mL Serum Total Protein (6.3-8.2) g/dL Albumin (3.5-5.0) g/dL Urine Color (YELLOW) Urine Appearance (CLEAR) Urine pH (5-6) Ur Specific [place] (1.005-1.025) Urine Protein (Negative) Urine Ketones (NEGATIVE) Urine Blood (0-5) Jose/ul Urine Nitrite (NEGATIVE) Urine Bilirubin (NEGATIVE) Urine Urobilinogen (0-1) mg/dL Ur Leukocyte Esterase (NEGATIVE) Urine WBC (Auto) (0-5) /HPF Urine RBC (Auto) (0-2) /HPF U Epithel Cells (Auto) (FEW) /HPF Urine Bacteria (Auto) (NEGATIVE) /HPF Urine Mucus (Auto) (NEGATIVE) /HPF Urine Culture Reflexed (NO) Urine Glucose (NEGATIVE) mg/dL 02/26/19 02/26/19 02/26/19 Range/Units 18:30 21:12 21:15 WBC (4.0-10.5) K/mm3 RBC (4.1-5.4) M/mm3 Hgb (12.0-16.0) gm/dl Hct (35-47) % MCV (78-100) fl MCH (26-32) pg MCHC (32-36) g/dl RDW (11.5-14.0) % Plt Count (150-450) K/mm3 MPV (6-9.5) fl Gran % (36.0-66.0) % Eos # (Auto) (0-0.5) Absolute Lymphs (auto) (1.0-4.6) Absolute Monos (auto) (0.0-1.3) Lymphocytes % (24.0-44.0) % Monocytes % (0.0-12.0) % Eosinophils % (0.00-5.0) % Basophils % (0.0-0.4) % Absolute Granulocytes (1.4-6.9) Basophils # (0-0.4) PT (9.95-12.35) SECONDS INR (0.8-3.0) Puncture Site RIGHT WRIST pCO2 58 H (35-45) mmHg pO2 55 L (75-100) mmHg pO2/FiO2 Ratio % Base Excess 7.3 H (-2.0-2.0) O2 Saturation 89.2 L (94-100) g/dF ABG pH 7.38 (7.35-7.45) ABG HCO3 34.3 H* (22-28) ABG O2 Sat (Measured) 95.3 (95-100) % Valentino Test YES VBG pH (7.32-7.42) VBG pCO2 at Pat Temp (42-55) mm/Hg VBG pO2 at Pat Temp (25-40) mm/Hg VBG HCO3 (22-28) meq/L VBG O2 Sat (Shanthi) (95-100) VBG Base Excess (-2.0-2.0) VBG Hemoglobin VBG Carboxyhemoglobin (0.0-6.9) % T HGB A-a Gradient 101 a/A Ratio 0.35 Hemoglobin 13.6 Carboxyhemoglobin 5.1 (0.0-6.9) % THgb Methemoglobin 1.3 L (1.4-1.5) % POC Potassium (3.5-5.1) Temperature 37.0 C POC O2 Flow Rate 32 % Vent Mode BiPAP Tidal Volume 425 cc Inspiratory BiPAP 12 Expiratory BiPAP 6 Sodium (137-145) mmol/L Potassium 3.6 (3.5-5.1) mmol/L Chloride (98-107) mmol/L Carbon Dioxide (22-30) mmol/L Anion Gap (5-15) MEQ/L BUN (7-17) mg/dL Creatinine (0.52-1.04) mg/dL Estimated GFR ML/MIN Glucose (74-106) mg/dL Hemoglobin A1c > 14.00 H (4.5-6.0) % Lactic Acid (0.4-2.0) Calcium (8.4-10.2) mg/dL Total Bilirubin (0.2-1.3) mg/dL AST (14-36) U/L ALT (0-35) U/L Alkaline Phosphatase (38-126) U/L Troponin I 0.014 (0.000-0.034) ng/mL NT-Pro-B Natriuret Pep (0-900) pg/mL Serum Total Protein (6.3-8.2) g/dL Albumin (3.5-5.0) g/dL Urine Color (YELLOW) Urine Appearance (CLEAR) Urine pH (5-6) Ur Specific [place] (1.005-1.025) Urine Protein (Negative) Urine Ketones (NEGATIVE) Urine Blood (0-5) Jose/ul Urine Nitrite (NEGATIVE) Urine Bilirubin (NEGATIVE) Urine Urobilinogen (0-1) mg/dL Ur Leukocyte Esterase (NEGATIVE) Urine WBC (Auto) (0-5) /HPF Urine RBC (Auto) (0-2) /HPF U Epithel Cells (Auto) (FEW) /HPF Urine Bacteria (Auto) (NEGATIVE) /HPF Urine Mucus (Auto) (NEGATIVE) /HPF Urine Culture Reflexed (NO) Urine Glucose (NEGATIVE) mg/dL 02/26/19 02/27/19 02/27/19 Range/Units 21:15 01:24 03:30 WBC (4.0-10.5) K/mm3 RBC (4.1-5.4) M/mm3 Hgb (12.0-16.0) gm/dl Hct (35-47) % MCV (78-100) fl MCH (26-32) pg MCHC (32-36) g/dl RDW (11.5-14.0) % Plt Count (150-450) K/mm3 MPV (6-9.5) fl Gran % (36.0-66.0) % Eos # (Auto) (0-0.5) Absolute Lymphs (auto) (1.0-4.6) Absolute Monos (auto) (0.0-1.3) Lymphocytes % (24.0-44.0) % Monocytes % (0.0-12.0) % Eosinophils % (0.00-5.0) % Basophils % (0.0-0.4) % Absolute Granulocytes (1.4-6.9) Basophils # (0-0.4) PT (9.95-12.35) SECONDS INR (0.8-3.0) Puncture Site pCO2 (35-45) mmHg pO2 (75-100) mmHg pO2/FiO2 Ratio % Base Excess (-2.0-2.0) O2 Saturation (94-100) g/dF ABG pH (7.35-7.45) ABG HCO3 (22-28) ABG O2 Sat (Measured) (95-100) % Valentino Test VBG pH (7.32-7.42) VBG pCO2 at Pat Temp (42-55) mm/Hg VBG pO2 at Pat Temp (25-40) mm/Hg VBG HCO3 (22-28) meq/L VBG O2 Sat (Shanthi) (95-100) VBG Base Excess (-2.0-2.0) VBG Hemoglobin VBG Carboxyhemoglobin (0.0-6.9) % T HGB A-a Gradient a/A Ratio Hemoglobin Carboxyhemoglobin (0.0-6.9) % THgb Methemoglobin (1.4-1.5) % POC Potassium (3.5-5.1) Temperature C POC O2 Flow Rate % Vent Mode Tidal Volume cc Inspiratory BiPAP Expiratory BiPAP Sodium 137 (137-145) mmol/L Potassium 3.8 (3.5-5.1) mmol/L Chloride 97 L (98-107) mmol/L Carbon Dioxide 37 H (22-30) mmol/L Anion Gap 7.6 (5-15) MEQ/L BUN 30 H (7-17) mg/dL Creatinine 1.04 (0.52-1.04) mg/dL Estimated GFR 56.0 ML/MIN Glucose 274 H (74-106) mg/dL Hemoglobin A1c (4.5-6.0) % Lactic Acid (0.4-2.0) Calcium 7.8 L (8.4-10.2) mg/dL Total Bilirubin (0.2-1.3) mg/dL AST (14-36) U/L ALT (0-35) U/L Alkaline Phosphatase (38-126) U/L Troponin I 0.015 0.017 (0.000-0.034) ng/mL NT-Pro-B Natriuret Pep (0-900) pg/mL Serum Total Protein (6.3-8.2) g/dL Albumin (3.5-5.0) g/dL Urine Color (YELLOW) Urine Appearance (CLEAR) Urine pH (5-6) Ur Specific [place] (1.005-1.025) Urine Protein (Negative) Urine Ketones (NEGATIVE) Urine Blood (0-5) Jose/ul Urine Nitrite (NEGATIVE) Urine Bilirubin (NEGATIVE) Urine Urobilinogen (0-1) mg/dL Ur Leukocyte Esterase (NEGATIVE) Urine WBC (Auto) (0-5) /HPF Urine RBC (Auto) (0-2) /HPF U Epithel Cells (Auto) (FEW) /HPF Urine Bacteria (Auto) (NEGATIVE) /HPF Urine Mucus (Auto) (NEGATIVE) /HPF Urine Culture Reflexed (NO) Urine Glucose (NEGATIVE) mg/dL 02/27/19 02/27/19 Range/Units 03:30 03:30 WBC 14.7 H (4.0-10.5) K/mm3 RBC 4.30 (4.1-5.4) M/mm3 Hgb 12.0 (12.0-16.0) gm/dl Hct 37.7 (35-47) % MCV 87.7 (78-100) fl MCH 27.9 (26-32) pg MCHC 31.8 L (32-36) g/dl RDW 13.3 (11.5-14.0) % Plt Count 166 (150-450) K/mm3 MPV 11.0 H (6-9.5) fl Gran % 80.2 H (36.0-66.0) % Eos # (Auto) 0.09 (0-0.5) Absolute Lymphs (auto) 2.12 (1.0-4.6) Absolute Monos (auto) 0.70 (0.0-1.3) Lymphocytes % 14.4 L (24.0-44.0) % Monocytes % 4.7 (0.0-12.0) % Eosinophils % 0.6 (0.00-5.0) % Basophils % 0.1 (0.0-0.4) % Absolute Granulocytes 11.81 H (1.4-6.9) Basophils # 0.02 (0-0.4) PT (9.95-12.35) SECONDS INR (0.8-3.0) Puncture Site pCO2 (35-45) mmHg pO2 (75-100) mmHg pO2/FiO2 Ratio % Base Excess (-2.0-2.0) O2 Saturation (94-100) g/dF ABG pH (7.35-7.45) ABG HCO3 (22-28) ABG O2 Sat (Measured) (95-100) % Valentino Test VBG pH (7.32-7.42) VBG pCO2 at Pat Temp (42-55) mm/Hg VBG pO2 at Pat Temp (25-40) mm/Hg VBG HCO3 (22-28) meq/L VBG O2 Sat (Shanthi) (95-100) VBG Base Excess (-2.0-2.0) VBG Hemoglobin VBG Carboxyhemoglobin (0.0-6.9) % T HGB A-a Gradient a/A Ratio Hemoglobin Carboxyhemoglobin (0.0-6.9) % THgb Methemoglobin (1.4-1.5) % POC Potassium (3.5-5.1) Temperature C POC O2 Flow Rate % Vent Mode Tidal Volume cc Inspiratory BiPAP Expiratory BiPAP Sodium 139 (137-145) mmol/L Potassium 3.7 (3.5-5.1) mmol/L Chloride 99 (98-107) mmol/L Carbon Dioxide 37 H (22-30) mmol/L Anion Gap 7.3 (5-15) MEQ/L BUN 27 H (7-17) mg/dL Creatinine 1.02 (0.52-1.04) mg/dL Estimated GFR 57.3 ML/MIN Glucose 108 H (74-106) mg/dL Hemoglobin A1c (4.5-6.0) % Lactic Acid (0.4-2.0) Calcium 7.4 L (8.4-10.2) mg/dL Total Bilirubin 0.60 (0.2-1.3) mg/dL AST 27 (14-36) U/L ALT 12 (0-35) U/L Alkaline Phosphatase 68 (38-126) U/L Troponin I (0.000-0.034) ng/mL NT-Pro-B Natriuret Pep (0-900) pg/mL Serum Total Protein 6.0 L (6.3-8.2) g/dL Albumin 3.1 L (3.5-5.0) g/dL Urine Color (YELLOW) Urine Appearance (CLEAR) Urine pH (5-6) Ur Specific [place] (1.005-1.025) Urine Protein (Negative) Urine Ketones (NEGATIVE) Urine Blood (0-5) Jose/ul Urine Nitrite (NEGATIVE) Urine Bilirubin (NEGATIVE) Urine Urobilinogen (0-1) mg/dL Ur Leukocyte Esterase (NEGATIVE) Urine WBC (Auto) (0-5) /HPF Urine RBC (Auto) (0-2) /HPF U Epithel Cells (Auto) (FEW) /HPF Urine Bacteria (Auto) (NEGATIVE) /HPF Urine Mucus (Auto) (NEGATIVE) /HPF Urine Culture Reflexed (NO) Urine Glucose (NEGATIVE) mg/dL Accuchecks Date 02/27/19 Date 02/27/19 Date 02/27/19 Date 02/27/19 Date 02/26/19 Date 02/26/19 Time 06:16 Time 02:00 Time 01:17 Time 00:00 Time 23:00 Time 22:10 Accucheck Value: 141 Accucheck Value: 189 Accucheck Value: 249 Accucheck Value: 262 Accucheck Value: 323 Accucheck Value: 285 Accucheck Value: 366 - Radiology Impressions Radiology Exams & Impressions: Radiology Procedures Category Date Time Status CHEST 1 VIEW (PORTABLE) Stat Exams 02/26/19 14:57 Completed - Other Procedures and Tests Respiratory Therapy 02/26/19 18:03 BiPap/CPAP STAT 02/27/19 07:02 Oxygen NASAL CANNULA 4 lpm 02/27/19 07:12 Peak Expiratory Flow Rate ONCE Respiratory Therapy Assessment DAILY Assessment/Plan (1) PNA (pneumonia) Current Visit: No Status: Acute Qualifiers: Pneumonia type: due to unspecified organism Laterality: unspecified laterality Lung location: unspecified part of lung Qualified Code(s): J18.9 - Pneumonia, unspecified organism Assessment & Plan: On IV merrem day #2. Code(s): J18.9 - PNEUMONIA, UNSPECIFIED ORGANISM (2) Hyperglycemia Current Visit: Yes Status: Acute Assessment & Plan: BS better now, likely up due to steroids and pt was admittedly lax about taking her meds at home. Code(s): R73.9 - HYPERGLYCEMIA, UNSPECIFIED (3) Leukocytosis Current Visit: Yes Status: Acute Qualifiers: Leukocytosis type: unspecified Qualified Code(s): D72.829 - Elevated white blood cell count, unspecified Assessment & Plan: increased this morning. Code(s): D72.829 - ELEVATED WHITE BLOOD CELL COUNT, UNSPECIFIED (4) Weakness Current Visit: Yes Status: Acute Assessment & Plan: PT to consult. Code(s): R53.1 - WEAKNESS (5) CAD (coronary artery disease) Current Visit: No Status: Chronic Qualifiers: Coronary Disease-Associated Artery/Lesion type: [place] artery [place] vs. transplanted heart: [place] heart Associated angina: without angina Qualified Code(s): I25.10 - Atherosclerotic heart disease of [place] coronary artery without angina pectoris Code(s): I25.10 - ATHSCL HEART DISEASE OF [place] CORONARY ARTERY W/O ANG PCTRS (6) COPD (chronic obstructive pulmonary disease) Current Visit: No Status: Chronic (7) Chronic renal failure Current Visit: No Status: Chronic Qualifiers: Chronic kidney disease stage: stage 3 (moderate) (8) Diabetes Current Visit: No Status: Chronic Qualifiers: Diabetes mellitus type: type 2 Diabetes mellitus terminal worker insulin use: with terminal worker use Diabetes mellitus complication status: with kidney complications Diabetes mellitus complication detail: with chronic kidney disease Code(s): E11.9 - TYPE 2 DIABETES MELLITUS WITHOUT COMPLICATIONS
[2019-02-27] MEDS: REQUIP 2MG TAB PO SCH ×3 (09:29→23:08)
[2019-02-27] MEDS: Topamax 25 MG PO SCH ×2 (09:29→23:02)
[2019-02-27] MEDS: FEOSOL 325 MG PO SCH ×2 (09:29→23:09)
[2019-02-27] MEDS: BUMEX 1 MG PO SCH ×2 (09:29→16:22)
[2019-02-27] MEDS: NYSTOP 30 GM CREAM TOP SCH ×2 (09:47→23:10)
[2019-02-27] MEDS ORDERED: [UNRECOGNIZED DRUG - OTHER] MC PRN (09:58)
[2019-02-27] MEDS ORDERED: Ventolin Hfa MDI IH PRN (09:58)
[2019-02-27] MEDS ORDERED: FLUZONE HIGH-DOSE 2019-20 SYR IM ONE ×2 (10:00→17:00)
[2019-02-27] MEDS ORDERED: INSULIN DEGLUDEC 60 UNIT SQ SCH (10:00)
[2019-02-27] MEDS ORDERED: NON-FORMULARY ITEM (Umeclidinium Bromide [Incruse Ellipta] 62.5 MCG) IH SCH (10:00)
[2019-02-27] MEDS ORDERED: Nitrostat 0.4 MG Tablet SL PRN (10:00)
[2019-02-27] MEDS ORDERED: PROVENTIL COMMON CANISTER IH PRN (10:06)
[2019-02-27] MEDS ORDERED: MEDICATION INTERVENTION MC SCH ×2 (10:15→10:30)
[2019-02-27] MEDS: Ecotrin 325 MG PO SCH (10:18)
[2019-02-27] MEDS: Klor Con 10 MEQ PO SCH (10:18)
[2019-02-27] MEDS: SYNTHROID 100 MCG PO SCH (10:18)
[2019-02-27] MEDS: Neurontin 400 MG PO SCH ×4 (10:18→23:08)
[2019-02-27] MEDS: SYNTHROID 88 MCG PO SCH (10:22)
[2019-02-27] MEDS: NovoLOG Insulin SQ SCH (12:16)
[2019-02-27] MEDS: DUONEB 0.5-3 MG/3 ml Neb IH SCH (19:31)
[2019-02-27] MEDS: ZOCOR 20MG PO SCH (23:02)
[2019-02-27] MEDS: PLAVIX 75 MG Tablet PO SCH (23:08)
[2019-02-27] MEDS: Cymbalta 30 MG Capsule PO SCH (23:08)
[2019-02-27] MEDS: Toprol Xl 100 MG PO SCH (23:09)
[2019-02-28] MEDS: NovoLIN R SQ PRN ×2 (03:50→07:50)
[2019-02-28] MEDS: MERREM 500MG 500 MG in Sodium Chloride 100ML MINI-BAG PLUS 100 ML IV SCH ×3 (05:52→21:16)
[2019-02-28] MEDS: DUONEB 0.5-3 MG/3 ml Neb IH SCH ×4 (07:19→19:51)
[2019-02-28] MEDS: NovoLOG Insulin SQ SCH ×2 (07:48→11:48)
--- NOTE | 2019-02-28 08:56 | PCM.NOTE ---
Date and Time: 02/28/19 0853 Subjective Assessment: Pt was noted to have increased sleepiness yesterday and last night - she was apparently put on Bipap about an hour before I came to examine her. She was quite sleepy, woke to touch, but was disoriented. Thinks she is at home and it' s December - although she knows that's not right. Says she feels "fine!" Objective Exam General Appearance: no apparent distress, alert Neurologic Exam: disoriented Skin Exam: normal color, warm, dry, No rash Neck Exam: normal inspection Respiratory Exam: diminished breath sounds, wheezing (expiratory, scattered), No crackles/rales, No rhonchi Cardiovascular Exam: regular rate/rhythm, normal heart sounds, No murmur Gastrointestinal/Abdomen Exam: soft, normal bowel sounds, No tenderness, No distention, No mass, No guarding, No rebound Extremity Exam: normal inspection, No pedal edema, No swelling OBJECTIVE DATA Vital Signs: Vital Signs - 24 hr Temp Pulse Resp BP Pulse Ox 02/28/19 07:44 98.4 F 85 21 101/63 95 02/28/19 07:32 85 25 H 94 L 02/28/19 04:00 98.6 F 89 22 136/67 95 02/27/19 23:39 99.8 F 108 H 25 H 142/65 98 02/27/19 20:00 97.6 F 104 H 26 H 119/50 96 02/27/19 19:35 102 H 24 94 L 02/27/19 15:19 97.8 F 98 H 20 128/60 96 02/27/19 12:17 98.2 F 92 H 22 122/78 97 02/27/19 11:13 91 H 24 97 Oxygen-Last 24 hours O2 Percentage 4 Liters = 36% O2 Percentage 4 Liters = 36% O2 Percentage 4 Liters = 36% O2 Percentage 4 Liters = 36% O2 Percentage 4 Liters = 36% Pain Assessment - Last Documented Pain Intensity 0 Pain Scale Used 0-10 Pain Scale Intake and Output: Intake & Output 02/25/19 02/26/19 02/27/19 02/28/19 11:59 11:59 11:59 11:59 Intake Total 1800 3270 Output Total 1150 2900 Balance 650 370 Weight 106.9 kg 106.1 kg Lab Results: Accuchecks Date 02/28/19 Date 02/27/19 Date 02/27/19 Date 02/27/19 Date 02/27/19 Time 03:51 Time 23:12 Time 14:00 Time 14:00 Time 10:15 Accucheck Value: 306 Accucheck Value: 322 Accucheck Value: 245 Accucheck Value: 245 Accucheck Value: 221 Radiology Exams: Radiology Procedures Category Date Time Status CHEST 1 VIEW (PORTABLE) Stat Exams 02/26/19 14:57 Completed Multi-Disciplinary Progress Notes: Multi-Disciplinary Progress Notes 02/27/19 16:19 Case Management Note by Kathy Velásquez Talked with JUAN JOSE BONILLA regarding chronic care coordination program. Handout given to pt. Initialized on 02/27/19 16:19 - END OF NOTE Assessment/Plan (1) PNA (pneumonia) Current Visit: No Status: Acute Qualifiers: Pneumonia type: due to unspecified organism Laterality: unspecified laterality Lung location: unspecified part of lung Qualified Code(s): J18.9 - Pneumonia, unspecified organism Assessment & Plan: On IV meropenem, day #3. Recheck her ABGs after being on Bipap. If they correct and pt is still sleepy, she will need a CT of the head without contrast. Code(s): J18.9 - PNEUMONIA, UNSPECIFIED ORGANISM (2) Hyperglycemia Current Visit: Yes Status: Acute Assessment & Plan: BS [id number] Code(s): R73.9 - HYPERGLYCEMIA, UNSPECIFIED (3) Leukocytosis Current Visit: Yes Status: Acute Qualifiers: Leukocytosis type: unspecified Qualified Code(s): D72.829 - Elevated white blood cell count, unspecified Assessment & Plan: much improved Code(s): D72.829 - ELEVATED WHITE BLOOD CELL COUNT, UNSPECIFIED (4) Weakness Current Visit: Yes Status: Acute Code(s): R53.1 - WEAKNESS (5) CAD (coronary artery disease) Current Visit: No Status: Chronic Qualifiers: Coronary Disease-Associated Artery/Lesion type: [place] artery [place] vs. 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
[2019-02-28] MEDS: Sodium Chloride 0.9% 1000 ML 1,000 ML IV SCH ×2 (09:04→20:16)
[2019-02-28] MEDS: BUMEX 1 MG PO SCH ×2 (09:47→15:59)
[2019-02-28] MEDS: FEOSOL 325 MG PO SCH ×2 (09:47→21:16)
[2019-02-28] MEDS: Neurontin 400 MG PO SCH ×5 (09:48→21:16)
[2019-02-28] MEDS: SYNTHROID 100 MCG PO SCH (09:49)
[2019-02-28] MEDS: REQUIP 2MG TAB PO SCH ×3 (09:49→21:16)
[2019-02-28] MEDS: Ecotrin 325 MG PO SCH (09:49)
[2019-02-28] MEDS: Lantus Insulin SQ SCH (09:50)
[2019-02-28] MEDS: Klor Con 10 MEQ PO SCH (09:50)
[2019-02-28] MEDS: NYSTOP 30 GM CREAM TOP SCH ×2 (09:51→21:17)
[2019-02-28] MEDS: Topamax 25 MG PO SCH ×2 (09:52→21:16)
[2019-02-28] MEDS: SYNTHROID 88 MCG PO SCH (09:53)
[2019-02-28 18:07] LABS: A-aADO2 -13; ABG POTASSIUM 3.3 (3.5-5.1); ARTERIAL BLOOD GAS PCO2 47 mmHg (35-45); ARTERIAL BLOOD GAS PO2 104 mmHg (75-100); ARTERIAL BLOOD GAS pH 7.48 (7.35-7.45); CARBOXYHEMOGLOBIN 2.7 % THgb (0.0-6.9); HGB O2 SAT 95.2 g/dF (94-100); Methhemoglobin 1.1 % (1.4-1.5); paO2 pAO1 1.14
[2019-02-28 18:09] LABS: ABG SITE RIGHT RADIAL; ALLEN TEST OK? YES
[2019-02-28 18:13] LABS: ARTERIAL BLOOD GAS PCO2 50 mmHg (35-45); ARTERIAL BLOOD GAS PO2 90 mmHg (75-100); ARTERIAL BLOOD GAS pH 7.47 (7.35-7.45)
[2019-02-28 18:14] LABS: ARTERIAL BLD GAS O2 SATURATION 98.8 % (95-100); ARTERIAL BLOOD GAS BASE EXCESS 11.1 (-2.0-2.0); CARBON DIOXIDE 38 mEq/L (23-27); HCO3- 36.4 (22-28)
[2019-02-28 18:15] LABS: A-aADO2 104; ABG POTASSIUM 3.1 (3.5-5.1); paO2 pAO1 0.46
[2019-02-28 18:16] LABS: ABG HEMOGLOBIN 11.7; ABG SITE RIGHT RADIAL; ARTERIAL BLOOD GAS FIO2 36 %; CARBOXYHEMOGLOBIN 3.6 % THgb (0.0-6.9); HGB O2 SAT 94.2 g/dF (94-100)
[2019-02-28 18:17] LABS: ALLEN TEST OK? YES
[2019-02-28] MEDS: PLAVIX 75 MG Tablet PO SCH (21:16)
[2019-02-28] MEDS: ZOCOR 20MG PO SCH (21:16)
[2019-02-28] MEDS: Cymbalta 30 MG Capsule PO SCH (21:16)
[2019-02-28] MEDS: Toprol Xl 100 MG PO SCH (21:17)
[2019-03-01] MEDS: MERREM 500MG 500 MG in Sodium Chloride 100ML MINI-BAG PLUS 100 ML IV SCH ×3 (05:04→22:37)
[2019-03-01] MEDS: DUONEB 0.5-3 MG/3 ml Neb IH SCH ×4 (06:56→20:00)
[2019-03-01] MEDS: Sodium Chloride 0.9% 1000 ML 1,000 ML IV SCH ×2 (08:23→21:24)
[2019-03-01 08:37] LABS: ALBUMIN 2.9 g/dL (3.5-5.0); ANION GAP 10.1 MEQ/L (5-15); BILIRUBIN,TOTAL 0.7 mg/dL (0.2-1.3); Creatinine 1 1.09 mg/dL (0.52-1.04); Potassium 3.2 mmol/L (3.5-5.1); Total Protein 5.7 g/dL (6.3-8.2)
--- NOTE | 2019-03-01 08:40 | XRAY ---
Indication: Sudden onset confusion. Multiple contiguous axial images obtained through the head without contrast. Comparison: March 08, 2015. Again age-appropriate global atrophy and mild periventricular degenerative micro-ischemia bilaterally. No acute intracranial hemorrhage, abnormal extra-axial fluid collection, or mass effect. Fourth ventricle is midline without hydrocephalus. Bony calvarium intact. There is again a left scalp calcified mass near the vertex favored to be benign given stability over the years. Visualized paranasal sinuses and mastoid air cells are clear. Impression: Again nonacute senile brain with stable benign left scalp calcified mass. CT DI 54.33
--- NOTE | 2019-03-01 08:42 | XRAY ---
Indication: Elevated temperature. Comparison: February 26, 2019. Portable chest again demonstrates subtle right base infiltrate/atelectasis with new tiny effusion. Remaining heart and lungs normal.
[2019-03-01 08:47] LABS: Calcium 5.6 mg/dL (8.4-10.2)
[2019-03-01] MEDS: NovoLOG Insulin SQ SCH ×2 (08:57→12:56)
--- NOTE | 2019-03-01 09:10 | PCM.NOTE ---
Date and Time: 03/01/19 0850 Subjective Assessment: Pt is alert and oriented x 3 this morning. Had temp to 100.4 this morning; she was unaware. Still coughing. Wants to go home. BS have been 140s-150s for the past [address] head was non acute. - Review of Systems Constitutional: Fever Respiratory: Cough Objective Exam General Appearance: no apparent distress, alert Neurologic Exam: oriented x 3, cooperative, normal mood/affect Skin Exam: warm, dry, No normal color (very mild erythema to bilat LE), No rash Respiratory Exam: diminished breath sounds, wheezing ( throughout), No crackles/ rales, No rhonchi Cardiovascular Exam: regular rate/rhythm, normal heart sounds, No murmur Extremity Exam: swelling (trace bilat LE edema, L>R. very mild erythema anterior distal legs bilat) OBJECTIVE DATA Vital Signs: Vital Signs - 24 hr Temp Pulse Resp BP Pulse Ox 03/01/19 07:13 93 L 03/01/19 07:10 85 L 03/01/19 06:59 88 16 93 L 03/01/19 04:10 100.4 F 81 18 117/58 93 L 02/28/19 23:54 100.4 F 91 H 20 148/67 94 L 02/28/19 20:00 99.2 F 95 H 20 133/66 98 02/28/19 19:52 94 H 18 98 02/28/19 16:00 98.5 F 96 H 18 132/59 93 L 02/28/19 15:29 84 24 02/28/19 11:43 99.1 F 80 20 115/59 97 02/28/19 11:30 80 20 97 Oxygen-Last 24 hours O2 Percentage 4 Liters = 36% O2 Percentage 4 Liters = 36% O2 Percentage 4 Liters = 36% O2 Percentage 4 Liters = 36% Pain Assessment - Last Documented Pain Intensity 0 Pain Scale Used [facility] Intake and Output: Intake & Output 02/26/19 02/27/19 02/28/19 03/01/19 11:59 11:59 11:59 11:59 Intake Total 1800 3270 3522 Output Total 1150 2900 2500 Balance 298 156 5498 Weight 106.9 kg 106.1 kg 106.6 kg Lab Results: Accuchecks Date 02/28/19 Time 22:00 Accucheck Value: 144 Accucheck Value: 151 Accucheck Value: 142 Accucheck Value: 158 Lab Results-Last 24 Hours 02/28/19 02/28/19 02/28/19 Range/Units 17:55 17:55 18:00 Puncture Site RIGHT RADIAL pCO2 47 H (35-45) mmHg pO2 104 H (75-100) mmHg Base Excess 10.0 H (-2.0-2.0) O2 Saturation 95.2 (94-100) g/dF ABG pH 7.48 H (7.35-7.45) ABG HCO3 35.0 H* (22-28) ABG O2 Sat (Measured) (95-100) % Valentino Test YES A-a Gradient -13 a/A Ratio 1.14 Hemoglobin Pending Carboxyhemoglobin 2.7 (0.0-6.9) % THgb Methemoglobin 1.1 L (1.4-1.5) % Potassium 3.3 L (3.5-5.1) Temperature 37.0 C POC O2 Flow Rate % Sodium (137-145) mmol/L Chloride (98-107) mmol/L Carbon Dioxide (23-27) mEq/L Anion Gap (5-15) MEQ/L BUN (7-17) mg/dL Creatinine (0.52-1.04) mg/dL Estimated GFR ML/MIN Glucose (74-106) mg/dL Calcium (8.4-10.2) mg/dL Total Bilirubin (0.2-1.3) mg/dL AST (14-36) U/L ALT (0-35) U/L Alkaline Phosphatase (38-126) U/L Ammonia < 9 L (9-30) umol/L Troponin I 0.014 (0.000-0.034) ng/mL Serum Total Protein (6.3-8.2) g/dL Albumin (3.5-5.0) g/dL 02/28/19 03/01/19 Range/Units 18:05 08:20 Puncture Site RIGHT RADIAL pCO2 50 H (35-45) mmHg pO2 90 (75-100) mmHg Base Excess 11.1 H (-2.0-2.0) O2 Saturation 94.2 (94-100) g/dF ABG pH 7.47 H (7.35-7.45) ABG HCO3 36.4 H* (22-28) ABG O2 Sat (Measured) 98.8 (95-100) % Valentino Test YES A-a Gradient 104 a/A Ratio 0.46 Hemoglobin 11.7 Carboxyhemoglobin 3.6 (0.0-6.9) % THgb Methemoglobin 1.0 L (1.4-1.5) % Potassium 3.1 L 3.2 L (3.5-5.1) Temperature C POC O2 Flow Rate 36 % Sodium 141 (137-145) mmol/L Chloride 98 (98-107) mmol/L Carbon Dioxide 38 H 35 H (23-27) mEq/L Anion Gap 10.1 (5-15) MEQ/L BUN 13 (7-17) mg/dL Creatinine 1.09 H (0.52-1.04) mg/dL Estimated GFR 53.1 ML/MIN Glucose 118 H (74-106) mg/dL Calcium 5.6 L* (8.4-10.2) mg/dL Total Bilirubin 0.70 (0.2-1.3) mg/dL AST 21 (14-36) U/L ALT 9 (0-35) U/L Alkaline Phosphatase 62 (38-126) U/L Ammonia (9-30) umol/L Troponin I (0.000-0.034) ng/mL Serum Total Protein 5.7 L (6.3-8.2) g/dL Albumin 2.9 L (3.5-5.0) g/dL Radiology Exams: Radiology Procedures Category Date Time Status CHEST 1 VIEW (PORTABLE) Urgent Exams 03/01/19 07:49 Completed HEAD WITHOUT CONTRAST [CT] Stat Exams 02/28/19 17:31 Completed Multi-Disciplinary Progress Notes: Multi-Disciplinary Progress Notes 03/01/19 07:10 Respiratory Note by Trinidad Vasquez PT'S O2 SAT ON ROOM AIR WHILE AT REST WAS 85%. PT WAS PLACED BACK ON 4LPM NASAL CANNULA. O2 SAT QUICKLY INCREASED TO 93%. Initialized on 03/01/19 07:10 - END OF NOTE 02/28/19 10:13 Physical Therapy Note by Kim June P.T. HELD THIS DATE PT'S BLOOD GASES ARE OFF AND SHE IS CURRENTLY ON BIPAP. PT. HAS ALSO EXHIBITED SIGNIFICANT CONFUSION AND LETHARGY @ TIMES. WILL ATTEMPT TOMORROW 12/11 IF MEDICAL CONDITION IS IMPROVED. KIM JUNE, PT Initialized on 02/28/19 10:13 - END OF NOTE Assessment/Plan (1) PNA (pneumonia) Current Visit: No Status: Acute Qualifiers: Pneumonia type: due to unspecified organism Laterality: unspecified laterality Lung location: unspecified part of lung Qualified Code(s): J18.9 - Pneumonia, unspecified organism Assessment & Plan: On IV meropenem. recheck CXR and check blood cultures again d/t fever. Code(s): J18.9 - PNEUMONIA, UNSPECIFIED ORGANISM (2) Leukocytosis Current Visit: Yes Status: Acute Qualifiers: Leukocytosis type: unspecified Qualified Code(s): D72.829 - Elevated white blood cell count, unspecified Code(s): D72.829 - ELEVATED WHITE BLOOD CELL COUNT, UNSPECIFIED (3) Weakness Current Visit: Yes Status: Acute Code(s): R53.1 - WEAKNESS (4) CAD (coronary artery disease) Current Visit: No Status: Chronic Qualifiers: Coronary Disease-Associated Artery/Lesion type: [place] artery [place] vs. 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 Code(s): E83.51 - HYPOCALCEMIA
[2019-03-01 09:29] LABS: Absolute Neutrophil Ct (ANC) 6.93 (1.4-6.9); BASOPHIL % 0.1 % (0.0-0.4); Basophil (Absolute #) 0.01 (0-0.4); Eosinophil % 1.1 % (0.00-5.0); Eosinophil (Absolute #) 0.11 (0-0.5); Hemoglobin 10.8 gm/dl (12.0-16.0); Lymphocytes % 19.7 % (24.0-44.0); Mean Cell Volume 90.4 fl (78-100); Mean Corpuscular Hemoglobin 27.9 pg (26-32); Mean Corpuscular Hgb Concent. 30.9 g/dl (32-36); Mean Platelet Volume 11.5 fl (6-9.5); Monocytes % 7.3 % (0.0-12.0); Neutrophil % 71.8 % (36.0-66.0); Platelet Count 168 K/mm3 (150-450); Red Blood Count 3.87 M/mm3 (4.1-5.4); Red Cell Distribution Width 13.9 % (11.5-14.0); White Blood Count 9.7 K/mm3 (4.0-10.5)
[2019-03-01] MEDS: NYSTOP 30 GM CREAM TOP SCH ×2 (09:49→22:38)
[2019-03-01] MEDS: REQUIP 2MG TAB PO SCH ×3 (09:50→21:25)
[2019-03-01] MEDS: Neurontin 400 MG PO SCH ×4 (09:50→21:26)
[2019-03-01] MEDS: SYNTHROID 100 MCG PO SCH (09:50)
[2019-03-01] MEDS: SYNTHROID 88 MCG PO SCH (09:51)
[2019-03-01] MEDS: Lantus Insulin SQ SCH (09:51)
[2019-03-01] MEDS: BUMEX 1 MG PO SCH ×2 (09:51→16:59)
[2019-03-01] MEDS: Topamax 25 MG PO SCH ×2 (09:51→22:38)
[2019-03-01] MEDS: FEOSOL 325 MG PO SCH ×2 (09:51→21:26)
[2019-03-01] MEDS: Klor Con 10 MEQ PO SCH (09:51)
[2019-03-01] MEDS: Ecotrin 325 MG PO SCH (09:51)
[2019-03-01] MEDS ORDERED: Calcium Gluconate 10% 1000 MG IV ONE ×2 (10:18→21:02)
[2019-03-01] MEDS ORDERED: PROVENTIL 2.5 MG/3 ML NEB IH PRN (16:47)
[2019-03-01] MEDS ORDERED: Calcium Gluconate 10% 1000 MG 1,000 MG in Sodium Chloride 0.9% 50 ML 50 ML IV ONE (17:00)
[2019-03-01] MEDS: PLAVIX 75 MG Tablet PO SCH (21:26)
[2019-03-01] MEDS: ZOCOR 20MG PO SCH (21:26)
[2019-03-01] MEDS: Toprol Xl 100 MG PO SCH (21:26)
[2019-03-01] MEDS: Cymbalta 30 MG Capsule PO SCH (21:26)
[2019-03-01] MEDS: Tums EX 750 MG PO SCH (21:27)
[2019-03-01] MEDS: NovoLIN R SQ PRN (22:48)
[2019-03-02 02:15] LABS: Calcium 6.4 mg/dL (8.4-10.2)
[2019-03-02 02:17] LABS: MAGNESIUM 1.1 mg/dL (1.6-2.3)
[2019-03-02] MEDS: Magnesium 1 Gm / 100 Ml D5W*** 100 ML IV SCH ×2 (02:38→03:38)
[2019-03-02] MEDS: MERREM 500MG 500 MG in Sodium Chloride 100ML MINI-BAG PLUS 100 ML IV SCH ×3 (06:21→21:45)
[2019-03-02] MEDS: DUONEB 0.5-3 MG/3 ml Neb IH SCH ×4 (06:52→20:11)
--- NOTE | 2019-03-02 08:40 | PCM.NOTE ---
Date and Time: 03/02/19833 Subjective Assessment: Tmax last night 99.9. Her calcium continued to be low yesterday (although > 6.0 ) despite repletion with IV x 3. Her Mg was low and her Vit D has come back low. Overnight she was on 4L NC O2 instead of Bipap. - Review of Systems Constitutional: No Fever Respiratory: Cough, Short Of Breath Objective Exam General Appearance: no apparent distress, alert Neurologic Exam: oriented x 3 (appears oriented, however she poured orange juice on her waffles.), cooperative Skin Exam: normal color, warm, dry, No rash Respiratory Exam: diminished breath sounds, wheezing (intermittent), No crackles /rales, No rhonchi Cardiovascular Exam: regular rate/rhythm, normal heart sounds, No murmur Gastrointestinal/Abdomen Exam: soft, normal bowel sounds, No tenderness, No distention, No mass, No guarding, No rebound Extremity Exam: swelling (trace LE edema bilat) Back Exam: normal inspection, No rash OBJECTIVE DATA Vital Signs: Vital Signs - 24 hr Temp Pulse Resp BP Pulse Ox 03/02/19 06:55 84 22 92 L 03/02/19 04:00 99.9 F 73 19 121/79 99 03/02/19 00:00 98.9 F 80 18 117/56 100 03/01/19 20:01 93 H 20 98 03/01/19 20:00 98.8 F 92 H 20 129/60 98 03/01/19 16:52 91 L 03/01/19 16:00 98.1 F 86 20 133/61 94 L 03/01/19 14:53 82 20 99 03/01/19 12:00 98.6 F 83 18 130/58 99 03/01/19 11:08 85 16 98 Oxygen-Last 24 hours O2 Percentage 4 Liters = 36% O2 Percentage 4 Liters = 36% O2 Percentage 4 Liters = 36% O2 Percentage 4 Liters = 36% O2 Percentage 4 Liters = 36% Pain Assessment - Last Documented Pain Intensity 0 Pain Scale Used FLACC Intake and Output: Intake & Output 02/27/19 02/28/19 03/01/19 03/02/19 11:59 11:59 11:59 11:59 Intake Total 1800 3270 3642 4260 Output Total 1150 2900 2600 1425 Balance 146 558 2647 2835 Weight 106.9 kg 106.1 kg 106.6 kg 107.5 kg Lab Results: Accuchecks Date 03/01/19 Time 21:00 Accucheck Value: 207 Accucheck Value: 71 Accucheck Value: 64 Accucheck Value: 100 Lab Results-Last 24 Hours 03/01/19 03/01/19 03/01/19 Range/Units 08:20 08:20 14:17 WBC 9.7 (4.0-10.5) K/mm3 RBC 3.87 L (4.1-5.4) M/mm3 Hgb 10.8 L (12.0-16.0) gm/dl Hct 35.0 (35-47) % MCV 90.4 (78-100) fl MCH 27.9 (26-32) pg MCHC 30.9 L (32-36) g/dl RDW 13.9 (11.5-14.0) % Plt Count 168 (150-450) K/mm3 MPV 11.5 H (6-9.5) fl Gran % 71.8 H (36.0-66.0) % Eos # (Auto) 0.11 (0-0.5) Absolute Lymphs (auto) 1.90 (1.0-4.6) Absolute Monos (auto) 0.70 (0.0-1.3) Lymphocytes % 19.7 L (24.0-44.0) % Monocytes % 7.3 (0.0-12.0) % Eosinophils % 1.1 (0.00-5.0) % Basophils % 0.1 (0.0-0.4) % Absolute Granulocytes 6.93 H (1.4-6.9) Basophils # 0.01 (0-0.4) Sodium 141 (137-145) mmol/L Potassium 3.2 L (3.5-5.1) mmol/L Chloride 98 (98-107) mmol/L Carbon Dioxide 35 H (22-30) mmol/L Anion Gap 10.1 (5-15) MEQ/L BUN 13 (7-17) mg/dL Creatinine 1.09 H (0.52-1.04) mg/dL Estimated GFR 53.1 ML/MIN Glucose 118 H (74-106) mg/dL Calcium 5.6 L* 6.2 L (8.4-10.2) mg/dL Magnesium (1.6-2.3) mg/dL Total Bilirubin 0.70 (0.2-1.3) mg/dL AST 21 (14-36) U/L ALT 9 (0-35) U/L Alkaline Phosphatase 62 (38-126) U/L Serum Total Protein 5.7 L (6.3-8.2) g/dL Albumin 2.9 L (3.5-5.0) g/dL 25-OH Vitamin D Total (30-100) ng/mL 03/01/19 03/02/19 03/02/19 Range/Units 20:15 01:55 01:55 WBC (4.0-10.5) K/mm3 RBC (4.1-5.4) M/mm3 Hgb (12.0-16.0) gm/dl Hct (35-47) % MCV (78-100) fl MCH (26-32) pg MCHC (32-36) g/dl RDW (11.5-14.0) % Plt Count (150-450) K/mm3 MPV (6-9.5) fl Gran % (36.0-66.0) % Eos # (Auto) (0-0.5) Absolute Lymphs (auto) (1.0-4.6) Absolute Monos (auto) (0.0-1.3) Lymphocytes % (24.0-44.0) % Monocytes % (0.0-12.0) % Eosinophils % (0.00-5.0) % Basophils % (0.0-0.4) % Absolute Granulocytes (1.4-6.9) Basophils # (0-0.4) Sodium (137-145) mmol/L Potassium (3.5-5.1) mmol/L Chloride (98-107) mmol/L Carbon Dioxide (22-30) mmol/L Anion Gap (5-15) MEQ/L BUN (7-17) mg/dL Creatinine (0.52-1.04) mg/dL Estimated GFR ML/MIN Glucose (74-106) mg/dL Calcium 6.0 L 6.4 L (8.4-10.2) mg/dL Magnesium 1.1 L (1.6-2.3) mg/dL Total Bilirubin (0.2-1.3) mg/dL AST (14-36) U/L ALT (0-35) U/L Alkaline Phosphatase (38-126) U/L Serum Total Protein (6.3-8.2) g/dL Albumin (3.5-5.0) g/dL 25-OH Vitamin D Total 13.2 L (30-100) ng/mL 03/02/19 Range/Units 07:00 WBC (4.0-10.5) K/mm3 RBC (4.1-5.4) M/mm3 Hgb (12.0-16.0) gm/dl Hct (35-47) % MCV (78-100) fl MCH (26-32) pg MCHC (32-36) g/dl RDW (11.5-14.0) % Plt Count (150-450) K/mm3 MPV (6-9.5) fl Gran % (36.0-66.0) % Eos # (Auto) (0-0.5) Absolute Lymphs (auto) (1.0-4.6) Absolute Monos (auto) (0.0-1.3) Lymphocytes % (24.0-44.0) % Monocytes % (0.0-12.0) % Eosinophils % (0.00-5.0) % Basophils % (0.0-0.4) % Absolute Granulocytes (1.4-6.9) Basophils # (0-0.4) Sodium (137-145) mmol/L Potassium (3.5-5.1) mmol/L Chloride (98-107) mmol/L Carbon Dioxide (22-30) mmol/L Anion Gap (5-15) MEQ/L BUN (7-17) mg/dL Creatinine (0.52-1.04) mg/dL Estimated GFR ML/MIN Glucose (74-106) mg/dL Calcium (8.4-10.2) mg/dL Magnesium 1.6 (1.6-2.3) mg/dL Total Bilirubin (0.2-1.3) mg/dL AST (14-36) U/L ALT (0-35) U/L Alkaline Phosphatase (38-126) U/L Serum Total Protein (6.3-8.2) g/dL Albumin (3.5-5.0) g/dL 25-OH Vitamin D Total (30-100) ng/mL Radiology Exams: Radiology Procedures Category Date Time Status CHEST 1 VIEW (PORTABLE) Urgent Exams 03/01/19 07:49 Completed HEAD WITHOUT CONTRAST [CT] Stat Exams 02/28/19 17:31 Completed Multi-Disciplinary Progress Notes: Multi-Disciplinary Progress Notes 03/02/19 07:46 Pharmacy Note by Yasir Miranda 03/02/19 CORRECTED CALCIUM IS 7.28 TODAY Initialized on 03/02/19 07:46 - END OF NOTE 03/01/19 13:49 Physical Therapy Note by Kim June PT. IS MORE ALERTED AND ORIENTED TODAY. UP IN CHAIR UPON ARRIVAL TO ROOM FOR P.T. REPORTS NO C/O PN. ON 4L O2. PERFORMED SIT TO STAND W/ MIN ASSIST. AMBULATED ~ 35' W/ ROLLER WALKER AND 4 L O2; O2 SATS DROPPED TO 85% AND INCREASED O2 TO 6 L. PT. REQUIRES FREQUENT V.C. FOR PROPER BREATHING TECHNIQUE. WILL CONT. P.T. TOLERATED. KIM JUNE PT Initialized on 03/01/19 13:49 - END OF NOTE Assessment/Plan (1) PNA (pneumonia) Current Visit: No Status: Acute Qualifiers: Pneumonia type: due to unspecified organism Laterality: unspecified laterality Lung location: unspecified part of lung Qualified Code(s): J18.9 - Pneumonia, unspecified organism Assessment & Plan: improved. On meropenem day #5. Still on 4L O2 per NC continuous. Will likely still need several days prior to discharge to home. Code(s): J18.9 - PNEUMONIA, UNSPECIFIED ORGANISM (2) Hypocalcemia Current Visit: No Status: Chronic Assessment & Plan: persistent; repleted Mg, starting pt on Vit D. Code(s): E83.51 - HYPOCALCEMIA (3) Leukocytosis Current Visit: Yes Status: Resolved Qualifiers: Leukocytosis type: unspecified Qualified Code(s): D72.829 - Elevated white blood cell count, unspecified Code(s): D72.829 - ELEVATED WHITE BLOOD CELL COUNT, UNSPECIFIED (4) Weakness Current Visit: Yes Status: Acute Code(s): R53.1 - WEAKNESS (5) CAD (coronary artery disease) Current Visit: No Status: Chronic Qualifiers: Coronary Disease-Associated Artery/Lesion type: [place] artery [place] vs. transplanted heart: [place] heart Associated angina: without angina Qualified Code(s): I25.10 - Atherosclerotic heart disease of [place] coronary artery without angina pectoris Code(s): I25.10 - ATHSCL HEART DISEASE OF [place] CORONARY ARTERY W/O ANG PCTRS (6) COPD (chronic obstructive pulmonary disease) Current Visit: No Status: Chronic Qualifiers: COPD type: COPD with acute exacerbation Qualified Code(s): J44.1 - Chronic obstructive pulmonary disease with (acute) exacerbation (7) Chronic renal failure Current Visit: No Status: Chronic Qualifiers: Chronic kidney disease stage: stage 3 (moderate) (8) Diabetes Current Visit: No Status: Chronic Qualifiers: Diabetes mellitus type: type 2 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
[2019-03-02] MEDS: NovoLOG Insulin SQ SCH ×2 (08:53→12:43)
[2019-03-02 09:18] LABS: ANION GAP 9.2 MEQ/L (5-15); Calcium 6.2 mg/dL (8.4-10.2); Creatinine 1 1.25 mg/dL (0.52-1.04); Potassium 3.3 mmol/L (3.5-5.1)
[2019-03-02] MEDS: Sodium Chloride 0.9% 1000 ML 1,000 ML IV SCH (09:38)
[2019-03-02] MEDS: Ecotrin 325 MG PO SCH (09:45)
[2019-03-02] MEDS: BUMEX 1 MG PO SCH ×2 (09:45→17:22)
[2019-03-02] MEDS: FEOSOL 325 MG PO SCH ×2 (09:45→21:49)
[2019-03-02] MEDS: SYNTHROID 88 MCG PO SCH (09:46)
[2019-03-02] MEDS: SYNTHROID 100 MCG PO SCH (09:46)
[2019-03-02] MEDS: REQUIP 2MG TAB PO SCH ×3 (09:46→21:48)
[2019-03-02] MEDS: Neurontin 400 MG PO SCH ×4 (09:46→21:48)
[2019-03-02] MEDS: Klor Con 10 MEQ PO SCH ×3 (09:46→21:49)
[2019-03-02] MEDS: VITAMIN D2 PO SCH (09:47)
[2019-03-02] MEDS: Topamax 25 MG PO SCH ×2 (09:47→21:49)
[2019-03-02] MEDS: Tums EX 750 MG PO SCH ×2 (09:48→21:50)
[2019-03-02] MEDS: Lantus Insulin SQ SCH (09:51)
[2019-03-02] MEDS: NYSTOP 30 GM CREAM TOP SCH ×2 (10:11→21:50)
[2019-03-02] MEDS ORDERED: Calcium Gluconate 10% 1000 MG 1,000 MG in Sodium Chloride 0.9% 50 ML 50 ML IV ONE (10:30)
[2019-03-02] MEDS: NovoLIN R SQ PRN (17:21)
[2019-03-02] MEDS: Cymbalta 30 MG Capsule PO SCH (21:48)
[2019-03-02] MEDS: PLAVIX 75 MG Tablet PO SCH (21:49)
[2019-03-02] MEDS: ZOCOR 20MG PO SCH (21:49)
[2019-03-02] MEDS: Toprol Xl 100 MG PO SCH (21:49)
[2019-03-03] MEDS: Sodium Chloride 0.9% 1000 ML 1,000 ML IV SCH ×2 (04:33→21:31)
[2019-03-03] MEDS: MERREM 500MG 500 MG in Sodium Chloride 100ML MINI-BAG PLUS 100 ML IV SCH ×3 (05:37→23:35)
[2019-03-03] MEDS ORDERED: D50W 50 ml Abboject IV PRN (07:07)
[2019-03-03] MEDS ORDERED: Glutose 15 GM ORAL GEL PO PRN (07:07)
[2019-03-03] MEDS: NovoLOG Insulin SQ SCH ×2 (08:39→12:18)
--- NOTE | 2019-03-03 08:58 | PCM.NOTE ---
Date and Time: 03/03/19851 Subjective Assessment: Pt was confused this morning, had BS 51, after 15g glucose was up to 71. After breakfast, >240. She is oriented to place and time, but seems to have trouble forming coherent sentences. Ate breakfast ok. - Review of Systems Constitutional: No Fever Respiratory: Cough Objective Exam General Appearance: no apparent distress, alert Neurologic Exam: oriented x 3, cooperative, other (repeats words and her sentences do not make sense) Skin Exam: normal color, warm, dry, No rash Ears, Nose, Throat Exam: moist mucous membranes Neck Exam: normal inspection Respiratory Exam: diminished breath sounds, wheezing (throughout), No crackles/ rales, No rhonchi Cardiovascular Exam: regular rate/rhythm, normal heart sounds, No murmur Gastrointestinal/Abdomen Exam: soft, normal bowel sounds, No tenderness, No distention, No mass, No guarding, No rebound Extremity Exam: swelling (trace LE edema bilat) Back Exam: normal inspection, No rash OBJECTIVE DATA Vital Signs: Vital Signs - 24 hr Temp Pulse Resp BP Pulse Ox 03/03/19 08:00 100.6 F 86 21 105/55 95 03/03/19 04:00 98.7 F 85 20 126/62 98 03/03/19 00:18 98.7 F 87 20 114/59 97 03/02/19 20:17 92 L 03/02/19 20:12 75 20 92 L 03/02/19 19:48 98.8 F 73 19 120/55 98 03/02/19 16:00 98.5 F 81 19 150/66 98 03/02/19 11:41 98.2 F 65 20 112/62 95 03/02/19 10:49 78 18 95 Oxygen-Last 24 hours O2 Percentage 4 Liters = 36% O2 Percentage 4 Liters = 36% O2 Percentage 4 Liters = 36% O2 Percentage 4 Liters = 36% O2 Percentage 4 Liters = 36% O2 Percentage 4 Liters = 36% Pain Assessment - Last Documented Pain Intensity 0 Pain Scale Used 0-10 Pain Scale Intake and Output: Intake & Output 02/28/19 03/01/19 03/02/19 03/03/19 11:59 11:59 11:59 11:59 Intake Total 3270 3642 4500 2696 Output Total 2900 2600 1775 1775 Balance 370 1042 2725 921 Weight 106.1 kg 106.6 kg 107.5 kg 112.6 kg Lab Results: Accuchecks Accucheck Value: 86 Accucheck Value: 173 Accucheck Value: 85 Lab Results-Last 24 Hours 03/02/19 03/02/19 03/02/19 Range/Units 06:30 09:20 12:45 Ionized Calcium 0.78 L (1.12-1.32) mmol/L Sodium 136 L (137-145) mmol/L Potassium 3.3 L (3.5-5.1) mmol/L Chloride 91 L (98-107) mmol/L Carbon Dioxide 39 H (22-30) mmol/L Anion Gap 9.2 (5-15) MEQ/L BUN 15 (7-17) mg/dL Creatinine 1.25 H (0.52-1.04) mg/dL Estimated GFR 45.3 ML/MIN Glucose 73 L (74-106) mg/dL Calcium 6.2 L 6.5 L (8.4-10.2) mg/dL Radiology Exams: Radiology Procedures Category Date Time Status MRI BRAIN W & W/O CONTRAST [MRI] Routine Exams 03/03/19 08:52 Ordered Assessment/Plan (1) PNA (pneumonia) Current Visit: No Status: Acute Qualifiers: Pneumonia type: due to unspecified organism Laterality: unspecified laterality Lung location: unspecified part of lung Qualified Code(s): J18.9 - Pneumonia, unspecified organism Assessment & Plan: On day #6 meropenem. Sounds quite wheezy today - ABG is pending - Will add steroid IV. Code(s): J18.9 - PNEUMONIA, UNSPECIFIED ORGANISM (2) AMS (altered mental status) Current Visit: Yes Status: Acute Qualifiers: Altered mental status type: transient alteration of awareness Qualified Code(s): R40.4 - Transient alteration of awareness Assessment & Plan: Pt has been noted throughout her stay to have some periods of confusion punctuated by periods of lucidity. She had been on bipap with some improvement. She has had head CT which is neg. Ammonia level was nl. I think most likely some delerium related to her illness, however will go ahead and check MRI this morning. May get neuro consult afterward. Code(s): R41.82 - ALTERED MENTAL STATUS, UNSPECIFIED (3) Hypocalcemia Current Visit: No Status: Chronic Assessment & Plan: rechecking this morning. Code(s): E83.51 - HYPOCALCEMIA (4) Weakness Current Visit: Yes Status: Acute Code(s): R53.1 - WEAKNESS (5) CAD (coronary artery disease) Current Visit: No Status: Chronic Qualifiers: Coronary Disease-Associated Artery/Lesion type: [place] artery [place] vs. transplanted heart: [place] heart Associated angina: without angina Qualified Code(s): I25.10 - Atherosclerotic heart disease of [place] coronary artery without angina pectoris Code(s): I25.10 - ATHSCL HEART DISEASE OF [place] CORONARY ARTERY W/O ANG PCTRS (6) COPD (chronic obstructive pulmonary disease) Current Visit: No Status: Chronic Qualifiers: COPD type: COPD with acute exacerbation Qualified Code(s): J44.1 - Chronic obstructive pulmonary disease with (acute) exacerbation (7) Chronic renal failure Current Visit: No Status: Chronic Qualifiers: Chronic kidney disease stage: stage 3 (moderate) (8) Diabetes Current Visit: No Status: Chronic Qualifiers: Diabetes mellitus type: type 2 Diabetes mellitus manager intermediate insulin use: with prison use Diabetes mellitus complication status: with kidney complications Diabetes mellitus complication detail: with chronic kidney disease Assessment & Plan: labile sugars this stay Code(s): E11.9 - TYPE 2 DIABETES MELLITUS WITHOUT COMPLICATIONS
[2019-03-03 09:00] LABS: A-aADO2 117; ABG HEMOGLOBIN 11.2; ABG POTASSIUM 3.1 (3.5-5.1); ABG SITE LEFT RADIAL; ALLEN TEST OK? yes; ARTERIAL BLD GAS O2 SATURATION 96.4 % (95-100); ARTERIAL BLOOD GAS BASE EXCESS 12.7 (-2.0-2.0); ARTERIAL BLOOD GAS FIO2 36 %; ARTERIAL BLOOD GAS PCO2 59 mmHg (35-45); ARTERIAL BLOOD GAS PO2 66 mmHg (75-100); ARTERIAL BLOOD GAS pH 7.43 (7.35-7.45); CARBOXYHEMOGLOBIN 2.9 % THgb (0.0-6.9); HCO3- 39.2 (22-28); HGB O2 SAT 92.3 g/dF (94-100); Methhemoglobin 1.3 % (1.4-1.5); paO2 pAO1 0.36
[2019-03-03 09:17] LABS: ANION GAP 10.6 MEQ/L (5-15); Creatinine 1 1.2 mg/dL (0.52-1.04); Potassium 3.2 mmol/L (3.5-5.1)
[2019-03-03 09:20] LABS: Hematocrit 33.1 % (35-47); Hemoglobin 10.5 gm/dl (12.0-16.0); Mean Cell Volume 88.5 fl (78-100); Mean Corpuscular Hemoglobin 28.1 pg (26-32); Mean Corpuscular Hgb Concent. 31.7 g/dl (32-36); Mean Platelet Volume 10.9 fl (6-9.5); Platelet Count 199 K/mm3 (150-450); Red Blood Count 3.74 M/mm3 (4.1-5.4); Red Cell Distribution Width 13.5 % (11.5-14.0); White Blood Count 9.6 K/mm3 (4.0-10.5)
[2019-03-03 09:22] LABS: Calcium 5.9 mg/dL (8.4-10.2)
[2019-03-03] MEDS ORDERED: Calcium Gluconate 10% 1000 MG IV ONE ×2 (09:27→15:30)
--- NOTE | 2019-03-03 09:38 | XRAY ---
Indication: Pneumonia. Comparison: March 01, 2019. Portable AP/lateral chest demonstrates new subtle left base infiltrate/atelectasis with tiny effusion and clearing of the previous right base pleural-parenchymal opacity. Remaining heart and lungs unremarkable.
[2019-03-03] MEDS: DUONEB 0.5-3 MG/3 ml Neb IH SCH ×4 (09:54→18:47)
[2019-03-03] MEDS ORDERED: CALCIUM GLUCONATE IV SCH ×2 (10:00→16:00)
[2019-03-03] MEDS ORDERED: SODIUM CHLORIDE 0.9% IV SCH ×2 (10:00→16:00)
[2019-03-03] MEDS: FEOSOL 325 MG PO SCH ×2 (10:25→23:10)
[2019-03-03] MEDS: Ecotrin 325 MG PO SCH (10:25)
[2019-03-03] MEDS: BUMEX 1 MG PO SCH ×2 (10:25→16:43)
[2019-03-03] MEDS: NYSTOP 30 GM CREAM TOP SCH ×2 (10:26→23:11)
[2019-03-03] MEDS: Neurontin 400 MG PO SCH ×4 (10:26→23:08)
[2019-03-03] MEDS: REQUIP 2MG TAB PO SCH ×3 (10:27→23:08)
[2019-03-03] MEDS: Topamax 25 MG PO SCH ×2 (10:27→23:11)
[2019-03-03] MEDS: SYNTHROID 100 MCG PO SCH (10:27)
[2019-03-03] MEDS: SYNTHROID 88 MCG PO SCH (10:27)
[2019-03-03] MEDS: Klor Con 10 MEQ PO SCH ×3 (10:28→23:10)
[2019-03-03] MEDS: Tums EX 750 MG PO SCH ×2 (10:28→23:12)
[2019-03-03] MEDS: solu-MEDROL 40 MG IV SCH ×3 (10:34→23:11)
[2019-03-03] MEDS: Lantus Insulin SQ SCH (10:52)
[2019-03-03] MEDS: NovoLIN R SQ PRN ×3 (12:41→23:16)
--- NOTE | 2019-03-03 12:46 | XRAY ---
Indication: Acute mental status change. Confusion. Sagittal, coronal, and axial MRI brain was performed without contrast using T1, T2, FLAIR, diffusion, and ADC sequences. Comparison: None Age-appropriate global atrophy with moderate periventricular degenerative micro-ischemia signal bilaterally. Lesser degenerative micro-ischemia seen in the brainstem. No acute intracranial hemorrhage, abnormal extra-axial fluid collection, or mass effect. Diffusion images are negative for restricted signal. Fourth ventricle is midline without hydrocephalus. 7/8 cranial nerve complex bilaterally symmetric. Normal flow void signal within the major intracerebral circulation. Normal appearing craniocervical junction and sella turcica. Right mastoid air cells demonstrates fluid signal favoring inflammatory process. Paranasal sinuses are clear. 2.0 x 1.8 cm left scalp calcified mass near the vertex reported benign on recent CT head exam. Impression: 1. Normal aging brain including atrophy and degenerative micro-ischemia. 2. No acute intracranial abnormalities or evidence for evolving large vessel territory stroke. 3. Incidental fluid signal right mastoid air cells presumed inflammatory.
[2019-03-03] MEDS: Cymbalta 30 MG Capsule PO SCH (23:09)
[2019-03-03] MEDS: ZOCOR 20MG PO SCH (23:09)
[2019-03-03] MEDS: Toprol Xl 100 MG PO SCH (23:10)
[2019-03-03] MEDS: PLAVIX 75 MG Tablet PO SCH (23:10)
[2019-03-04] MEDS ORDERED: Magnesium Sulfate 1 GM/2 ML VIAL IV ONE (01:25)
[2019-03-04] MEDS: Magnesium 1 Gm / 100 Ml D5W*** 100 ML IV SCH ×2 (02:42→03:21)
[2019-03-04] MEDS: Sodium Chloride 0.9% 1000 ML 1,000 ML IV SCH ×2 (05:52→19:13)
[2019-03-04] MEDS: MERREM 500MG 500 MG in Sodium Chloride 100ML MINI-BAG PLUS 100 ML IV SCH ×3 (05:52→22:32)
[2019-03-04 05:54] LABS: Hematocrit 32.6 % (35-47); Hemoglobin 10.5 gm/dl (12.0-16.0); Mean Cell Volume 86.7 fl (78-100); Mean Corpuscular Hemoglobin 27.9 pg (26-32); Mean Corpuscular Hgb Concent. 32.2 g/dl (32-36); Platelet Count 203 K/mm3 (150-450); Red Blood Count 3.76 M/mm3 (4.1-5.4); Red Cell Distribution Width 13.1 % (11.5-14.0); White Blood Count 6.4 K/mm3 (4.0-10.5)
[2019-03-04 06:11] LABS: ALBUMIN 2.9 g/dL (3.5-5.0); ANION GAP 11.3 MEQ/L (5-15); BILIRUBIN,TOTAL 0.4 mg/dL (0.2-1.3); Calcium 6.7 mg/dL (8.4-10.2); Creatinine 1 1.08 mg/dL (0.52-1.04); Potassium 3.9 mmol/L (3.5-5.1); Total Protein 5.7 g/dL (6.3-8.2)
[2019-03-04] MEDS: NovoLIN R SQ PRN ×4 (07:56→22:44)
[2019-03-04] MEDS: NovoLOG Insulin SQ SCH ×2 (07:56→11:44)
[2019-03-04] MEDS: DUONEB 0.5-3 MG/3 ml Neb IH SCH ×4 (09:35→19:21)
[2019-03-04] MEDS: REQUIP 2MG TAB PO SCH ×3 (10:18→22:30)
[2019-03-04] MEDS: ENOXAPARIN SODIUM SQ SCH (10:18)
[2019-03-04] MEDS: solu-MEDROL 40 MG IV SCH ×2 (10:18→22:33)
[2019-03-04] MEDS: FEOSOL 325 MG PO SCH ×2 (10:18→22:29)
[2019-03-04] MEDS: Neurontin 400 MG PO SCH ×4 (10:18→22:29)
[2019-03-04] MEDS: Lantus Insulin SQ SCH (10:19)
[2019-03-04] MEDS: MAG-OX 400 PO SCH ×2 (10:19→22:32)
[2019-03-04] MEDS: Ecotrin 325 MG PO SCH (10:19)
[2019-03-04] MEDS: SYNTHROID 100 MCG PO SCH (10:19)
[2019-03-04] MEDS: Klor Con 10 MEQ PO SCH ×3 (10:19→22:29)
[2019-03-04] MEDS: BUMEX 1 MG PO SCH ×2 (10:19→16:37)
[2019-03-04] MEDS: NYSTOP 30 GM CREAM TOP SCH ×3 (10:20→22:46)
[2019-03-04] MEDS: Topamax 25 MG PO SCH ×2 (10:21→22:34)
[2019-03-04] MEDS: SYNTHROID 88 MCG PO SCH (10:21)
[2019-03-04] MEDS: Tums EX 750 MG PO SCH ×2 (10:22→22:31)
[2019-03-04] MEDS ORDERED: Calcium Gluconate 10% 1000 MG IV ONE (10:58)
[2019-03-04] MEDS ORDERED: CALCIUM GLUCONATE IV SCH (12:00)
[2019-03-04] MEDS ORDERED: SODIUM CHLORIDE 0.9% IV SCH (12:00)
[2019-03-04] MEDS ORDERED: POTASSIUM CHLORIDE 20 mEq IN WATER 100ML 20 MEQ/100 ML BAG IV SCH (14:45)
--- NOTE | 2019-03-04 14:49 | PCM.NOTE ---
Date and Time: 03/04/19 1440 Subjective Assessment: Pt is acting like herself this morning. She is up to bedside commode when I enter the room; after I apologised she noted , "I like to sit on the stool and watch TV." Her breathing is better. - Review of Systems Constitutional: No Fever Respiratory: Cough, Short Of Breath Objective Exam General Appearance: no apparent distress, alert Neurologic Exam: oriented x 3, cooperative, normal mood/affect Skin Exam: normal color, warm, dry, No rash Eye Exam: other (appears to have a small fluid collection inferior to L eye) Ears, Nose, Throat Exam: moist mucous membranes Neck Exam: normal inspection Respiratory Exam: diminished breath sounds, No crackles/rales, No rhonchi, No wheezing Cardiovascular Exam: regular rate/rhythm, normal heart sounds, No murmur Gastrointestinal/Abdomen Exam: soft, normal bowel sounds, No tenderness, No distention, No mass, No guarding, No rebound Extremity Exam: normal inspection, No pedal edema, No swelling Back Exam: normal inspection, No rash OBJECTIVE DATA Vital Signs: Vital Signs - 24 hr Temp Pulse Resp BP Pulse Ox 03/04/19 13:43 82 18 93 L 03/04/19 11:51 71 18 95 03/04/19 11:44 98.4 F 63 18 126/66 94 L 03/04/19 07:52 98.2 F 67 18 104/51 99 03/04/19 03:24 97.4 F 75 16 86/47 93 L 03/03/19 20:00 97.6 F 93 H 27 H 166/98 98 03/03/19 18:47 85 16 95 03/03/19 16:00 98.3 F 86 17 110/54 96 Oxygen-Last 24 hours O2 Percentage 2 Liters = 28% O2 Percentage 2 Liters = 28% O2 Percentage 4 Liters = 36% O2 Percentage 4 Liters = 36% O2 Percentage 4 Liters = 36% Pain Assessment - Last Documented Pain Intensity 0 Pain Scale Used 0-10 Pain Scale,FLACC Intake and Output: Intake & Output 03/02/19 03/03/19 03/04/19 03/05/19 11:59 11:59 11:59 11:59 Intake Total 4500 2696 3704 480 Output Total 1775 1775 300 450 Balance 2725 921 3404 30 Weight 107.5 kg 112.6 kg 112.3 kg Lab Results: Accuchecks Date 03/04/19 Date 03/04/19 Date 03/03/19 Time 11:30 Time 07:30 Time 22:00 Accucheck Value: 494 Accucheck Value: 381 Accucheck Value: 448 Accucheck Value: 304 Lab Results-Last 24 Hours 03/02/19 03/03/19 03/04/19 Range/Units 01:55 17:10 05:30 WBC 6.4 (4.0-10.5) K/mm3 RBC 3.76 L (4.1-5.4) M/mm3 Hgb 10.5 L (12.0-16.0) gm/dl Hct 32.6 L (35-47) % MCV 86.7 (78-100) fl MCH 27.9 (26-32) pg MCHC 32.2 (32-36) g/dl RDW 13.1 (11.5-14.0) % Plt Count 203 (150-450) K/mm3 MPV 11.0 H (6-9.5) fl Sodium (137-145) mmol/L Potassium (3.5-5.1) mmol/L Chloride (98-107) mmol/L Carbon Dioxide (22-30) mmol/L Anion Gap (5-15) MEQ/L BUN (7-17) mg/dL Creatinine (0.52-1.04) mg/dL Estimated GFR ML/MIN Glucose (74-106) mg/dL Calcium 7.3 L (8.4-10.2) mg/dL Magnesium (1.6-2.3) mg/dL Total Bilirubin (0.2-1.3) mg/dL AST (14-36) U/L ALT (0-35) U/L Alkaline Phosphatase (38-126) U/L Serum Total Protein (6.3-8.2) g/dL Albumin (3.5-5.0) g/dL PTH Intact 15 (15-72) pg/mL 03/04/19 Range/Units 05:30 WBC (4.0-10.5) K/mm3 RBC (4.1-5.4) M/mm3 Hgb (12.0-16.0) gm/dl Hct (35-47) % MCV (78-100) fl MCH (26-32) pg MCHC (32-36) g/dl RDW (11.5-14.0) % Plt Count (150-450) K/mm3 MPV (6-9.5) fl Sodium 132 L (137-145) mmol/L Potassium 3.9 D (3.5-5.1) mmol/L Chloride 92 L (98-107) mmol/L Carbon Dioxide 33 H (22-30) mmol/L Anion Gap 11.3 (5-15) MEQ/L BUN 20 H (7-17) mg/dL Creatinine 1.08 H (0.52-1.04) mg/dL Estimated GFR 53.6 ML/MIN Glucose 381 H (74-106) mg/dL Calcium 6.7 L (8.4-10.2) mg/dL Magnesium 2.0 (1.6-2.3) mg/dL Total Bilirubin 0.40 (0.2-1.3) mg/dL AST 24 (14-36) U/L ALT 12 (0-35) U/L Alkaline Phosphatase 63 (38-126) U/L Serum Total Protein 5.7 L (6.3-8.2) g/dL Albumin 2.9 L (3.5-5.0) g/dL PTH Intact (15-72) pg/mL Radiology Exams: Radiology Procedures Category Date Time Status CHEST 2 VIEWS (PA AND LAT) Urgent Exams 03/03/19 09:24 Completed MRI BRAIN W/O CONTRAST [MRI] Routine Exams 03/03/19 08:52 Completed Multi-Disciplinary Progress Notes: Multi-Disciplinary Progress Notes 03/04/19 09:01 Pharmacy Note by Lion Owusu Today is day 7 of Merrem IV. Initialized on 03/04/19 09:01 - END OF NOTE 03/03/19 16:02 Case Management Note by Meme Trujillo DISCHARGE PLAN REVIEWED, WILL PLAN FOR SWING BED WHEN MEDICALLY READY. Initialized on 03/03/19 16:02 - END OF NOTE Assessment/Plan (1) PNA (pneumonia) Current Visit: No Status: Acute Qualifiers: Pneumonia type: due to unspecified organism Laterality: unspecified laterality Lung location: unspecified part of lung Qualified Code(s): J18.9 - Pneumonia, unspecified organism Assessment & Plan: improved. On IV meropenem day #7. Decrease steroid to 40mg IV BID with plan of making it prednisone PO tomorrow. Code(s): J18.9 - PNEUMONIA, UNSPECIFIED ORGANISM (2) AMS (altered mental status) Current Visit: Yes Status: Resolved Qualifiers: Altered mental status type: transient alteration of awareness Qualified Code(s): R40.4 - Transient alteration of awareness Assessment & Plan: likely was delerium; with her improved PNA this has improved as well. Code(s): R41.82 - ALTERED MENTAL STATUS, UNSPECIFIED (3) Hypocalcemia Current Visit: No Status: Chronic Assessment & Plan: consult nephrology. She is now on po calcium and po magnesium, but calcium is persistently low. Code(s): E83.51 - HYPOCALCEMIA (4) Weakness Current Visit: Yes Status: Acute Code(s): R53.1 - WEAKNESS (5) CAD (coronary artery disease) Current Visit: No Status: Chronic Qualifiers: Coronary Disease-Associated Artery/Lesion type: [place] artery [place] vs. transplanted heart: [place] heart Associated angina: without angina Qualified Code(s): I25.10 - Atherosclerotic heart disease of [place] coronary artery without angina pectoris Code(s): I25.10 - ATHSCL HEART DISEASE OF [place] CORONARY ARTERY W/O ANG PCTRS (6) COPD (chronic obstructive pulmonary disease) Current Visit: No Status: Chronic Qualifiers: COPD type: COPD with acute exacerbation Qualified Code(s): J44.1 - Chronic obstructive pulmonary disease with (acute) exacerbation (7) Chronic renal failure Current Visit: No Status: Chronic Qualifiers: Chronic kidney disease stage: stage 3 (moderate) Assessment & Plan: She saw Dr. Almeida "once." (8) Diabetes Current Visit: No Status: Chronic Qualifiers: Diabetes mellitus type: type 2 Diabetes mellitus penitentiary insulin use: with penitentiary use Diabetes mellitus complication status: with kidney complications Diabetes mellitus complication detail: with chronic kidney disease Code(s): E11.9 - TYPE 2 DIABETES MELLITUS WITHOUT COMPLICATIONS (9) Hypokalemia Current Visit: Yes Status: Acute Assessment & Plan: replete; recheck in a.m. Code(s): E87.6 - HYPOKALEMIA
[2019-03-04 15:30] LABS: Calcium 7.4 mg/dL (8.4-10.2); Creatinine 1 1.19 mg/dL (0.52-1.04); Potassium 3.9 mmol/L (3.5-5.1)
[2019-03-04 15:33] LABS: ANION GAP 16.9 MEQ/L (5-15)
[2019-03-04] MEDS: PLAVIX 75 MG Tablet PO SCH (22:30)
[2019-03-04] MEDS: ZOCOR 20MG PO SCH (22:30)
[2019-03-04] MEDS: Cymbalta 30 MG Capsule PO SCH (22:30)
[2019-03-04] MEDS: Toprol Xl 100 MG PO SCH (22:32)
[2019-03-05 04:39] LABS: Hematocrit 36.8 % (35-47); Hemoglobin 11.7 gm/dl (12.0-16.0); Mean Cell Volume 87.4 fl (78-100); Mean Corpuscular Hemoglobin 27.8 pg (26-32); Mean Corpuscular Hgb Concent. 31.8 g/dl (32-36); Mean Platelet Volume 10.9 fl (6-9.5); Platelet Count 246 K/mm3 (150-450); Red Blood Count 4.21 M/mm3 (4.1-5.4); Red Cell Distribution Width 13.2 % (11.5-14.0)
[2019-03-05 04:49] LABS: ANION GAP 14.3 MEQ/L (5-15); Calcium 7.5 mg/dL (8.4-10.2); Creatinine 1 1.28 mg/dL (0.52-1.04); MAGNESIUM 1.8 mg/dL (1.6-2.3)
[2019-03-05] MEDS: MERREM 500MG 500 MG in Sodium Chloride 100ML MINI-BAG PLUS 100 ML IV SCH (05:59)
[2019-03-05] MEDS: DUONEB 0.5-3 MG/3 ml Neb IH SCH (07:39)
[2019-03-05] MEDS: NovoLOG Insulin SQ SCH ×2 (07:56→11:58)
[2019-03-05] MEDS: NovoLIN R SQ PRN ×2 (08:24→11:57)
[2019-03-05] MEDS ORDERED: Calcium Gluconate 10% 1000 MG IV ONE (09:43)
[2019-03-05] MEDS: ENOXAPARIN SODIUM SQ SCH (09:48)
[2019-03-05] MEDS: Klor Con 10 MEQ PO SCH (09:50)
[2019-03-05] MEDS: Ecotrin 325 MG PO SCH (09:50)
[2019-03-05] MEDS: REQUIP 2MG TAB PO SCH (09:53)
[2019-03-05] MEDS: BUMEX 1 MG PO SCH (09:53)
[2019-03-05] MEDS: Lantus Insulin SQ SCH (09:56)
[2019-03-05] MEDS: Neurontin 400 MG PO SCH ×2 (10:00→13:22)
[2019-03-05] MEDS: MAG-OX 400 PO SCH (10:01)
[2019-03-05] MEDS: FEOSOL 325 MG PO SCH (10:01)
[2019-03-05] MEDS: SYNTHROID 100 MCG PO SCH (10:01)
[2019-03-05] MEDS: solu-MEDROL 40 MG IV SCH (10:02)
[2019-03-05] MEDS: NYSTOP 30 GM CREAM TOP SCH (10:03)
[2019-03-05] MEDS: SYNTHROID 88 MCG PO SCH (10:04)
[2019-03-05] MEDS: Topamax 25 MG PO SCH (10:04)
[2019-03-05] MEDS: VITAMIN D2 PO SCH (10:05)
[2019-03-05] MEDS ORDERED: SODIUM CHLORIDE 0.9% IV SCH (10:30)
[2019-03-05] MEDS ORDERED: CALCIUM GLUCONATE IV SCH (10:30)
[2019-03-05] MEDS: Tums EX 750 MG PO SCH (10:52)
[2019-03-05 12:17] VITALS: BP 136/80; PULSE 90; O2SAT 94
--- NOTE | 2019-03-05 12:43 | PCM.DS ---
Discharge Summary Date of Admission: 02/26/19 17:47 Admitting Physician: TIFFANI BURRIS MD Consults: Consults on Case 03/03/19 15:33 Consult Neurology ROUTINE Primary Care Provider: ROLANDO SALMERON Allergies Allergies No Known Drug Allergies Allergy (Verified 02/26/19 14:18) Hospital Summary - Hospital Course Hospital Course: Pt is a 68 yo female pt of mine from [facility] with COPD, DM, depression, HTN, hypothyroid, hx [place], and spinal stenosis who was admitted through ER with pneumonia and BS > 600. She was started on IV merrem. Blood cultures were negative. She had some delirium for about the first week; CT and MRI brain were non acute. Neurology consult was done and they did not have anything to contribute. For the past 2 days pt has been alert and oriented, acting normally. Today she has a few wheezes but in general she looks great. Will be discharged to home on po antibiotics to finish 14d. Pt's blood sugar corrected quickly with treatment. She did have a low episode one morning but resolved with po glucose and eating breakfast. Her calcium has been quite low during her stay, below 6.5. Have been repleting with IV calcium and po calcium carbonate. Her magnesium and Vitamin D were also low. She will be discharged to home on po calcium, magnesium, and Vit D and will f/u with nephrology outpatient (nephrology was consulted but as it is the weekend did not get a chance to see the pt prior to discharge). - Vitals & Intake/Output Vital Signs: Vital Signs Temperature 97.9 F 03/05/19 12:16 Pulse Rate 90 03/05/19 12:16 Respiratory Rate 20 03/05/19 12:16 Blood Pressure 136/80 03/05/19 12:16 O2 Sat by Pulse Oximetry 94 L 03/05/19 12:16 Oxygen-Last Documented O2 Percentage 4 Liters = 36% Intake & Output: Intake & Output 03/03/19 03/04/19 03/05/19 03/06/19 11:59 11:59 11:59 11:59 Intake Total 2696 3704 4788 380 Output Total 1989 062 5295 Balance 921 3404 3638 380 Weight 112.6 kg 112.3 kg 112.8 kg - Lab Result Diagrams: 03/05/19 04:39 03/05/19 04:39 Lab Results-Last 24 Hrs: Accuchecks Date 03/05/19 Date 03/05/19 Date 03/04/19 Date 03/04/19 Time 11:30 Time 07:30 Time 22:00 Time 16:30 Accucheck Value: 305 Accucheck Value: 198 Accucheck Value: 436 Accucheck Value: 447 Lab Results-Last 24 Hours 03/04/19 03/05/19 03/05/19 Range/Units 15:05 04:39 04:39 WBC 12.0 H (4.0-10.5) K/mm3 RBC 4.21 (4.1-5.4) M/mm3 Hgb 11.7 L (12.0-16.0) gm/dl Hct 36.8 (35-47) % MCV 87.4 (78-100) fl MCH 27.8 (26-32) pg MCHC 31.8 L (32-36) g/dl RDW 13.2 (11.5-14.0) % Plt Count 246 (150-450) K/mm3 MPV 10.9 H (6-9.5) fl Sodium 133 L 138 (137-145) mmol/L Potassium 3.9 4.0 (3.5-5.1) mmol/L Chloride 91 L 93 L (98-107) mmol/L Carbon Dioxide 31 H 35 H (22-30) mmol/L Anion Gap 16.9 H 14.3 (5-15) MEQ/L BUN 23 H 26 H (7-17) mg/dL Creatinine 1.19 H 1.28 H (0.52-1.04) mg/dL Estimated GFR 47.9 44.1 ML/MIN Glucose 440 H 206 H (74-106) mg/dL Calcium 7.4 L 7.5 L (8.4-10.2) mg/dL Magnesium 1.8 (1.6-2.3) mg/dL Micro Results-Entire Visit: Microbiology 03/01/19 14:10 Blood Culture - Preliminary Blood NO GROWTH TO DATE 03/01/19 13:55 Blood Culture - Preliminary Blood NO GROWTH TO DATE 02/26/19 17:52 Blood Culture Gram Stain - Final Blood Not Reportable Blood Culture - Final NO GROWTH 02/26/19 17:52 Blood Culture Gram Stain - Final Blood Not Reportable Blood Culture - Final NO GROWTH Accuchecks Date 03/05/19 Date 03/05/19 Date 03/04/19 Date 03/04/19 Time 11:30 Time 07:30 Time 22:00 Time 16:30 Accucheck Value: 305 Accucheck Value: 198 Accucheck Value: 436 Accucheck Value: 447 - Procedures and Test Procedures and Tests throughout Hospitalization: Therapy Orders & Screens 02/26/19 18:03 BiPap/CPAP ROUTINE Comment: 02/27/19 07:02 Oxygen NASAL CANNULA 4 lpm Comment: Diagnosis: hyperglycemia 02/27/19 07:12 Peak Expiratory Flow Rate ONCE Comment: Reason For Exam: Diagnosis: hyperglycemia Respiratory Therapy Assessment DAILY Comment: Diagnosis: hyperglycemia 02/27/19 09:08 PT Eval & Treat (MD Order) ROUTINE Reason for Eval:: weakness Diagnosis: hyperglycemia 02/28/19 17:30 EKG OM.NOW Comment: Diagnosis: hyperglycemia 03/01/19 10:18 EKG ROUTINE Comment: Diagnosis: hyperglycemia Discharge Exam General Appearance: no apparent distress, alert Neurologic Exam: oriented x 3, cooperative Eye Exam: eyes nml inspection Ears, Nose, Throat Exam: moist mucous membranes Neck Exam: normal inspection Respiratory Exam: diminished breath sounds (good air exchange), wheezing ( scattered, expiratory), No crackles/rales, No rhonchi Cardiovascular Exam: regular rate/rhythm, normal heart sounds, No murmur Back Exam: normal inspection, No rash Extremity Exam: normal inspection, No pedal edema, No swelling Skin Exam: normal color, warm, dry, No rash Final Diagnosis/Problem List - Final Discharge Diagnosis/Problem (1) PNA (pneumonia) Current Visit: No Status: Acute Assessment & Plan: Much improved. Finish 14d of antibiotics (home on cefdinir). Code(s): J18.9 - PNEUMONIA, UNSPECIFIED ORGANISM (2) AMS (altered mental status) Current Visit: Yes Status: Resolved Assessment & Plan: was judged to be delerium; now resolved. Code(s): R41.82 - ALTERED MENTAL STATUS, UNSPECIFIED (3) Hypocalcemia Current Visit: No Status: Chronic Assessment & Plan: Likely chronic, with acute exacerbation here. Home on po calcium. Recheck BMP , Mg in 2d. Code(s): E83.51 - HYPOCALCEMIA (4) Weakness Current Visit: Yes Status: Resolved Code(s): R53.1 - WEAKNESS (5) CAD (coronary artery disease) Current Visit: No Status: Chronic Code(s): I25.10 - ATHSCL HEART DISEASE OF [place] CORONARY ARTERY W/O ANG PCTRS (6) COPD (chronic obstructive pulmonary disease) Current Visit: No Status: Chronic (7) Chronic renal failure Current Visit: No Status: Chronic Assessment & Plan: Will see Dr. Almeida outpatient. (8) Diabetes Current Visit: No Status: Chronic Code(s): E11.9 - TYPE 2 DIABETES MELLITUS WITHOUT COMPLICATIONS (9) Hypokalemia Current Visit: Yes Status: Resolved Code(s): E87.6 - HYPOKALEMIA - Discharge Disposition: Home, Self-Care Condition: Stable Prescriptions: New Cefdinir 300 mg PO BID #12 capsule Prednisone 20 mg [Deltasone 20 mg] 20 mg PO DAILY #15 tablet Potassium Chloride 10 Meq Tab* [Klor Con 10 MEQ] 20 meq PO TID #90 tab Magnesium Oxide 400 mg [Mag-Ox 400] 400 mg PO BID #60 tablet Calcium Carbonate 750 mg [Tums EX 750 MG] 1,000 mg PO BID #1 bottle Ergocalciferol (Vitamin D2) [Vitamin D2] 50,000 unit PO Q7D #4 capsule Continue Clopidogrel Bisulfate 75 mg [PLAVIX 75 MG Tablet] 75 mg PO HS Aspirin [Aspirin EC] 325 mg PO QAM Metoprolol Succinate [Toprol Xl] 100 mg PO HS Duloxetine HCl [Cymbalta] 60 mg PO HS Ropinirole HCl 4 mg PO TID Gabapentin [Neurontin] 800 mg PO QID Topiramate 25 mg [Topamax 25 MG] 25 mg PO BID AMITRIPTYLINE HCL 50 mg Tab [AMITRIPTYLINE HCL 50 mg Tablet] 50 mg PO HS Atorvastatin Calcium [Lipitor] 40 mg PO HS Albuterol 8 gm Mdi Hfa [Ventolin Hfa MDI] 2 puff IH Q4HPRN PRN PRN Reason: Shortness Of Breath/Wheezing Bumetanide 1 mg [Bumex 1 mg] 2 mg PO BID #30 tablet Insulin Aspart [NovoLOG Insulin] 10 unit SQ 0730,1130 #1 unit Insulin Degludec [Tresiba Flextouch U-100] 60 unit SQ QAM #1 insuln.pen Albuterol/Ipratropium 3ml Neb* [DUONEB 0.5-3 MG/3 ml Neb] 3 ml NEBULIZE Q4H PRN PRN #1 box PRN Reason: Wheezing/Chest Congestion Nebulizer 1 each MC Q4H PRN PRN #1 kit PRN Reason: Wheezing/Shortness of Breath Ferrous Sulfate 325 mg [Feosol 325 mg] 325 mg PO BID Nitroglycerin 0.4 mg Tablet [Nitrostat 0.4 MG Tablet] 0.4 mg SL UD Umeclidinium Milfay [Incruse Ellipta] 62.5 mcg IH DAILY Levothyroxine Sodium 88 mcg PO DAILY Levothyroxine Sodium 100 mg PO DAILY Discontinued Potassium Chloride [K-Tab ER] 10 meq PO DAILY Instructions: Pneumonia in Adults, Hyperglycemia, Adult (DC), Exacerbation of COPD Follow up with: JONNY JUAN [CONSULTING PHYSICIAN] - 1 Week ROLANDO SALMERON [Primary Care Provider] - 1 Week Forms: Discharge Instructions
== END 2019-03-05 13:37 | disposition home or self-care (01) | DRG 195 ==
LOC: ED 14:15 → MED SURG 17:47 → ICU 17:48 → MED SURG 02-27 00:39
PROVIDERS: ADMIT Family Medicine; ATTEND Family Medicine
DX: J18.9 Pneumonia, unspecified organism (principal); R41.82 Altered mental status, unspecified; E83.51 Hypocalcemia; R53.1 Weakness; I25.10 Atherosclerotic heart disease of native coronary artery without angina pectoris; J44.9 Chronic obstructive pulmonary disease, unspecified; E11.22 Type 2 diabetes mellitus with diabetic chronic kidney disease; E11.65 Type 2 diabetes mellitus with hyperglycemia; I12.9 Hypertensive chronic kidney disease with stage 1 through stage 4 chronic kidney disease, or unspecified chronic kidney disease; N18.3 Chronic kidney disease, stage 3 (moderate); F32.9 Major depressive disorder, single episode, unspecified; E03.9 Hypothyroidism, unspecified; I25.2 Old myocardial infarction; E87.6 Hypokalemia; Z79.01 Long term (current) use of anticoagulants; Z79.899 Other long term (current) drug therapy; E78.00 Pure hypercholesterolemia, unspecified; D72.829 Elevated white blood cell count, unspecified
CPT/HCPCS: 36415; 36600; 51702; 70450; 70551; 71045; 71046; 80048; 80053; 81001; 82140; 82306; 82310; 82330; 82375; 82803; 82805; 82962; 83036; 83605; 83735; 83880; 83970; 84484; 85025; 85027; 85610; 87040; 93005; 94002; 94003; 94150; 94640; 94760; 94762; 96374; 96375; 97110; 97161; 97530; 99291; Q3014; 36000; 90662; 99285; J0610; J1650; J2920; J3475; J3480; A9270-GY

== ENCOUNTER 2019-03-07 09:36 | Inpatient (IN) | payer MEDICARE ==
--- NOTE | 2019-03-07 10:07 | ERPHSYRPT ---
- History of Present Illness Time Seen by Provider: 03/07/19 09:54 Source: patient, EMS (iin the and and or a were he I the LAD and he is a the) Physician History: the patient is a 6-year-old female with a past medical history significant for COPD in which she uses supplemental oxygen at home reportedly to 4 L per minute via nasal cannula at night, recent hospitalization for pneumonia and hyperglycemia in which he was released on March 05, 2019, delirium that she suffered during her course recent hospitalization, diabetes mellitus, and chronic pain/neuropathy presents with a chief complaint of altered mental status. Of note, the patient was transported to the emergency department after she was picked up from home. EMS reports that the noted that she seemed to be in a "deep sleep" earlier this morning and not to leave her alone told her to rest. But she did not wake later in the morning, he checked her blood sugar and got a reading of 30. When EMS was called and arrived on scene they found the patient to have an altered mental status and be confused lying in bed. They checked her blood sugar and got a reading of 28 and establish a peripheral IV and administered 25 g of dextrose 50% water. The patient awoke and was more alert however she seemed to be confused. Ultimately, she was transported to the emergency department for further evaluation and management due to her ongoing confusion. The patient currently denies pain and is awake and alert however she is not oriented she time and cannot say the months of the year for it nor can she said and backwards. I'm concerned the patient may be suffering from a neurological insult from her hyperglycemia or may still be delirious and therefore details pertaining to the history of present illness related because of this. she cannot tell me to administer her insulin or insulin was administered at all this morning or last night. She tells me that she lives at home with her and her reportedly is 8 years older than her. Timing/Duration: today Associated Symptoms: denies symptoms Allergies/Adverse Reactions: No Known Drug Allergies Allergy (Verified 03/07/19 09:38) Home Medications: Aspirin [Aspirin EC] 325 mg PO QAM 10/09/13 [History] Clopidogrel Bisulfate 75 mg [PLAVIX 75 MG Tablet] 75 mg PO HS 10/09/13 [ History] Metoprolol Succinate [Toprol Xl] 100 mg PO HS 02/03/15 [History] Duloxetine HCl [Cymbalta] 60 mg PO HS 08/17/17 [History] AMITRIPTYLINE HCL 50 mg Tab [AMITRIPTYLINE HCL 50 mg Tablet] 50 mg PO HS [History] Albuterol 8 gm Mdi Hfa [Ventolin Hfa MDI] 2 puff IH Q4HPRN PRN 07/16/18 [ History] Atorvastatin Calcium [Lipitor] 40 mg PO HS 07/16/18 [History] Gabapentin [Neurontin] 800 mg PO QID 07/16/18 [History] Ropinirole HCl 4 mg PO TID 07/16/18 [History] Topiramate 25 mg [Topamax 25 MG] 25 mg PO BID 07/16/18 [History] Ferrous Sulfate 325 mg [Feosol 325 mg] 325 mg PO BID 02/26/19 [History] Levothyroxine Sodium 88 mcg PO DAILY 02/26/19 [History] Levothyroxine Sodium 100 mcg PO DAILY 02/26/19 [History] Nitroglycerin 0.4 mg Tablet [Nitrostat 0.4 MG Tablet] 0.4 mg SL UD [History] Umeclidinium [place] [Incruse Ellipta] 62.5 mcg IH DAILY 02/26/19 [History] Hx Tetanus, Diphtheria Vaccination/Date Given: Yes (5 years ago) Hx Influenza Vaccination/Date Given: No Hx Pneumococcal Vaccination/Date Given: No - Review of Systems All Other Systems: Unable due to condition (Delirium/confusion) - Past Medical History Pertinent Past Medical History: Yes Neurological History: No Pertinent History ENT History: No Pertinent History Cardiac History: High Cholesterol, Hypertension, Myocardial Infarction (CO) Respiratory History: COPD Endocrine Medical History: Diabetes Type II, Other Musculoskeletal History: Fractures, Osteoarthritis GI Medical History: No Pertinent History History: No Pertinent History Psycho-Social History: Depression Female Reproductive Disorders: No Pertinent History Other Medical History: THYROID NODULE, HX CO WITHOUT SURGERY, R ANKLE FX W/ ORIF 2007 - Past Surgical History Past Surgical History: Yes Neuro Surgical History: No Pertinent History Cardiac: No Pertinent History Respiratory: No Pertinent History Gastrointestinal: No Pertinent History, Other Genitourinary: No Pertinent History Musculoskeletal: Other Female Surgical History: Tubal Ligation Other Surgical History: RIGHT ANKLE SURGERY, thyroidectomy, left carotid endartertectomy - Social History Smoking Status: Current every day smoker How long have you smoked: 50 + year Exposure to second hand smoke: Yes Drug Use: none Patient Lives Alone: No - Nursing Vital Signs Nursing Vital Signs: Initial Vital Signs Temperature 93.1 F 03/07/19 09:41 Pulse Rate 67 03/07/19 09:41 Blood Pressure 138/81 03/07/19 09:41 O2 Sat by Pulse Oximetry 98 03/07/19 09:41 Pain Scale Pain Intensity 0 - Physical Exam General Appearance: no apparent distress, obese Eye Exam: PERRL/EOMI, eyes nml inspection Ears, Nose, Throat Exam: normal ENT inspection, dry mucous membranes, No pharyngeal erythema, No tonsillar exudate Neck Exam: normal inspection, non-tender Respiratory Exam: diminished breath sounds, other (Lung sounds clear and diminished bilaterally), No respiratory distress, No accessory muscle use Cardiovascular Exam: regular rate/rhythm, normal heart sounds Gastrointestinal/Abdomen Exam: soft, other (Ecchymosis noted to lower abdominal wall which appear to be consistent with recent either lovenox or heparin injections), No tenderness, No distention, No mass, No rebound Pelvic Exam: deferred Back Exam: normal inspection Extremity Exam: pedal edema, swelling, other (Ecchymosis noted to feet and lower extremities were cold to touch) Neurologic Exam: alert, other (Not oriented to place or time. Cannot say all of the month of the year forward or backwards and seems to have trouble focusing. Moving all extremities equally) Skin Exam: dry, ecchymosis, other (Cool to touch in all extremities and centrally), No petechiae, No jaundice SpO2 Interpretation: normal O2 Delivery: Nasal Cannula - Course EKG Interpreted by Me: RATE, Left [place] Deviation, NORMAL QRS, Non-specific ST Changes, Other (EKG appears similar to EKG dated 03/01/19. Negative of STEMI) - Radiology Exams Chest X-ray Interpretation: Interpreted by me, Reviewed by me, No Pneumonia - CT Exams Head CT Interpretation: Other (New near complete opacification of the R mastoid air celled presumed to be inflammatory. Otherwise stable exam compared to prior CT) Ordered Tests: Active Orders 24 hr Category Date Time Status TROPONIN Q3H Lab 03/07/19 16:30 Completed TROPONIN Q3H Lab 03/07/19 19:46 Completed TROPONIN Q3H Lab 03/07/19 22:24 Completed Medication Summary Generic Name Dose Route Start Last Admin Trade Name Freq PRN Reason Stop Dose Admin Albuterol/Ipratropium 3 ml 03/07/19 13:29 Duoneb 0.5-3 Mg/3 Ml Neb IH 04/06/19 13:28 Q4H PRN PRN Wheezing/Chest Congestion Albuterol/Ipratropium 3 ml 03/07/19 15:00 03/08/19 15:02 Duoneb 0.5-3 Mg/3 Ml Neb IH 04/06/19 14:59 3 ml Q4HRT ARELY Administration Amitriptyline HCl 50 mg 03/07/19 22:00 03/07/19 21:07 Amitriptyline Hcl 50 Mg Tablet PO 04/06/19 21:59 50 mg HS ARELY Administration Aspirin 325 mg 03/08/19 10:00 03/08/19 09:39 Ecotrin 325 Mg PO 04/07/19 09:59 325 mg DAILY ARELY Administration Bumetanide 2 mg 03/07/19 17:00 03/08/19 16:03 Bumex 1 Mg PO 04/06/19 16:59 2 mg BID DIURETIC ARELY Administration Calcium Carbonate/Glycine 1,000 mg 03/07/19 22:00 03/08/19 09:48 Tums Ex 750 Mg PO 04/06/19 21:59 1,000 mg BID ARLEY Administration Clopidogrel Bisulfate 75 mg 03/07/19 22:00 03/07/19 21:02 Plavix 75 Mg Tablet PO 04/06/19 21:59 75 mg HS ARELY Administration Duloxetine HCl 60 mg 03/07/19 22:00 03/07/19 21:06 Cymbalta 30 Mg Capsule PO 04/06/19 21:59 60 mg HS ARELY Administration Ergocalciferol 50,000 unit 03/13/19 10:00 Vitamin D2 PO 04/12/19 09:59 Q7D ARELY Ferrous Sulfate 325 mg 03/07/19 22:00 03/08/19 09:39 Feosol 325 Mg PO 01/16/20 21:59 325 mg BID ARELY Administration Gabapentin 800 mg 03/07/19 17:00 03/08/19 16:03 Neurontin 400 Mg PO 04/06/19 16:59 800 mg QID ARELY Administration Ceftriaxone Sodium/Dextrose 1 g in 50 mls @ 100 mls/hr 03/07/19 13:15 09:28 Rocephin 1 Gm-D5w 50 Ml Bag IV 04/06/19 13:14 100 mls/hr Q24H10 ARELY Administration Azithromycin 500 mg in 250 mls @ 125 mls/hr 03/07/19 13:15 03/08/19 09:34 Zithromax 500 Mg/ 250 Ml Nacl Premix IV 04/06/19 13:14 125 mls/hr DAILY ARELY Administration Insulin Aspart 0 unit 03/07/19 12:57 03/07/19 17:28 Novolog Insulin SQ 04/06/19 12:56 12 unit UD PRN Administration HYPERGLYCEMIA Insulin Aspart 10 unit 03/08/19 07:30 03/08/19 11:37 Novolog Insulin SQ 04/07/19 07:29 Not Given 0730,1130 ARELY Levothyroxine Sodium 100 mcg 03/07/19 13:45 03/08/19 09:43 Synthroid 100 Mcg PO 04/06/19 13:44 100 mcg DAILY ARELY Administration Levothyroxine Sodium 88 mcg 03/07/19 14:00 03/08/19 09:44 Synthroid 88 Mcg PO 04/06/19 13:59 88 mcg DAILY ARELY Administration Magnesium Oxide 400 mg 03/07/19 22:00 03/08/19 09:46 Mag-Ox 400 PO 04/06/19 21:59 400 mg BID ARELY Administration Metoprolol Succinate 100 mg 03/07/19 22:00 03/07/19 21:03 Toprol Xl 100 Mg PO 04/06/19 21:59 100 mg HS ARELY Administration Miscellaneous Information 0 each 03/07/19 14:30 Medication Intervention 04/06/19 14:29 .RN TO CHECK WITH PT ARELY Nitroglycerin 0.4 mg 03/07/19 13:30 Nitrostat 0.4 Mg Tablet SL 04/06/19 13:29 UD PRN Potassium Chloride 20 meq 03/07/19 15:00 03/08/19 14:16 Klor Con 10 Meq PO 04/06/19 14:59 20 meq TID ARELY Administration Ropinirole HCl 4 mg 03/07/19 15:00 03/08/19 14:15 Requip 2mg Tab PO 04/06/19 14:59 4 mg TID ARELY Administration Simvastatin 40 mg 03/07/19 22:00 03/07/19 21:16 Zocor 20mg PO 04/06/19 21:59 40 mg HS ARELY Administration Sodium Chloride 10 ml 03/07/19 22:00 03/08/19 13:39 Sodium Chloride 0.9% 10 Ml Flush Syringe IV 04/06/19 21:59 10 ml Q8HT ARELY Administration Sodium Chloride 10 ml 03/07/19 14:45 Sodium Chloride 0.9% 10 Ml Flush Syringe IV 04/06/19 14:44 PRN PRN Topiramate 25 mg 03/07/19 22:00 03/08/19 09:46 Topiramate PO 04/06/19 21:59 25 mg BID ARELY Administration Discontinued Medications Generic Name Dose Route Start Last Admin Trade Name Freq PRN Reason Stop Dose Admin Albuterol Sulfate gm 03/07/19 13:29 Ventolin Hfa Mdi IH 04/06/19 13:28 Q4HPRN PRN SHORTNESS OF BREATH/WHEEZING Dextrose Confirm 03/07/19 11:35 D50w 50 Ml Abboject Administered 03/07/19 11:36 Dose 50 ml IV .STK-MED ONE Dextrose 25 ml 03/07/19 11:36 03/07/19 11:40 D50w 50ml Vial IV 03/07/19 11:37 25 ml ONCE ONE Administration Dextrose Confirm 03/08/19 05:33 D50w 50 Ml Abboject Administered 03/08/19 05:34 Dose 50 ml IV .STK-MED ONE Dextrose 25 ml 03/08/19 05:36 03/08/19 05:37 D50w 50ml Vial IV 03/08/19 05:37 25 ml STAT ONE Administration Sodium Chloride 250 mls @ 500 mls/hr 03/08/19 08:20 03/08/19 08:45 Sodium Chloride 0.9% 500 Ml IV 03/08/19 08:49 500 mls/hr .Q30M ONE Administration Insulin Glargine 60 unit 03/08/19 10:00 Lantus Insulin SQ 04/07/19 09:59 QAM ARELY Topiramate 25 mg 03/07/19 22:00 Topamax 25 Mg PO 04/06/19 21:59 BID [facility] Lab/Rad Data: Laboratory Result Diagrams 03/07/19 10:34 03/07/19 10:07 Laboratory Results 03/07/19 03/07/19 03/07/19 Range/Units 10:34 10:34 10:15 WBC 11.2 H (4.0-10.5) K/mm3 RBC 4.54 (4.1-5.4) M/mm3 Hgb 12.6 (12.0-16.0) gm/dl Hct 40.4 (35-47) % MCV 89.0 (78-100) fl MCH 27.8 (26-32) pg MCHC 31.2 L (32-36) g/dl RDW 13.7 (11.5-14.0) % Plt Count 275 (150-450) K/mm3 MPV 10.4 H (6-9.5) fl Segmented Neutrophils 80 H (36.0-66.0) % Band Neutrophils 2 (0.0-2.0) % Lymphocytes (Manual) 12 L (24-44) % Monocytes (Manual) 6 (0.0-12.0) % Platelet Estimate NORMAL (NORMAL) RBC Morphology NORMAL pO2/FiO2 Ratio % VBG pH (7.32-7.42) VBG pCO2 at Pat Temp (42-55) mm/Hg VBG pO2 at Pat Temp (25-40) mm/Hg VBG HCO3 (22-28) meq/L VBG O2 Sat (Shanthi) (95-100) VBG Base Excess (-2.0-2.0) VBG Hemoglobin VBG Carboxyhemoglobin (0.0-6.9) % T HGB POC Potassium (3.5-5.1) Sodium (137-145) mmol/L Potassium (3.5-5.1) mmol/L Chloride (98-107) mmol/L Carbon Dioxide (22-30) mmol/L Anion Gap (5-15) MEQ/L BUN (7-17) mg/dL Creatinine (0.52-1.04) mg/dL Estimated GFR ML/MIN Glucose (74-106) mg/dL Calcium (8.4-10.2) mg/dL Total Bilirubin (0.2-1.3) mg/dL AST (14-36) U/L ALT (0-35) U/L Alkaline Phosphatase (38-126) U/L Troponin I < 0.012 (0.000-0.034) ng/mL Serum Total Protein (6.3-8.2) g/dL Albumin (3.5-5.0) g/dL TSH 3rd Generation 2.420 (0.47-4.68) mIU/L Urine Color STRAW (YELLOW) Urine Appearance CLEAR (CLEAR) Urine pH 5.0 (5-6) Ur Specific [place] 1.006 (1.005-1.025) Urine Protein 30 (Negative) Urine Ketones NEGATIVE (NEGATIVE) Urine Blood NEGATIVE (0-5) Jose/ul Urine Nitrite NEGATIVE (NEGATIVE) Urine Bilirubin NEGATIVE (NEGATIVE) Urine Urobilinogen NEGATIVE (0-1) mg/dL Ur Leukocyte Esterase NEGATIVE (NEGATIVE) Urine WBC (Auto) 0-2 (0-5) /HPF Urine RBC (Auto) 0-2 (0-2) /HPF U Hyaline Cast (Auto) 0-2 (0-2) /LPF U Epithel Cells (Auto) NONE (FEW) /HPF Urine Bacteria (Auto) NONE (NEGATIVE) /HPF Other Casts (Auto) NEGATIVE (NEGATIVE) /LPF Urine Mucus (Auto) SLIGHT (NEGATIVE) /HPF Urine Yeast (Budding) Few (NEGATIVE) /HPF Urine Culture Reflexed ORDERED SEPARATELY (NO) Urine Glucose NEGATIVE (NEGATIVE) mg/dL 03/07/19 03/07/19 Range/Units 10:09 10:07 WBC (4.0-10.5) K/mm3 RBC (4.1-5.4) M/mm3 Hgb (12.0-16.0) gm/dl Hct (35-47) % MCV (78-100) fl MCH (26-32) pg MCHC (32-36) g/dl RDW (11.5-14.0) % Plt Count (150-450) K/mm3 MPV (6-9.5) fl Segmented Neutrophils (36.0-66.0) % Band Neutrophils (0.0-2.0) % Lymphocytes (Manual) (24-44) % Monocytes (Manual) (0.0-12.0) % Platelet Estimate (NORMAL) RBC Morphology pO2/FiO2 Ratio 28 % VBG pH 7.35 (7.32-7.42) VBG pCO2 at Pat Temp 78 H* (42-55) mm/Hg VBG pO2 at Pat Temp 20 L (25-40) mm/Hg VBG HCO3 43.1 H* (22-28) meq/L VBG O2 Sat (Shanthi) 42.5 L (95-100) VBG Base Excess 13.8 H (-2.0-2.0) VBG Hemoglobin 13.3 VBG Carboxyhemoglobin 3.4 (0.0-6.9) % T HGB POC Potassium 3.0 L* (3.5-5.1) Sodium 143 (137-145) mmol/L Potassium 3.0 L (3.5-5.1) mmol/L Chloride 93 L (98-107) mmol/L Carbon Dioxide 42 H (22-30) mmol/L Anion Gap 11.0 (5-15) MEQ/L BUN 33 H (7-17) mg/dL Creatinine 1.15 H (0.52-1.04) mg/dL Estimated GFR 49.9 ML/MIN Glucose 49 L* (74-106) mg/dL Calcium 7.0 L (8.4-10.2) mg/dL Total Bilirubin 0.40 (0.2-1.3) mg/dL AST 42 H (14-36) U/L ALT 24 (0-35) U/L Alkaline Phosphatase 71 (38-126) U/L Troponin I (0.000-0.034) ng/mL Serum Total Protein 6.2 L (6.3-8.2) g/dL Albumin 3.4 L (3.5-5.0) g/dL TSH 3rd Generation (0.47-4.68) mIU/L Urine Color (YELLOW) Urine Appearance (CLEAR) Urine pH (5-6) Ur Specific [place] (1.005-1.025) Urine Protein (Negative) Urine Ketones (NEGATIVE) Urine Blood (0-5) Jose/ul Urine Nitrite (NEGATIVE) Urine Bilirubin (NEGATIVE) Urine Urobilinogen (0-1) mg/dL Ur Leukocyte Esterase (NEGATIVE) Urine WBC (Auto) (0-5) /HPF Urine RBC (Auto) (0-2) /HPF U Hyaline Cast (Auto) (0-2) /LPF U Epithel Cells (Auto) (FEW) /HPF Urine Bacteria (Auto) (NEGATIVE) /HPF Other Casts (Auto) (NEGATIVE) /LPF Urine Mucus (Auto) (NEGATIVE) /HPF Urine Yeast (Budding) (NEGATIVE) /HPF Urine Culture Reflexed (NO) Urine Glucose (NEGATIVE) mg/dL - Progress Progress: improved Progress Note: 03/07/19 11:04 I reviewed the patient's EOMI specifically for discharge summary dated March 05, 2019 but she did have admitted for pneumonia she was treated with IV meropenem and discontinue hyperglycemia which was treated with insulin. It was noted that the patient had delirium during her hospitalization it appears she had a brain MRI that was relatively benign with the exception of some atrophy and microvascular changes. It appears she was on 4 LPM supplemental O2 via NC and there was documented Bipap/Cpap dated 02/26/19 but is unclear if she actually received this. She did have an episode of hypoglycemia during her hospitalization. 03/07/19 11:[address] and CXR reviewed by me and with evidence of ? fluid in R mastoid ? mastoiditis. Labs reviewed with evidence of hypoglycemia and patient ordered meal tray to eat. Core temp 93 F and she is currently being rewarmed. Respiratory rate reportedly 14 breaths/min per nursing. An anchored [place] was placed and noted to return over 2 L of urine. Patient also present with incontinence and this likely represents overflow incontinence. I plan to readmit the patient for hypoglycemia, hypothermia and hypercapnic respiratory failure, as well as confusion/delirium. In my opinion, the patient cannot be safely discharged home and will likely need facility placement upon being discharged. 03/07/19 11:17 Patient's BGL rechecked and is now 35. 1/2 amp of D50 ordered. 03/07/19 11:39 Corrected serum calcium 7.5 Discussed with : Shelly Will see patient in: hospital (full admit), other (Dr. Crespo was informed of persistent hypoglycemia and hypothermia and possible need for D10 infusion. He stated he would enter admission/tuckin orders.) Counseled pt/family regarding: lab results, diagnosis, rad results - Departure Departure Disposition: Home, In-patient Admission, Extended Care Facility Clinical Impression: Hypoglycemia, Hypothermia, Hypocalcemia, CKD (chronic kidney disease), Acute urinary retention, Overflow incontinence of urine, Hypercapnia, Hypokalemia COPD (chronic obstructive pulmonary disease) Qualifiers: COPD type: COPD with acute lower respiratory infection Qualified Code(s): J44.0 - Chronic obstructive pulmonary disease with (acute) lower respiratory infection Condition: Fair Critical Care Time: Yes Critical Care Time(excluding separately billable procedures): Critical 30-74 mins
[2019-03-07 10:38] LABS: Hematocrit 40.4 % (35-47); Hemoglobin 12.6 gm/dl (12.0-16.0); Mean Corpuscular Hemoglobin 27.8 pg (26-32); Mean Corpuscular Hgb Concent. 31.2 g/dl (32-36); Mean Platelet Volume 10.4 fl (6-9.5); Platelet Count 275 K/mm3 (150-450); Red Blood Count 4.54 M/mm3 (4.1-5.4); Red Cell Distribution Width 13.7 % (11.5-14.0); White Blood Count 11.2 K/mm3 (4.0-10.5)
[2019-03-07 10:41] LABS: Appearance CLEAR (CLEAR); Bilirubin NEGATIVE (NEGATIVE); Blood NEGATIVE Ery/ul (0-5); Glucose NEGATIVE (NEGATIVE); Hyaline Casts 0-2 /LPF (0-2); Ketones NEGATIVE (NEGATIVE); Leukocyte Esterase NEGATIVE (NEGATIVE); Mucus SLIGHT /HPF (NEGATIVE); Nitrite NEGATIVE (NEGATIVE); Protein,Urine Dip 30 (Negative); RBC 0-2 /HPF (0-2); Specific Gravity 1.006 (1.005-1.025); Urobilinogen NEGATIVE mg/dL (0-1); WBC 0-2 /HPF (0-5)
[2019-03-07 10:44] LABS: VBG BASE EXCESS 13.8 (-2.0-2.0); VBG CARBOXYHEMOGLOBIN 3.4 % T HGB (0.0-6.9); VBG HCO3- 43.1 meq/L (22-28); VBG pH 7.35 (7.32-7.42)
[2019-03-07 10:46] LABS: VBG HEMOGLOBIN 13.3; VBG O2 SATURATION 42.5 (95-100)
[2019-03-07 10:51] LABS: ALBUMIN 3.4 g/dL (3.5-5.0); BILIRUBIN,TOTAL 0.4 mg/dL (0.2-1.3); Creatinine 1 1.15 mg/dL (0.52-1.04); Total Protein 6.2 g/dL (6.3-8.2)
[2019-03-07 10:53] LABS: Budding Yeast Few /HPF (NEGATIVE)
--- NOTE | 2019-03-07 11:10 | XRAY ---
Indication: Confusion. Hypoglycemia. Multiple contiguous axial images obtained through the head without contrast. Comparison: February 28, 2019. Stable age-appropriate global atrophy and mild periventricular degenerative micro-ischemia bilaterally. Again no acute intracranial hemorrhage, abnormal extra-axial fluid collection, or mass effect. Fourth ventricle is midline. Bony calvarium intact. There is now near-complete opacification of the right mastoid air cells. Stable benign left scalp calcified mass. Impression: 1. Stable nonacute senile brain. 2. New near complete opacification of the right mastoid air cells presumed inflammatory. CT DI 54.17
--- NOTE | 2019-03-07 11:12 | XRAY ---
Indication: Confusion. Hypoglycemia. Comparison: March 03, 2019. Portable chest is now clear. Heart is not enlarged for AP portable technique. No new/acute findings.
[2019-03-07 11:18] LABS: BAND 2 % (0.0-2.0); Lymphocytes 12 % (24-44); Monocyte 6 % (0.0-12.0); Neutrophils 80 % (36.0-66.0); Total Cells Counted 100
[2019-03-07 11:19] LABS: Platelet Estimate NORMAL (NORMAL)
[2019-03-07 11:22] LABS: TROPONIN < 0.012 ng/mL (0.000-0.034)
[2019-03-07] MEDS ORDERED: D50W 50 ml Abboject IV ONE (11:35)
[2019-03-07] MEDS ORDERED: D50W 50ML Vial IV ONE (11:36)
[2019-03-07] MEDS ORDERED: NovoLOG Insulin SQ PRN (12:57)
--- NOTE | 2019-03-07 13:04 | PCM.HP ---
History of Present Illness - Chief Complaint Chief Complaint: Hypoglycemia at [facility] History of Present Illness: is a 68 year old female with a past medical history significant for COPD in which she uses supplemental oxygen at home reportedly to 4 L per minute via nasal cannula at night, recent hospitalization for pneumonia and hyperglycemia in which he was released on March 05, 2019, delirium that she suffered during her course recent hospitalization, diabetes mellitus, and chronic pain/neuropathy presents with a chief complaint of altered mental status. Of note, the patient was transported to the emergency department after she was picked up from home. EMS reports that the noted that she seemed to be in a "deep sleep" earlier this morning and not to leave her alone told her to rest. But she did not wake later in the morning, he checked her blood sugar and got a reading of 30. When EMS was called and arrived on scene they found the patient to have an altered mental status and be confused lying in bed. They checked her blood sugar and got a reading of 28 and establish a peripheral IV and administered 25 g of dextrose 50% water. The patient awoke and was more alert however she seemed to be confused. Ultimately, she was transported to the emergency department for further evaluation and management due to her ongoing confusion. The patient currently denies pain and is awake and alert however she is not oriented she time and cannot say the months of the year for it nor can she said and backwards. I'm concerned the patient may be suffering from a neurological insult from her hyperglycemia or may still be delirious and therefore details pertaining to the history of present illness related because of this. she cannot tell me to administer her insulin or insulin was administered at all this morning or last night. She tells me that she lives at home with her and her reportedly is 8 years older than her. - Review of Systems Constitutional: No Fever, No Chills Eyes: No Symptoms Ears, Nose, & Throat: No Symptoms Respiratory: Cough, Orthopnea, Short Of Breath, Wheezing Cardiac: No Chest Pain, No Edema, No Syncope Abdominal/Gastrointestinal: No Abdominal Pain, No Nausea, No Vomiting, No Diarrhea Genitourinary Symptoms: No Dysuria Musculoskeletal: No Back Pain, No Neck Pain Skin: No Rash Neurological: No Dizziness, No Focal Weakness, No Sensory Changes Psychological: No Symptoms Endocrine: No Symptoms Hematologic/Lymphatic: No Symptoms Immunological/Allergic: No Symptoms Medications & Allergies Home Medications: Home Medication List Aspirin [Aspirin EC] 325 mg PO QAM 10/09/13 [History Confirmed 03/07/19] Clopidogrel Bisulfate 75 mg [PLAVIX 75 MG Tablet] 75 mg PO HS 10/09/13 [ History Confirmed 03/07/19] Metoprolol Succinate [Toprol Xl] 100 mg PO HS 02/03/15 [History Confirmed ] Duloxetine HCl [Cymbalta] 60 mg PO HS 08/17/17 [History Confirmed 03/07/19] AMITRIPTYLINE HCL 50 mg Tab [AMITRIPTYLINE HCL 50 mg Tablet] 50 mg PO HS [History Confirmed 03/07/19] Albuterol 8 gm Mdi Hfa [Ventolin Hfa MDI] 2 puff IH Q4HPRN PRN 07/16/18 [ History Confirmed 03/07/19] Atorvastatin Calcium [Lipitor] 40 mg PO HS 07/16/18 [History Confirmed 03/07/19] Gabapentin [Neurontin] 800 mg PO QID 07/16/18 [History Confirmed 03/07/19] Ropinirole HCl 4 mg PO TID 07/16/18 [History Confirmed 03/07/19] Topiramate 25 mg [Topamax 25 MG] 25 mg PO BID 07/16/18 [History Confirmed 03/07/19] Bumetanide 1 mg [Bumex 1 mg] 2 mg PO BID #30 tablet 07/24/18 [Rx Confirmed 03/07/19] Insulin Aspart [NovoLOG Insulin] 10 unit SQ 0730,1130 #1 unit 07/24/18 [Rx Confirmed 03/07/19] Insulin Degludec [Tresiba Flextouch U-100] 60 unit SQ QAM #1 insuln.pen [Rx Confirmed 03/07/19] Albuterol/Ipratropium 3ml Neb* [DUONEB 0.5-3 MG/3 ml Neb] 3 ml NEBULIZE Q4H PRN PRN #1 box 02/02/19 [Rx Confirmed 03/07/19] Nebulizer 1 each MC Q4H PRN PRN #1 kit 02/02/19 [Rx Confirmed 03/07/19] Ferrous Sulfate 325 mg [Feosol 325 mg] 325 mg PO BID 02/26/19 [History Confirmed 03/07/19] Levothyroxine Sodium 88 mcg PO DAILY 02/26/19 [History Confirmed 03/07/19] Levothyroxine Sodium 100 mg PO DAILY 02/26/19 [History Confirmed 03/07/19] Nitroglycerin 0.4 mg Tablet [Nitrostat 0.4 MG Tablet] 0.4 mg SL UD [History Confirmed 03/07/19] Umeclidinium [place] [Incruse Ellipta] 62.5 mcg IH DAILY 02/26/19 [History Confirmed 03/07/19] Calcium Carbonate 750 mg [Tums EX 750 MG] 1,000 mg PO BID #1 bottle [Rx Confirmed 03/07/19] Cefdinir 300 mg PO BID #12 capsule 03/05/19 [Rx Confirmed 03/07/19] Ergocalciferol (Vitamin D2) [Vitamin D2] 50,000 unit PO Q7D #4 capsule 03/05/19 [Rx Confirmed 03/07/19] Magnesium Oxide 400 mg [Mag-Ox 400] 400 mg PO BID #60 tablet 03/05/19 [Rx Confirmed 03/07/19] Potassium Chloride 10 Meq Tab* [Klor Con 10 MEQ] 20 meq PO TID #90 tab [Rx Confirmed 03/07/19] Prednisone 20 mg [Deltasone 20 mg] 20 mg PO DAILY #15 tablet 03/05/19 [Rx Confirmed 03/07/19] Allergies/Adverse Reactions: Allergies Allergy/AdvReac Type Severity Reaction Status Date / Time No Known Drug Allergies Allergy Verified 03/07/19 09:38 - Past Medical History Past Medical History: Yes Neurological History: No Pertinent History ENT History: No Pertinent History Cardiac History: High Cholesterol, Hypertension, Myocardial Infarction (DE) Respiratory History: COPD, Pneumonia Endocrine Medical History: Diabetes Type II, Other Musculoskelatal History: Fractures, Osteoarthritis GI Medical History: No Pertinent History History: No Pertinent History Pyscho-Social History: Depression Reproductive Disorders: No Pertinent History Comment: THYROID NODULE, HX DE WITHOUT SURGERY, R ANKLE FX W/ ORIF 2007 - Past Surgical History Past Surgical History: Yes Neuro Surgical History: No Pertinent History Cardiac History: No Pertinent History Respiratory Surgery: No Pertinent History GI Surgical History: No Pertinent History Genitourinary Surgical Hx: No Pertinent History Musculskeletal Surgical Hx: Other Female Surgical History: Tubal Ligation Other Surgical History: RIGHT ANKLE SURGERY, thyroidectomy, left carotid endartertectomy - Social History Smoking Status: Current every day smoker How long have you smoked: 50 + year Exposure to second hand smoke: Yes Alcohol: None Drug Use: none - Physical Exam Vital Signs: Vital Signs - 24 hr Temp Pulse Resp BP Pulse Ox 03/07/19 12:25 98 F 75 22 160/73 97 03/07/19 11:49 72 18 160/95 99 03/07/19 11:14 70 157/79 97 03/07/19 11:10 94 L 03/07/19 09:41 93.1 F 67 138/81 98 Oxygen-Last 24 hours O2 Percentage 2 Liters = 28% O2 Percentage 4 Liters = 36% O2 Percentage 2 Liters = 28% O2 Percentage 2 Liters = 28% General Appearance: no apparent distress, alert Neurologic Exam: alert, oriented x 3, cooperative, normal mood/affect, nml cerebellar function, nml station & gait, sensation nml, No motor deficits Eye Exam: PERRL/EOMI, eyes nml inspection Ears, Nose, Throat Exam: normal ENT inspection, TMs normal, pharynx normal, moist mucous membranes Neck Exam: normal inspection, non-tender, supple, full range of motion Respiratory Exam: normal breath sounds, diminished breath sounds, prolonged expirations, crackles/rales, rhonchi, wheezing, No respiratory distress Cardiovascular Exam: regular rate/rhythm, normal heart sounds, normal peripheral pulses Gastrointestinal/Abdomen Exam: soft, normal bowel sounds, No tenderness, No mass Back Exam: normal inspection, normal range of motion, No CVA tenderness, No vertebral tenderness Extremity Exam: normal inspection, normal range of motion, pelvis stable Skin Exam: normal color, warm, dry, No rash Lymphatic Exam: No adenopathy Results - Labs Lab/Micro Results: Accuchecks Accucheck Value: 79 Accucheck Value: 35 Lab Results-Last 24 Hours 12/17/19 12/17/19 12/17/19 Range/Units 10:07 10:09 10:15 WBC (4.0-10.5) K/mm3 RBC (4.1-5.4) M/mm3 Hgb (12.0-16.0) gm/dl Hct (35-47) % MCV (78-100) fl MCH (26-32) pg MCHC (32-36) g/dl RDW (11.5-14.0) % Plt Count (150-450) K/mm3 MPV (6-9.5) fl Segmented Neutrophils (36.0-66.0) % Band Neutrophils (0.0-2.0) % Lymphocytes (Manual) (24-44) % Monocytes (Manual) (0.0-12.0) % Platelet Estimate (NORMAL) RBC Morphology pO2/FiO2 Ratio 28 % VBG pH 7.35 (7.32-7.42) VBG pCO2 at Pat Temp 78 H* (42-55) mm/Hg VBG pO2 at Pat Temp 20 L (25-40) mm/Hg VBG HCO3 43.1 H* (22-28) meq/L VBG O2 Sat (Shanthi) 42.5 L (95-100) VBG Base Excess 13.8 H (-2.0-2.0) VBG Hemoglobin 13.3 VBG Carboxyhemoglobin 3.4 (0.0-6.9) % T HGB POC Potassium 3.0 L* (3.5-5.1) Sodium 143 (137-145) mmol/L Potassium 3.0 L (3.5-5.1) mmol/L Chloride 93 L (98-107) mmol/L Carbon Dioxide 42 H (22-30) mmol/L Anion Gap 11.0 (5-15) MEQ/L BUN 33 H (7-17) mg/dL Creatinine 1.15 H (0.52-1.04) mg/dL Estimated GFR 49.9 ML/MIN Glucose 49 L* (74-106) mg/dL Calcium 7.0 L (8.4-10.2) mg/dL Total Bilirubin 0.40 (0.2-1.3) mg/dL AST 42 H (14-36) U/L ALT 24 (0-35) U/L Alkaline Phosphatase 71 (38-126) U/L Troponin I < 0.012 (0.000-0.034) ng/mL Serum Total Protein 6.2 L (6.3-8.2) g/dL Albumin 3.4 L (3.5-5.0) g/dL TSH 3rd Generation 2.420 (0.47-4.68) mIU/L Urine Color (YELLOW) Urine Appearance (CLEAR) Urine pH (5-6) Ur Specific [place] (1.005-1.025) Urine Protein (Negative) Urine Ketones (NEGATIVE) Urine Blood (0-5) Jose/ul Urine Nitrite (NEGATIVE) Urine Bilirubin (NEGATIVE) Urine Urobilinogen (0-1) mg/dL Ur Leukocyte Esterase (NEGATIVE) Urine WBC (Auto) (0-5) /HPF Urine RBC (Auto) (0-2) /HPF U Hyaline Cast (Auto) (0-2) /LPF U Epithel Cells (Auto) (FEW) /HPF Urine Bacteria (Auto) (NEGATIVE) /HPF Other Casts (Auto) (NEGATIVE) /LPF Urine Mucus (Auto) (NEGATIVE) /HPF Urine Yeast (Budding) (NEGATIVE) /HPF Urine Culture Reflexed (NO) Urine Glucose (NEGATIVE) mg/dL 03/07/19 03/07/19 Range/Units 10:34 10:34 WBC 11.2 H (4.0-10.5) K/mm3 RBC 4.54 (4.1-5.4) M/mm3 Hgb 12.6 (12.0-16.0) gm/dl Hct 40.4 (35-47) % MCV 89.0 (78-100) fl MCH 27.8 (26-32) pg MCHC 31.2 L (32-36) g/dl RDW 13.7 (11.5-14.0) % Plt Count 275 (150-450) K/mm3 MPV 10.4 H (6-9.5) fl Segmented Neutrophils 80 H (36.0-66.0) % Band Neutrophils 2 (0.0-2.0) % Lymphocytes (Manual) 12 L (24-44) % Monocytes (Manual) 6 (0.0-12.0) % Platelet Estimate NORMAL (NORMAL) RBC Morphology NORMAL pO2/FiO2 Ratio % VBG pH (7.32-7.42) VBG pCO2 at Pat Temp (42-55) mm/Hg VBG pO2 at Pat Temp (25-40) mm/Hg VBG HCO3 (22-28) meq/L VBG O2 Sat (Shanthi) (95-100) VBG Base Excess (-2.0-2.0) VBG Hemoglobin VBG Carboxyhemoglobin (0.0-6.9) % T HGB POC Potassium (3.5-5.1) Sodium (137-145) mmol/L Potassium (3.5-5.1) mmol/L Chloride (98-107) mmol/L Carbon Dioxide (22-30) mmol/L Anion Gap (5-15) MEQ/L BUN (7-17) mg/dL Creatinine (0.52-1.04) mg/dL Estimated GFR ML/MIN Glucose (74-106) mg/dL Calcium (8.4-10.2) mg/dL Total Bilirubin (0.2-1.3) mg/dL AST (14-36) U/L ALT (0-35) U/L Alkaline Phosphatase (38-126) U/L Troponin I (0.000-0.034) ng/mL Serum Total Protein (6.3-8.2) g/dL Albumin (3.5-5.0) g/dL TSH 3rd Generation (0.47-4.68) mIU/L Urine Color STRAW (YELLOW) Urine Appearance CLEAR (CLEAR) Urine pH 5.0 (5-6) Ur Specific [place] 1.006 (1.005-1.025) Urine Protein 30 (Negative) Urine Ketones NEGATIVE (NEGATIVE) Urine Blood NEGATIVE (0-5) Jose/ul Urine Nitrite NEGATIVE (NEGATIVE) Urine Bilirubin NEGATIVE (NEGATIVE) Urine Urobilinogen NEGATIVE (0-1) mg/dL Ur Leukocyte Esterase NEGATIVE (NEGATIVE) Urine WBC (Auto) 0-2 (0-5) /HPF Urine RBC (Auto) 0-2 (0-2) /HPF U Hyaline Cast (Auto) 0-2 (0-2) /LPF U Epithel Cells (Auto) NONE (FEW) /HPF Urine Bacteria (Auto) NONE (NEGATIVE) /HPF Other Casts (Auto) NEGATIVE (NEGATIVE) /LPF Urine Mucus (Auto) SLIGHT (NEGATIVE) /HPF Urine Yeast (Budding) Few (NEGATIVE) /HPF Urine Culture Reflexed ORDERED SEPARATELY (NO) Urine Glucose NEGATIVE (NEGATIVE) mg/dL Accuchecks Accucheck Value: 79 Accucheck Value: 35 - Radiology Impressions Radiology Exams & Impressions: Radiology Procedures Category Date Time Status CHEST 2 VIEWS (PA AND LAT) Stat Exams 03/07/19 10:08 Completed HEAD WITHOUT CONTRAST [CT] Stat Exams 03/07/19 10:09 Completed Assessment/Plan (1) COPD exacerbation Current Visit: Yes Status: Acute Assessment & Plan: Chief Complaint Diagnosis Hypoglycemia Allergies Allergy/AdvReac Type Severity Reaction Status Date / Time No Known Drug Allergies Allergy Verified 03/07/19 09:38 Vital Signs (Last 24 hours) Temp Pulse Resp BP Pulse Ox 03/07/19 12:25 98 F 75 22 160/73 97 03/07/19 11:49 72 18 160/95 99 03/07/19 11:14 70 157/79 97 03/07/19 11:10 94 L 03/07/19 09:41 93.1 F 67 138/81 98 Current Medications Generic Name Dose Route Start Last Admin Trade Name Freq PRN Reason Stop Dose Admin Insulin Aspart 0 unit 03/07/19 12:57 Novolog Insulin SQ 04/06/19 12:56 UD PRN HYPERGLYCEMIA Discontinued Medications Generic Name Dose Route Start Last Admin Trade Name Freq PRN Reason Stop Dose Admin Dextrose Confirm 03/07/19 11:35 D50w 50 Ml Abboject Administered 03/07/19 11:36 Dose 50 ml IV .STK-MED ONE Dextrose 25 ml 03/07/19 11:36 03/07/19 11:40 D50w 50ml Vial IV 03/07/19 11:37 25 ml ONCE ONE Administration Intake & Output (Last 24 hours) 03/05/19 03/06/19 03/07/19 03/08/19 11:59 11:59 11:59 11:59 Weight 106.594 kg Microbiology Results (Last 24 hours) 03/07/19 10:34 Catherized Urine Culture - Pending Laboratory Results (Last 24 hours) 03/07/19 03/07/19 03/07/19 10:34 10:34 10:15 WBC 11.2 H RBC 4.54 Hgb 12.6 Hct 40.4 MCV 89.0 MCH 27.8 MCHC 31.2 L RDW 13.7 Plt Count 275 MPV 10.4 H Segmented Neutrophils 80 H Band Neutrophils 2 Lymphocytes (Manual) 12 L Monocytes (Manual) 6 Platelet Estimate NORMAL RBC Morphology NORMAL pO2/FiO2 Ratio VBG pH VBG pCO2 at Pat Temp VBG pO2 at Pat Temp VBG HCO3 VBG O2 Sat (Shanthi) VBG Base Excess VBG Hemoglobin VBG Carboxyhemoglobin POC Potassium Sodium Potassium Chloride Carbon Dioxide Anion Gap BUN Creatinine Estimated GFR Glucose Calcium Total Bilirubin AST ALT Alkaline Phosphatase Troponin I < 0.012 Serum Total Protein Albumin TSH 3rd Generation 2.420 Urine Color STRAW Urine Appearance CLEAR Urine pH 5.0 Ur Specific [place] 1.006 Urine Protein 30 Urine Ketones NEGATIVE Urine Blood NEGATIVE Urine Nitrite NEGATIVE Urine Bilirubin NEGATIVE Urine Urobilinogen NEGATIVE Ur Leukocyte Esterase NEGATIVE Urine WBC (Auto) 0-2 Urine RBC (Auto) 0-2 U Hyaline Cast (Auto) 0-2 U Epithel Cells (Auto) NONE Urine Bacteria (Auto) NONE Other Casts (Auto) NEGATIVE Urine Mucus (Auto) SLIGHT Urine Yeast (Budding) Few Urine Culture Reflexed ORDERED SEPARATELY Urine Glucose NEGATIVE 03/07/19 03/07/19 10:09 10:07 WBC RBC Hgb Hct MCV MCH MCHC RDW Plt Count MPV Segmented Neutrophils Band Neutrophils Lymphocytes (Manual) Monocytes (Manual) Platelet Estimate RBC Morphology pO2/FiO2 Ratio 28 VBG pH 7.35 VBG pCO2 at Pat Temp 78 H* VBG pO2 at Pat Temp 20 L VBG HCO3 43.1 H* VBG O2 Sat (Shanthi) 42.5 L VBG Base Excess 13.8 H VBG Hemoglobin 13.3 VBG Carboxyhemoglobin 3.4 POC Potassium 3.0 L* Sodium 143 Potassium 3.0 L Chloride 93 L Carbon Dioxide 42 H Anion Gap 11.0 BUN 33 H Creatinine 1.15 H Estimated GFR 49.9 Glucose 49 L* Calcium 7.0 L Total Bilirubin 0.40 AST 42 H ALT 24 Alkaline Phosphatase 71 Troponin I Serum Total Protein 6.2 L Albumin 3.4 L TSH 3rd Generation Urine Color Urine Appearance Urine pH Ur Specific [place] Urine Protein Urine Ketones Urine Blood Urine Nitrite Urine Bilirubin Urine Urobilinogen Ur Leukocyte Esterase Urine WBC (Auto) Urine RBC (Auto) U Hyaline Cast (Auto) U Epithel Cells (Auto) Urine Bacteria (Auto) Other Casts (Auto) Urine Mucus (Auto) Urine Yeast (Budding) Urine Culture Reflexed Urine Glucose Orders (Last 24 hours) Category Date Time Status Accucheck ACHS Care 03/07/19 10:10 Active Admit as Inpatient ROUTINE Care 03/07/19 11:48 Active Engineering Supplies Sales STAT Care 03/07/19 10:10 Completed Cath [Catheter-Brea [place]] STAT Care 03/07/19 10:32 Active EKG-ER Only STAT Care 03/07/19 10:10 Completed Pulse Oximetry (ED) STAT Care 03/07/19 10:10 Completed 1800 Calorie ADA Diet 03/07/19 Lunch Active CHEST 2 VIEWS (PA AND LAT) Stat Exams 03/07/19 10:08 Completed HEAD WITHOUT CONTRAST [CT] Stat Exams 03/07/19 10:09 Completed CBC W DIFF Stat Lab 03/07/19 10:34 Completed CMP Stat Lab 03/07/19 10:07 Completed CULTURE,URINE Stat Lab 03/07/19 10:34 Received Manual Differential NC Stat Lab 03/07/19 10:34 Completed TROPONIN Q3H Lab 03/07/19 10:15 Completed TROPONIN Q3H Lab 03/07/19 10:34 Received TROPONIN Q3H Lab 03/07/19 16:15 Ordered TROPONIN Q3H Lab 03/07/19 19:15 Ordered TROPONIN Q3H Lab 03/07/19 22:15 Ordered TSH, 3RD Generation Routine Lab 03/07/19 10:15 Completed UA W/RFX UR CULTURE Stat Lab 03/07/19 10:34 Completed VENOUS BLOOD GAS Stat Lab 03/07/19 10:09 Completed Dextrose 50%-Water 50 ml Vial* [D50W 50ML Vial] Med 03/07/19 11:36 Discontinued 25 ml IV ONCE ONE Dextrose 50%-Water Syringe [D50W 50 ml Abboject] Med 03/07/19 11:35 Discontinued 50 ml IV .STK-MED ONE Insulin Aspart [NovoLOG Insulin] Med 03/07/19 12:57 Ordered See Dose Instructions SQ UD PRN Code(s): J44.1 - CHRONIC OBSTRUCTIVE PULMONARY DISEASE W (ACUTE) EXACERBATION (2) COPD (chronic obstructive pulmonary disease) Current Visit: Yes Status: Chronic Qualifiers: COPD type: COPD with acute lower respiratory infection Qualified Code(s): J44.0 - Chronic obstructive pulmonary disease with (acute) lower respiratory infection (3) CAD (coronary artery disease) Current Visit: Yes Status: Chronic Qualifiers: Coronary Disease-Associated Artery/Lesion type: [place] artery Code(s): I25.10 - ATHSCL HEART DISEASE OF [place] CORONARY ARTERY W/O ANG PCTRS (4) CHF (congestive heart failure) Current Visit: No Status: Chronic Qualifiers: Heart failure type: combined systolic and diastolic Code(s): I50.9 - HEART FAILURE, UNSPECIFIED (5) Chronic renal failure Current Visit: No Status: Chronic Qualifiers: Chronic kidney disease stage: stage 3 (moderate) (6) HTN (hypertension) Current Visit: No Status: Chronic Qualifiers: Hypertension type: essential hypertension Code(s): I10 - ESSENTIAL (PRIMARY) HYPERTENSION
[2019-03-07] MEDS ORDERED: DUONEB 0.5-3 MG/3 ml Neb IH PRN (13:29)
[2019-03-07] MEDS ORDERED: Ventolin Hfa MDI IH PRN (13:29)
[2019-03-07] MEDS ORDERED: Nitrostat 0.4 MG Tablet SL PRN (13:30)
[2019-03-07 13:48] LABS: Hematocrit 38.1 % (35-47); Hemoglobin 12.3 gm/dl (12.0-16.0); Mean Cell Volume 87.4 fl (78-100); Mean Corpuscular Hemoglobin 28.2 pg (26-32); Mean Corpuscular Hgb Concent. 32.3 g/dl (32-36); Mean Platelet Volume 10.2 fl (6-9.5); Platelet Count 273 K/mm3 (150-450); Red Blood Count 4.36 M/mm3 (4.1-5.4); Red Cell Distribution Width 13.5 % (11.5-14.0); White Blood Count 11.4 K/mm3 (4.0-10.5)
[2019-03-07 14:15] LABS: ANION GAP 11.5 MEQ/L (5-15); BLOOD UREA NITROGEN 31 mg/dL (7-17); CHLORIDE 92 mmol/L (98-107); Carbon Dioxide 38 mmol/L (22-30); Creatinine 1 0.98 mg/dL (0.52-1.04); Glucose 119 mg/dL (74-106); Potassium 3.6 mmol/L (3.5-5.1); SODIUM 138 mmol/L (137-145)
[2019-03-07 14:18] LABS: TROPONIN < 0.012 ng/mL (0.000-0.034)
[2019-03-07] MEDS: DUONEB 0.5-3 MG/3 ml Neb IH SCH ×3 (14:26→23:07)
[2019-03-07] MEDS ORDERED: MEDICATION INTERVENTION MC SCH (14:30)
[2019-03-07] MEDS ORDERED: Sodium Chloride 0.9% 10 ML FLUSH Syringe IV PRN (14:45)
[2019-03-07] MEDS: Klor Con 10 MEQ PO SCH ×2 (14:50→21:06)
[2019-03-07] MEDS: REQUIP 2MG TAB PO SCH ×2 (14:50→21:06)
[2019-03-07] MEDS: SYNTHROID 100 MCG PO SCH (14:51)
[2019-03-07] MEDS: Zithromax 500 MG/ 250 ML NaCl Premix 500 MG/250 ML IVPB IV SCH (14:56)
[2019-03-07] MEDS ORDERED: ROPINIROLE HCL 4 MG PO SCH (15:00)
[2019-03-07] MEDS: SYNTHROID 88 MCG PO SCH (16:03)
[2019-03-07] MEDS: ROCEPHIN 1 Gm-D5w 50 ml Bag** 1 G/50 ML IVPB IV SCH (16:46)
[2019-03-07] MEDS: BUMEX 1 MG PO SCH (16:46)
[2019-03-07] MEDS: Neurontin 400 MG PO SCH ×2 (16:46→21:02)
[2019-03-07] MEDS: PLAVIX 75 MG Tablet PO SCH (21:02)
[2019-03-07] MEDS: FEOSOL 325 MG PO SCH (21:02)
[2019-03-07] MEDS: MAG-OX 400 PO SCH (21:02)
[2019-03-07] MEDS: TOPIRAMATE PO SCH (21:03)
[2019-03-07] MEDS: Toprol Xl 100 MG PO SCH (21:03)
[2019-03-07] MEDS: Cymbalta 30 MG Capsule PO SCH (21:06)
[2019-03-07] MEDS: Sodium Chloride 0.9% 10 ML FLUSH Syringe IV SCH (21:07)
[2019-03-07] MEDS: Tums EX 750 MG PO SCH (21:07)
[2019-03-07] MEDS: ZOCOR 20MG PO SCH (21:16)
[2019-03-07] MEDS ORDERED: Topamax 25 MG PO SCH (22:00)
[2019-03-07] MEDS ORDERED: NON-FORMULARY ITEM (Duloxetine Hcl [Cymbalta] 60 MG) PO SCH (22:00)
[2019-03-07] MEDS ORDERED: NON-FORMULARY ITEM (Atorvastatin Calcium [Lipitor] 40 MG) PO SCH (22:00)
[2019-03-08] MEDS: DUONEB 0.5-3 MG/3 ml Neb IH SCH ×6 (03:13→22:57)
[2019-03-08 05:23] LABS: Hematocrit 34.2 % (35-47); Hemoglobin 10.8 gm/dl (12.0-16.0); Mean Cell Volume 88.1 fl (78-100); Mean Corpuscular Hemoglobin 27.8 pg (26-32); Mean Corpuscular Hgb Concent. 31.6 g/dl (32-36); Mean Platelet Volume 10.5 fl (6-9.5); Platelet Count 290 K/mm3 (150-450); Red Blood Count 3.88 M/mm3 (4.1-5.4); Red Cell Distribution Width 13.7 % (11.5-14.0); White Blood Count 12.1 K/mm3 (4.0-10.5)
[2019-03-08 05:26] LABS: Creatinine 1 1.09 mg/dL (0.52-1.04); Potassium 3.2 mmol/L (3.5-5.1)
[2019-03-08] MEDS ORDERED: D50W 50 ml Abboject IV ONE (05:33)
[2019-03-08 05:34] LABS: ANION GAP 13.2 MEQ/L (5-15)
[2019-03-08] MEDS ORDERED: D50W 50ML Vial IV ONE (05:36)
[2019-03-08 06:10] LABS: ATYPICAL LYMPHS 2 %; Eosinophil 3 % (0.00-3.0); Lymphocytes 20 % (24-44); Monocyte 5 % (0.0-12.0); Neutrophils 70 % (36.0-66.0); Total Cells Counted 100
[2019-03-08 06:11] LABS: Platelet Estimate NORMAL (NORMAL)
[2019-03-08] MEDS: Sodium Chloride 0.9% 10 ML FLUSH Syringe IV SCH ×3 (06:42→21:03)
[2019-03-08] MEDS: NovoLOG Insulin SQ SCH ×2 (08:31→11:37)
--- NOTE | 2019-03-08 09:19 | PCM.NOTE ---
Date and Time: 03/08/19914 Subjective Assessment: Pt's BS again in the 30s this morning, had come up to 102. However she is currently being rechecked again; she was not oriented to place or month for me, was repeating phrases. Excited to eat breakfast but having a hard time getting the food to her mouth secondary to being a little confused. - Review of Systems Constitutional: No Fever Neurological: Other (disoriented) Objective Exam General Appearance: no apparent distress, alert (does state clearly "I want to go home") Neurologic Exam: disoriented, other (occasionally has small jerk of bilat UE) Skin Exam: normal color, warm, dry, No rash Eye Exam: eyes nml inspection Ears, Nose, Throat Exam: moist mucous membranes Neck Exam: normal inspection Respiratory Exam: diminished breath sounds, wheezing, No crackles/rales, No rhonchi Cardiovascular Exam: regular rate/rhythm, normal heart sounds, No murmur Gastrointestinal/Abdomen Exam: soft, normal bowel sounds, No tenderness, No distention, No mass, No guarding, No rebound Extremity Exam: No pedal edema, No swelling Back Exam: normal inspection, No rash OBJECTIVE DATA Vital Signs: Vital Signs - 24 hr Temp Pulse Resp BP Pulse Ox 03/08/19 07:12 98.4 F 68 18 80/54 96 03/08/19 03:49 98.4 F 78 18 120/53 95 03/08/19 03:15 78 18 95 03/07/19 23:41 98.7 F 78 21 111/59 98 03/07/19 23:13 82 18 94 L 03/07/19 19:30 97.9 F 91 H 21 150/58 94 L 03/07/19 19:25 82 18 96 03/07/19 15:58 97.8 F 78 20 148/76 95 03/07/19 14:27 72 22 97 03/07/19 12:44 98 F 75 22 160/73 97 03/07/19 12:25 98 F 75 22 160/73 97 03/07/19 11:49 72 18 160/95 99 03/07/19 11:14 70 157/79 97 03/07/19 11:10 94 L 03/07/19 09:41 93.1 F 67 138/81 98 Oxygen-Last 24 hours O2 Percentage 4 Liters = 36% O2 Percentage 4 Liters = 36% O2 Percentage 4 Liters = 36% O2 Percentage 4 Liters = 36% O2 Percentage 4 Liters = 36% O2 Percentage 2 Liters = 28% O2 Percentage 2 Liters = 28% O2 Percentage 4 Liters = 36% O2 Percentage 2 Liters = 28% O2 Percentage 2 Liters = 28% Pain Assessment - Last Documented Pain Intensity 0 Pain Scale Used 0-10 Pain Scale,FLACC Intake and Output: Intake & Output 03/05/19 03/06/19 03/07/19 03/08/19 11:59 11:59 11:59 11:59 Intake Total 1060 Output Total 3400 Balance -2340 Weight 106.594 kg 114.8 kg Lab Results: Accuchecks Date 03/08/19 Date 03/08/19 Date 03/08/19 Date 03/07/19 Time 08:42 Time 07:46 Time 06:23 Time 22:00 Accucheck Value: 94 Accucheck Value: 105 Accucheck Value: 105 Accucheck Value: 195 Accucheck Value: 473 Accucheck Value: 79 Accucheck Value: 35 Lab Results-Last 24 Hours 03/07/19 03/07/19 03/07/19 Range/Units 10:07 10:09 10:15 WBC (4.0-10.5) K/mm3 RBC (4.1-5.4) M/mm3 Hgb (12.0-16.0) gm/dl Hct (35-47) % MCV (78-100) fl MCH (26-32) pg MCHC (32-36) g/dl RDW (11.5-14.0) % Plt Count (150-450) K/mm3 MPV (6-9.5) fl Segmented Neutrophils (36.0-66.0) % Band Neutrophils (0.0-2.0) % Lymphocytes (Manual) (24-44) % Monocytes (Manual) (0.0-12.0) % Eosinophils (Manual) (0.00-3.0) % Atypical Lymphocytes % Platelet Estimate (NORMAL) RBC Morphology pO2/FiO2 Ratio 28 % VBG pH 7.35 (7.32-7.42) VBG pCO2 at Pat Temp 78 H* (42-55) mm/Hg VBG pO2 at Pat Temp 20 L (25-40) mm/Hg VBG HCO3 43.1 H* (22-28) meq/L VBG O2 Sat (Shanthi) 42.5 L (95-100) VBG Base Excess 13.8 H (-2.0-2.0) VBG Hemoglobin 13.3 VBG Carboxyhemoglobin 3.4 (0.0-6.9) % T HGB POC Potassium 3.0 L* (3.5-5.1) Sodium 143 (137-145) mmol/L Potassium 3.0 L (3.5-5.1) mmol/L Chloride 93 L (98-107) mmol/L Carbon Dioxide 42 H (22-30) mmol/L Anion Gap 11.0 (5-15) MEQ/L BUN 33 H (7-17) mg/dL Creatinine 1.15 H (0.52-1.04) mg/dL Estimated GFR 49.9 ML/MIN Glucose 49 L* (74-106) mg/dL Calcium 7.0 L (8.4-10.2) mg/dL Total Bilirubin 0.40 (0.2-1.3) mg/dL AST 42 H (14-36) U/L ALT 24 (0-35) U/L Alkaline Phosphatase 71 (38-126) U/L Troponin I < 0.012 (0.000-0.034) ng/mL Serum Total Protein 6.2 L (6.3-8.2) g/dL Albumin 3.4 L (3.5-5.0) g/dL TSH 3rd Generation 2.420 (0.47-4.68) mIU/L Urine Color (YELLOW) Urine Appearance (CLEAR) Urine pH (5-6) Ur Specific [place] (1.005-1.025) Urine Protein (Negative) Urine Ketones (NEGATIVE) Urine Blood (0-5) Jose/ul Urine Nitrite (NEGATIVE) Urine Bilirubin (NEGATIVE) Urine Urobilinogen (0-1) mg/dL Ur Leukocyte Esterase (NEGATIVE) Urine WBC (Auto) (0-5) /HPF Urine RBC (Auto) (0-2) /HPF U Hyaline Cast (Auto) (0-2) /LPF U Epithel Cells (Auto) (FEW) /HPF Urine Bacteria (Auto) (NEGATIVE) /HPF Other Casts (Auto) (NEGATIVE) /LPF Urine Mucus (Auto) (NEGATIVE) /HPF Urine Yeast (Budding) (NEGATIVE) /HPF Urine Culture Reflexed (NO) Urine Glucose (NEGATIVE) mg/dL 03/07/19 03/07/19 03/07/19 Range/Units 10:34 10:34 13:00 WBC 11.2 H 11.4 H (4.0-10.5) K/mm3 RBC 4.54 4.36 (4.1-5.4) M/mm3 Hgb 12.6 12.3 (12.0-16.0) gm/dl Hct 40.4 38.1 (35-47) % MCV 89.0 87.4 (78-100) fl MCH 27.8 28.2 (26-32) pg MCHC 31.2 L 32.3 (32-36) g/dl RDW 13.7 13.5 (11.5-14.0) % Plt Count 275 273 (150-450) K/mm3 MPV 10.4 H 10.2 H (6-9.5) fl Segmented Neutrophils 80 H (36.0-66.0) % Band Neutrophils 2 (0.0-2.0) % Lymphocytes (Manual) 12 L (24-44) % Monocytes (Manual) 6 (0.0-12.0) % Eosinophils (Manual) (0.00-3.0) % Atypical Lymphocytes % Platelet Estimate NORMAL (NORMAL) RBC Morphology NORMAL pO2/FiO2 Ratio % VBG pH (7.32-7.42) VBG pCO2 at Pat Temp (42-55) mm/Hg VBG pO2 at Pat Temp (25-40) mm/Hg VBG HCO3 (22-28) meq/L VBG O2 Sat (Shanthi) (95-100) VBG Base Excess (-2.0-2.0) VBG Hemoglobin VBG Carboxyhemoglobin (0.0-6.9) % T HGB POC Potassium (3.5-5.1) Sodium (137-145) mmol/L Potassium (3.5-5.1) mmol/L Chloride (98-107) mmol/L Carbon Dioxide (22-30) mmol/L Anion Gap (5-15) MEQ/L BUN (7-17) mg/dL Creatinine (0.52-1.04) mg/dL Estimated GFR ML/MIN Glucose (74-106) mg/dL Calcium (8.4-10.2) mg/dL Total Bilirubin (0.2-1.3) mg/dL AST (14-36) U/L ALT (0-35) U/L Alkaline Phosphatase (38-126) U/L Troponin I (0.000-0.034) ng/mL Serum Total Protein (6.3-8.2) g/dL Albumin (3.5-5.0) g/dL TSH 3rd Generation (0.47-4.68) mIU/L Urine Color STRAW (YELLOW) Urine Appearance CLEAR (CLEAR) Urine pH 5.0 (5-6) Ur Specific [place] 1.006 (1.005-1.025) Urine Protein 30 (Negative) Urine Ketones NEGATIVE (NEGATIVE) Urine Blood NEGATIVE (0-5) Jose/ul Urine Nitrite NEGATIVE (NEGATIVE) Urine Bilirubin NEGATIVE (NEGATIVE) Urine Urobilinogen NEGATIVE (0-1) mg/dL Ur Leukocyte Esterase NEGATIVE (NEGATIVE) Urine WBC (Auto) 0-2 (0-5) /HPF Urine RBC (Auto) 0-2 (0-2) /HPF U Hyaline Cast (Auto) 0-2 (0-2) /LPF U Epithel Cells (Auto) NONE (FEW) /HPF Urine Bacteria (Auto) NONE (NEGATIVE) /HPF Other Casts (Auto) NEGATIVE (NEGATIVE) /LPF Urine Mucus (Auto) SLIGHT (NEGATIVE) /HPF Urine Yeast (Budding) Few (NEGATIVE) /HPF Urine Culture Reflexed ORDERED SEPARATELY (NO) Urine Glucose NEGATIVE (NEGATIVE) mg/dL 03/07/19 03/07/19 03/07/19 Range/Units 13:15 16:30 19:46 WBC (4.0-10.5) K/mm3 RBC (4.1-5.4) M/mm3 Hgb (12.0-16.0) gm/dl Hct (35-47) % MCV (78-100) fl MCH (26-32) pg MCHC (32-36) g/dl RDW (11.5-14.0) % Plt Count (150-450) K/mm3 MPV (6-9.5) fl Segmented Neutrophils (36.0-66.0) % Band Neutrophils (0.0-2.0) % Lymphocytes (Manual) (24-44) % Monocytes (Manual) (0.0-12.0) % Eosinophils (Manual) (0.00-3.0) % Atypical Lymphocytes % Platelet Estimate (NORMAL) RBC Morphology pO2/FiO2 Ratio % VBG pH (7.32-7.42) VBG pCO2 at Pat Temp (42-55) mm/Hg VBG pO2 at Pat Temp (25-40) mm/Hg VBG HCO3 (22-28) meq/L VBG O2 Sat (Shanthi) (95-100) VBG Base Excess (-2.0-2.0) VBG Hemoglobin VBG Carboxyhemoglobin (0.0-6.9) % T HGB POC Potassium (3.5-5.1) Sodium 138 (137-145) mmol/L Potassium 3.6 (3.5-5.1) mmol/L Chloride 92 L (98-107) mmol/L Carbon Dioxide 38 H (22-30) mmol/L Anion Gap 11.5 (5-15) MEQ/L BUN 31 H (7-17) mg/dL Creatinine 0.98 (0.52-1.04) mg/dL Estimated GFR 60.0 ML/MIN Glucose 119 H (74-106) mg/dL Calcium 7.0 L (8.4-10.2) mg/dL Total Bilirubin (0.2-1.3) mg/dL AST (14-36) U/L ALT (0-35) U/L Alkaline Phosphatase (38-126) U/L Troponin I < 0.012 < 0.012 < 0.012 (0.000-0.034) ng/mL Serum Total Protein (6.3-8.2) g/dL Albumin (3.5-5.0) g/dL TSH 3rd Generation (0.47-4.68) mIU/L Urine Color (YELLOW) Urine Appearance (CLEAR) Urine pH (5-6) Ur Specific [place] (1.005-1.025) Urine Protein (Negative) Urine Ketones (NEGATIVE) Urine Blood (0-5) Jose/ul Urine Nitrite (NEGATIVE) Urine Bilirubin (NEGATIVE) Urine Urobilinogen (0-1) mg/dL Ur Leukocyte Esterase (NEGATIVE) Urine WBC (Auto) (0-5) /HPF Urine RBC (Auto) (0-2) /HPF U Hyaline Cast (Auto) (0-2) /LPF U Epithel Cells (Auto) (FEW) /HPF Urine Bacteria (Auto) (NEGATIVE) /HPF Other Casts (Auto) (NEGATIVE) /LPF Urine Mucus (Auto) (NEGATIVE) /HPF Urine Yeast (Budding) (NEGATIVE) /HPF Urine Culture Reflexed (NO) Urine Glucose (NEGATIVE) mg/dL 03/07/19 03/08/19 03/08/19 Range/Units 22:24 04:54 04:54 WBC 12.1 H (4.0-10.5) K/mm3 RBC 3.88 L (4.1-5.4) M/mm3 Hgb 10.8 L (12.0-16.0) gm/dl Hct 34.2 L (35-47) % MCV 88.1 (78-100) fl MCH 27.8 (26-32) pg MCHC 31.6 L (32-36) g/dl RDW 13.7 (11.5-14.0) % Plt Count 290 (150-450) K/mm3 MPV 10.5 H (6-9.5) fl Segmented Neutrophils 70 H (36.0-66.0) % Band Neutrophils (0.0-2.0) % Lymphocytes (Manual) 20 L (24-44) % Monocytes (Manual) 5 (0.0-12.0) % Eosinophils (Manual) 3 (0.00-3.0) % Atypical Lymphocytes 2 % Platelet Estimate NORMAL (NORMAL) RBC Morphology NORMAL pO2/FiO2 Ratio % VBG pH (7.32-7.42) VBG pCO2 at Pat Temp (42-55) mm/Hg VBG pO2 at Pat Temp (25-40) mm/Hg VBG HCO3 (22-28) meq/L VBG O2 Sat (Shanthi) (95-100) VBG Base Excess (-2.0-2.0) VBG Hemoglobin VBG Carboxyhemoglobin (0.0-6.9) % T HGB POC Potassium (3.5-5.1) Sodium 140 (137-145) mmol/L Potassium 3.2 L (3.5-5.1) mmol/L Chloride 92 L (98-107) mmol/L Carbon Dioxide 42 H (22-30) mmol/L Anion Gap 13.2 (5-15) MEQ/L BUN 30 H (7-17) mg/dL Creatinine 1.09 H (0.52-1.04) mg/dL Estimated GFR 53.1 ML/MIN Glucose 32 L* (74-106) mg/dL Calcium 7.0 L (8.4-10.2) mg/dL Total Bilirubin (0.2-1.3) mg/dL AST (14-36) U/L ALT (0-35) U/L Alkaline Phosphatase (38-126) U/L Troponin I < 0.012 (0.000-0.034) ng/mL Serum Total Protein (6.3-8.2) g/dL Albumin (3.5-5.0) g/dL TSH 3rd Generation (0.47-4.68) mIU/L Urine Color (YELLOW) Urine Appearance (CLEAR) Urine pH (5-6) Ur Specific [place] (1.005-1.025) Urine Protein (Negative) Urine Ketones (NEGATIVE) Urine Blood (0-5) Jose/ul Urine Nitrite (NEGATIVE) Urine Bilirubin (NEGATIVE) Urine Urobilinogen (0-1) mg/dL Ur Leukocyte Esterase (NEGATIVE) Urine WBC (Auto) (0-5) /HPF Urine RBC (Auto) (0-2) /HPF U Hyaline Cast (Auto) (0-2) /LPF U Epithel Cells (Auto) (FEW) /HPF Urine Bacteria (Auto) (NEGATIVE) /HPF Other Casts (Auto) (NEGATIVE) /LPF Urine Mucus (Auto) (NEGATIVE) /HPF Urine Yeast (Budding) (NEGATIVE) /HPF Urine Culture Reflexed (NO) Urine Glucose (NEGATIVE) mg/dL Radiology Exams: Radiology Procedures Category Date Time Status CHEST 2 VIEWS (PA AND LAT) Stat Exams 03/07/19 10:08 Completed HEAD WITHOUT CONTRAST [CT] Stat Exams 03/07/19 10:09 Completed Multi-Disciplinary Progress Notes: Multi-Disciplinary Progress Notes 03/07/19 13:00 (created 03/07/19 16:00) Case Management Note by Meme Trujillo DISCUSSION WITH PT REGARDING NEEDS ON DISCHARGE, WITH RECENT READMIT FROM HOSPITAL. PT WAS DISCHARGED ON 03/05/19, AND RETURNED ON 03/07/19. PT HAD REPORTED THAT HER SUGAR DROPPED BECAUSE SHE HADN'T EATEN ANYTHING MUCH YESTERDAY. DISCUSSED REHAB STAY @ [facility] ON DISCHARGE. PT IS AGREEABLE. REPORTS THAT SHE PREFERS TO GO TO [facility] ON DISCHARGE. DISCUSSED THAT SHE COULD BENEFIT FROM SHORT TERM REHAB STAY ON DISCHARGE, AND PT IS AGREEABLE FOR THIS. Initialized on 03/07/19 16:00 - END OF NOTE Assessment/Plan (1) Hypoglycemia Current Visit: Yes Status: Acute Assessment & Plan: I have held her 60 units Lantus for today Code(s): E16.2 - HYPOGLYCEMIA, UNSPECIFIED (2) COPD exacerbation Current Visit: Yes Status: Acute Assessment & Plan: she was to continue cefdinir through 03/11/19 Code(s): J44.1 - CHRONIC OBSTRUCTIVE PULMONARY DISEASE W (ACUTE) EXACERBATION (3) Hypothermia Current Visit: Yes Status: Resolved Qualifiers: Encounter type: initial encounter Qualified Code(s): T68.XXXA - Hypothermia , initial encounter Code(s): T68.XXXA - HYPOTHERMIA, INITIAL ENCOUNTER (4) Overflow incontinence of urine Current Visit: Yes Status: Acute Assessment & Plan: catheter in place currently Code(s): N39.490 - OVERFLOW INCONTINENCE (5) CAD (coronary artery disease) Current Visit: Yes Status: Chronic Qualifiers: Coronary Disease-Associated Artery/Lesion type: [place] artery [place] vs. transplanted heart: [place] heart Associated angina: without angina Qualified Code(s): I25.10 - Atherosclerotic heart disease of [place] coronary artery without angina pectoris Code(s): I25.10 - ATHSCL HEART DISEASE OF [place] CORONARY ARTERY W/O ANG PCTRS (6) Hypocalcemia Current Visit: Yes Status: Chronic Assessment & Plan: Corrected calcium 7.5 today. Code(s): E83.51 - HYPOCALCEMIA (7) Anemia Current Visit: No Status: Chronic Qualifiers: Anemia type: due to chronic kidney disease Chronic kidney disease stage: stage 3 (moderate) Qualified Code(s): N18.3 - Chronic kidney disease, stage 3 (moderate); D63.1 - Anemia in chronic kidney disease Code(s): D64.9 - ANEMIA, UNSPECIFIED (8) Chronic renal failure Current Visit: No Status: Chronic Qualifiers: Chronic kidney disease stage: stage 3 (moderate) (9) Diabetes Current Visit: No Status: Chronic Qualifiers: Diabetes mellitus type: type 2 Diabetes mellitus usp insulin use: with usp use Diabetes mellitus complication status: with kidney complications Diabetes mellitus complication detail: with chronic kidney disease Code(s): E11.9 - TYPE 2 DIABETES MELLITUS WITHOUT COMPLICATIONS (10) HTN (hypertension) Current Visit: No Status: Chronic Qualifiers: Hypertension type: essential hypertension Code(s): I10 - ESSENTIAL (PRIMARY) HYPERTENSION
[2019-03-08] MEDS: ROCEPHIN 1 Gm-D5w 50 ml Bag** 1 G/50 ML IVPB IV SCH (09:28)
[2019-03-08] MEDS: Zithromax 500 MG/ 250 ML NaCl Premix 500 MG/250 ML IVPB IV SCH (09:34)
[2019-03-08] MEDS: Klor Con 10 MEQ PO SCH ×3 (09:38→21:00)
[2019-03-08] MEDS: Neurontin 400 MG PO SCH ×4 (09:38→21:02)
[2019-03-08] MEDS: FEOSOL 325 MG PO SCH ×2 (09:39→21:01)
[2019-03-08] MEDS: Ecotrin 325 MG PO SCH (09:39)
[2019-03-08 09:40] LABS: A-aADO2 95; ABG POTASSIUM 3.5 (3.5-5.1); ARTERIAL BLOOD GAS BASE EXCESS 16.9 (-2.0-2.0); ARTERIAL BLOOD GAS PO2 85 mmHg (75-100); ARTERIAL BLOOD GAS pH 7.46 (7.35-7.45); HCO3- 43.4 (22-28); HGB O2 SAT 95.2 g/dF (94-100); Methhemoglobin 1.2 % (1.4-1.5); paO2 pAO1 0.47
[2019-03-08 09:41] LABS: ARTERIAL BLOOD GAS FIO2 36 %; ARTERIAL BLOOD GAS PCO2 61 mmHg (35-45)
[2019-03-08 09:42] LABS: ABG SITE RIGHT RADIAL; ALLEN TEST OK? YES
[2019-03-08 09:43] LABS: ABG HEMOGLOBIN 10.9; ARTERIAL BLD GAS O2 SATURATION 95.2 % (95-100)
[2019-03-08] MEDS: SYNTHROID 100 MCG PO SCH (09:43)
[2019-03-08] MEDS: BUMEX 1 MG PO SCH ×2 (09:43→16:03)
[2019-03-08] MEDS: SYNTHROID 88 MCG PO SCH (09:44)
[2019-03-08] MEDS: REQUIP 2MG TAB PO SCH ×3 (09:45→21:01)
[2019-03-08] MEDS: MAG-OX 400 PO SCH ×2 (09:46→21:00)
[2019-03-08] MEDS: TOPIRAMATE PO SCH ×2 (09:46→21:02)
[2019-03-08] MEDS: Tums EX 750 MG PO SCH ×2 (09:48→21:04)
[2019-03-08] MEDS ORDERED: ECOTRIN 81 MG PO SCH (10:00)
[2019-03-08] MEDS ORDERED: SYNTHROID 100 MCG PO SCH (10:00)
[2019-03-08] MEDS ORDERED: Lantus Insulin SQ SCH (10:00)
[2019-03-08] MEDS ORDERED: INSULIN DEGLUDEC 60 UNIT SQ SCH (10:00)
[2019-03-08] MEDS ORDERED: FLUZONE HIGH-DOSE 2019-20 SYR IM ONE (10:00)
[2019-03-08] MEDS ORDERED: NON-FORMULARY ITEM (Umeclidinium Bromide [Incruse Ellipta] 62.5 MCG) IH SCH (10:00)
[2019-03-08] MEDS: PLAVIX 75 MG Tablet PO SCH (21:01)
[2019-03-08] MEDS: ZOCOR 20MG PO SCH (21:01)
[2019-03-08] MEDS: Cymbalta 30 MG Capsule PO SCH (21:01)
[2019-03-08] MEDS: Toprol Xl 100 MG PO SCH (21:03)
[2019-03-09] MEDS: DUONEB 0.5-3 MG/3 ml Neb IH SCH ×6 (02:56→23:29)
[2019-03-09 05:12] LABS: Hematocrit 34.2 % (35-47); Hemoglobin 10.5 gm/dl (12.0-16.0); Mean Corpuscular Hemoglobin 27.9 pg (26-32); Mean Corpuscular Hgb Concent. 30.7 g/dl (32-36); Mean Platelet Volume 10.1 fl (6-9.5); Platelet Count 207 K/mm3 (150-450); Red Blood Count 3.76 M/mm3 (4.1-5.4); Red Cell Distribution Width 14.1 % (11.5-14.0); White Blood Count 7.6 K/mm3 (4.0-10.5)
[2019-03-09] MEDS: Sodium Chloride 0.9% 10 ML FLUSH Syringe IV SCH ×3 (05:16→21:46)
[2019-03-09 05:37] LABS: ALBUMIN 2.9 g/dL (3.5-5.0); BILIRUBIN,TOTAL 0.4 mg/dL (0.2-1.3); Calcium 6.9 mg/dL (8.4-10.2); Creatinine 1 1.11 mg/dL (0.52-1.04); MAGNESIUM 1.8 mg/dL (1.6-2.3); Potassium 3.4 mmol/L (3.5-5.1); Total Protein 5.6 g/dL (6.3-8.2)
[2019-03-09 05:48] LABS: ANION GAP 9.3 MEQ/L (5-15)
[2019-03-09] MEDS ORDERED: GlucaGen 1 MG IM PRN (07:30)
[2019-03-09] MEDS ORDERED: Glutose 15 GM ORAL GEL PO PRN (07:30)
[2019-03-09] MEDS ORDERED: D50W 50 ml Abboject IV PRN (07:30)
[2019-03-09] MEDS: BUMEX 1 MG PO SCH ×2 (09:00→16:37)
[2019-03-09] MEDS: Klor Con 10 MEQ PO SCH ×3 (09:01→21:44)
[2019-03-09] MEDS: Ecotrin 325 MG PO SCH (09:01)
[2019-03-09] MEDS: FEOSOL 325 MG PO SCH ×2 (09:01→21:44)
[2019-03-09] MEDS: MAG-OX 400 PO SCH ×2 (09:02→21:46)
[2019-03-09] MEDS: Neurontin 400 MG PO SCH ×4 (09:02→21:44)
[2019-03-09] MEDS: REQUIP 2MG TAB PO SCH ×3 (09:03→21:44)
[2019-03-09] MEDS: SYNTHROID 100 MCG PO SCH (09:04)
[2019-03-09] MEDS: SYNTHROID 88 MCG PO SCH (09:04)
[2019-03-09] MEDS: TOPIRAMATE PO SCH ×2 (09:04→21:45)
[2019-03-09] MEDS: Tums EX 750 MG PO SCH ×2 (09:05→21:46)
--- NOTE | 2019-03-09 09:05 | PCM.NOTE ---
Date and Time: 03/09/19 0900 Subjective Assessment: Her BS yesterday in the 100s all day despite holding her lantus. She does think that maybe a family member gave her too much insulin at home in an effort to help her. She is alert and oriented x 3 today. Would like her gamboa catheter out. - Review of Systems Constitutional: No Fever Abdominal/Gastrointestinal: No Vomiting Objective Exam General Appearance: no apparent distress, alert Neurologic Exam: oriented x 3, cooperative Skin Exam: normal color, warm, dry, No rash Respiratory Exam: normal breath sounds, lungs clear, No crackles/rales, No rhonchi, No wheezing Cardiovascular Exam: regular rate/rhythm, normal heart sounds Gastrointestinal/Abdomen Exam: soft, normal bowel sounds, No tenderness, No distention, No mass, No guarding, No rebound Extremity Exam: other (slight erythema anterior lower legs bilat), No pedal edema, No swelling Back Exam: normal inspection, No rash OBJECTIVE DATA Vital Signs: Vital Signs - 24 hr Temp Pulse Resp BP Pulse Ox 03/09/19 07:10 97.6 F 72 20 118/60 97 03/09/19 06:59 66 18 98 03/09/19 03:47 97.5 F 70 19 122/59 98 03/09/19 02:59 70 18 98 03/08/19 23:48 98.3 F 85 22 111/53 95 03/08/19 23:01 85 22 95 03/08/19 19:31 98.5 F 97 H 21 104/56 95 03/08/19 19:21 84 20 98 03/08/19 16:00 98.2 F 85 18 109/62 94 L 03/08/19 15:04 84 18 97 03/08/19 12:00 98.7 F 84 18 105/53 95 03/08/19 11:10 70 26 H 99 Oxygen-Last 24 hours O2 Percentage 4 Liters = 36% O2 Percentage 4 Liters = 36% O2 Percentage 4 Liters = 36% O2 Percentage 3 Liters = 32% Pain Assessment - Last Documented Pain Intensity 0 Pain Scale Used 0-10 Pain Scale,FLACC Intake and Output: Intake & Output 03/06/19 03/07/19 03/08/19 03/09/19 11:59 11:59 11:59 11:59 Intake Total 1440 1800 Output Total 3400 3900 Balance -1960 -2100 Weight 106.594 kg 114.8 kg Lab Results: Accuchecks Date 03/08/19 Date 03/08/19 Date 03/08/19 Time 21:40 Time 16:30 Time 11:37 Accucheck Value: 122 Accucheck Value: 148 Accucheck Value: 136 Accucheck Value: 61 Lab Results-Last 24 Hours 03/08/19 03/09/19 03/09/19 Range/Units 09:30 04:30 04:30 WBC 7.6 (4.0-10.5) K/mm3 RBC 3.76 L (4.1-5.4) M/mm3 Hgb 10.5 L (12.0-16.0) gm/dl Hct 34.2 L (35-47) % MCV 91.0 (78-100) fl MCH 27.9 (26-32) pg MCHC 30.7 L (32-36) g/dl RDW 14.1 H (11.5-14.0) % Plt Count 207 (150-450) K/mm3 MPV 10.1 H (6-9.5) fl Puncture Site RIGHT RADIAL pCO2 61 H* (35-45) mmHg pO2 85 (75-100) mmHg Base Excess 16.9 H (-2.0-2.0) O2 Saturation 95.2 (94-100) g/dF ABG pH 7.46 H (7.35-7.45) ABG HCO3 43.4 H* (22-28) ABG O2 Sat (Measured) 95.2 (95-100) % Valentino Test YES A-a Gradient 95 a/A Ratio 0.47 Hemoglobin 10.9 Carboxyhemoglobin 2.0 (0.0-6.9) % THgb Methemoglobin 1.2 L (1.4-1.5) % Potassium 3.5 3.4 L (3.5-5.1) Temperature 37.0 C POC O2 Flow Rate 36 % Sodium 141 (137-145) mmol/L Chloride 90 L (98-107) mmol/L Carbon Dioxide 45 H (22-30) mmol/L Anion Gap 9.3 (5-15) MEQ/L BUN 24 H (7-17) mg/dL Creatinine 1.11 H (0.52-1.04) mg/dL Estimated GFR 52.0 ML/MIN Glucose 65 L (74-106) mg/dL Calcium 6.9 L (8.4-10.2) mg/dL Magnesium 1.8 (1.6-2.3) mg/dL Total Bilirubin 0.40 (0.2-1.3) mg/dL AST 25 (14-36) U/L ALT 14 (0-35) U/L Alkaline Phosphatase 54 (38-126) U/L Serum Total Protein 5.6 L (6.3-8.2) g/dL Albumin 2.9 L (3.5-5.0) g/dL Radiology Exams: Radiology Procedures Category Date Time Status CHEST 2 VIEWS (PA AND LAT) Stat Exams 03/07/19 10:08 Completed HEAD WITHOUT CONTRAST [CT] Stat Exams 03/07/19 10:09 Completed Multi-Disciplinary Progress Notes: Multi-Disciplinary Progress Notes 03/08/19 10:15 Case Management Note by Meme Trujillo COMPLETE, NO LEVEL II REQUIRED, REFERRAL FAXED TO [facility]. CALLED AND SPOKE WITH JUVENAL @ [facility] TODAY. Initialized on 03/08/19 10:15 - END OF NOTE Assessment/Plan (1) Hypoglycemia Current Visit: Yes Status: Acute Assessment & Plan: Will hold lantus again today - usually gets 60 units daily. I think maybe she did have an overdose of lantus while at home, in which case her BS should start to rise today and perhaps she can restart her insulin tomorrow. She is planning on discharge to [facility] and may be able to go tomorrow, but may be another day or two here depending on her sugars. Code(s): E16.2 - HYPOGLYCEMIA, UNSPECIFIED (2) COPD exacerbation Current Visit: Yes Status: Acute Assessment & Plan: She was treated for this starting with her last hospitalization. I think functionally she is back to baseline (tends to have wheezing at baseline). Plan is to treat for 3 more days with antibiotics (on rocephin here; was on cefdinir at home I believe). Code(s): J44.1 - CHRONIC OBSTRUCTIVE PULMONARY DISEASE W (ACUTE) EXACERBATION (3) Overflow incontinence of urine Current Visit: Yes Status: Acute Code(s): N39.490 - OVERFLOW INCONTINENCE (4) CAD (coronary artery disease) Current Visit: Yes Status: Chronic Qualifiers: Coronary Disease-Associated Artery/Lesion type: [place] artery [place] vs. transplanted heart: [place] heart Associated angina: without angina Qualified Code(s): I25.10 - Atherosclerotic heart disease of [place] coronary artery without angina pectoris Code(s): I25.10 - ATHSCL HEART DISEASE OF [place] CORONARY ARTERY W/O ANG PCTRS (5) Hypocalcemia Current Visit: Yes Status: Chronic Assessment & Plan: Corrected Ca this morning is 7.78, so no longer dangerously low. She is taking po calcium and po magnesium; her Vit D was quite low at 13 and will take some time to increase, so I expect over time the calcium to increase as well. She is supposed to f/u with nephrology outpatient. Code(s): E83.51 - HYPOCALCEMIA (6) Anemia Current Visit: No Status: Chronic Qualifiers: Anemia type: due to chronic kidney disease Chronic kidney disease stage: stage 3 (moderate) Qualified Code(s): N18.3 - Chronic kidney disease, stage 3 (moderate); D63.1 - Anemia in chronic kidney disease Code(s): D64.9 - ANEMIA, UNSPECIFIED (7) Chronic renal failure Current Visit: No Status: Chronic Qualifiers: Chronic kidney disease stage: stage 3 (moderate) Assessment & Plan: eGFR is 52 this morning. (8) Diabetes Current Visit: No Status: Chronic Qualifiers: Diabetes mellitus type: type 2 Diabetes mellitus radiology interventional physician insulin use: with residential use Diabetes mellitus complication status: with kidney complications Diabetes mellitus complication detail: with chronic kidney disease Chronic kidney disease stage: stage 3 (moderate) Qualified Code(s): E11.22 - Type 2 diabetes mellitus with diabetic chronic kidney disease; N18.3 - Chronic kidney disease, stage 3 (moderate); Z79.4 - ux design lead (current) use of insulin Code(s): E11.9 - TYPE 2 DIABETES MELLITUS WITHOUT COMPLICATIONS (9) HTN (hypertension) Current Visit: No Status: Chronic Qualifiers: Hypertension type: essential hypertension Code(s): I10 - ESSENTIAL (PRIMARY) HYPERTENSION
[2019-03-09] MEDS: Zithromax 500 MG/ 250 ML NaCl Premix 500 MG/250 ML IVPB IV SCH (09:06)
[2019-03-09] MEDS: NovoLOG Insulin SQ SCH ×2 (09:12→10:54)
[2019-03-09] MEDS: ROCEPHIN 1 Gm-D5w 50 ml Bag** 1 G/50 ML IVPB IV SCH (10:44)
[2019-03-09] MEDS: PLAVIX 75 MG Tablet PO SCH (21:44)
[2019-03-09] MEDS: Cymbalta 30 MG Capsule PO SCH (21:44)
[2019-03-09] MEDS: ZOCOR 20MG PO SCH (21:44)
[2019-03-09] MEDS: Toprol Xl 100 MG PO SCH (21:45)
[2019-03-10] MEDS: DUONEB 0.5-3 MG/3 ml Neb IH SCH ×6 (03:13→23:19)
[2019-03-10] MEDS: Sodium Chloride 0.9% 10 ML FLUSH Syringe IV SCH ×2 (04:44→14:43)
[2019-03-10] MEDS: NovoLOG Insulin SQ SCH ×2 (08:31→12:12)
--- NOTE | 2019-03-10 08:41 | PCM.NOTE ---
Date and Time: 03/10/19836 Subjective Assessment: Pt. reports feeling great, did not receive insulin yesterday as usual with meals and no lantus last night, bs this am 150 - Review of Systems Constitutional: No Fever, No Chills Ears, Nose, & Throat: No Symptoms Respiratory: No Cough, No Short Of Breath Cardiac: No Chest Pain, No Edema, No Syncope Abdominal/Gastrointestinal: No Abdominal Pain, No Nausea, No Vomiting, No Diarrhea Genitourinary Symptoms: No Dysuria Objective Exam General Appearance: no apparent distress, alert Neurologic Exam: alert, oriented x 3, cooperative, normal mood/affect, No motor deficits Skin Exam: normal color, warm, dry Respiratory Exam: normal breath sounds, lungs clear, No respiratory distress Cardiovascular Exam: regular rate/rhythm, normal heart sounds Extremity Exam: normal inspection OBJECTIVE DATA Vital Signs: Vital Signs - 24 hr Temp Pulse Resp BP Pulse Ox 03/10/19 08:00 98.2 F 81 19 128/63 99 03/10/19 07:20 76 18 98 03/10/19 04:00 98.4 F 86 18 130/50 99 03/10/19 03:13 89 16 98 03/10/19 00:00 97.4 F 89 16 132/56 100 03/09/19 23:26 85 16 98 03/09/19 19:37 83 20 96 03/09/19 19:34 98.3 F 83 19 125/79 98 03/09/19 16:51 97.9 F 76 20 108/52 94 L 03/09/19 15:43 81 16 97 03/09/19 11:07 98 F 82 20 148/78 94 L 03/09/19 11:00 72 18 96 Oxygen-Last 24 hours O2 Percentage 4 Liters = 36% O2 Percentage 4 Liters = 36% O2 Percentage 4 Liters = 36% O2 Percentage 4 Liters = 36% O2 Percentage 4 Liters = 36% O2 Percentage 4 Liters = 36% Pain Assessment - Last Documented Pain Intensity 0 Pain Scale Used 0-10 Pain Scale,FLACC Intake and Output: Intake & Output 03/07/19 03/08/19 03/09/19 03/10/19 11:59 11:59 11:59 11:59 Intake Total 1440 0 2096 Output Total 3400 3900 4200 Balance -1959 Weight 106.594 kg 114.8 kg Lab Results: Accuchecks Date 03/09/19 Time 22:00 Accucheck Value: 304 Accucheck Value: 231 Accucheck Value: 127 Multi-Disciplinary Progress Notes: Multi-Disciplinary Progress Notes 03/09/19 09:45 Case Management Note by Meme Trujillo PLAN TO DC TO [facility] [place] REED ON DISCHARGE FROM HOSPITAL FOR SHORT TERM REHAB STAY. PER JUVENAL AT [facility] THEY WILL BE READY FOR PT WHEN MD IS READY FOR DISCHARGE. Initialized on 03/09/19 09:45 - END OF NOTE Assessment/Plan (1) Hypoglycemia Current Visit: Yes Status: Acute Assessment & Plan: Will resume meal insulin today, re-evaluate todays blood sugars and possibly add Lantus 60 on if BS are ranging high today. No sliding scale at this time. Possible d/c to [facility] tomorrow if able to resume Lantus and no further low blood sugars. Will recheck CMP in am Code(s): E16.2 - HYPOGLYCEMIA, UNSPECIFIED
[2019-03-10] MEDS: Neurontin 400 MG PO SCH ×4 (09:04→21:20)
[2019-03-10] MEDS: Klor Con 10 MEQ PO SCH ×3 (09:04→21:22)
[2019-03-10] MEDS: FEOSOL 325 MG PO SCH ×2 (09:04→21:22)
[2019-03-10] MEDS: Ecotrin 325 MG PO SCH (09:04)
[2019-03-10] MEDS: SYNTHROID 100 MCG PO SCH (09:04)
[2019-03-10] MEDS: BUMEX 1 MG PO SCH ×2 (09:04→17:26)
[2019-03-10] MEDS: SYNTHROID 88 MCG PO SCH ×2 (09:04→09:05)
[2019-03-10] MEDS: REQUIP 2MG TAB PO SCH ×3 (09:04→21:22)
[2019-03-10] MEDS: ROCEPHIN 1 Gm-D5w 50 ml Bag** 1 G/50 ML IVPB IV SCH (09:04)
[2019-03-10] MEDS: Zithromax 500 MG/ 250 ML NaCl Premix 500 MG/250 ML IVPB IV SCH (09:04)
[2019-03-10] MEDS: MAG-OX 400 PO SCH ×2 (09:04→21:22)
[2019-03-10] MEDS: TOPIRAMATE PO SCH (09:05)
[2019-03-10] MEDS: Tums EX 750 MG PO SCH ×2 (09:16→21:32)
[2019-03-10] MEDS: Toprol Xl 100 MG PO SCH (21:20)
[2019-03-10] MEDS: PLAVIX 75 MG Tablet PO SCH (21:21)
[2019-03-10] MEDS: Cymbalta 30 MG Capsule PO SCH (21:21)
[2019-03-10] MEDS: ZOCOR 20MG PO SCH (21:22)
[2019-03-10] MEDS: Topamax 25 MG PO SCH (21:25)
[2019-03-11] MEDS: Sodium Chloride 0.9% 10 ML FLUSH Syringe IV SCH ×4 (02:18→22:21)
[2019-03-11] MEDS: DUONEB 0.5-3 MG/3 ml Neb IH SCH ×5 (04:24→19:33)
[2019-03-11 07:03] LABS: ALBUMIN 3.4 g/dL (3.5-5.0); BILIRUBIN,TOTAL 0.7 mg/dL (0.2-1.3); Calcium 7.5 mg/dL (8.4-10.2); Creatinine 1 1.04 mg/dL (0.52-1.04); Potassium 4.4 mmol/L (3.5-5.1); Total Protein 6.3 g/dL (6.3-8.2)
[2019-03-11 07:15] LABS: ANION GAP 12.4 MEQ/L (5-15)
[2019-03-11] MEDS: Klor Con 10 MEQ PO SCH ×3 (08:35→22:20)
[2019-03-11] MEDS: REQUIP 2MG TAB PO SCH ×3 (08:35→22:20)
[2019-03-11] MEDS: BUMEX 1 MG PO SCH ×2 (08:36→16:02)
[2019-03-11] MEDS: Topamax 25 MG PO SCH ×2 (08:36→22:21)
[2019-03-11] MEDS: FEOSOL 325 MG PO SCH ×2 (08:36→22:19)
[2019-03-11] MEDS: NovoLOG Insulin SQ SCH ×2 (08:37→11:56)
[2019-03-11] MEDS: SYNTHROID 88 MCG PO SCH (08:37)
[2019-03-11] MEDS: Neurontin 400 MG PO SCH ×4 (08:37→22:20)
[2019-03-11] MEDS: SYNTHROID 100 MCG PO SCH (08:37)
[2019-03-11] MEDS: Ecotrin 325 MG PO SCH (08:37)
[2019-03-11] MEDS: ROCEPHIN 1 Gm-D5w 50 ml Bag** 1 G/50 ML IVPB IV SCH (08:38)
[2019-03-11] MEDS: Tums EX 750 MG PO SCH ×2 (08:38→22:22)
[2019-03-11] MEDS: MAG-OX 400 PO SCH ×2 (08:38→22:20)
[2019-03-11] MEDS: Zithromax 500 MG/ 250 ML NaCl Premix 500 MG/250 ML IVPB IV SCH (08:38)
--- NOTE | 2019-03-11 11:10 | PCM.NOTE ---
Date and Time: 03/11/19 1104 Subjective Assessment: Patient states she is finally starting justin feel better and appetite is starting to come back,normal BM this morning.IV site is burning and nurse here to change site.WBC has come down to normal but new concern is redness bilateral ankles/ cellulitis. Patient is willing to go to [facility] rehab to improve her strength . She lives at home with her . She states severe hypoglycemic episode, unresponsive,EMS sugar was 31 prior to admission. Cough is improving . Objective Exam General Appearance: no apparent distress, alert, other (laying down resting) Neurologic Exam: oriented x 3, cooperative, normal mood/affect Skin Exam: warm, dry, other (bilateral low leg ankle crew sock distribution of redness and hot,few excoriations, no purulent discharge,ankle edema 1+ ,calves soft and nontender) Neck Exam: normal inspection Respiratory Exam: other (scattered eew and ronchi,no resp distress laying flat in bed.) Cardiovascular Exam: regular rate/rhythm Gastrointestinal/Abdomen Exam: soft, normal bowel sounds (nontender) Extremity Exam: other (see note under skin) OBJECTIVE DATA Vital Signs: Vital Signs - 24 hr Temp Pulse Resp BP Pulse Ox 03/11/19 07:27 78 18 94 L 03/11/19 07:22 97.8 F 68 20 119/58 96 03/11/19 04:24 79 20 97 03/11/19 04:00 98.1 F 83 20 117/55 98 03/11/19 00:15 98.3 F 84 20 121/56 100 03/10/19 23:22 81 18 98 03/10/19 20:45 78 18 99 03/10/19 19:29 97.9 F 83 18 138/60 100 03/10/19 16:00 98.2 F 76 18 120/79 97 03/10/19 15:11 76 18 97 03/10/19 12:00 98.1 F 75 18 103/54 97 03/10/19 11:13 95 H 18 97 Oxygen-Last 24 hours O2 Percentage 4 Liters = 36% O2 Percentage 4 Liters = 36% O2 Percentage 4 Liters = 36% O2 Percentage 4 Liters = 36% O2 Percentage 4 Liters = 36% O2 Percentage 4 Liters = 36% Pain Assessment - Last Documented Pain Intensity 0 Pain Scale Used 0-10 Pain Scale Intake and Output: Intake & Output 03/08/19 03/09/19 03/10/19 03/11/19 11:59 11:59 11:59 11:59 Intake Total 1440 2040 2337 1800 Output Total 3400 3900 4200 3400 Balance -1959 -0 -1862 -1599 Weight 114.8 kg 114.8 kg Lab Results: Accuchecks Date 03/11/19 Date 03/10/19 Date 03/10/19 Time 08:44 Time 16:30 Time 11:30 Accucheck Value: 250 Accucheck Value: 203 Accucheck Value: 61 Accucheck Value: 148 Lab Results-Last 24 Hours 03/11/19 Range/Units 06:05 Sodium 135 L (137-145) mmol/L Potassium 4.4 (3.5-5.1) mmol/L Chloride 89 L (98-107) mmol/L Carbon Dioxide 38 H (22-30) mmol/L Anion Gap 12.4 (5-15) MEQ/L BUN 22 H (7-17) mg/dL Creatinine 1.04 (0.52-1.04) mg/dL Estimated GFR 56.0 ML/MIN Glucose 261 H (74-106) mg/dL Calcium 7.5 L (8.4-10.2) mg/dL Total Bilirubin 0.70 (0.2-1.3) mg/dL AST 30 (14-36) U/L ALT 14 (0-35) U/L Alkaline Phosphatase 58 (38-126) U/L Serum Total Protein 6.3 (6.3-8.2) g/dL Albumin 3.4 L (3.5-5.0) g/dL Assessment/Plan (1) COPD exacerbation Current Visit: No Status: Acute Assessment & Plan: patient feels lungs are at baseline but coarse scattered sounds present Code(s): J44.1 - CHRONIC OBSTRUCTIVE PULMONARY DISEASE W (ACUTE) EXACERBATION (2) Hypoglycemia Current Visit: Yes Status: Acute Assessment & Plan: monitoring-stable Code(s): E16.2 - HYPOGLYCEMIA, UNSPECIFIED (3) Bilateral cellulitis of lower leg Current Visit: Yes Status: Acute Assessment & Plan: continue IV zithromax and Rocephin,elevate legs,nursing is applying barrier cream Code(s): L03.116 - CELLULITIS OF LEFT LOWER LIMB; L03.115 - CELLULITIS OF RIGHT LOWER LIMB
[2019-03-11] MEDS: Cymbalta 30 MG Capsule PO SCH (22:19)
[2019-03-11] MEDS: PLAVIX 75 MG Tablet PO SCH (22:20)
[2019-03-11] MEDS: ZOCOR 20MG PO SCH (22:21)
[2019-03-11] MEDS: Toprol Xl 100 MG PO SCH (22:21)
[2019-03-12] MEDS: DUONEB 0.5-3 MG/3 ml Neb IH SCH ×4 (03:20→11:51)
[2019-03-12] MEDS: REQUIP 2MG TAB PO SCH ×2 (09:36→14:40)
[2019-03-12] MEDS: ROCEPHIN 1 Gm-D5w 50 ml Bag** 1 G/50 ML IVPB IV SCH (09:36)
[2019-03-12] MEDS: BUMEX 1 MG PO SCH (09:36)
[2019-03-12] MEDS: Ecotrin 325 MG PO SCH (09:36)
[2019-03-12] MEDS: Zithromax 500 MG/ 250 ML NaCl Premix 500 MG/250 ML IVPB IV SCH (09:36)
[2019-03-12] MEDS: NovoLOG Insulin SQ SCH ×2 (09:36→12:46)
[2019-03-12] MEDS: SYNTHROID 100 MCG PO SCH (09:36)
[2019-03-12] MEDS: MAG-OX 400 PO SCH (09:36)
[2019-03-12] MEDS: FEOSOL 325 MG PO SCH (09:37)
[2019-03-12] MEDS: Neurontin 400 MG PO SCH ×2 (09:37→12:46)
[2019-03-12] MEDS: Klor Con 10 MEQ PO SCH ×2 (09:37→14:40)
[2019-03-12] MEDS: Topamax 25 MG PO SCH (09:37)
[2019-03-12] MEDS: Tums EX 750 MG PO SCH (09:37)
[2019-03-12] MEDS: Sodium Chloride 0.9% 10 ML FLUSH Syringe IV SCH (12:01)
[2019-03-12 13:06] VITALS: BP 124/58; PULSE 74; O2SAT 99
--- NOTE | 2019-03-12 15:46 | PCM.DS ---
Discharge Summary Date of Admission: 03/07/19 12:24 Admitting Physician: ROLANDO SALMERON Primary Care Provider: ROLANDO SALMERON Allergies Allergies No Known Drug Allergies Allergy (Verified 03/07/19 09:38) Hospital Summary - Hospital Course Hospital Course: Patient was readmitted to hospital .... Discharged for rehab at [facility] for generalized strengthening and to moniter sugars closely. - Vitals & Intake/Output Vital Signs: Vital Signs Temperature 97.7 F 03/12/19 12:00 Pulse Rate 74 03/12/19 12:00 Respiratory Rate 18 03/12/19 12:00 Blood Pressure 124/58 03/12/19 12:00 O2 Sat by Pulse Oximetry 99 03/12/19 12:00 Oxygen-Last Documented O2 Percentage 4 Liters = 36% Intake & Output: Intake & Output 03/10/19 03/11/19 03/12/19 03/13/19 11:59 11:59 11:59 11:59 Intake Total 2337 1800 1380 Output Total 4200 3400 3650 525 Balance -1863 -1600 -2270 -525 Weight 114.8 kg - Lab Result Diagrams: 03/09/19 04:30 03/11/19 06:05 Lab Results-Last 24 Hrs: Accuchecks Date 03/11/19 Time 16:57 Accucheck Value: 215 Accucheck Value: 205 Accucheck Value: 259 Accucheck Value: 211 Micro Results-Entire Visit: Microbiology 03/07/19 13:30 Blood Culture Gram Stain - Final Blood Not Reportable Blood Culture - Final NO GROWTH 03/07/19 10:30 Blood Culture Gram Stain - Final Blood Not Reportable Blood Culture - Final NO GROWTH 03/07/19 10:35 Urine Culture - Final Catherized NO GROWTH Accuchecks Date 03/11/19 Time 16:57 Accucheck Value: 215 Accucheck Value: 205 Accucheck Value: 259 Accucheck Value: 211 - Procedures and Test Procedures and Tests throughout Hospitalization: Therapy Orders & Screens 03/07/19 13:00 Respiratory Therapy Consult ROUTINE Comment: Reason For Exam: Diagnosis: Hypoglycemia 03/07/19 13:19 RT Screen per Nursing Assess ONCE Comment: Protocol Order Physician Instructions: Greater than 3 points order RT Admission Screen Reason For Exam: Triggered on Admission Diagnosis: Hypoglycemia at homr Diagnosis: Hypoglycemia at homr Pneumonia: No Home O2: Yes Asthma: No CHF: No Home CPAP/BIPAP: Yes Home Nebs/MDI: Yes Total Points: 15 Smoking Cessation Education ONCE Comment: Diagnosis: Hypoglycemia at [facility] Smoking Status: Current every day smoker How long have you smoked: 50 + year Have you smoked in the past 12 months: Yes Approximately how many cigarettes per day: 10 Do you dip or chew tobacco: No If,Former Smoker,when did you quit: 6 months ago 03/07/19 13:36 Peak Expiratory Flow Rate ONCE Comment: Reason For Exam: Diagnosis: Hypoglycemia at [facility] 03/07/19 13:37 Oxygen NASAL CANNULA 4 lpm Comment: Diagnosis: Hypoglycemia at [facility] 03/07/19 14:36 Respiratory Therapy Assessment DAILY Comment: Diagnosis: Hypoglycemia at [facility] Final Diagnosis/Problem List - Final Discharge Diagnosis/Problem (1) COPD exacerbation Current Visit: No Status: Acute Code(s): J44.1 - CHRONIC OBSTRUCTIVE PULMONARY DISEASE W (ACUTE) EXACERBATION (2) Hypoglycemia Current Visit: Yes Status: Acute Code(s): E16.2 - HYPOGLYCEMIA, UNSPECIFIED (3) Bilateral cellulitis of lower leg Current Visit: Yes Status: Acute Code(s): L03.116 - CELLULITIS OF LEFT LOWER LIMB; L03.115 - CELLULITIS OF RIGHT LOWER LIMB - Discharge Disposition: Home, Self-Care Condition: Fair Prescriptions: New Cefuroxime Axetil 500 mg [Ceftin 500 mg] 500 mg PO BID #10 tablet Continue Clopidogrel Bisulfate 75 mg [PLAVIX 75 MG Tablet] 75 mg PO HS Aspirin [Aspirin EC] 325 mg PO QAM Metoprolol Succinate [Toprol Xl] 100 mg PO HS Duloxetine HCl [Cymbalta] 60 mg PO HS Ropinirole HCl 4 mg PO TID Gabapentin [Neurontin] 800 mg PO QID Topiramate 25 mg [Topamax 25 MG] 25 mg PO BID AMITRIPTYLINE HCL 50 mg Tab [AMITRIPTYLINE HCL 50 mg Tablet] 50 mg PO HS Atorvastatin Calcium [Lipitor] 40 mg PO HS Albuterol 8 gm Mdi Hfa [Ventolin Hfa MDI] 2 puff IH Q4HPRN PRN PRN Reason: Shortness Of Breath/Wheezing Bumetanide 1 mg [Bumex 1 mg] 2 mg PO BID #30 tablet Insulin Aspart [NovoLOG Insulin] 10 unit SQ 0730,1130 #1 unit Albuterol/Ipratropium 3ml Neb* [DUONEB 0.5-3 MG/3 ml Neb] 3 ml NEBULIZE Q4H PRN PRN #1 box PRN Reason: Wheezing/Chest Congestion Nebulizer 1 each MC Q4H PRN PRN #1 kit PRN Reason: Wheezing/Shortness of Breath Ferrous Sulfate 325 mg [Feosol 325 mg] 325 mg PO BID Nitroglycerin 0.4 mg Tablet [Nitrostat 0.4 MG Tablet] 0.4 mg SL UD Umeclidinium [facility] [Incruse Ellipta] 62.5 mcg IH DAILY Levothyroxine Sodium 88 mcg PO DAILY Levothyroxine Sodium 100 mcg PO DAILY Potassium Chloride 10 Meq Tab* [Klor Con 10 MEQ] 20 meq PO TID #90 tab Magnesium Oxide 400 mg [Mag-Ox 400] 400 mg PO BID #60 tablet Calcium Carbonate 750 mg [Tums EX 750 MG] 1,000 mg PO BID #1 bottle Ergocalciferol (Vitamin D2) [Vitamin D2] 50,000 unit PO Q7D #4 capsule Discontinued Insulin Degludec [Tresiba Flextouch U-100] 60 unit SQ QAM #1 insuln.pen Cefdinir 300 mg PO BID #12 capsule Prednisone 20 mg [Deltasone 20 mg] 20 mg PO DAILY #15 tablet Additional Instructions: [facility] ORDERS: ACCIGNACIO PAYNE 1999 [address] DIET CEFTIN 500MG PO BID X5 DAYS PT/OT EVAL AND TREAT SPEECH EVAL AND TREAT SEE ATTACHED MED LIST FOR CURRENT MED ORDERS Follow up with: JONNY JUAN [CONSULTING PHYSICIAN] - 03/20/19 Forms: Transfer Record [facility]
[2019-03-13] MEDS ORDERED: VITAMIN D2 PO SCH (10:00)
== END 2019-03-12 15:35 | DRG 191 ==
LOC: ED 09:36 → MED SURG 12:24
PROVIDERS: ADMIT Family Medicine; ATTEND Family Medicine
DX: J44.1 Chronic obstructive pulmonary disease with (acute) exacerbation (principal); L03.116 Cellulitis of left lower limb; L03.115 Cellulitis of right lower limb; Z79.01 Long term (current) use of anticoagulants; I13.0 Hypertensive heart and chronic kidney disease with heart failure and stage 1 through stage 4 chronic kidney disease, or unspecified chronic kidney disease; Z79.899 Other long term (current) drug therapy; R41.82 Altered mental status, unspecified; Z99.81 Dependence on supplemental oxygen; E78.00 Pure hypercholesterolemia, unspecified; I25.10 Atherosclerotic heart disease of native coronary artery without angina pectoris; E11.649 Type 2 diabetes mellitus with hypoglycemia without coma; E11.22 Type 2 diabetes mellitus with diabetic chronic kidney disease; N18.3 Chronic kidney disease, stage 3 (moderate); T68.XXXA Hypothermia, initial encounter; N39.490 Overflow incontinence; E83.51 Hypocalcemia; D64.9 Anemia, unspecified
CPT/HCPCS: 36415; 36600; 51702; 70450; 71046; 80048; 80053; 81001; 82375; 82803; 82805; 82962; 83735; 84443; 84484; 85025; 85027; 87040; 87086; 90662; 93005; 93041; 94002; 94003; 94150; 94640; 94760; 96374; 99285; 99291; J0456; J0696; A9270-GY

== ENCOUNTER 2019-05-20 14:40 | Inpatient (IN) | payer MEDICARE ==
[2019-05-20] MEDS ORDERED: solu-MEDROL 125 MG IV ONE (14:46)
[2019-05-20] MEDS ORDERED: DUONEB 0.5-3 MG/3 ml Neb IH ONE (14:46)
[2019-05-20 15:06] LABS: A-aADO2 10; ABG HEMOGLOBIN 11.2; ABG POTASSIUM 3.8 (3.5-5.1); ARTERIAL BLOOD GAS BASE EXCESS 17.6 (-2.0-2.0); ARTERIAL BLOOD GAS FIO2 21 %; ARTERIAL BLOOD GAS PO2 58 mmHg (75-100); ARTERIAL BLOOD GAS pH 7.45 (7.35-7.45); CARBOXYHEMOGLOBIN 2.4 % THgb (0.0-6.9); HCO3- 45.2 (22-28); Lactic Acid 1.2 (0.4-2.0); Methhemoglobin 0.9 % (1.4-1.5); paO2 pAO1 0.85
[2019-05-20 15:07] LABS: ABG SITE LEFT BRACHIAL; ARTERIAL BLOOD GAS PCO2 65 mmHg (35-45)
--- NOTE | 2019-05-20 15:18 | ERPHSYRPT ---
- History of Present Illness Time Seen by Provider: 05/20/19 14:46 Source: patient, EMS Exam Limitations: no limitations Patient Subjective Stated Complaint: SOB Triage Nursing Assessment: Patient brought into ED via EMS and transferred to bed with assist of 4. Patient A+O X3. Patient's skin pink, warm and dry. Patient complains of SOB. Patient currently taking a Duoneb. Patient's lungs noted to be wheezy throughout. Patient's daughter in law states she was unable to wake patient up so she called EMS. When EMS arrived they applied oxygen per non rebreather at 15 liters then started to talk. Patient denies pain or discomfort. Physician History: 68 years old female with history of coronary artery disease, congestive heart failure, hypertension, hyperlipidemia, chronic respiratory failure from COPD, hypothyroidism presented in the ER after that was difficult to wake her up prior to arrival. When first responders came in for an oxygen, she woke up smoothly with no confusion or focal weakness. Daughter reports patient has similar symptoms multiple times in the past when her CO2 goes high. She is given Solu-Medrol and 2 neb treatments prior to arrival and is much improved now. She is still have bilateral wheezing. Denies any chest pain but has some tightness. No fever or chills reported. Patient reports having cough productive of yellow-green sputum mild in amount for the last 4 to 5 days with progressive worsening and feeling short of breath as well. Timing/Duration: day(s) (4), gradual onset, worse Activities at Onset: rest Severity of Dyspnea-Max: moderate Severity of Dyspnea-Current: moderate Possible Cause: frequent episodes Modifying Factors: Improves With: albuterol nebulizer, coughing Associated Symptoms: cough, wheezing, productive cough, tightness, No fever Allergies/Adverse Reactions: No Known Drug Allergies Allergy (Verified 05/20/19 14:46) Home Medications: Aspirin [Aspirin EC] 325 mg PO QA 10/09/13 [History] Clopidogrel Bisulfate 75 mg [PLAVIX 75 MG Tablet] 75 mg PO HS 10/09/13 [ History] Metoprolol Succinate [Toprol Xl] 100 mg PO HS 02/03/15 [History] Duloxetine HCl [Cymbalta] 60 mg PO HS 08/17/17 [History] AMITRIPTYLINE HCL 50 mg Tab [AMITRIPTYLINE HCL 50 mg Tablet] 50 mg PO HS [History] Albuterol 8 gm Mdi Hfa [Ventolin Hfa MDI] 2 puff IH Q4HPRN PRN 07/16/18 [ History] Atorvastatin Calcium [Lipitor] 40 mg PO HS 07/16/18 [History] Gabapentin [Neurontin] 800 mg PO QID 07/16/18 [History] Ropinirole HCl 4 mg PO TID 07/16/18 [History] Topiramate 25 mg [Topamax 25 MG] 25 mg PO BID 07/16/18 [History] Ferrous Sulfate 325 mg [Feosol 325 mg] 325 mg PO BID 02/26/19 [History] Levothyroxine Sodium 88 mcg PO DAILY 02/26/19 [History] Levothyroxine Sodium 100 mcg PO DAILY 02/26/19 [History] Nitroglycerin 0.4 mg Tablet [Nitrostat 0.4 MG Tablet] 0.4 mg SL UD [History] Umeclidinium [place] [Incruse Ellipta] 62.5 mcg IH DAILY 02/26/19 [History] Hx Tetanus, Diphtheria Vaccination/Date Given: Yes (5 years ago) Hx Influenza Vaccination/Date Given: Yes Hx Pneumococcal Vaccination/Date Given: No Immunizations Up to Date: Yes - Review of Systems Constitutional: Fatigue Eyes: No Symptoms Ears, Nose, & Throat: No Symptoms Respiratory: Cough, Dyspnea, Wheezing Cardiac: No Symptoms Abdominal/Gastrointestinal: No Symptoms Genitourinary Symptoms: No Symptoms Musculoskeletal: No Symptoms Neurological: No Symptoms Psychological: No Symptoms Endocrine: No Symptoms Hematologic/Lymphatic: No Symptoms Immunological/Allergic: No Symptoms - Past Medical History Pertinent Past Medical History: Yes Neurological History: No Pertinent History ENT History: No Pertinent History Cardiac History: High Cholesterol, Hypertension, Myocardial Infarction ([place]) Respiratory History: COPD Endocrine Medical History: Diabetes Type II, Other Musculoskeletal History: Fractures, Osteoarthritis GI Medical History: No Pertinent History History: No Pertinent History Psycho-Social History: Depression Female Reproductive Disorders: No Pertinent History Other Medical History: THYROID NODULE, HX [place] WITHOUT SURGERY, R ANKLE FX W/ ORIF 2007 - Past Surgical History Past Surgical History: Yes Neuro Surgical History: No Pertinent History Cardiac: No Pertinent History Respiratory: No Pertinent History Gastrointestinal: No Pertinent History, Other Genitourinary: No Pertinent History Musculoskeletal: Other Female Surgical History: Tubal Ligation Other Surgical History: RIGHT ANKLE SURGERY, thyroidectomy, left carotid endartertectomy - Social History Smoking Status: Current every day smoker How long have you smoked: 50 + year Exposure to second hand smoke: Yes Drug Use: none Patient Lives Alone: No - Female History Hx Last Menstrual Period: menopausal - Nursing Vital Signs Nursing Vital Signs: Initial Vital Signs Temperature 97.4 F 05/20/19 14:47 Pulse Rate 86 05/20/19 14:47 Respiratory Rate 25 H 05/20/19 14:47 Blood Pressure 149/69 05/20/19 14:47 O2 Sat by Pulse Oximetry 97 05/20/19 14:47 Pain Scale Pain Intensity 0 - Physical Exam General Appearance: no apparent distress Eye Exam: PERRL/EOMI, eyes nml inspection Ears, Nose, Throat Exam: hearing grossly normal, normal ENT inspection, normal pharynx Neck Exam: normal inspection, non-tender, supple, full range of motion Respiratory Exam: rhonchi, wheezing Cardiovascular/Chest Exam: normal heart sounds, regular rate/rhythm Abdominal/Gastrointestinal Exam: soft, normal bowel sounds Extremity Exam: non-tender, pedal edema, swelling Neurologic Exam: alert, oriented x 3, cooperative, child welfare director II-XII nml as tested, normal mood/affect Skin Exam: normal color SpO2 Interpretation: normal SpO2: 97 O2 Delivery: Nasal Cannula - Course Nursing assessment & vital signs reviewed: Yes EKG Interpreted by Me: RATE (81), Right [place] Deviation, Q-wave (Inferior leads) , Non-specific ST Changes Ordered Tests: Active Orders 24 hr Category Date Time Status Up With Assistance ROUTINE Activity 05/20/19 16:36 Active Accucheck ACHS Care 05/20/19 16:36 Active Admit as Inpatient ROUTINE Care 05/20/19 16:36 Active CO2 Monitoring STAT Care 05/20/19 15:42 Active Systems Test Analyst STAT Care 05/20/19 14:48 Active Code Status Order ROUTINE Care 05/20/19 16:36 Active EKG-ER Only STAT Care 05/20/19 14:46 Active IV Care Q6H Care 05/20/19 16:36 Completed IV Insertion STAT Care 05/20/19 14:46 Active Pulse Oximetry (ED) STAT Care 05/20/19 14:46 Active Anuj Ann, Apply ROUTINE Care 05/20/19 16:36 Active Weight,Daily 0600 Care 05/20/19 16:36 Active Consult Neurology ROUTINE Cons 05/20/19 16:36 Active Consult Pulmonology ROUTINE Cons 05/20/19 16:36 Active 1800 Calorie ADA Diet 05/20/19 Dinner Active CHEST 1 VIEW (PORTABLE) Stat Exams 05/20/19 14:48 Completed HEAD WITHOUT CONTRAST [CT] Stat Exams 05/20/19 15:59 Completed ABG [ARTERIAL BLOOD GASES] Urgent Lab 05/20/19 16:08 Completed ARTERIAL BLOOD GASES Stat Lab 05/20/19 14:46 Completed BLOOD CULTURE Stat Lab 05/20/19 15:20 Received CBC AM.LAB Lab 05/21/19 04:00 Ordered CBC W DIFF Stat Lab 05/20/19 15:15 Completed CMP AM.LAB Lab 05/21/19 04:00 Ordered CMP Stat Lab 05/20/19 15:15 Completed Lactic Acid Stat Lab 05/20/19 14:46 Completed MAGNESIUM AM.LAB Lab 05/21/19 04:00 Ordered MAGNESIUM Stat Lab 05/20/19 15:15 Completed NT PRO BNP Stat Lab 05/20/19 15:15 Completed TROPONIN Q3H Lab 05/20/19 15:15 Completed TROPONIN Q3H Lab 05/20/19 19:14 Completed TROPONIN Q3H Lab 05/20/19 21:46 Completed TROPONIN Q3H Lab 05/21/19 00:00 Ordered TROPONIN Q3H Lab 05/21/19 03:00 Ordered TSH, 3RD Generation Routine Lab 05/20/19 14:00 Completed Pulse Oximetry CONTINUOUS RT 05/20/19 16:40 Active Respiratory Therapy Assessment DAILY RT 05/20/19 17:57 Active Respiratory Therapy Consult ROUTINE RT 05/20/19 16:40 Completed Medication Summary Generic Name Dose Route Start Last Admin Trade Name Freq PRN Reason Stop Dose Admin Albuterol/Ipratropium 3 ml 05/20/19 19:00 05/20/19 23:14 Duoneb 0.5-3 Mg/3 Ml Neb IH 06/19/19 18:59 3 ml Q4HRT ARELY Administration Sodium Chloride 1,000 mls @ 100 mls/hr 05/20/19 16:00 Sodium Chloride 0.9% 1000 Ml IV 06/19/19 15:59 .Q10H ARELY Azithromycin / Sodium Chloride 250 mls @ 125 mls/hr 05/20/19 16:03 IV 05/20/19 18:02 STAT ONE Sodium Chloride 1,000 mls @ 100 mls/hr 05/20/19 16:45 Sodium Chloride 0.9% 1000 Ml IV 06/19/19 16:44 .Q10H ARELY Insulin Human Regular 0 unit 05/20/19 16:45 Humulin R SQ 06/19/19 16:44 UD ARELY Methylprednisolone Sodium Succinate 80 mg 05/20/19 18:00 Solu-Medrol 125 Mg IV 06/19/19 17:59 Q6HT ARELY Discontinued Medications Generic Name Dose Route Start Last Admin Trade Name Freq PRN Reason Stop Dose Admin Albuterol/Ipratropium 3 ml 05/20/19 14:46 05/20/19 17:56 Duoneb 0.5-3 Mg/3 Ml Neb IH 05/20/19 14:47 3 ml STAT ONE Administration Ceftriaxone Sodium/Dextrose 1 g in 50 mls @ 100 mls/hr 05/20/19 16:03 17:19 Rocephin 1 Gm-D5w 50 Ml Bag IV 05/20/19 16:32 Infused STAT STA Infusion Ceftriaxone Sodium/Dextrose Confirm 05/20/19 16:56 Rocephin 1 Gm-D5w 50 Ml Bag Administered 05/20/19 16:57 Dose 1 g in 50 mls @ ud IV .STK-MED ONE Methylprednisolone Sodium Succinate 125 mg 05/20/19 14:46 05/20/19 15:52 Solu-Medrol 125 Mg IV 05/20/19 14:47 125 mg STAT ONE Administration Methylprednisolone Sodium Succinate Confirm 05/20/19 15:51 Solu-Medrol 125 Mg Administered 05/20/19 15:52 Dose 125 mg .ROUTE .STK-MED ONE Lab/Rad Data: Laboratory Result Diagrams 05/20/19 15:15 05/20/19 15:15 Laboratory Results 05/20/19 05/20/19 05/20/19 Range/Units 19:14 16:08 15:15 WBC (4.0-10.5) K/mm3 RBC (4.1-5.4) M/mm3 Hgb (12.0-16.0) gm/dl Hct (35-47) % MCV (78-100) fl MCH (26-32) pg MCHC (32-36) g/dl RDW (11.5-14.0) % Plt Count (150-450) K/mm3 MPV (7.5-11.0) fl Gran % (36.0-66.0) % Eos # (Auto) (0-0.5) Absolute Lymphs (auto) (1.0-4.6) Absolute Monos (auto) (0.0-1.3) Lymphocytes % (24.0-44.0) % Monocytes % (0.0-12.0) % Eosinophils % (0.00-5.0) % Basophils % (0.0-0.4) % Absolute Granulocytes (1.4-6.9) Basophils # (0-0.4) Puncture Site LEFT BRACHIAL pCO2 63 H* (35-45) mmHg pO2 75 (75-100) mmHg Base Excess 16.5 H (-2.0-2.0) O2 Saturation 94.4 (94-100) g/dF ABG pH 7.45 (7.35-7.45) ABG HCO3 43.8 H* (22-28) ABG O2 Sat (Measured) 97.6 (95-100) % Valentino Test NOT APPLICABLE A-a Gradient 46 a/A Ratio 0.62 Hemoglobin 11.5 Carboxyhemoglobin 2.6 (0.0-6.9) % THgb Methemoglobin 0.7 L (1.4-1.5) % Potassium 3.8 (3.5-5.1) Temperature 37.0 C POC O2 Flow Rate 28 % Sodium (137-145) mmol/L Chloride (98-107) mmol/L Carbon Dioxide (22-30) mmol/L Anion Gap (5-15) MEQ/L BUN (7-17) mg/dL Creatinine (0.52-1.04) mg/dL Estimated GFR ML/MIN Glucose (74-106) mg/dL Lactic Acid (0.4-2.0) Calcium (8.4-10.2) mg/dL Magnesium (1.6-2.3) mg/dL Total Bilirubin (0.2-1.3) mg/dL AST (14-36) U/L ALT (0-35) U/L Alkaline Phosphatase (38-126) U/L Troponin I < 0.012 (0.000-0.034) ng/mL NT-Pro-B Natriuret Pep (0-900) pg/mL Serum Total Protein (6.3-8.2) g/dL Albumin (3.5-5.0) g/dL TSH 3rd Generation (0.47-4.68) mIU/L Influenza Type A Ag NEGATIVE (NEGATIVE) Influenza Type B Ag NEGATIVE (NEGATIVE) RSV (PCR) NEGATIVE (Negative) 05/20/19 05/20/19 05/20/19 Range/Units 15:15 15:15 15:15 WBC 11.3 H (4.0-10.5) K/mm3 RBC 3.82 L (4.1-5.4) M/mm3 Hgb 10.9 L (12.0-16.0) gm/dl Hct 34.8 L (35-47) % MCV 91.1 (78-100) fl MCH 28.5 (26-32) pg MCHC 31.3 L (32-36) g/dl RDW 13.9 (11.5-14.0) % Plt Count 235 (150-450) K/mm3 MPV 10.6 (7.5-11.0) fl Gran % 76.8 H (36.0-66.0) % Eos # (Auto) 0.11 (0-0.5) Absolute Lymphs (auto) 1.87 (1.0-4.6) Absolute Monos (auto) 0.64 (0.0-1.3) Lymphocytes % 16.5 L (24.0-44.0) % Monocytes % 5.6 (0.0-12.0) % Eosinophils % 1.0 (0.00-5.0) % Basophils % 0.1 (0.0-0.4) % Absolute Granulocytes 8.71 H (1.4-6.9) Basophils # 0.01 (0-0.4) Puncture Site pCO2 (35-45) mmHg pO2 (75-100) mmHg Base Excess (-2.0-2.0) O2 Saturation (94-100) g/dF ABG pH (7.35-7.45) ABG HCO3 (22-28) ABG O2 Sat (Measured) (95-100) % Valentino Test A-a Gradient a/A Ratio Hemoglobin Carboxyhemoglobin (0.0-6.9) % THgb Methemoglobin (1.4-1.5) % Potassium 3.7 (3.5-5.1) Temperature C POC O2 Flow Rate % Sodium 138 (137-145) mmol/L Chloride 92 L (98-107) mmol/L Carbon Dioxide 38 H (22-30) mmol/L Anion Gap 11.7 (5-15) MEQ/L BUN 44 H (7-17) mg/dL Creatinine 2.01 H (0.52-1.04) mg/dL Estimated GFR 26.2 ML/MIN Glucose 178 H (74-106) mg/dL Lactic Acid (0.4-2.0) Calcium 11.5 H (8.4-10.2) mg/dL Magnesium 1.9 (1.6-2.3) mg/dL Total Bilirubin 0.50 (0.2-1.3) mg/dL AST 20 (14-36) U/L ALT 10 (0-35) U/L Alkaline Phosphatase 80 (38-126) U/L Troponin I < 0.012 (0.000-0.034) ng/mL NT-Pro-B Natriuret Pep 634 (0-900) pg/mL Serum Total Protein 7.5 (6.3-8.2) g/dL Albumin 4.0 (3.5-5.0) g/dL TSH 3rd Generation (0.47-4.68) mIU/L Influenza Type A Ag (NEGATIVE) Influenza Type B Ag (NEGATIVE) RSV (PCR) (Negative) 05/20/19 05/20/19 Range/Units 14:46 14:00 WBC (4.0-10.5) K/mm3 RBC (4.1-5.4) M/mm3 Hgb (12.0-16.0) gm/dl Hct (35-47) % MCV (78-100) fl MCH (26-32) pg MCHC (32-36) g/dl RDW (11.5-14.0) % Plt Count (150-450) K/mm3 MPV (7.5-11.0) fl Gran % (36.0-66.0) % Eos # (Auto) (0-0.5) Absolute Lymphs (auto) (1.0-4.6) Absolute Monos (auto) (0.0-1.3) Lymphocytes % (24.0-44.0) % Monocytes % (0.0-12.0) % Eosinophils % (0.00-5.0) % Basophils % (0.0-0.4) % Absolute Granulocytes (1.4-6.9) Basophils # (0-0.4) Puncture Site LEFT BRACHIAL pCO2 65 H* (35-45) mmHg pO2 58 L (75-100) mmHg Base Excess 17.6 H (-2.0-2.0) O2 Saturation 88.0 L (94-100) g/dF ABG pH 7.45 (7.35-7.45) ABG HCO3 45.2 H* (22-28) ABG O2 Sat (Measured) 91.0 L (95-100) % Valentino Test NOT APPLICABLE A-a Gradient 10 a/A Ratio 0.85 Hemoglobin 11.2 Carboxyhemoglobin 2.4 (0.0-6.9) % THgb Methemoglobin 0.9 L (1.4-1.5) % Potassium 3.8 (3.5-5.1) Temperature 37.0 C POC O2 Flow Rate 21 % Sodium (137-145) mmol/L Chloride (98-107) mmol/L Carbon Dioxide (22-30) mmol/L Anion Gap (5-15) MEQ/L BUN (7-17) mg/dL Creatinine (0.52-1.04) mg/dL Estimated GFR ML/MIN Glucose (74-106) mg/dL Lactic Acid 1.2 (0.4-2.0) Calcium (8.4-10.2) mg/dL Magnesium (1.6-2.3) mg/dL Total Bilirubin (0.2-1.3) mg/dL AST (14-36) U/L ALT (0-35) U/L Alkaline Phosphatase (38-126) U/L Troponin I (0.000-0.034) ng/mL NT-Pro-B Natriuret Pep (0-900) pg/mL Serum Total Protein (6.3-8.2) g/dL Albumin (3.5-5.0) g/dL TSH 3rd Generation 5.360 H (0.47-4.68) mIU/L Influenza Type A Ag (NEGATIVE) Influenza Type B Ag (NEGATIVE) RSV (PCR) (Negative) - Progress Progress: improved, re-examined Air Movement: fair Progress Note: 05/20/19 16:08 she is feeling better on presentation. Still have wheezing, will give another breathing treatment. She already have Solu-Medrol. Chest x-ray did not show any acute infiltrates, given a dose of antibiotics. She also has renal failure with creatinine of 2. She is given a bolus of fluid which was started by EMS and will continue with IV fluids. ABG showed chronic respiratory pattern. Discussed with Dr. Cesar and patient is being admitted. Blood Culture(s) Obtained: Yes Antibiotics given: Yes Discussed with DrJavon: Loida Will see patient in: hospital (full admit) Counseled pt/family regarding: lab results, diagnosis, rad results - Departure Departure Disposition: In-patient Admission Clinical Impression: COPD exacerbation Respiratory failure Qualifiers: Chronicity: acute on chronic Respiratory failure complication: hypoxia and hypercapnia Qualified Code(s): J96.21 - Acute and chronic respiratory failure with hypoxia Renal failure Qualifiers: Renal failure chronicity: acute Acute renal failure type: unspecified Qualified Code(s): N17.9 - Acute kidney failure, unspecified Condition: Fair Critical Care Time: Yes Critical Care Time(excluding separately billable procedures): Critical 30-74 mins
[2019-05-20 15:45] LABS: Absolute Neutrophil Ct (ANC) 8.71 (1.4-6.9); BASOPHIL % 0.1 % (0.0-0.4); Basophil (Absolute #) 0.01 (0-0.4); Eosinophil (Absolute #) 0.11 (0-0.5); Hematocrit 34.8 % (35-47); Hemoglobin 10.9 gm/dl (12.0-16.0); Lymphocyte (Absolute #) 1.87 (1.0-4.6); Lymphocytes % 16.5 % (24.0-44.0); Mean Cell Volume 91.1 fl (78-100); Mean Corpuscular Hemoglobin 28.5 pg (26-32); Mean Corpuscular Hgb Concent. 31.3 g/dl (32-36); Mean Platelet Volume 10.6 fl (7.5-11.0); Monocyte (Absolute #) 0.64 (0.0-1.3); Monocytes % 5.6 % (0.0-12.0); Neutrophil % 76.8 % (36.0-66.0); Platelet Count 235 K/mm3 (150-450); Red Blood Count 3.82 M/mm3 (4.1-5.4); Red Cell Distribution Width 13.9 % (11.5-14.0); White Blood Count 11.3 K/mm3 (4.0-10.5)
[2019-05-20 15:48] LABS: BILIRUBIN,TOTAL 0.5 mg/dL (0.2-1.3); Calcium 11.5 mg/dL (8.4-10.2); Creatinine 1 2.01 mg/dL (0.52-1.04); MAGNESIUM 1.9 mg/dL (1.6-2.3); Potassium 3.7 mmol/L (3.5-5.1); Total Protein 7.5 g/dL (6.3-8.2)
[2019-05-20 15:50] LABS: ANION GAP 11.7 MEQ/L (5-15)
[2019-05-20] MEDS ORDERED: solu-MEDROL 125 MG ONE (15:51)
[2019-05-20] MEDS ORDERED: Sodium Chloride 0.9% 1000 ML 1,000 ML IV SCH (16:00)
[2019-05-20] MEDS ORDERED: ROCEPHIN 1 Gm-D5w 50 ml Bag** 1 G/50 ML IVPB IV STA (16:03)
[2019-05-20] MEDS ORDERED: ZITHROMAX IV 500 MG*** 500 MG in Sodium Chloride 0.9% 250 ML 250 ML IV ONE (16:03)
[2019-05-20 16:11] LABS: INFLUENZA A NEGATIVE (NEGATIVE); INFLUENZA B NEGATIVE (NEGATIVE); RESPIRATORY SYNCTIAL VIRUS NEGATIVE (Negative)
[2019-05-20 16:11] LABS: A-aADO2 46; ABG HEMOGLOBIN 11.5; ABG POTASSIUM 3.8 (3.5-5.1); ARTERIAL BLD GAS O2 SATURATION 97.6 % (95-100); ARTERIAL BLOOD GAS BASE EXCESS 16.5 (-2.0-2.0); ARTERIAL BLOOD GAS FIO2 28 %; ARTERIAL BLOOD GAS PO2 75 mmHg (75-100); ARTERIAL BLOOD GAS pH 7.45 (7.35-7.45); CARBOXYHEMOGLOBIN 2.6 % THgb (0.0-6.9); HCO3- 43.8 (22-28); HGB O2 SAT 94.4 g/dF (94-100); Methhemoglobin 0.7 % (1.4-1.5); paO2 pAO1 0.62
[2019-05-20 16:12] LABS: ABG SITE LEFT BRACHIAL; ARTERIAL BLOOD GAS PCO2 63 mmHg (35-45)
[2019-05-20] MEDS ORDERED: ROCEPHIN 1 Gm-D5w 50 ml Bag** 1 G/50 ML IVPB IV ONE (16:56)
--- NOTE | 2019-05-20 19:26 | XRAY ---
Indication: Pneumonia. Comparison: March 07, 2019. Portable chest remains clear. Heart and mediastinal structures within normal limits for AP portable technique. No new/acute findings.
--- NOTE | 2019-05-20 20:01 | XRAY ---
Indication: Altered mental status. Memory loss. Multiple contiguous axial images obtained through the head without contrast. Comparison: March 07, 2019. Again age-appropriate global atrophy and mild periventricular degenerative micro-ischemia bilaterally. No acute intracranial hemorrhage, abnormal extra-axial fluid collection, or mass effect. Fourth ventricle is midline. Bony calvarium intact with stable left scalp calcified mass. There is now moderate mucosal thickening of left ethmoid, left sphenoid, and left maxillary sinuses. Stable near complete opacification of the right mastoid air cells. Impression: 1. New paranasal sinus disease. 2. Stable nonacute senile brain and near-complete opacification of right mastoid air cells. Comment: Preliminary interpretation was made by [facility]. No critical discrepancy.
[2019-05-20] MEDS: Sodium Chloride 0.9% 1000 ML 1,000 ML IV SCH (22:00)
[2019-05-20] MEDS: DUONEB 0.5-3 MG/3 ml Neb IH SCH (23:14)
[2019-05-21] MEDS: DUONEB 0.5-3 MG/3 ml Neb IH SCH ×6 (03:13→23:00)
[2019-05-21 05:11] LABS: Hematocrit 37.7 % (35-47); Hemoglobin 11.8 gm/dl (12.0-16.0); Mean Cell Volume 91.7 fl (78-100); Mean Corpuscular Hemoglobin 28.7 pg (26-32); Mean Corpuscular Hgb Concent. 31.3 g/dl (32-36); Mean Platelet Volume 11.2 fl (7.5-11.0); Platelet Count 126 K/mm3 (150-450); Red Blood Count 4.11 M/mm3 (4.1-5.4); Red Cell Distribution Width 13.7 % (11.5-14.0); White Blood Count 10.1 K/mm3 (4.0-10.5)
[2019-05-21 05:19] LABS: ALBUMIN 3.7 g/dL (3.5-5.0); ANION GAP 7.9 MEQ/L (5-15); BILIRUBIN,TOTAL 0.4 mg/dL (0.2-1.3); Calcium 10.1 mg/dL (8.4-10.2); Creatinine 1 1.73 mg/dL (0.52-1.04); MAGNESIUM 1.8 mg/dL (1.6-2.3); Potassium 3.7 mmol/L (3.5-5.1); Total Protein 7.1 g/dL (6.3-8.2)
[2019-05-21] MEDS: solu-MEDROL 125 MG IV SCH ×4 (05:42→21:39)
[2019-05-21] MEDS ORDERED: DUONEB 0.5-3 MG/3 ml Neb IH ONE (07:05)
[2019-05-21] MEDS ORDERED: Sodium Chloride 0.9% 1000 ML 1,000 ML ONE (07:19)
[2019-05-21] MEDS: HUMULIN R SQ SCH ×4 (08:08→21:19)
[2019-05-21] MEDS ORDERED: Nitrostat 0.4 MG Tablet SL SCH (10:15)
[2019-05-21] MEDS ORDERED: Ventolin Hfa MDI IH PRN (10:15)
[2019-05-21] MEDS: NEURONTIN 300 MG PO SCH ×3 (10:30→21:44)
[2019-05-21] MEDS: PATIENT OWN MEDICATION IH SCH (10:30)
[2019-05-21] MEDS ORDERED: VENTOLIN COMMON CANISTER IH PRN (10:43)
[2019-05-21] MEDS: Ecotrin 325 MG PO SCH (10:57)
[2019-05-21] MEDS: BUMEX 1 MG PO SCH ×2 (10:57→16:26)
[2019-05-21] MEDS: SYNTHROID 100 MCG PO SCH (10:57)
[2019-05-21] MEDS: MAG-OX 400 PO SCH ×2 (10:57→21:43)
[2019-05-21] MEDS: REQUIP 2MG TAB PO SCH ×2 (10:58→21:44)
[2019-05-21] MEDS ORDERED: ROPINIROLE HCL 4 MG PO SCH (11:00)
[2019-05-21] MEDS: SYNTHROID 88 MCG PO SCH (11:12)
[2019-05-21] MEDS: Topamax 25 MG PO SCH (11:12)
[2019-05-21] MEDS: Klor Con 10 MEQ PO SCH ×2 (15:02→21:43)
[2019-05-21] MEDS: Sodium Chloride 0.9% 1000 ML 1,000 ML IV SCH (17:23)
[2019-05-21] MEDS ORDERED: CEPACOL SORE THROAT LOZENGE PO PRN (18:35)
[2019-05-21] MEDS ORDERED: MORPHINE SULFATE 2 MG INJ IV PRN (18:37)
[2019-05-21] MEDS ORDERED: NICODERM CQ 14 MG TOP SCH (18:45)
[2019-05-21] MEDS: ZOCOR 20MG PO SCH (21:43)
[2019-05-21] MEDS: PLAVIX 75 MG Tablet PO SCH (21:43)
[2019-05-21] MEDS: Toprol Xl 100 MG PO SCH (21:44)
[2019-05-21] MEDS: Cymbalta 30 MG Capsule PO SCH (21:44)
[2019-05-21] MEDS: FEOSOL 325 MG PO SCH (21:44)
[2019-05-21] MEDS: Tums EX 750 MG PO SCH (21:45)
[2019-05-21] MEDS ORDERED: Voltaren GEL TOP SCH (22:00)
[2019-05-21] MEDS ORDERED: NON-FORMULARY ITEM (Atorvastatin Calcium [Lipitor] 40 MG) PO SCH (22:00)
[2019-05-21] MEDS ORDERED: DULOXETINE HCL 30 MG PO SCH (22:00)
[2019-05-22] MEDS: solu-MEDROL 125 MG IV SCH ×6 (00:43→23:54)
[2019-05-22] MEDS: Sodium Chloride 0.9% 1000 ML 1,000 ML IV SCH ×4 (02:41→23:54)
[2019-05-22] MEDS: DUONEB 0.5-3 MG/3 ml Neb IH SCH ×7 (03:03→23:24)
--- NOTE | 2019-05-22 07:36 | PCM.HP ---
History of Present Illness - Chief Complaint Chief Complaint: COPD History of Present Illness: is a 68 year old female with IDDM,CAD,COPD oxygen dependent,CRF hyperlipidemia and hypothyroidism. States she has had a productive cough for 4- 5 days and had become extremely week. " I can hardly lift my arms or hold myself up to walk.". Daughter states she was unable to awaken patient and called the ambulance . 1st responders stated patient was hypoxic,wheezing,sugar mildly elevated and that she woke up alert and OX3 with treatment,received IV solumedrol and Neb ts x 2 and O2. - Review of Systems Constitutional: Chills, Fatigue, Lethargy Eyes: No Symptoms Ears, Nose, & Throat: No Symptoms Respiratory: Cough, Short Of Breath, Wheezing Cardiac: No Symptoms Abdominal/Gastrointestinal: No Symptoms Genitourinary Symptoms: No Symptoms Musculoskeletal: Arthralgias (chronic), Myalgias Skin: No Symptoms Neurological: No Symptoms Psychological: No Symptoms Endocrine: No Symptoms Hematologic/Lymphatic: Anemia (chronic) Medications & Allergies Home Medications: Home Medication List Aspirin [Aspirin EC] 325 mg PO [facility] 10/09/13 [History Confirmed 05/20/19] Clopidogrel Bisulfate 75 mg [PLAVIX 75 MG Tablet] 75 mg PO HS 10/09/13 [ History Confirmed 05/20/19] Metoprolol Succinate [Toprol Xl] 100 mg PO HS 02/03/15 [History Confirmed ] Duloxetine HCl [Cymbalta] 60 mg PO HS 08/17/17 [History Confirmed 05/20/19] AMITRIPTYLINE HCL 50 mg Tab [AMITRIPTYLINE HCL 50 mg Tablet] 50 mg PO HS [History Confirmed 05/20/19] Albuterol 8 gm Mdi Hfa [Ventolin Hfa MDI] 2 puff IH Q4HPRN PRN 07/16/18 [ History Confirmed 05/20/19] Atorvastatin Calcium [Lipitor] 40 mg PO HS 07/16/18 [History Confirmed 05/20/19] Gabapentin [Neurontin] 800 mg PO QID 07/16/18 [History Confirmed 05/20/19] Ropinirole HCl 4 mg PO TID 07/16/18 [History Confirmed 05/20/19] Topiramate 25 mg [Topamax 25 MG] 25 mg PO BID 07/16/18 [History Confirmed 05/20/19] Bumetanide 1 mg [Bumex 1 mg] 2 mg PO BID #30 tablet 07/24/18 [Rx Confirmed 05/20/19] Insulin Aspart [NovoLOG Insulin] 10 unit SQ 0730,1130 #1 unit 07/24/18 [Rx Confirmed 05/20/19] Albuterol/Ipratropium 3ml Neb* [DUONEB 0.5-3 MG/3 ml Neb] 3 ml NEBULIZE Q4H PRN PRN #1 box 02/02/19 [Rx Confirmed 05/20/19] Ferrous Sulfate 325 mg [Feosol 325 mg] 325 mg PO BID 02/26/19 [History Confirmed 05/20/19] Levothyroxine Sodium 88 mcg PO DAILY 02/26/19 [History Confirmed 05/20/19] Levothyroxine Sodium 100 mcg PO DAILY 02/26/19 [History Confirmed 05/20/19] Nitroglycerin 0.4 mg Tablet [Nitrostat 0.4 MG Tablet] 0.4 mg SL UD [History Confirmed 05/20/19] Umeclidinium [place] [Incruse Ellipta] 62.5 mcg IH DAILY 02/26/19 [History Confirmed 05/20/19] Calcium Carbonate 750 mg [Tums EX 750 MG] 1,000 mg PO BID #1 bottle [Rx Confirmed 05/20/19] Ergocalciferol (Vitamin D2) [Vitamin D2] 50,000 unit PO Q7D #4 capsule 03/05/19 [Rx Confirmed 05/20/19] Magnesium Oxide 400 mg [Mag-Ox 400] 400 mg PO BID #60 tablet 03/05/19 [Rx Confirmed 05/20/19] Potassium Chloride 10 Meq Tab* [Klor Con 10 MEQ] 20 meq PO TID #90 tab [Rx Confirmed 05/20/19] Allergies/Adverse Reactions: Allergies Allergy/AdvReac Type Severity Reaction Status Date / Time No Known Drug Allergies Allergy Verified 05/20/19 14:46 - Past Medical History Past Medical History: Yes Neurological History: No Pertinent History ENT History: No Pertinent History Cardiac History: High Cholesterol, Hypertension, Myocardial Infarction ([place]) Respiratory History: COPD Endocrine Medical History: Diabetes Type II, Other Musculoskelatal History: Fractures, Osteoarthritis GI Medical History: No Pertinent History History: No Pertinent History Pyscho-Social History: Depression Reproductive Disorders: No Pertinent History Comment: THYROID NODULE, HX [place] WITHOUT SURGERY, R ANKLE FX W/ ORIF 2007 - Female History Hx Last Menstrual Period: menopausal - Past Surgical History Past Surgical History: Yes Neuro Surgical History: No Pertinent History Cardiac History: No Pertinent History Respiratory Surgery: No Pertinent History GI Surgical History: No Pertinent History, Other Genitourinary Surgical Hx: No Pertinent History Musculskeletal Surgical Hx: Other Female Surgical History: Tubal Ligation Other Surgical History: RIGHT ANKLE SURGERY, thyroidectomy, left carotid endartertectomy - Social History Smoking Status: Current every day smoker How long have you smoked: 50 + year Exposure to second hand smoke: Yes Alcohol: None Drug Use: none - Physical Exam Vital Signs: Vital Signs - 24 hr Temp Pulse Resp BP Pulse Ox 05/22/19 06:30 88 18 95 05/22/19 04:00 98.6 F 99 H 19 121/59 93 L 05/22/19 03:06 99 H 19 93 L 05/22/19 00:00 98.2 F 111 H 20 117/55 96 05/21/19 23:06 108 H 20 92 L 05/21/19 20:00 98.7 F 75 18 122/60 93 L 05/21/19 19:22 111 H 21 91 L 05/21/19 16:00 98.4 F 103 H 20 141/95 94 L 05/21/19 15:04 96 H 20 94 L 05/21/19 11:52 97.6 F 91 H 19 143/67 92 L 05/21/19 11:22 93 H 18 93 L General Appearance: no apparent distress Neurologic Exam: alert, oriented x 3, cooperative, maths tutor II-XII nml as tested, normal mood/affect Eye Exam: PERRL/EOMI, eyes nml inspection Ears, Nose, Throat Exam: normal ENT inspection Neck Exam: normal inspection Respiratory Exam: diminished breath sounds, rhonchi, wheezing Cardiovascular Exam: regular rate/rhythm Gastrointestinal/Abdomen Exam: soft (obese), normal bowel sounds (nontender) Pelvic Exam: not done Rectal Exam: not done Back Exam: normal inspection (no CVA tenderness) Extremity Exam: other (bilat LE1-2+/4 pitting,no calf tenderness) Results - Labs Lab/Micro Results: Accuchecks Date 05/21/19 Date 05/21/19 Date 05/21/19 Time 21:30 Time 16:30 Time 11:30 Accucheck Value: 437 Accucheck Value: 354 Microbiology 05/20/19 15:20 Blood Culture - Preliminary Blood NO GROWTH TO DATE 05/20/19 15:15 Blood Culture - Preliminary Blood NO GROWTH TO DATE Accuchecks Date 05/21/19 Date 05/21/19 Date 05/21/19 Time 21:30 Time 16:30 Time 11:30 Accucheck Value: 437 Accucheck Value: 354 - Radiology Impressions Radiology Exams & Impressions: Radiology Procedures Category Date Time Status CHEST 1 VIEW (PORTABLE) Stat Exams 05/20/19 14:48 Completed HEAD WITHOUT CONTRAST [CT] Stat Exams 05/20/19 15:59 Completed - Other Procedures and Tests Respiratory Therapy 05/22/19 07:00 Peak Expiratory Flow Rate DAILY Assessment/Plan (1) Failure of outpatient treatment Current Visit: No Status: Acute Code(s): Z78.9 - OTHER SPECIFIED HEALTH STATUS (2) COPD exacerbation Current Visit: No Status: Acute Assessment & Plan: IV solumedrol,antibiotics,neb txs Code(s): J44.1 - CHRONIC OBSTRUCTIVE PULMONARY DISEASE W (ACUTE) EXACERBATION (3) Diabetes mellitus, insulin dependent (IDDM), uncontrolled Current Visit: Yes Status: Acute Assessment & Plan: monitor,educate Code(s): SGK8828 - (4) Chronic renal failure Current Visit: No Status: Chronic Qualifiers: Chronic kidney disease stage: stage 3 (moderate) Assessment & Plan: monitor,reduce gabapentin and possibly other meds (5) Lethargy Current Visit: Yes Status: Acute Assessment & Plan: Tx COPD exacerbation has help resolve lethargy,also reduction of gabapentin and review chonic med list for others that could be reduced. Code(s): R53.83 - OTHER FATIGUE
[2019-05-22] MEDS: HUMULIN R SQ SCH ×4 (08:09→21:43)
--- NOTE | 2019-05-22 08:51 | PCM.NOTE ---
Date and Time: 05/22/19 0845 Subjective Assessment: Pt states she is feeling "fine" and she wants to go home. Is not on O2 at home. Damián po well. Oriented x3 today. BS have been elevated, to 300s-400s. - Review of Systems Constitutional: No Fever Respiratory: Cough, Short Of Breath Objective Exam General Appearance: no apparent distress, alert Neurologic Exam: oriented x 3, cooperative Skin Exam: normal color, warm, dry, No rash Ears, Nose, Throat Exam: moist mucous membranes Neck Exam: normal inspection Respiratory Exam: diminished breath sounds (fair air exchange), wheezing (faint scattered), No crackles/rales, No rhonchi Cardiovascular Exam: regular rate/rhythm, normal heart sounds, No murmur Extremity Exam: swelling (LE trace edema bilat) Back Exam: normal inspection, No rash OBJECTIVE DATA Vital Signs: Vital Signs - 24 hr Temp Pulse Resp BP Pulse Ox 05/22/19 08:00 98.2 F 84 20 144/85 96 05/22/19 06:30 88 18 95 05/22/19 04:00 98.6 F 99 H 19 121/59 93 L 05/22/19 03:06 99 H 19 93 L 05/22/19 00:00 98.2 F 111 H 20 117/55 96 05/21/19 23:06 108 H 20 92 L 05/21/19 20:00 98.7 F 75 18 122/60 93 L 05/21/19 19:22 111 H 21 91 L 05/21/19 16:00 98.4 F 103 H 20 141/95 94 L 05/21/19 15:04 96 H 20 94 L 05/21/19 11:52 97.6 F 91 H 19 143/67 92 L 05/21/19 11:22 93 H 18 93 L Pain Assessment - Last Documented Pain Intensity 0 Pain Scale Used [facility] Intake and Output: Intake & Output 05/19/19 05/20/19 05/21/19 05/22/19 11:59 11:59 11:59 11:59 Intake Total 946 3207 Output Total 900 1700 Balance 46 1507 Weight 106.8 kg 108.7 kg Lab Results: Accuchecks Date 05/22/19 Date 05/21/19 Date 05/21/19 Date 05/21/19 Time 08:16 Time 21:30 Time 16:30 Time 11:30 Accucheck Value: 374 Accucheck Value: 437 Accucheck Value: 354 Radiology Exams: Radiology Procedures Category Date Time Status CHEST 1 VIEW (PORTABLE) Stat Exams 05/20/19 14:48 Completed HEAD WITHOUT CONTRAST [CT] Stat Exams 05/20/19 15:59 Completed Assessment/Plan (1) COPD exacerbation Current Visit: Yes Status: Acute Assessment & Plan: WIll add antibiotics. Hold off on pulmonary consult for now. Code(s): J44.1 - CHRONIC OBSTRUCTIVE PULMONARY DISEASE W (ACUTE) EXACERBATION (2) Renal failure Current Visit: Yes Status: Acute Qualifiers: Renal failure chronicity: acute Acute renal failure type: unspecified Qualified Code(s): N17.9 - Acute kidney failure, unspecified Assessment & Plan: Will decrease bumex and recheck BMP ; hold off on renal consult for now. (3) Diabetes Current Visit: No Status: Chronic Qualifiers: Diabetes mellitus type: type 2 Diabetes mellitus watermelon inspector insulin use: with watermelon inspector use Diabetes mellitus complication status: with kidney complications Diabetes mellitus complication detail: with chronic kidney disease Chronic kidney disease stage: stage 3 (moderate) Qualified Code(s): E11.22 - Type 2 diabetes mellitus with diabetic chronic kidney disease; N18.3 - Chronic kidney disease, stage 3 (moderate); Z79.4 - [facility] (current) use of insulin Assessment & Plan: increase long acting insulin. Code(s): E11.9 - TYPE 2 DIABETES MELLITUS WITHOUT COMPLICATIONS (4) HTN (hypertension) Current Visit: No Status: Chronic Qualifiers: Hypertension type: essential hypertension Code(s): I10 - ESSENTIAL (PRIMARY) HYPERTENSION
[2019-05-22] MEDS: ROCEPHIN 1 Gm-D5w 50 ml Bag** 1 G/50 ML IVPB IV SCH (09:14)
[2019-05-22] MEDS: Zithromax 500 MG/ 250 ML NaCl Premix 500 MG/250 ML IVPB IV SCH (09:15)
[2019-05-22] MEDS: Ecotrin 325 MG PO SCH (09:16)
[2019-05-22] MEDS: Klor Con 10 MEQ PO SCH ×3 (09:16→21:37)
[2019-05-22] MEDS: SYNTHROID 100 MCG PO SCH (09:16)
[2019-05-22] MEDS: REQUIP 2MG TAB PO SCH ×2 (09:16→21:36)
[2019-05-22] MEDS: MAG-OX 400 PO SCH ×2 (09:16→21:37)
[2019-05-22] MEDS: FEOSOL 325 MG PO SCH ×2 (09:16→21:35)
[2019-05-22] MEDS: Topamax 25 MG PO SCH (09:17)
[2019-05-22] MEDS: Lantus Insulin SQ SCH (09:17)
[2019-05-22] MEDS: NEURONTIN 300 MG PO SCH ×3 (09:17→21:38)
[2019-05-22] MEDS: Tums EX 750 MG PO SCH ×2 (09:17→21:41)
[2019-05-22] MEDS: SYNTHROID 88 MCG PO SCH (09:17)
[2019-05-22] MEDS: PATIENT OWN MEDICATION IH SCH (09:17)
[2019-05-22 09:44] LABS: Hematocrit 33.8 % (35-47); Hemoglobin 10.7 gm/dl (12.0-16.0); Mean Cell Volume 93.1 fl (78-100); Mean Corpuscular Hemoglobin 29.5 pg (26-32); Mean Corpuscular Hgb Concent. 31.7 g/dl (32-36); Mean Platelet Volume 10.8 fl (7.5-11.0); Platelet Count 229 K/mm3 (150-450); Red Blood Count 3.63 M/mm3 (4.1-5.4); Red Cell Distribution Width 14.3 % (11.5-14.0); White Blood Count 11.3 K/mm3 (4.0-10.5)
[2019-05-22] MEDS ORDERED: NON-FORMULARY ITEM (Umeclidinium Bromide [Incruse Ellipta] 62.5 MCG) IH SCH (10:00)
[2019-05-22] MEDS ORDERED: ECOTRIN 81 MG PO SCH (10:00)
[2019-05-22] MEDS ORDERED: SYNTHROID 100 MCG PO SCH (10:00)
[2019-05-22 10:07] LABS: ANION GAP 15.7 MEQ/L (5-15); Calcium 8.9 mg/dL (8.4-10.2); Creatinine 1 1.62 mg/dL (0.52-1.04); MAGNESIUM 1.9 mg/dL (1.6-2.3); Potassium 3.5 mmol/L (3.5-5.1)
[2019-05-22] MEDS: ZOCOR 20MG PO SCH (21:36)
[2019-05-22] MEDS: Toprol Xl 100 MG PO SCH (21:37)
[2019-05-22] MEDS: Cymbalta 30 MG Capsule PO SCH (21:37)
[2019-05-22] MEDS: PLAVIX 75 MG Tablet PO SCH (21:37)
[2019-05-23] MEDS: DUONEB 0.5-3 MG/3 ml Neb IH SCH ×6 (03:41→23:29)
[2019-05-23 05:02] LABS: Hematocrit 32.5 % (35-47); Hemoglobin 10.1 gm/dl (12.0-16.0); Mean Cell Volume 93.1 fl (78-100); Mean Corpuscular Hemoglobin 28.9 pg (26-32); Mean Corpuscular Hgb Concent. 31.1 g/dl (32-36); Mean Platelet Volume 10.6 fl (7.5-11.0); Platelet Count 233 K/mm3 (150-450); Red Blood Count 3.49 M/mm3 (4.1-5.4); Red Cell Distribution Width 14.1 % (11.5-14.0); White Blood Count 9.8 K/mm3 (4.0-10.5)
[2019-05-23 05:19] LABS: ANION GAP 11.3 MEQ/L (5-15); Creatinine 1 1.47 mg/dL (0.52-1.04); MAGNESIUM 2.2 mg/dL (1.6-2.3); Potassium 3.7 mmol/L (3.5-5.1)
[2019-05-23] MEDS: solu-MEDROL 125 MG IV SCH ×4 (06:20→23:33)
[2019-05-23] MEDS: Lantus Insulin SQ SCH (07:39)
[2019-05-23] MEDS: HUMULIN R SQ SCH ×4 (07:39→21:46)
[2019-05-23] MEDS: Sodium Chloride 0.9% 1000 ML 1,000 ML IV SCH ×3 (08:18→23:32)
--- NOTE | 2019-05-23 08:37 | PCM.NOTE ---
Date and Time: 05/23/19 08 Subjective Assessment: Pt again wants to d/c to home. However she is on 4L NC. Damián po. - Review of Systems Constitutional: No Fever Respiratory: Cough, Short Of Breath Objective Exam General Appearance: no apparent distress, alert Neurologic Exam: cooperative, normal mood/affect Skin Exam: normal color, warm, dry, No rash Ears, Nose, Throat Exam: moist mucous membranes Neck Exam: normal inspection Respiratory Exam: diminished breath sounds (good air exchange), No crackles/ rales, No rhonchi, No wheezing Cardiovascular Exam: regular rate/rhythm, normal heart sounds, No murmur Gastrointestinal/Abdomen Exam: soft, normal bowel sounds, No tenderness Extremity Exam: other (chronic venous stasis change; trace pretibial edema bilat ) OBJECTIVE DATA Vital Signs: Vital Signs - 24 hr Temp Pulse Resp BP Pulse Ox 05/23/19 07:57 97.6 F 76 20 153/65 98 05/23/19 04:00 98.8 F 80 16 166/73 96 05/23/19 03:41 95 H 18 96 05/23/19 00:00 98.2 F 92 H 20 146/61 96 05/22/19 23:26 88 18 95 05/22/19 20:00 99.1 F 97 H 24 140/63 90 L 05/22/19 19:29 95 H 18 89 L 05/22/19 16:00 98.2 F 92 H 18 134/67 94 L 05/22/19 15:04 90 20 94 L 05/22/19 12:00 98.2 F 85 18 127/70 96 05/22/19 11:09 82 18 97 Pain Assessment - Last Documented Pain Intensity 0 Pain Scale Used [facility] Intake and Output: Intake & Output 05/20/19 05/21/19 05/22/19 05/23/19 11:59 11:59 11:59 11:59 Intake Total 946 3447 3701 Output Total 900 1700 1150 Balance 46 9847 2641 Weight 106.8 kg 108.7 kg 108.7 kg Lab Results: Accuchecks Date 05/23/19 Date 05/22/19 Date 05/22/19 Date 05/22/19 Time 08:04 Time 17:15 Time 11:54 Accucheck Value: 323 Accucheck Value: 427 Accucheck Value: 396 Accucheck Value: 410 Lab Results-Last 24 Hours 05/22/19 05/22/19 05/23/19 Range/Units 09:30 09:30 04:45 WBC 11.3 H 9.8 (4.0-10.5) K/mm3 RBC 3.63 L 3.49 L (4.1-5.4) M/mm3 Hgb 10.7 L 10.1 L (12.0-16.0) gm/dl Hct 33.8 L 32.5 L (35-47) % MCV 93.1 93.1 (78-100) fl MCH 29.5 28.9 (26-32) pg MCHC 31.7 L 31.1 L (32-36) g/dl RDW 14.3 H 14.1 H (11.5-14.0) % Plt Count 229 D 233 (150-450) K/mm3 MPV 10.8 10.6 (7.5-11.0) fl Sodium 139 (137-145) mmol/L Potassium 3.5 (3.5-5.1) mmol/L Chloride 97 L (98-107) mmol/L Carbon Dioxide 29 (22-30) mmol/L Anion Gap 15.7 H (5-15) MEQ/L BUN 59 H (7-17) mg/dL Creatinine 1.62 H (0.52-1.04) mg/dL Estimated GFR 33.6 ML/MIN Glucose 400 H (74-106) mg/dL Calcium 8.9 (8.4-10.2) mg/dL Magnesium 1.9 (1.6-2.3) mg/dL 05/23/19 Range/Units 04:45 WBC (4.0-10.5) K/mm3 RBC (4.1-5.4) M/mm3 Hgb (12.0-16.0) gm/dl Hct (35-47) % MCV (78-100) fl MCH (26-32) pg MCHC (32-36) g/dl RDW (11.5-14.0) % Plt Count (150-450) K/mm3 MPV (7.5-11.0) fl Sodium 140 (137-145) mmol/L Potassium 3.7 (3.5-5.1) mmol/L Chloride 102 (98-107) mmol/L Carbon Dioxide 31 H (22-30) mmol/L Anion Gap 11.3 (5-15) MEQ/L BUN 60 H (7-17) mg/dL Creatinine 1.47 H (0.52-1.04) mg/dL Estimated GFR 37.6 ML/MIN Glucose 323 H (74-106) mg/dL Calcium 9.0 (8.4-10.2) mg/dL Magnesium 2.2 (1.6-2.3) mg/dL Assessment/Plan (1) COPD exacerbation Current Visit: Yes Status: Acute Assessment & Plan: Her lungs sound better, but still with O2 requirement, now of 4L NC. On IV solumedrol 80mg q6h; will not change that as yet. Only day #2 of rocephin and zithromax (pt received on admission, then missed a day). If not more improvement tomorrow, would change to IV zosyn. Code(s): J44.1 - CHRONIC OBSTRUCTIVE PULMONARY DISEASE W (ACUTE) EXACERBATION (2) Renal failure Current Visit: Yes Status: Acute Qualifiers: Renal failure chronicity: acute on chronic Acute renal failure type: unspecified Qualified Code(s): N17.9 - Acute kidney failure, unspecified Assessment & Plan: Her usual eGFR is 40s-50s; I stopped her bumex yesterday and continued IV fluids. Today eGFR up to 37.6. Will see what it is tomorrow, if not back to baseline then will consider asking for nephrology consult again. (3) Diabetes Current Visit: No Status: Chronic Qualifiers: Diabetes mellitus type: type 2 Diabetes mellitus terminal operator insulin use: with penitentiary use Diabetes mellitus complication status: with kidney complications Diabetes mellitus complication detail: with chronic kidney disease Chronic kidney disease stage: stage 3 (moderate) Qualified Code(s): E11.22 - Type 2 diabetes mellitus with diabetic chronic kidney disease; N18.3 - Chronic kidney disease, stage 3 (moderate); Z79.4 - halfway (current) use of insulin Code(s): E11.9 - TYPE 2 DIABETES MELLITUS WITHOUT COMPLICATIONS (4) HTN (hypertension) Current Visit: No Status: Chronic Qualifiers: Hypertension type: essential hypertension Code(s): I10 - ESSENTIAL (PRIMARY) HYPERTENSION
[2019-05-23] MEDS: ROCEPHIN 1 Gm-D5w 50 ml Bag** 1 G/50 ML IVPB IV SCH (09:04)
[2019-05-23] MEDS: Zithromax 500 MG/ 250 ML NaCl Premix 500 MG/250 ML IVPB IV SCH (09:04)
[2019-05-23] MEDS: MAG-OX 400 PO SCH ×2 (09:05→21:48)
[2019-05-23] MEDS: Klor Con 10 MEQ PO SCH ×3 (09:05→21:47)
[2019-05-23] MEDS: SYNTHROID 100 MCG PO SCH (09:05)
[2019-05-23] MEDS: FEOSOL 325 MG PO SCH ×2 (09:05→21:47)
[2019-05-23] MEDS: Ecotrin 325 MG PO SCH (09:05)
[2019-05-23] MEDS: REQUIP 2MG TAB PO SCH ×2 (09:05→21:47)
[2019-05-23] MEDS: SYNTHROID 88 MCG PO SCH (09:06)
[2019-05-23] MEDS: NEURONTIN 300 MG PO SCH ×3 (09:06→21:48)
[2019-05-23] MEDS: Topamax 25 MG PO SCH (09:07)
[2019-05-23] MEDS: Tums EX 750 MG PO SCH ×2 (09:07→21:48)
[2019-05-23] MEDS: PATIENT OWN MEDICATION IH SCH (09:10)
[2019-05-23] MEDS ORDERED: VITAMIN D2 PO SCH (10:00)
[2019-05-23] MEDS: Toprol Xl 100 MG PO SCH (21:47)
[2019-05-23] MEDS: Cymbalta 30 MG Capsule PO SCH (21:47)
[2019-05-23] MEDS: PLAVIX 75 MG Tablet PO SCH (21:48)
[2019-05-23] MEDS: ZOCOR 20MG PO SCH (21:48)
[2019-05-24] MEDS: DUONEB 0.5-3 MG/3 ml Neb IH SCH ×6 (03:51→23:30)
[2019-05-24 05:06] LABS: Hemoglobin 10.6 gm/dl (12.0-16.0); Mean Cell Volume 91.6 fl (78-100); Mean Corpuscular Hemoglobin 28.6 pg (26-32); Mean Corpuscular Hgb Concent. 31.2 g/dl (32-36); Mean Platelet Volume 10.5 fl (7.5-11.0); Platelet Count 214 K/mm3 (150-450); Red Blood Count 3.71 M/mm3 (4.1-5.4)
[2019-05-24 05:18] LABS: ANION GAP 9.8 MEQ/L (5-15); Calcium 8.8 mg/dL (8.4-10.2); Creatinine 1 1.11 mg/dL (0.52-1.04); Potassium 3.6 mmol/L (3.5-5.1)
[2019-05-24] MEDS: solu-MEDROL 125 MG IV SCH (06:00)
[2019-05-24] MEDS: Lantus Insulin SQ SCH (07:40)
[2019-05-24] MEDS: HUMULIN R SQ SCH ×4 (07:45→22:26)
[2019-05-24] MEDS ORDERED: APRESOLINE 20 MG/ML INJ IV PRN (07:50)
--- NOTE | 2019-05-24 08:18 | PCM.NOTE ---
Date and Time: 05/24/19812 Subjective Assessment: Pt w/o complaints, realizes she is still wheezy. Damián po well. O2 from 3L yesterday a.m. to 2L NC now. - Review of Systems Constitutional: No Fever Respiratory: Cough, Short Of Breath Objective Exam General Appearance: no apparent distress, alert Neurologic Exam: oriented x 3, cooperative, normal mood/affect Skin Exam: warm, dry, No rash Ears, Nose, Throat Exam: moist mucous membranes Neck Exam: normal inspection Respiratory Exam: diminished breath sounds (fair air exchange), wheezing ( scattered expiratory), No crackles/rales, No rhonchi Cardiovascular Exam: regular rate/rhythm, normal heart sounds, No murmur Extremity Exam: other (LE chronic venous stasis change with trace pitting edema bilat) OBJECTIVE DATA Vital Signs: Vital Signs - 24 hr Temp Pulse Resp BP Pulse Ox 05/24/19 08:00 97.8 F 79 19 180/79 93 L 05/24/19 06:48 77 20 95 05/24/19 04:00 98.2 F 81 24 169/76 99 05/24/19 03:51 81 24 99 05/23/19 23:41 98.0 F 82 20 183/72 98 05/23/19 23:29 87 20 98 05/23/19 20:00 98.2 F 97 H 20 167/85 96 05/23/19 19:03 97 H 18 96 05/23/19 16:00 97.9 F 89 19 130/80 98 05/23/19 14:15 84 22 96 05/23/19 13:01 80 16 98 05/23/19 11:46 97.3 F 80 20 174/84 98 Pain Assessment - Last Documented Pain Intensity 0 Pain Scale Used 0-10 Pain Scale Intake and Output: Intake & Output 05/21/19 05/22/19 05/23/19 05/24/19 11:59 11:59 11:59 11:59 Intake Total 946 3447 4181 3034 Output Total 900 1700 1150 4300 Balance 46 1747 3031 -1266 Weight 106.8 kg 108.7 kg 108.7 kg Lab Results: Accuchecks Date 05/24/19 Date 05/23/19 Date 05/23/19 Time 07:30 Time 16:59 Time 11:52 Accucheck Value: 298 Accucheck Value: 316 Accucheck Value: 397 Accucheck Value: 381 Lab Results-Last 24 Hours 05/24/19 05/24/19 Range/Units 04:30 04:30 WBC 9.0 (4.0-10.5) K/mm3 RBC 3.71 L (4.1-5.4) M/mm3 Hgb 10.6 L (12.0-16.0) gm/dl Hct 34.0 L (35-47) % MCV 91.6 (78-100) fl MCH 28.6 (26-32) pg MCHC 31.2 L (32-36) g/dl RDW 14.0 (11.5-14.0) % Plt Count 214 (150-450) K/mm3 MPV 10.5 (7.5-11.0) fl Sodium 138 (137-145) mmol/L Potassium 3.6 (3.5-5.1) mmol/L Chloride 101 (98-107) mmol/L Carbon Dioxide 30 (22-30) mmol/L Anion Gap 9.8 (5-15) MEQ/L BUN 46 H (7-17) mg/dL Creatinine 1.11 H (0.52-1.04) mg/dL Estimated GFR 52.0 ML/MIN Glucose 298 H (74-106) mg/dL Calcium 8.8 (8.4-10.2) mg/dL Assessment/Plan (1) COPD exacerbation Current Visit: Yes Status: Acute Assessment & Plan: Improving. Will decrease steroid today from 80mg IV q6h to 40mg IV q8h; if she tolerates that well today, may be able to d/c home tomorrow on oxygen, po antibiotic, and po steroid. Day #3 IV rocephin and zithromax today. Code(s): J44.1 - CHRONIC OBSTRUCTIVE PULMONARY DISEASE W (ACUTE) EXACERBATION (2) Renal failure Current Visit: Yes Status: Chronic Qualifiers: Renal failure chronicity: acute on chronic Acute renal failure type: unspecified Qualified Code(s): N17.9 - Acute kidney failure, unspecified Assessment & Plan: Her acute renal failure is resolved, with eGFR of 52.0 this morning - back to baseline. Will d/c IV fluids and still hold bumex today. Would resume bumex when she goes home. Recheck in a.m. (3) Diabetes Current Visit: No Status: Chronic Qualifiers: Diabetes mellitus type: type 2 Diabetes mellitus senior living insulin use: with watermelon inspector use Diabetes mellitus complication status: with kidney complications Diabetes mellitus complication detail: with chronic kidney disease Chronic kidney disease stage: stage 3 (moderate) Qualified Code(s): E11.22 - Type 2 diabetes mellitus with diabetic chronic kidney disease; N18.3 - Chronic kidney disease, stage 3 (moderate); Z79.4 - intermediate teacher (current) use of insulin Code(s): E11.9 - TYPE 2 DIABETES MELLITUS WITHOUT COMPLICATIONS (4) HTN (hypertension) Current Visit: No Status: Chronic Qualifiers: Hypertension type: essential hypertension Assessment & Plan: Some elevated BP here - added hydralazine for prn coverage. Will not add/ increase her home BP regimen at this time as there is evidence that increasing the BP meds during an acute stay leads to hypotensive episodes after discharge to home. Code(s): I10 - ESSENTIAL (PRIMARY) HYPERTENSION
[2019-05-24] MEDS: Klor Con 10 MEQ PO SCH ×3 (09:41→22:27)
[2019-05-24] MEDS: PATIENT OWN MEDICATION IH SCH (09:42)
[2019-05-24] MEDS: MAG-OX 400 PO SCH ×2 (09:42→22:27)
[2019-05-24] MEDS: NEURONTIN 300 MG PO SCH ×3 (09:42→22:27)
[2019-05-24] MEDS: REQUIP 2MG TAB PO SCH ×2 (09:42→22:26)
[2019-05-24] MEDS: SYNTHROID 88 MCG PO SCH (09:42)
[2019-05-24] MEDS: Topamax 25 MG PO SCH (09:42)
[2019-05-24] MEDS: Ecotrin 325 MG PO SCH (09:42)
[2019-05-24] MEDS: FEOSOL 325 MG PO SCH ×2 (09:42→22:27)
[2019-05-24] MEDS: SYNTHROID 100 MCG PO SCH (09:42)
[2019-05-24] MEDS: Tums EX 750 MG PO SCH ×2 (09:43→22:28)
[2019-05-24] MEDS: ROCEPHIN 1 Gm-D5w 50 ml Bag** 1 G/50 ML IVPB IV SCH (09:43)
[2019-05-24] MEDS: Zithromax 500 MG/ 250 ML NaCl Premix 500 MG/250 ML IVPB IV SCH (10:16)
[2019-05-24] MEDS ORDERED: solu-MEDROL 40 MG IV SCH (14:00)
[2019-05-24] MEDS: Apresoline 25 MG TABLET PO PRN ×2 (15:25→20:04)
[2019-05-24] MEDS: DELTASONE 20 MG PO SCH ×2 (15:25→22:27)
[2019-05-24] MEDS: ZOCOR 20MG PO SCH (22:26)
[2019-05-24] MEDS: Toprol Xl 100 MG PO SCH (22:27)
[2019-05-24] MEDS: PLAVIX 75 MG Tablet PO SCH (22:27)
[2019-05-24] MEDS: Cymbalta 30 MG Capsule PO SCH (22:27)
[2019-05-25] MEDS: Apresoline 25 MG TABLET PO PRN ×3 (00:35→09:17)
[2019-05-25] MEDS: DUONEB 0.5-3 MG/3 ml Neb IH SCH ×3 (03:32→10:55)
[2019-05-25 04:57] LABS: Hemoglobin 10.6 gm/dl (12.0-16.0); Mean Cell Volume 90.4 fl (78-100); Mean Corpuscular Hemoglobin 28.2 pg (26-32); Mean Corpuscular Hgb Concent. 31.2 g/dl (32-36); Mean Platelet Volume 10.4 fl (7.5-11.0); Platelet Count 212 K/mm3 (150-450); Red Blood Count 3.76 M/mm3 (4.1-5.4); White Blood Count 9.2 K/mm3 (4.0-10.5)
[2019-05-25 05:02] LABS: ANION GAP 10.4 MEQ/L (5-15); Calcium 8.6 mg/dL (8.4-10.2); Creatinine 1 1.13 mg/dL (0.52-1.04); Potassium 3.8 mmol/L (3.5-5.1)
[2019-05-25] MEDS: PATIENT OWN MEDICATION IH SCH ×2 (06:40→08:49)
[2019-05-25 07:06] VITALS: O2SAT 98
[2019-05-25] MEDS: Lantus Insulin SQ SCH (07:50)
[2019-05-25] MEDS: HUMULIN R SQ SCH (07:51)
[2019-05-25 07:52] VITALS: BP 188/82
[2019-05-25] MEDS ORDERED: NORVASC 5 MG PO SCH (08:00)
--- NOTE | 2019-05-25 08:34 | PCM.DS ---
Discharge Summary Date of Admission: 05/20/19 19:30 Admitting Physician: ROLANDO FERNANDEZ Primary Care Provider: ROLANDO FERNANDEZ Allergies Allergies No Known Drug Allergies Allergy (Verified 05/20/19 14:46) Hospital Summary - Hospital Course Hospital Course: Pt is a 68 yo female pt of mine with COPD, CAD, depression, DM, chronic renal failure, and HTN who was admitted through ER with COPD exacerbation and acute on chronic renal failure. CT head and CXR were nonacute. She was started on IV steroid and antibiotics. With IV fluids her renal function improved, initially eGFR was 26, now is at her baseline of around 50. She had elevated blood pressures and her steroid was discontinued; some BP to the 180s-190s and hydralazine was given prn. Starting pt on po amlodipine today. She will be going to [facility] for rehab so they can watch her BP there. She has 7d of benefit; would like to be stronger before she discharges to home. She has been repeating herself and states she would like an evaluation for that. - Vitals & Intake/Output Vital Signs: Vital Signs Temperature 98.4 F 05/25/19 07:52 Pulse Rate 78 05/25/19 07:52 Respiratory Rate 19 05/25/19 07:52 Blood Pressure 188/82 05/25/19 07:52 O2 Sat by Pulse Oximetry 98 05/25/19 07:52 Intake & Output: Intake & Output 05/22/19 05/23/19 05/24/19 05/25/19 11:59 11:59 11:59 11:59 Intake Total 3447 4181 3274 2269 Output Total 1700 1150 4300 2000 Balance 1747 3031 -1026 269 Weight 108.7 kg 108.7 kg 113.6 kg 115.4 kg - Lab Result Diagrams: 05/25/19 04:30 05/25/19 04:30 Lab Results-Last 24 Hrs: Accuchecks Date 05/24/19 Date 05/24/19 Time 16:30 Time 11:30 Accucheck Value: 428 Accucheck Value: 392 Accucheck Value: 426 Lab Results-Last 24 Hours 05/25/19 05/25/19 Range/Units 04:30 04:30 WBC 9.2 (4.0-10.5) K/mm3 RBC 3.76 L (4.1-5.4) M/mm3 Hgb 10.6 L (12.0-16.0) gm/dl Hct 34.0 L (35-47) % MCV 90.4 (78-100) fl MCH 28.2 (26-32) pg MCHC 31.2 L (32-36) g/dl RDW 14.0 (11.5-14.0) % Plt Count 212 (150-450) K/mm3 MPV 10.4 (7.5-11.0) fl Sodium 140 (137-145) mmol/L Potassium 3.8 (3.5-5.1) mmol/L Chloride 104 (98-107) mmol/L Carbon Dioxide 30 (22-30) mmol/L Anion Gap 10.4 (5-15) MEQ/L BUN 43 H (7-17) mg/dL Creatinine 1.13 H (0.52-1.04) mg/dL Estimated GFR 50.9 ML/MIN Glucose 204 H (74-106) mg/dL Calcium 8.6 (8.4-10.2) mg/dL Micro Results-Entire Visit: Microbiology 05/20/19 15:20 Blood Culture Gram Stain - Final Blood Not Reportable Blood Culture - Final NO GROWTH 05/20/19 15:15 Blood Culture Gram Stain - Final Blood Not Reportable Blood Culture - Final NO GROWTH Accuchecks Date 05/24/19 Date 05/24/19 Time 16:30 Time 11:30 Accucheck Value: 428 Accucheck Value: 392 Accucheck Value: 426 - Procedures and Test Procedures and Tests throughout Hospitalization: Therapy Orders & Screens 05/20/19 16:40 Respiratory Therapy Consult ROUTINE Comment: Reason For Exam: 05/20/19 17:57 Respiratory Therapy Assessment DAILY Comment: 05/20/19 20:18 Oxygen Oxymizer LPM 2 lpm Comment: 05/20/19 21:43 OT Screen per Nursing Assess Comment: Protocol Order Physician Instructions: Greater than 3 points order OT Admission Screening Reason For Exam: Triggered on Admission Diagnosis: COPD Open Wound/Cellutlitis/Pressure Ulcers: No Acute Fx/ORIF/Change in wt bearing status: No Severe MUSCULOSKELETAL pain: No ADL Dysfunction: Yes Acute CVA w/Hemiparesis/Hemiplegia: No Decreased Functional Mobility/Strength: Yes Sprain/Strain: No Acute Post-op Mobility Dysfunction: No Total Points: 4 PT Screen per Nursing Assess ONCE Comment: Protocol Order Physician Instructions: Greater than 3 points order PT Admission Screenin Reason For Exam: Triggered on Admission Diagnosis: COPD Open Wound/Cellutlitis/Pressure Ulcers: No Acute Fx/ORIF/Change in wt bearing status: No Severe MUSCULOSKELETAL pain: No ADL Dysfunction: Yes Acute CVA w/Hemiparesis/Hemiplegia: No Decreased Functional Mobility/Strength: Yes Sprain/Strain: No Acute Post-op Mobility Dysfunction: No Total Points: 4 RT Screen per Nursing Assess ONCE Comment: Protocol Order Physician Instructions: Greater than 3 points order RT Admission Screen Reason For Exam: Triggered on Admission Diagnosis: COPD Diagnosis: COPD Pneumonia: No Home O2: Yes Asthma: No CHF: No Home CPAP/BIPAP: No Home Nebs/MDI: Yes Total Points: 10 05/22/19 07:00 Peak Expiratory Flow Rate DAILY Comment: Reason For Exam: Diagnosis: COPD 05/23/19 08:33 Incentive Spirometry TID Comment: Diagnosis: COPD 05/24/19 10:33 Qualify for Home Oxygen TODAY Comment: Diagnosis: COPD 05/25/19 07:00 Respiratory MDI UD Comment: INCRUSE DAILY Diagnosis: COPD Discharge Exam General Appearance: no apparent distress, alert, obese Neurologic Exam: oriented x 3, cooperative Eye Exam: eyes nml inspection Ears, Nose, Throat Exam: moist mucous membranes Neck Exam: normal inspection Respiratory Exam: lungs clear, diminished breath sounds (good air exchange), No crackles/rales, No rhonchi, No wheezing Cardiovascular Exam: regular rate/rhythm, normal heart sounds, No murmur Gastrointestinal/Abdomen Exam: soft, normal bowel sounds, No distention Extremity Exam: normal inspection, No pedal edema, No swelling Skin Exam: normal color, warm, dry, No rash Final Diagnosis/Problem List - Final Discharge Diagnosis/Problem (1) COPD exacerbation Current Visit: Yes Status: Acute Assessment & Plan: Doing much better, to [facility] on po antibiotics. Will hold the steroid for now as it could have been exacerbating her hypertension. Code(s): J44.1 - CHRONIC OBSTRUCTIVE PULMONARY DISEASE W (ACUTE) EXACERBATION (2) Renal failure Current Visit: Yes Status: Chronic Assessment & Plan: back to baseline. will resume bumex at [facility]. (3) Diabetes Current Visit: No Status: Chronic Code(s): E11.9 - TYPE 2 DIABETES MELLITUS WITHOUT COMPLICATIONS (4) HTN (hypertension) Current Visit: No Status: Chronic Assessment & Plan: added amlodipine 5mg/d Code(s): I10 - ESSENTIAL (PRIMARY) HYPERTENSION - Discharge Disposition: OR TO [facility] Condition: Stable Prescriptions: New Lactobacillus Acidophilus [Acidophilus TABLET] 1 tab PO DAILY #30 tablet Amoxicillin/Potassium Clav [Augmentin 875-125 Tablet] 875 mg PO BID #20 tablet Gabapentin 300 mg PO TID #90 capsule Amlodipine Besylate 5 mg [Norvasc 5 mg] 5 mg PO QAM #30 tablet Continue Clopidogrel Bisulfate 75 mg [PLAVIX 75 MG Tablet] 75 mg PO HS Aspirin [Aspirin EC] 325 mg PO QAM Metoprolol Succinate [Toprol Xl] 100 mg PO HS Duloxetine HCl [Cymbalta] 60 mg PO HS Ropinirole HCl 4 mg PO TID Topiramate 25 mg [Topamax 25 MG] 25 mg PO BID AMITRIPTYLINE HCL 50 mg Tab [AMITRIPTYLINE HCL 50 mg Tablet] 50 mg PO HS Atorvastatin Calcium [Lipitor] 40 mg PO HS Albuterol 8 gm Mdi Hfa [Ventolin Hfa MDI] 2 puff IH Q4HPRN PRN PRN Reason: Shortness Of Breath/Wheezing Bumetanide 1 mg [Bumex 1 mg] 2 mg PO BID #30 tablet Insulin Aspart [NovoLOG Insulin] 10 unit SQ 0730,1130 #1 unit Albuterol/Ipratropium 3ml Neb* [DUONEB 0.5-3 MG/3 ml Neb] 3 ml NEBULIZE Q4H PRN PRN #1 box PRN Reason: Wheezing/Chest Congestion Ferrous Sulfate 325 mg [Feosol 325 mg] 325 mg PO BID Nitroglycerin 0.4 mg Tablet [Nitrostat 0.4 MG Tablet] 0.4 mg SL UD Umeclidinium [place] [Incruse Ellipta] 62.5 mcg IH DAILY Levothyroxine Sodium 88 mcg PO DAILY Levothyroxine Sodium 100 mcg PO DAILY Potassium Chloride 10 Meq Tab* [Klor Con 10 MEQ] 20 meq PO TID #90 tab Magnesium Oxide 400 mg [Mag-Ox 400] 400 mg PO BID #60 tablet Calcium Carbonate 750 mg [Tums EX 750 MG] 1,000 mg PO BID #1 bottle Ergocalciferol (Vitamin D2) [Vitamin D2] 50,000 unit PO Q7D #4 capsule Discontinued Gabapentin [Neurontin] 800 mg PO QID Instructions: Exacerbation of COPD (DC) Additional Instructions: Please take patient's blood pressure BID and report to Dr. Fernandez or Dr. Pearson and BP >160 systolic or >100 diastolic. Call for orders if pt has chest pain, increased shortness of breath, or any other worrisome symptoms. Repeat BMP on 05/30/19. (INSPECT appropriate today 05/25/19). Forms: Discharge Instructions
[2019-05-25] MEDS: MAG-OX 400 PO SCH (08:48)
[2019-05-25] MEDS: Ecotrin 325 MG PO SCH (08:48)
[2019-05-25] MEDS: Klor Con 10 MEQ PO SCH (08:48)
[2019-05-25] MEDS: FEOSOL 325 MG PO SCH (08:48)
[2019-05-25] MEDS: NEURONTIN 300 MG PO SCH (08:49)
[2019-05-25] MEDS: REQUIP 2MG TAB PO SCH (08:50)
[2019-05-25] MEDS: ROCEPHIN 1 Gm-D5w 50 ml Bag** 1 G/50 ML IVPB IV SCH (08:50)
[2019-05-25] MEDS: SYNTHROID 100 MCG PO SCH (08:50)
[2019-05-25] MEDS: Tums EX 750 MG PO SCH (08:51)
[2019-05-25] MEDS: Topamax 25 MG PO SCH (08:51)
[2019-05-25] MEDS: SYNTHROID 88 MCG PO SCH (08:51)
[2019-05-25] MEDS: Zithromax 500 MG/ 250 ML NaCl Premix 500 MG/250 ML IVPB IV SCH (08:52)
[2019-05-25 11:01] VITALS: PULSE 73
== END 2019-05-25 11:42 | DRG 191 ==
LOC: ED 14:40 → MED SURG 19:30
PROVIDERS: ADMIT Family Medicine; ATTEND Family Medicine
DX: J44.1 Chronic obstructive pulmonary disease with (acute) exacerbation (principal); N17.9 Acute kidney failure, unspecified; E11.22 Type 2 diabetes mellitus with diabetic chronic kidney disease; I12.9 Hypertensive chronic kidney disease with stage 1 through stage 4 chronic kidney disease, or unspecified chronic kidney disease; N18.3 Chronic kidney disease, stage 3 (moderate); E78.5 Hyperlipidemia, unspecified; E03.9 Hypothyroidism, unspecified; R53.83 Other fatigue; Z79.01 Long term (current) use of anticoagulants; I25.2 Old myocardial infarction; Z79.899 Other long term (current) drug therapy; E78.00 Pure hypercholesterolemia, unspecified
CPT/HCPCS: 36000; 36415; 36600; 70450; 71045; 80048; 80053; 82375; 82803; 82962; 83605; 83735; 83880; 84443; 84484; 85025; 85027; 87040; 87631; 93005; 93041; 94150; 94640; 94760; 94770; 96365; 96374; 99284; 99291; J0360; J0456; J0696; J1815; J2930; A9270-GY

== ENCOUNTER 2019-06-30 15:03 | Inpatient (IN) | payer MEDICARE ==
[2019-06-30 15:24] LABS: A-aADO2 203; ABG HEMOGLOBIN 12.5; ABG POTASSIUM 3.8 (3.5-5.1); ARTERIAL BLOOD GAS BASE EXCESS 21.4 (-2.0-2.0); ARTERIAL BLOOD GAS FIO2 100 %; ARTERIAL BLOOD GAS PO2 430 mmHg (75-100); ARTERIAL BLOOD GAS pH 7.49 (7.35-7.45); CARBOXYHEMOGLOBIN 1.4 % THgb (0.0-6.9); HCO3- 48.8 (22-28); HGB O2 SAT 97.7 g/dF (94-100); Methhemoglobin 0.9 % (1.4-1.5); paO2 pAO1 0.68
[2019-06-30 15:25] LABS: ABG SITE LEFT RADIAL; ALLEN TEST OK? yes; ARTERIAL BLOOD GAS PCO2 64 mmHg (35-45)
--- NOTE | 2019-06-30 15:39 | ERPHSYRPT ---
- History of Present Illness Time Seen by Provider: 06/30/19 15:20 Source: patient, EMS Exam Limitations: no limitations Physician History: Patient is a 68-year-old female presents to our ED via EMS for evaluation of confusion and hypoxia. Per EMS patient has a history of COPD. Her O2 sat in the field was 74%. Patient was placed on nonrebreather. O2 sat increased to 100%. Patient normally uses 2 L of oxygen daily due to her COPD. Patient is somewhat confused. She is a poor historian. Patient unable to provide detailed information. However patient denies chest pain. No nausea vomiting or diaphoresis. No trauma. Patient currently afebrile upon formal assessment however she has tactile fever. Symptoms are constant. Symptoms are moderate in intensity. No specific worsening improving factors. Patient voices no other complaints at this time. Timing/Duration: today Activities at Onset: none Severity of Dyspnea-Max: moderate Severity of Dyspnea-Current: moderate Possible Cause: unknown cause Modifying Factors: Improves With: oxygen Associated Symptoms: cough (tactile fevers, altered mental status. ) International travel in last 2 weeks: No (unknown, presume no) Allergies/Adverse Reactions: No Known Drug Allergies Allergy (Verified 06/30/19 16:41) Home Medications: Clopidogrel Bisulfate 75 mg [PLAVIX 75 MG Tablet] 75 mg PO HS 10/09/13 [ History] Metoprolol Succinate [Toprol Xl] 100 mg PO HS 02/03/15 [History] Duloxetine HCl [Cymbalta] 60 mg PO HS 08/17/17 [History] AMITRIPTYLINE HCL 50 mg Tab [AMITRIPTYLINE HCL 50 mg Tablet] 50 mg PO HS [History] Albuterol 8 gm Mdi Hfa [Ventolin Hfa MDI] 2 puff IH Q4HPRN PRN 07/16/18 [ History] Atorvastatin Calcium [Lipitor] 40 mg PO HS 07/16/18 [History] Ropinirole HCl 4 mg PO TID 07/16/18 [History] Topiramate 25 mg [Topamax 25 MG] 25 mg PO BID 07/16/18 [History] Ferrous Sulfate 325 mg [Feosol 325 mg] 325 mg PO BID 02/26/19 [History] Levothyroxine Sodium 88 mcg PO DAILY 02/26/19 [History] Levothyroxine Sodium 100 mcg PO DAILY 02/26/19 [History] Nitroglycerin 0.4 mg Tablet [Nitrostat 0.4 MG Tablet] 0.4 mg SL UD [History] Umeclidinium [place] [Incruse Ellipta] 62.5 mcg IH DAILY 02/26/19 [History] Amlodipine Besylate 5 mg [Norvasc 5 mg] 5 mg DAILY 06/30/19 [History] Clopidogrel Bisulfate 75 mg [PLAVIX 75 MG Tablet] 75 mg DAILY 06/30/19 [ History] Hydrochlorothiazide 25 mg [hydroDIURIL 25 MG] 1 ea DAILY 06/30/19 [History ] calcitrioL [Calcitriol] 1 ea DAILY 06/30/19 [History] Hx Tetanus, Diphtheria Vaccination/Date Given: Yes (5 years ago) Hx Influenza Vaccination/Date Given: Yes Hx Pneumococcal Vaccination/Date Given: No - Review of Systems Constitutional: No Fever, No Chills Eyes: No Symptoms Ears, Nose, & Throat: No Symptoms Respiratory: Dyspnea, No Cough Cardiac: No Chest Pain, No Edema, No Syncope Abdominal/Gastrointestinal: No Symptoms, No Abdominal Pain, No Nausea, No Vomiting, No Diarrhea Genitourinary Symptoms: No Symptoms, No Dysuria Musculoskeletal: No Symptoms, No Back Pain, No Neck Pain Skin: No Symptoms, No Rash Neurological: No Symptoms, No Dizziness, No Focal Weakness, No Sensory Changes Psychological: No Symptoms Endocrine: No Symptoms Hematologic/Lymphatic: No Symptoms Immunological/Allergic: No Symptoms All Other Systems: Reviewed and Negative - Past Medical History Pertinent Past Medical History: Yes Neurological History: No Pertinent History ENT History: No Pertinent History Cardiac History: High Cholesterol, Hypertension, Myocardial Infarction ([place]) Respiratory History: COPD Endocrine Medical History: Diabetes Type II, Other Musculoskeletal History: Fractures, Osteoarthritis GI Medical History: No Pertinent History History: No Pertinent History Psycho-Social History: Depression Female Reproductive Disorders: No Pertinent History Other Medical History: THYROID NODULE, HX AL WITHOUT SURGERY, R ANKLE FX W/ ORIF 2007 - Past Surgical History Past Surgical History: Yes Neuro Surgical History: No Pertinent History Cardiac: No Pertinent History Respiratory: No Pertinent History Gastrointestinal: No Pertinent History, Other Genitourinary: No Pertinent History Musculoskeletal: Other Female Surgical History: Tubal Ligation Other Surgical History: RIGHT ANKLE SURGERY, thyroidectomy, left carotid endartertectomy - Social History Smoking Status: Current every day smoker How long have you smoked: 50 + year Exposure to second hand smoke: Yes Drug Use: none Patient Lives Alone: No - Nursing Vital Signs Nursing Vital Signs: Initial Vital Signs Temperature 97.5 F 06/30/19 15:05 Pulse Rate 73 06/30/19 15:05 Respiratory Rate 22 06/30/19 15:05 Blood Pressure 182/120 06/30/19 15:05 O2 Sat by Pulse Oximetry 90 L 06/30/19 15:05 Pain Scale Pain Intensity 0 - Physical Exam General Appearance: no apparent distress, alert Eye Exam: PERRL/EOMI Ears, Nose, Throat Exam: hearing grossly normal Neck Exam: normal inspection, supple Respiratory Exam: other (Slight wheezing, no respiratory distress.) Cardiovascular/Chest Exam: normal heart sounds, regular rate/rhythm Abdominal/Gastrointestinal Exam: soft, No tenderness, No distention, No mass Extremity Exam: non-tender, normal range of motion, normal inspection, no calf tenderness, no pedal edema Neurologic Exam: alert, oriented x 3, cooperative, nail welter II-XII nml as tested, sensation nml, No motor deficits Skin Exam: normal color, warm, No dry Lymphatic Exam: adenopathy SpO2 Interpretation: hypoxic (100% on NRB) SpO2: 100 O2 Delivery: Non-rebreather - Course Nursing assessment & vital signs reviewed: Yes EKG Interpreted by Me: RATE, Sinus Rhythm, NORMAL AXIS, NORMAL INTERVALS - Radiology Exams Chest X-ray Interpretation: Teleradiologist Report (No acute pathology.) - CT Exams Head CT Interpretation: Tele-radiologist Report (Left scalp calcified sebaceous cyst , partial opacification right mastoid air cells, probably inflammatory) Ordered Tests: Active Orders 24 hr Category Date Time Status Wool Scourer STAT Care 06/30/19 15:18 Active EKG-ER Only STAT Care 06/30/19 15:17 Active IV Insertion STAT Care 06/30/19 15:17 Active Isolation, Initiate & Maintain Q4H Care 06/30/19 16:40 Active Pulse Oximetry (ED) STAT Care 06/30/19 15:17 Active CHEST 1 VIEW (PORTABLE) Stat Exams 06/30/19 15:18 Completed HEAD WITHOUT CONTRAST [CT] Stat Exams 06/30/19 15:16 Completed ARTERIAL BLOOD GASES Stat Lab 06/30/19 15:17 Completed BLOOD CULTURE Stat Lab 06/30/19 15:18 Ordered CBC W DIFF Stat Lab 06/30/19 16:10 Completed CMP Stat Lab 06/30/19 16:10 Completed D-DIMER QUANTITATIVE Stat Lab 06/30/19 16:10 Completed Lactic Acid Stat Lab 06/30/19 15:17 Completed MAGNESIUM Stat Lab 06/30/19 16:10 Completed NT PRO BNP Stat Lab 06/30/19 16:10 Completed PROTIME WITH INR Stat Lab 06/30/19 16:10 Completed PTT Stat Lab 06/30/19 16:10 Completed TROPONIN Q3H Lab 06/30/19 16:10 Completed TROPONIN Q3H Lab 06/30/19 18:30 Ordered TROPONIN Q3H Lab 06/30/19 21:30 Ordered TROPONIN Q3H Lab 07/01/19 00:30 Ordered TROPONIN Q3H Lab 07/01/19 03:30 Ordered UA W/RFX UR CULTURE Stat Lab 06/30/19 16:17 Completed Transfer Order Routine Transfer 06/30/19 Ordered Medication Summary Generic Name Dose Route Start Last Admin Trade Name Freq PRN Reason Stop Dose Admin Sodium Chloride 1,000 mls @ 75 mls/hr 06/30/19 18:15 Sodium Chloride 0.9% 1000 Ml IV 07/30/19 18:14 .[id number] ARELY Discontinued Medications Generic Name Dose Route Start Last Admin Trade Name Freq PRN Reason Stop Dose Admin Azithromycin 500 mg/ Sodium 250 mls @ 125 mls/hr 06/30/19 16:03 06/30/19 17: 24 Chloride IV 06/30/19 18:02 125 mls/hr STAT ONE Administration Ceftriaxone Sodium/Dextrose 2 g in 50 mls @ 100 mls/hr 06/30/19 16:03 16:07 Rocephin 2 Gm-D5w 50ml Bag IV 06/30/19 16:32 200 ml/hr STAT STA 200 mls/hr Administration Ceftriaxone Sodium/Dextrose Confirm 06/30/19 16:06 Rocephin 2 Gm-D5w 50ml Bag Administered 06/30/19 16:07 Dose 2 g in 50 mls @ ud IV .STK-MED ONE Azithromycin Confirm 06/30/19 17:23 Zithromax 500 Mg/ 250 Ml Nacl Premix Administered 06/30/19 17:24 Dose 500 mg in 250 mls @ ud IV .STK-MED ONE Methylprednisolone Sodium Succinate 125 mg 06/30/19 18:00 Solu-Medrol 125 Mg IV 06/30/19 18:01 STAT ONE Methylprednisolone Sodium Succinate Confirm 06/30/19 18:13 Solu-Medrol 125 Mg Administered 06/30/19 18:14 Dose 125 mg .ROUTE .STK-MED ONE Lab/Rad Data: Laboratory Result Diagrams 06/30/19 16:10 06/30/19 16:10 Laboratory Results 06/30/19 06/30/19 06/30/19 Range/Units Unknown 16:17 16:10 WBC (4.0-10.5) K/mm3 RBC (4.1-5.4) M/mm3 Hgb (12.0-16.0) gm/dl Hct (35-47) % MCV (78-100) fl MCH (26-32) pg MCHC (32-36) g/dl RDW (11.5-14.0) % Plt Count (150-450) K/mm3 MPV (7.5-11.0) fl Gran % (36.0-66.0) % Eos # (Auto) (0-0.5) Absolute Lymphs (auto) (1.0-4.6) Absolute Monos (auto) (0.0-1.3) Lymphocytes % (24.0-44.0) % Monocytes % (0.0-12.0) % Eosinophils % (0.00-5.0) % Basophils % (0.0-0.4) % Absolute Granulocytes (1.4-6.9) Basophils # (0-0.4) PT (9.95-12.35) SECONDS INR (0.8-3.0) APTT (25.3-37.0) SECONDS D-Dimer (215-500) ng/mL Puncture Site pCO2 (35-45) mmHg pO2 (75-100) mmHg Base Excess (-2.0-2.0) O2 Saturation (94-100) g/dF ABG pH (7.35-7.45) ABG HCO3 (22-28) ABG O2 Sat (Measured) (95-100) % Valentino Test A-a Gradient a/A Ratio Hemoglobin Carboxyhemoglobin (0.0-6.9) % THgb Methemoglobin (1.4-1.5) % Potassium (3.5-5.1) Temperature C POC O2 Flow Rate % Sodium (137-145) mmol/L Chloride (98-107) mmol/L Carbon Dioxide (22-30) mmol/L Anion Gap (5-15) MEQ/L BUN (7-17) mg/dL Creatinine (0.52-1.04) mg/dL Estimated GFR ML/MIN Glucose (74-106) mg/dL Lactic Acid (0.4-2.0) Calcium (8.4-10.2) mg/dL Magnesium (1.6-2.3) mg/dL Total Bilirubin (0.2-1.3) mg/dL AST (14-36) U/L ALT (0-35) U/L Alkaline Phosphatase (38-126) U/L Troponin I < 0.012 (0.000-0.034) ng/mL NT-Pro-B Natriuret Pep (0-900) pg/mL Serum Total Protein (6.3-8.2) g/dL Albumin (3.5-5.0) g/dL Urine Color YELLOW (YELLOW) Urine Appearance CLEAR (CLEAR) Urine pH 7.0 (5-6) Ur Specific [place] 1.010 (1.005-1.025) Urine Protein NEGATIVE (Negative) Urine Ketones NEGATIVE (NEGATIVE) Urine Blood NEGATIVE (0-5) Jose/ul Urine Nitrite NEGATIVE (NEGATIVE) Urine Bilirubin NEGATIVE (NEGATIVE) Urine Urobilinogen NEGATIVE (0-1) mg/dL Ur Leukocyte Esterase NEGATIVE (NEGATIVE) Urine WBC (Auto) NONE (0-5) /HPF Urine RBC (Auto) NONE (0-2) /HPF U Hyaline Cast (Auto) 11-25 (0-2) /LPF U Epithel Cells (Auto) NONE (FEW) /HPF Urine Bacteria (Auto) NONE (NEGATIVE) /HPF Urine Mucus (Auto) SLIGHT (NEGATIVE) /HPF Urine Culture Reflexed NO (NO) Urine Glucose NEGATIVE (NEGATIVE) mg/dL Influenza Type A Ag NEGATIVE (NEGATIVE) Influenza Type B Ag NEGATIVE (NEGATIVE) RSV (PCR) NEGATIVE (Negative) 06/30/19 06/30/19 06/30/19 Range/Units 16:10 16:10 16:10 WBC 8.7 (4.0-10.5) K/mm3 RBC 4.00 L (4.1-5.4) M/mm3 Hgb 11.5 L (12.0-16.0) gm/dl Hct 36.5 (35-47) % MCV 91.3 (78-100) fl MCH 28.8 (26-32) pg MCHC 31.5 L (32-36) g/dl RDW 14.3 H (11.5-14.0) % Plt Count 273 (150-450) K/mm3 MPV 10.6 (7.5-11.0) fl Gran % 71.8 H (36.0-66.0) % Eos # (Auto) 0.11 (0-0.5) Absolute Lymphs (auto) 1.73 (1.0-4.6) Absolute Monos (auto) 0.59 (0.0-1.3) Lymphocytes % 20.0 L (24.0-44.0) % Monocytes % 6.8 (0.0-12.0) % Eosinophils % 1.3 (0.00-5.0) % Basophils % 0.1 (0.0-0.4) % Absolute Granulocytes 6.23 (1.4-6.9) Basophils # 0.01 (0-0.4) PT 11.8 (9.95-12.35) SECONDS INR 1.04 (0.8-3.0) APTT 28.0 (25.3-37.0) SECONDS D-Dimer 397 (215-500) ng/mL Puncture Site pCO2 (35-45) mmHg pO2 (75-100) mmHg Base Excess (-2.0-2.0) O2 Saturation (94-100) g/dF ABG pH (7.35-7.45) ABG HCO3 (22-28) ABG O2 Sat (Measured) (95-100) % Valentino Test A-a Gradient a/A Ratio Hemoglobin Carboxyhemoglobin (0.0-6.9) % THgb Methemoglobin (1.4-1.5) % Potassium 3.6 (3.5-5.1) Temperature C POC O2 Flow Rate % Sodium 138 (137-145) mmol/L Chloride 82 L (98-107) mmol/L Carbon Dioxide 45 H (22-30) mmol/L Anion Gap 14.6 (5-15) MEQ/L BUN 57 H (7-17) mg/dL Creatinine 2.44 H (0.52-1.04) mg/dL Estimated GFR 20.9 ML/MIN Glucose 163 H (74-106) mg/dL Lactic Acid (0.4-2.0) Calcium 10.7 H (8.4-10.2) mg/dL Magnesium 2.4 H (1.6-2.3) mg/dL Total Bilirubin 0.60 (0.2-1.3) mg/dL AST 26 (14-36) U/L ALT 16 (0-35) U/L Alkaline Phosphatase 146 H (38-126) U/L Troponin I (0.000-0.034) ng/mL NT-Pro-B Natriuret Pep 634 (0-900) pg/mL Serum Total Protein 7.4 (6.3-8.2) g/dL Albumin 4.1 (3.5-5.0) g/dL Urine Color (YELLOW) Urine Appearance (CLEAR) Urine pH (5-6) Ur Specific [place] (1.005-1.025) Urine Protein (Negative) Urine Ketones (NEGATIVE) Urine Blood (0-5) Jose/ul Urine Nitrite (NEGATIVE) Urine Bilirubin (NEGATIVE) Urine Urobilinogen (0-1) mg/dL Ur Leukocyte Esterase (NEGATIVE) Urine WBC (Auto) (0-5) /HPF Urine RBC (Auto) (0-2) /HPF U Hyaline Cast (Auto) (0-2) /LPF U Epithel Cells (Auto) (FEW) /HPF Urine Bacteria (Auto) (NEGATIVE) /HPF Urine Mucus (Auto) (NEGATIVE) /HPF Urine Culture Reflexed (NO) Urine Glucose (NEGATIVE) mg/dL Influenza Type A Ag (NEGATIVE) Influenza Type B Ag (NEGATIVE) RSV (PCR) (Negative) 06/30/19 Range/Units 15:17 WBC (4.0-10.5) K/mm3 RBC (4.1-5.4) M/mm3 Hgb (12.0-16.0) gm/dl Hct (35-47) % MCV (78-100) fl MCH (26-32) pg MCHC (32-36) g/dl RDW (11.5-14.0) % Plt Count (150-450) K/mm3 MPV (7.5-11.0) fl Gran % (36.0-66.0) % Eos # (Auto) (0-0.5) Absolute Lymphs (auto) (1.0-4.6) Absolute Monos (auto) (0.0-1.3) Lymphocytes % (24.0-44.0) % Monocytes % (0.0-12.0) % Eosinophils % (0.00-5.0) % Basophils % (0.0-0.4) % Absolute Granulocytes (1.4-6.9) Basophils # (0-0.4) PT (9.95-12.35) SECONDS INR (0.8-3.0) APTT (25.3-37.0) SECONDS D-Dimer (215-500) ng/mL Puncture Site LEFT RADIAL pCO2 64 H* (35-45) mmHg pO2 430 H* (75-100) mmHg Base Excess 21.4 H (-2.0-2.0) O2 Saturation 97.7 (94-100) g/dF ABG pH 7.49 H (7.35-7.45) ABG HCO3 48.8 H* (22-28) ABG O2 Sat (Measured) 100.0 (95-100) % Valentino Test yes A-a Gradient 203 a/A Ratio 0.68 Hemoglobin 12.5 Carboxyhemoglobin 1.4 (0.0-6.9) % THgb Methemoglobin 0.9 L (1.4-1.5) % Potassium 3.8 (3.5-5.1) Temperature 37.0 C POC O2 Flow Rate 100 % Sodium (137-145) mmol/L Chloride (98-107) mmol/L Carbon Dioxide (22-30) mmol/L Anion Gap (5-15) MEQ/L BUN (7-17) mg/dL Creatinine (0.52-1.04) mg/dL Estimated GFR ML/MIN Glucose (74-106) mg/dL Lactic Acid 1.0 (0.4-2.0) Calcium (8.4-10.2) mg/dL Magnesium (1.6-2.3) mg/dL Total Bilirubin (0.2-1.3) mg/dL AST (14-36) U/L ALT (0-35) U/L Alkaline Phosphatase (38-126) U/L Troponin I (0.000-0.034) ng/mL NT-Pro-B Natriuret Pep (0-900) pg/mL Serum Total Protein (6.3-8.2) g/dL Albumin (3.5-5.0) g/dL Urine Color (YELLOW) Urine Appearance (CLEAR) Urine pH (5-6) Ur Specific [place] (1.005-1.025) Urine Protein (Negative) Urine Ketones (NEGATIVE) Urine Blood (0-5) Jose/ul Urine Nitrite (NEGATIVE) Urine Bilirubin (NEGATIVE) Urine Urobilinogen (0-1) mg/dL Ur Leukocyte Esterase (NEGATIVE) Urine WBC (Auto) (0-5) /HPF Urine RBC (Auto) (0-2) /HPF U Hyaline Cast (Auto) (0-2) /LPF U Epithel Cells (Auto) (FEW) /HPF Urine Bacteria (Auto) (NEGATIVE) /HPF Urine Mucus (Auto) (NEGATIVE) /HPF Urine Culture Reflexed (NO) Urine Glucose (NEGATIVE) mg/dL Influenza Type A Ag (NEGATIVE) Influenza Type B Ag (NEGATIVE) RSV (PCR) (Negative) - Progress Progress: improved Air Movement: good Progress Note: 06/30/19 18:19 Patient reassessed. No respiratory distress. Slight wheezing observed. Patient currently being worked up for cold bed. Patient does appear dehydrated on physical exam. Labs reveal acute renal injury. Low rate IV fluids ordered. Patient likely, possibly experiencing con commitment COPD exacerbation. Antibiotics ordered and infused. Magnesium slightly elevated. No additional magnesium administered. Patient's family will bring metered-dose inhaler from home to our ED for use as needed. Case discussed with Dr. Schreiber excepts admission to observation. Plan of care discussed with patient. She agrees admission to [facility] for further evaluation and treatment. Family updated on plan of care. Blood Culture(s) Obtained: Yes Antibiotics given: Yes Discussed with DrJavon: Cesia Will see patient in: hospital (observation) Counseled pt/family regarding: lab results, diagnosis, rad results - Departure Departure Disposition: Observation Clinical Impression: Hypoxia, Hypochloremia, Dehydration, Respiratory distress Condition: Stable Critical Care Time: No Referrals: CLARISSA REED [Primary Care Provider] -
[2019-06-30] MEDS ORDERED: ROCEPHIN 2 Gm-D5w 50ML BAG** 2 G/50 ML IVPB IV STA (16:03)
[2019-06-30] MEDS ORDERED: ZITHROMAX IV 500 MG*** 500 MG in Sodium Chloride 0.9% 250 ML 250 ML IV ONE (16:03)
[2019-06-30] MEDS ORDERED: ROCEPHIN 2 Gm-D5w 50ML BAG** 2 G/50 ML IVPB IV ONE (16:06)
[2019-06-30 16:19] LABS: INR 1.04 (0.8-3.0); PROTIME 11.8 SECONDS (9.95-12.35)
[2019-06-30 16:31] LABS: Absolute Neutrophil Ct (ANC) 6.23 (1.4-6.9); BASOPHIL % 0.1 % (0.0-0.4); Basophil (Absolute #) 0.01 (0-0.4); Eosinophil % 1.3 % (0.00-5.0); Eosinophil (Absolute #) 0.11 (0-0.5); Hematocrit 36.5 % (35-47); Hemoglobin 11.5 gm/dl (12.0-16.0); Lymphocyte (Absolute #) 1.73 (1.0-4.6); Mean Cell Volume 91.3 fl (78-100); Mean Corpuscular Hemoglobin 28.8 pg (26-32); Mean Corpuscular Hgb Concent. 31.5 g/dl (32-36); Mean Platelet Volume 10.6 fl (7.5-11.0); Monocyte (Absolute #) 0.59 (0.0-1.3); Monocytes % 6.8 % (0.0-12.0); Neutrophil % 71.8 % (36.0-66.0); Platelet Count 273 K/mm3 (150-450); Red Cell Distribution Width 14.3 % (11.5-14.0); White Blood Count 8.7 K/mm3 (4.0-10.5)
[2019-06-30 16:33] LABS: ALBUMIN 4.1 g/dL (3.5-5.0); BILIRUBIN,TOTAL 0.6 mg/dL (0.2-1.3); Calcium 10.7 mg/dL (8.4-10.2); Creatinine 1 2.44 mg/dL (0.52-1.04); MAGNESIUM 2.4 mg/dL (1.6-2.3); Potassium 3.6 mmol/L (3.5-5.1); Total Protein 7.4 g/dL (6.3-8.2)
--- NOTE | 2019-06-30 16:58 | XRAY ---
Indication: Confusion. Uncooperative. Short of breath/hypoxia. Multiple contiguous axial images obtained through the head without contrast. Comparison: May 20, 2019. Stable age-appropriate global atrophy and mild periventricular degenerative micro-ischemia. Again no acute intracranial hemorrhage, abnormal extra-axial fluid collection, or mass effect. Fourth ventricle is midline without hydrocephalus. Bony calvarium intact. Visualized paranasal sinuses are clear. Stable partial opacification of the right mastoid air cells. Stable left scalp calcified sebaceous cyst near the vertex. Impression: 1. Continued nonacute senile brain. 2. Stable partial opacification right mastoid air cells possibly inflammatory and left scalp calcified sebaceous cyst.
--- NOTE | 2019-06-30 17:00 | XRAY ---
Indication: Short of breath/hypoxia. Comparison: May 20, 2019. Portable chest remains clear. Heart is not enlarged for AP portable technique. Bony thorax intact. Impression: Continued nonacute chest.
[2019-06-30 17:03] LABS: INFLUENZA A NEGATIVE (NEGATIVE); INFLUENZA B NEGATIVE (NEGATIVE); RESPIRATORY SYNCTIAL VIRUS NEGATIVE (Negative)
[2019-06-30 17:07] LABS: ANION GAP 14.6 MEQ/L (5-15)
[2019-06-30] MEDS ORDERED: Zithromax 500 MG/ 250 ML NaCl Premix 500 MG/250 ML IVPB IV ONE (17:23)
[2019-06-30 17:43] LABS: Appearance CLEAR (CLEAR); Bilirubin NEGATIVE (NEGATIVE); Blood NEGATIVE Ery/ul (0-5); Glucose NEGATIVE (NEGATIVE); Ketones NEGATIVE (NEGATIVE); Leukocyte Esterase NEGATIVE (NEGATIVE); Mucus SLIGHT /HPF (NEGATIVE); Nitrite NEGATIVE (NEGATIVE); Protein,Urine Dip NEGATIVE (Negative); Urobilinogen NEGATIVE mg/dL (0-1)
[2019-06-30] MEDS ORDERED: solu-MEDROL 125 MG IV ONE (18:00)
[2019-06-30] MEDS ORDERED: solu-MEDROL 125 MG ONE (18:13)
[2019-06-30] MEDS ORDERED: Sodium Chloride 0.9% 1000 ML 1,000 ML IV SCH ×2 (18:15→18:44)
[2019-06-30] MEDS ORDERED: Sodium Chloride 0.9% 1000 ML 1,000 ML ONE (18:16)
[2019-07-01] MEDS: solu-MEDROL 125 MG IV SCH ×5 (00:16→23:57)
[2019-07-01 04:32] LABS: Hematocrit 35.2 % (35-47); Hemoglobin 11.3 gm/dl (12.0-16.0); Mean Cell Volume 91.4 fl (78-100); Mean Corpuscular Hemoglobin 29.4 pg (26-32); Mean Corpuscular Hgb Concent. 32.1 g/dl (32-36); Mean Platelet Volume 10.7 fl (7.5-11.0); Platelet Count 230 K/mm3 (150-450); Red Blood Count 3.85 M/mm3 (4.1-5.4); Red Cell Distribution Width 14.4 % (11.5-14.0)
[2019-07-01 04:43] LABS: ALBUMIN 3.5 g/dL (3.5-5.0); BILIRUBIN,TOTAL 0.6 mg/dL (0.2-1.3); Calcium 9.8 mg/dL (8.4-10.2); Creatinine 1 2.4 mg/dL (0.52-1.04); Potassium 3.6 mmol/L (3.5-5.1); Total Protein 6.1 g/dL (6.3-8.2)
[2019-07-01 05:13] LABS: ANION GAP 13.6 MEQ/L (5-15)
[2019-07-01] MEDS ORDERED: PATIENT OWN MEDICATION IH PRN (07:00)
[2019-07-01] MEDS: PATIENT OWN MEDICATION IH SCH (08:00)
[2019-07-01] MEDS: ROCEPHIN 1 Gm-D5w 50 ml Bag** 1 G/50 ML IVPB IV SCH (09:32)
[2019-07-01] MEDS: Zithromax 500 MG/ 250 ML NaCl Premix 500 MG/250 ML IVPB IV SCH (09:33)
--- NOTE | 2019-07-01 10:31 | PCM.HP ---
History of Present Illness - Chief Complaint Chief Complaint: COPD exacerbation History of Present Illness: is a 68 year old female with apparent advanced copd and chronic hypoxemic respiratory failure, she is on 2L oxygen at home chronically. EMS was apparently called yesterday for confusion and difficulty breathing, when they arrived her oxygen sat was 74% but improved to 100% rapidly with nonrebreather, her workup in the ER was fairly benign. her sats remained stable as she was weaned to nasal cannula in ER with no significant intervention. She is confused but cooperative this morning, per staff she has some underlying confusion but seems worse at this time. She has some cough and has been more short of breath for the last 3-4 days. - Review of Systems Constitutional: No Fever, No Chills Ears, Nose, & Throat: No Symptoms Respiratory: Cough, Short Of Breath Cardiac: No Chest Pain, No Edema, No Syncope Genitourinary Symptoms: No Dysuria Skin: No Rash All Other Systems: Reviewed and Negative Medications & Allergies Home Medications: Home Medication List Clopidogrel Bisulfate 75 mg [PLAVIX 75 MG Tablet] 75 mg PO HS 10/09/13 [ History Confirmed 06/30/19] Metoprolol Succinate [Toprol Xl] 100 mg PO HS 02/03/15 [History Confirmed ] Duloxetine HCl [Cymbalta] 60 mg PO HS 08/17/17 [History Confirmed 06/30/19] AMITRIPTYLINE HCL 50 mg Tab [AMITRIPTYLINE HCL 50 mg Tablet] 50 mg PO HS [History Confirmed 06/30/19] Albuterol 8 gm Mdi Hfa [Ventolin Hfa MDI] 2 puff IH Q4HPRN PRN 07/16/18 [ History Confirmed 06/30/19] Atorvastatin Calcium [Lipitor] 40 mg PO HS 07/16/18 [History Confirmed 06/30/19] Ropinirole HCl 4 mg PO TID 07/16/18 [History Confirmed 06/30/19] Topiramate 25 mg [Topamax 25 MG] 25 mg PO BID 07/16/18 [History Confirmed 06/30/19] Bumetanide 1 mg [Bumex 1 mg] 2 mg PO BID #30 tablet 07/24/18 [Rx Confirmed 06/30/19] Insulin Aspart [NovoLOG Insulin] 10 unit SQ 0730,1130 #1 unit 07/24/18 [Rx Confirmed 06/30/19] Albuterol/Ipratropium 3ml Neb* [DUONEB 0.5-3 MG/3 ml Neb] 3 ml NEBULIZE Q4H PRN PRN #1 box 02/02/19 [Rx Confirmed 06/30/19] Ferrous Sulfate 325 mg [Feosol 325 mg] 325 mg PO BID 02/26/19 [History Confirmed 06/30/19] Levothyroxine Sodium 88 mcg PO DAILY 02/26/19 [History Confirmed 06/30/19] Levothyroxine Sodium 100 mcg PO DAILY 02/26/19 [History Confirmed 06/30/19] Nitroglycerin 0.4 mg Tablet [Nitrostat 0.4 MG Tablet] 0.4 mg SL UD [History Confirmed 06/30/19] Umeclidinium [place] [Incruse Ellipta] 62.5 mcg IH DAILY 02/26/19 [History Confirmed 06/30/19] Calcium Carbonate 750 mg [Tums EX 750 MG] 1,000 mg PO BID #1 bottle [Rx Confirmed 06/30/19] Ergocalciferol (Vitamin D2) [Vitamin D2] 50,000 unit PO Q7D #4 capsule 03/05/19 [Rx Confirmed 06/30/19] Magnesium Oxide 400 mg [Mag-Ox 400] 400 mg PO BID #60 tablet 03/05/19 [Rx Confirmed 06/30/19] Potassium Chloride 10 Meq Tab* [Klor Con 10 MEQ] 20 meq PO TID #90 tab [Rx Confirmed 06/30/19] Gabapentin 300 mg PO TID #90 capsule 05/25/19 [Rx Confirmed 06/30/19] Amlodipine Besylate 5 mg [Norvasc 5 mg] 5 mg DAILY 06/30/19 [History Confirmed 06/30/19] Clopidogrel Bisulfate 75 mg [PLAVIX 75 MG Tablet] 75 mg DAILY 06/30/19 [ History Confirmed 06/30/19] Hydrochlorothiazide 25 mg [hydroDIURIL 25 MG] 1 ea DAILY 06/30/19 [ History Confirmed 06/30/19] calcitrioL [Calcitriol] 1 ea DAILY 06/30/19 [History Confirmed 06/30/19] Allergies/Adverse Reactions: Allergies Allergy/AdvReac Type Severity Reaction Status Date / Time No Known Drug Allergies Allergy Verified 06/30/19 16:41 - Past Medical History Past Medical History: Yes Neurological History: No Pertinent History ENT History: No Pertinent History Cardiac History: High Cholesterol, Hypertension, Myocardial Infarction ([place]) Respiratory History: COPD Endocrine Medical History: Diabetes Type II, Other Musculoskelatal History: Fractures, Osteoarthritis GI Medical History: No Pertinent History History: No Pertinent History Pyscho-Social History: Depression Reproductive Disorders: No Pertinent History Comment: THYROID NODULE, HX IA WITHOUT SURGERY, R ANKLE FX W/ ORIF 2007 - Female History Hx Last Menstrual Period: post Are you now?: No - Past Surgical History Past Surgical History: Yes Neuro Surgical History: No Pertinent History Cardiac History: No Pertinent History Respiratory Surgery: No Pertinent History GI Surgical History: No Pertinent History, Other Genitourinary Surgical Hx: No Pertinent History Musculskeletal Surgical Hx: Other Female Surgical History: Tubal Ligation Other Surgical History: RIGHT ANKLE SURGERY, thyroidectomy, left carotid endartertectomy - Social History Smoking Status: Current every day smoker How long have you smoked: 50 + year Exposure to second hand smoke: Yes Alcohol: None Drug Use: none - Physical Exam Vital Signs: Vital Signs - 24 hr Temp Pulse Resp BP Pulse Ox 07/01/19 08:45 75 18 97 07/01/19 08:00 98.7 F 90 18 105/49 98 07/01/19 04:00 98.3 F 77 16 126/64 95 06/30/19 23:36 98.1 F 85 20 118/60 93 L 06/30/19 20:43 97.7 F 70 22 140/62 94 L 06/30/19 20:35 66 22 94 L 06/30/19 20:00 97.7 F 70 22 140/62 94 L 06/30/19 18:44 94 L 06/30/19 18:22 100 06/30/19 18:10 64 18 138/55 98 06/30/19 17:08 64 20 125/55 100 06/30/19 16:40 97.7 F 68 18 119/46 98 06/30/19 16:17 22 96 06/30/19 15:05 97.5 F 73 22 182/120 90 L General Appearance: no apparent distress, obese Neurologic Exam: alert, cooperative, No oriented x 3 Respiratory Exam: rhonchi, wheezing Cardiovascular Exam: regular rate/rhythm, normal heart sounds, normal peripheral pulses Gastrointestinal/Abdomen Exam: soft, normal bowel sounds, No tenderness, No mass Extremity Exam: normal inspection, normal range of motion, pelvis stable Skin Exam: normal color, warm, dry, No rash Results - Labs Lab/Micro Results: Accuchecks Date 07/01/19 Time 16:30 Accucheck Value: 260 Accucheck Value: 123 Lab Results-Last 24 Hours 06/30/19 06/30/19 06/30/19 Range/Units 15:17 16:10 16:10 WBC 8.7 (4.0-10.5) K/mm3 RBC 4.00 L (4.1-5.4) M/mm3 Hgb 11.5 L (12.0-16.0) gm/dl Hct 36.5 (35-47) % MCV 91.3 (78-100) fl MCH 28.8 (26-32) pg MCHC 31.5 L (32-36) g/dl RDW 14.3 H (11.5-14.0) % Plt Count 273 (150-450) K/mm3 MPV 10.6 (7.5-11.0) fl Gran % 71.8 H (36.0-66.0) % Eos # (Auto) 0.11 (0-0.5) Absolute Lymphs (auto) 1.73 (1.0-4.6) Absolute Monos (auto) 0.59 (0.0-1.3) Lymphocytes % 20.0 L (24.0-44.0) % Monocytes % 6.8 (0.0-12.0) % Eosinophils % 1.3 (0.00-5.0) % Basophils % 0.1 (0.0-0.4) % Absolute Granulocytes 6.23 (1.4-6.9) Basophils # 0.01 (0-0.4) PT (9.95-12.35) SECONDS INR (0.8-3.0) APTT (25.3-37.0) SECONDS D-Dimer (215-500) ng/mL Puncture Site LEFT RADIAL pCO2 64 H* (35-45) mmHg pO2 430 H* (75-100) mmHg Base Excess 21.4 H (-2.0-2.0) O2 Saturation 97.7 (94-100) g/dF ABG pH 7.49 H (7.35-7.45) ABG HCO3 48.8 H* (22-28) ABG O2 Sat (Measured) 100.0 (95-100) % Valentino Test yes A-a Gradient 203 a/A Ratio 0.68 Hemoglobin 12.5 Carboxyhemoglobin 1.4 (0.0-6.9) % THgb Methemoglobin 0.9 L (1.4-1.5) % Potassium 3.8 3.6 (3.5-5.1) Temperature 37.0 C POC O2 Flow Rate 100 % Sodium 138 (137-145) mmol/L Chloride 82 L (98-107) mmol/L Carbon Dioxide 45 H (22-30) mmol/L Anion Gap 14.6 (5-15) MEQ/L BUN 57 H (7-17) mg/dL Creatinine 2.44 H (0.52-1.04) mg/dL Estimated GFR 20.9 ML/MIN Glucose 163 H (74-106) mg/dL Hemoglobin A1c (4.5-6.0) % Lactic Acid 1.0 (0.4-2.0) Calcium 10.7 H (8.4-10.2) mg/dL Magnesium 2.4 H (1.6-2.3) mg/dL Total Bilirubin 0.60 (0.2-1.3) mg/dL AST 26 (14-36) U/L ALT 16 (0-35) U/L Alkaline Phosphatase 146 H (38-126) U/L Troponin I (0.000-0.034) ng/mL NT-Pro-B Natriuret Pep 634 (0-900) pg/mL Serum Total Protein 7.4 (6.3-8.2) g/dL Albumin 4.1 (3.5-5.0) g/dL Urine Color (YELLOW) Urine Appearance (CLEAR) Urine pH (5-6) Ur Specific [place] (1.005-1.025) Urine Protein (Negative) Urine Ketones (NEGATIVE) Urine Blood (0-5) Jose/ul Urine Nitrite (NEGATIVE) Urine Bilirubin (NEGATIVE) Urine Urobilinogen (0-1) mg/dL Ur Leukocyte Esterase (NEGATIVE) Urine WBC (Auto) (0-5) /HPF Urine RBC (Auto) (0-2) /HPF U Hyaline Cast (Auto) (0-2) /LPF U Epithel Cells (Auto) (FEW) /HPF Urine Bacteria (Auto) (NEGATIVE) /HPF Urine Mucus (Auto) (NEGATIVE) /HPF Urine Culture Reflexed (NO) Urine Glucose (NEGATIVE) mg/dL Influenza Type A Ag (NEGATIVE) Influenza Type B Ag (NEGATIVE) RSV (PCR) (Negative) 06/30/19 06/30/19 06/30/19 Range/Units 16:10 16:10 16:17 WBC (4.0-10.5) K/mm3 RBC (4.1-5.4) M/mm3 Hgb (12.0-16.0) gm/dl Hct (35-47) % MCV (78-100) fl MCH (26-32) pg MCHC (32-36) g/dl RDW (11.5-14.0) % Plt Count (150-450) K/mm3 MPV (7.5-11.0) fl Gran % (36.0-66.0) % Eos # (Auto) (0-0.5) Absolute Lymphs (auto) (1.0-4.6) Absolute Monos (auto) (0.0-1.3) Lymphocytes % (24.0-44.0) % Monocytes % (0.0-12.0) % Eosinophils % (0.00-5.0) % Basophils % (0.0-0.4) % Absolute Granulocytes (1.4-6.9) Basophils # (0-0.4) PT 11.8 (9.95-12.35) SECONDS INR 1.04 (0.8-3.0) APTT 28.0 (25.3-37.0) SECONDS D-Dimer 397 (215-500) ng/mL Puncture Site pCO2 (35-45) mmHg pO2 (75-100) mmHg Base Excess (-2.0-2.0) O2 Saturation (94-100) g/dF ABG pH (7.35-7.45) ABG HCO3 (22-28) ABG O2 Sat (Measured) (95-100) % Valentino Test A-a Gradient a/A Ratio Hemoglobin Carboxyhemoglobin (0.0-6.9) % THgb Methemoglobin (1.4-1.5) % Potassium (3.5-5.1) Temperature C POC O2 Flow Rate % Sodium (137-145) mmol/L Chloride (98-107) mmol/L Carbon Dioxide (22-30) mmol/L Anion Gap (5-15) MEQ/L BUN (7-17) mg/dL Creatinine (0.52-1.04) mg/dL Estimated GFR ML/MIN Glucose (74-106) mg/dL Hemoglobin A1c (4.5-6.0) % Lactic Acid (0.4-2.0) Calcium (8.4-10.2) mg/dL Magnesium (1.6-2.3) mg/dL Total Bilirubin (0.2-1.3) mg/dL AST (14-36) U/L ALT (0-35) U/L Alkaline Phosphatase (38-126) U/L Troponin I < 0.012 (0.000-0.034) ng/mL NT-Pro-B Natriuret Pep (0-900) pg/mL Serum Total Protein (6.3-8.2) g/dL Albumin (3.5-5.0) g/dL Urine Color YELLOW (YELLOW) Urine Appearance CLEAR (CLEAR) Urine pH 7.0 (5-6) Ur Specific [place] 1.010 (1.005-1.025) Urine Protein NEGATIVE (Negative) Urine Ketones NEGATIVE (NEGATIVE) Urine Blood NEGATIVE (0-5) Jose/ul Urine Nitrite NEGATIVE (NEGATIVE) Urine Bilirubin NEGATIVE (NEGATIVE) Urine Urobilinogen NEGATIVE (0-1) mg/dL Ur Leukocyte Esterase NEGATIVE (NEGATIVE) Urine WBC (Auto) NONE (0-5) /HPF Urine RBC (Auto) NONE (0-2) /HPF U Hyaline Cast (Auto) 11-25 (0-2) /LPF U Epithel Cells (Auto) NONE (FEW) /HPF Urine Bacteria (Auto) NONE (NEGATIVE) /HPF Urine Mucus (Auto) SLIGHT (NEGATIVE) /HPF Urine Culture Reflexed NO (NO) Urine Glucose NEGATIVE (NEGATIVE) mg/dL Influenza Type A Ag (NEGATIVE) Influenza Type B Ag (NEGATIVE) RSV (PCR) (Negative) 06/30/19 06/30/19 06/30/19 Range/Units 19:00 19:30 22:08 WBC (4.0-10.5) K/mm3 RBC (4.1-5.4) M/mm3 Hgb (12.0-16.0) gm/dl Hct (35-47) % MCV (78-100) fl MCH (26-32) pg MCHC (32-36) g/dl RDW (11.5-14.0) % Plt Count (150-450) K/mm3 MPV (7.5-11.0) fl Gran % (36.0-66.0) % Eos # (Auto) (0-0.5) Absolute Lymphs (auto) (1.0-4.6) Absolute Monos (auto) (0.0-1.3) Lymphocytes % (24.0-44.0) % Monocytes % (0.0-12.0) % Eosinophils % (0.00-5.0) % Basophils % (0.0-0.4) % Absolute Granulocytes (1.4-6.9) Basophils # (0-0.4) PT (9.95-12.35) SECONDS INR (0.8-3.0) APTT (25.3-37.0) SECONDS D-Dimer (215-500) ng/mL Puncture Site pCO2 (35-45) mmHg pO2 (75-100) mmHg Base Excess (-2.0-2.0) O2 Saturation (94-100) g/dF ABG pH (7.35-7.45) ABG HCO3 (22-28) ABG O2 Sat (Measured) (95-100) % Valentino Test A-a Gradient a/A Ratio Hemoglobin Carboxyhemoglobin (0.0-6.9) % THgb Methemoglobin (1.4-1.5) % Potassium (3.5-5.1) Temperature C POC O2 Flow Rate % Sodium (137-145) mmol/L Chloride (98-107) mmol/L Carbon Dioxide (22-30) mmol/L Anion Gap (5-15) MEQ/L BUN (7-17) mg/dL Creatinine (0.52-1.04) mg/dL Estimated GFR ML/MIN Glucose (74-106) mg/dL Hemoglobin A1c 8.72 H (4.5-6.0) % Lactic Acid (0.4-2.0) Calcium (8.4-10.2) mg/dL Magnesium (1.6-2.3) mg/dL Total Bilirubin (0.2-1.3) mg/dL AST (14-36) U/L ALT (0-35) U/L Alkaline Phosphatase (38-126) U/L Troponin I < 0.012 < 0.012 (0.000-0.034) ng/mL NT-Pro-B Natriuret Pep (0-900) pg/mL Serum Total Protein (6.3-8.2) g/dL Albumin (3.5-5.0) g/dL Urine Color (YELLOW) Urine Appearance (CLEAR) Urine pH (5-6) Ur Specific [place] (1.005-1.025) Urine Protein (Negative) Urine Ketones (NEGATIVE) Urine Blood (0-5) Jose/ul Urine Nitrite (NEGATIVE) Urine Bilirubin (NEGATIVE) Urine Urobilinogen (0-1) mg/dL Ur Leukocyte Esterase (NEGATIVE) Urine WBC (Auto) (0-5) /HPF Urine RBC (Auto) (0-2) /HPF U Hyaline Cast (Auto) (0-2) /LPF U Epithel Cells (Auto) (FEW) /HPF Urine Bacteria (Auto) (NEGATIVE) /HPF Urine Mucus (Auto) (NEGATIVE) /HPF Urine Culture Reflexed (NO) Urine Glucose (NEGATIVE) mg/dL Influenza Type A Ag (NEGATIVE) Influenza Type B Ag (NEGATIVE) RSV (PCR) (Negative) 06/30/19 07/01/19 07/01/19 Range/Units Unknown 00:30 04:15 WBC (4.0-10.5) K/mm3 RBC (4.1-5.4) M/mm3 Hgb (12.0-16.0) gm/dl Hct (35-47) % MCV (78-100) fl MCH (26-32) pg MCHC (32-36) g/dl RDW (11.5-14.0) % Plt Count (150-450) K/mm3 MPV (7.5-11.0) fl Gran % (36.0-66.0) % Eos # (Auto) (0-0.5) Absolute Lymphs (auto) (1.0-4.6) Absolute Monos (auto) (0.0-1.3) Lymphocytes % (24.0-44.0) % Monocytes % (0.0-12.0) % Eosinophils % (0.00-5.0) % Basophils % (0.0-0.4) % Absolute Granulocytes (1.4-6.9) Basophils # (0-0.4) PT (9.95-12.35) SECONDS INR (0.8-3.0) APTT (25.3-37.0) SECONDS D-Dimer (215-500) ng/mL Puncture Site pCO2 (35-45) mmHg pO2 (75-100) mmHg Base Excess (-2.0-2.0) O2 Saturation (94-100) g/dF ABG pH (7.35-7.45) ABG HCO3 (22-28) ABG O2 Sat (Measured) (95-100) % Valentino Test A-a Gradient a/A Ratio Hemoglobin Carboxyhemoglobin (0.0-6.9) % THgb Methemoglobin (1.4-1.5) % Potassium (3.5-5.1) Temperature C POC O2 Flow Rate % Sodium (137-145) mmol/L Chloride (98-107) mmol/L Carbon Dioxide (22-30) mmol/L Anion Gap (5-15) MEQ/L BUN (7-17) mg/dL Creatinine (0.52-1.04) mg/dL Estimated GFR ML/MIN Glucose (74-106) mg/dL Hemoglobin A1c (4.5-6.0) % Lactic Acid (0.4-2.0) Calcium (8.4-10.2) mg/dL Magnesium (1.6-2.3) mg/dL Total Bilirubin (0.2-1.3) mg/dL AST (14-36) U/L ALT (0-35) U/L Alkaline Phosphatase (38-126) U/L Troponin I < 0.012 < 0.012 (0.000-0.034) ng/mL NT-Pro-B Natriuret Pep (0-900) pg/mL Serum Total Protein (6.3-8.2) g/dL Albumin (3.5-5.0) g/dL Urine Color (YELLOW) Urine Appearance (CLEAR) Urine pH (5-6) Ur Specific [place] (1.005-1.025) Urine Protein (Negative) Urine Ketones (NEGATIVE) Urine Blood (0-5) Jose/ul Urine Nitrite (NEGATIVE) Urine Bilirubin (NEGATIVE) Urine Urobilinogen (0-1) mg/dL Ur Leukocyte Esterase (NEGATIVE) Urine WBC (Auto) (0-5) /HPF Urine RBC (Auto) (0-2) /HPF U Hyaline Cast (Auto) (0-2) /LPF U Epithel Cells (Auto) (FEW) /HPF Urine Bacteria (Auto) (NEGATIVE) /HPF Urine Mucus (Auto) (NEGATIVE) /HPF Urine Culture Reflexed (NO) Urine Glucose (NEGATIVE) mg/dL Influenza Type A Ag NEGATIVE (NEGATIVE) Influenza Type B Ag NEGATIVE (NEGATIVE) RSV (PCR) NEGATIVE (Negative) 07/01/19 07/01/19 Range/Units 04:15 04:15 WBC 15.0 H (4.0-10.5) K/mm3 RBC 3.85 L (4.1-5.4) M/mm3 Hgb 11.3 L (12.0-16.0) gm/dl Hct 35.2 (35-47) % MCV 91.4 (78-100) fl MCH 29.4 (26-32) pg MCHC 32.1 (32-36) g/dl RDW 14.4 H (11.5-14.0) % Plt Count 230 (150-450) K/mm3 MPV 10.7 (7.5-11.0) fl Gran % (36.0-66.0) % Eos # (Auto) (0-0.5) Absolute Lymphs (auto) (1.0-4.6) Absolute Monos (auto) (0.0-1.3) Lymphocytes % (24.0-44.0) % Monocytes % (0.0-12.0) % Eosinophils % (0.00-5.0) % Basophils % (0.0-0.4) % Absolute Granulocytes (1.4-6.9) Basophils # (0-0.4) PT (9.95-12.35) SECONDS INR (0.8-3.0) APTT (25.3-37.0) SECONDS D-Dimer (215-500) ng/mL Puncture Site pCO2 (35-45) mmHg pO2 (75-100) mmHg Base Excess (-2.0-2.0) O2 Saturation (94-100) g/dF ABG pH (7.35-7.45) ABG HCO3 (22-28) ABG O2 Sat (Measured) (95-100) % Valentino Test A-a Gradient a/A Ratio Hemoglobin Carboxyhemoglobin (0.0-6.9) % THgb Methemoglobin (1.4-1.5) % Potassium 3.6 (3.5-5.1) Temperature C POC O2 Flow Rate % Sodium 136 L (137-145) mmol/L Chloride 85 L (98-107) mmol/L Carbon Dioxide 41 H (22-30) mmol/L Anion Gap 13.6 (5-15) MEQ/L BUN 58 H (7-17) mg/dL Creatinine 2.40 H (0.52-1.04) mg/dL Estimated GFR 21.3 ML/MIN Glucose 260 H (74-106) mg/dL Hemoglobin A1c (4.5-6.0) % Lactic Acid (0.4-2.0) Calcium 9.8 (8.4-10.2) mg/dL Magnesium (1.6-2.3) mg/dL Total Bilirubin 0.60 (0.2-1.3) mg/dL AST 22 (14-36) U/L ALT 14 (0-35) U/L Alkaline Phosphatase 133 H (38-126) U/L Troponin I (0.000-0.034) ng/mL NT-Pro-B Natriuret Pep (0-900) pg/mL Serum Total Protein 6.1 L (6.3-8.2) g/dL Albumin 3.5 (3.5-5.0) g/dL Urine Color (YELLOW) Urine Appearance (CLEAR) Urine pH (5-6) Ur Specific [place] (1.005-1.025) Urine Protein (Negative) Urine Ketones (NEGATIVE) Urine Blood (0-5) Jose/ul Urine Nitrite (NEGATIVE) Urine Bilirubin (NEGATIVE) Urine Urobilinogen (0-1) mg/dL Ur Leukocyte Esterase (NEGATIVE) Urine WBC (Auto) (0-5) /HPF Urine RBC (Auto) (0-2) /HPF U Hyaline Cast (Auto) (0-2) /LPF U Epithel Cells (Auto) (FEW) /HPF Urine Bacteria (Auto) (NEGATIVE) /HPF Urine Mucus (Auto) (NEGATIVE) /HPF Urine Culture Reflexed (NO) Urine Glucose (NEGATIVE) mg/dL Influenza Type A Ag (NEGATIVE) Influenza Type B Ag (NEGATIVE) RSV (PCR) (Negative) Accuchecks Date 07/01/19 Time 16:30 Accucheck Value: 260 Accucheck Value: 123 - Radiology Impressions Radiology Exams & Impressions: Radiology Procedures Category Date Time Status CHEST 1 VIEW (PORTABLE) Stat Exams 06/30/19 15:18 Completed HEAD WITHOUT CONTRAST [CT] Stat Exams 06/30/19 15:16 Completed - Other Procedures and Tests Respiratory Therapy 06/30/19 19:15 Respiratory MDI PRN 06/30/19 20:30 Oxygen Nasal Cannula 2 lpm 06/30/19 20:51 Respiratory Therapy Assessment DAILY 07/01/19 07:00 Respiratory MDI DAILY Assessment/Plan (1) COPD exacerbation Current Visit: No Status: Acute Assessment & Plan: order for MDI, continue solu medrol and rocephin/zithromax. covid-19 swab pending but appears to have a pure exacerbation of copd clinically at this time. Code(s): J44.1 - CHRONIC OBSTRUCTIVE PULMONARY DISEASE W (ACUTE) EXACERBATION (2) Altered mental status Current Visit: Yes Status: Acute Assessment & Plan: likely related to hypoxia, nothing acute on head ct Code(s): R41.82 - ALTERED MENTAL STATUS, UNSPECIFIED (3) CHF (congestive heart failure) Current Visit: No Status: Chronic Code(s): I50.9 - HEART FAILURE, UNSPECIFIED (4) Chronic renal failure Current Visit: No Status: Chronic Qualifiers: (5) Diabetes Current Visit: No Status: Chronic Qualifiers: Code(s): E11.9 - TYPE 2 DIABETES MELLITUS WITHOUT COMPLICATIONS (6) HTN (hypertension) Current Visit: No Status: Chronic Qualifiers: Code(s): I10 - ESSENTIAL (PRIMARY) HYPERTENSION (7) Weakness Current Visit: No Status: Resolved Code(s): R53.1 - WEAKNESS
[2019-07-01] MEDS: ENOXAPARIN SODIUM SQ SCH (11:53)
[2019-07-01] MEDS ORDERED: SYNTHROID 100 MCG PO SCH (12:30)
[2019-07-01] MEDS ORDERED: Topamax 25 MG PO SCH (12:30)
[2019-07-01] MEDS: TOPIRAMATE PO SCH (13:33)
[2019-07-01] MEDS: BUMEX 1 MG PO SCH ×2 (13:33→16:06)
[2019-07-01] MEDS: Klor Con 10 MEQ PO SCH ×2 (13:34→21:23)
[2019-07-01] MEDS: PLAVIX 75 MG Tablet PO SCH (13:34)
[2019-07-01] MEDS: SYNTHROID 100 MCG PO SCH (13:34)
[2019-07-01] MEDS: NORVASC 5 MG PO SCH (13:35)
[2019-07-01] MEDS: SYNTHROID 88 MCG PO SCH (13:35)
[2019-07-01] MEDS: MAG-OX 400 PO SCH ×2 (13:35→21:23)
[2019-07-01] MEDS: hydroDIURIL 25 MG PO SCH (13:35)
[2019-07-01] MEDS ORDERED: ROPINIROLE HCL 4 MG PO SCH (15:00)
[2019-07-01] MEDS ORDERED: NEURONTIN 300 MG PO SCH (15:00)
[2019-07-01] MEDS: REQUIP 2MG TAB PO SCH ×2 (16:02→21:23)
[2019-07-01] MEDS: Neurontin 400 MG PO SCH ×2 (16:03→21:23)
[2019-07-01] MEDS: HUMALOG SQ SCH (16:05)
[2019-07-01] MEDS: Toprol Xl 100 MG PO SCH (21:22)
[2019-07-01] MEDS: ZOCOR 20MG PO SCH (21:22)
[2019-07-01] MEDS: Cymbalta 30 MG Capsule PO SCH (21:22)
[2019-07-01] MEDS: HUMALOG SQ PRN (21:53)
[2019-07-01] MEDS ORDERED: NON-FORMULARY ITEM (Duloxetine Hcl [Cymbalta] 60 MG) PO SCH (22:00)
[2019-07-01] MEDS ORDERED: NON-FORMULARY ITEM (Atorvastatin Calcium [Lipitor] 40 MG) PO SCH (22:00)
[2019-07-02] MEDS: solu-MEDROL 125 MG IV SCH ×3 (04:57→17:28)
[2019-07-02 05:59] LABS: ALBUMIN 3.6 g/dL (3.5-5.0); BILIRUBIN,TOTAL 0.5 mg/dL (0.2-1.3); Calcium 8.7 mg/dL (8.4-10.2); Creatinine 1 2.23 mg/dL (0.52-1.04); MAGNESIUM 2.2 mg/dL (1.6-2.3); Potassium 3.2 mmol/L (3.5-5.1); Total Protein 6.5 g/dL (6.3-8.2)
[2019-07-02 05:59] LABS: Absolute Neutrophil Ct (ANC) 10.29 (1.4-6.9); BASOPHIL % 0.1 % (0.0-0.4); Basophil (Absolute #) 0.01 (0-0.4); Eosinophil (Absolute #) 0 (0-0.5); Hematocrit 33.6 % (35-47); Hemoglobin 10.9 gm/dl (12.0-16.0); Lymphocytes % 4.5 % (24.0-44.0); Mean Cell Volume 89.4 fl (78-100); Mean Corpuscular Hgb Concent. 32.4 g/dl (32-36); Monocyte (Absolute #) 0.23 (0.0-1.3); Monocytes % 2.1 % (0.0-12.0); Neutrophil % 93.3 % (36.0-66.0); Platelet Count 218 K/mm3 (150-450); Red Blood Count 3.76 M/mm3 (4.1-5.4); Red Cell Distribution Width 14.3 % (11.5-14.0)
[2019-07-02 06:08] LABS: ANION GAP 15.2 MEQ/L (5-15)
[2019-07-02 07:42] LABS: Slide Review 1 YES
[2019-07-02] MEDS: HUMALOG SQ PRN ×2 (08:27→17:29)
--- NOTE | 2019-07-02 08:38 | PCM.NOTE ---
Date and Time: 07/02/19 0835 Subjective Assessment: patient denies any new problems, she is alert and cooperative. states she has some cough and shortness of breath Objective Exam General Appearance: no apparent distress, alert, obese Respiratory Exam: rhonchi, wheezing Cardiovascular Exam: regular rate/rhythm, normal heart sounds Gastrointestinal/Abdomen Exam: soft, No tenderness, No mass Extremity Exam: normal inspection, normal range of motion OBJECTIVE DATA Vital Signs: Vital Signs - 24 hr Temp Pulse Resp BP Pulse Ox 07/02/19 08:00 97.5 F 69 22 135/70 94 L 07/02/19 04:00 98.6 F 75 18 114/57 95 07/02/19 00:00 98.8 F 76 20 108/54 96 07/01/19 20:05 81 16 96 07/01/19 20:00 99.5 F 80 20 95/47 95 07/01/19 16:00 99.4 F 86 16 133/84 92 L 07/01/19 11:36 98.3 F 81 15 107/54 96 07/01/19 08:45 75 18 97 Oxygen-Last 24 hours Oxygen Flowrate (L/min)-RT 3 Oxygen Flowrate (L/min)-RT 3 Oxygen Flowrate (L/min)-RT 3 Pain Assessment - Last Documented Pain Intensity 0 Pain Scale Used FLACC Intake and Output: Intake & Output 06/29/19 06/30/19 07/01/19 07/02/19 11:59 11:59 11:59 11:59 Intake Total 718 2372 Output Total 625 1350 Balance 93 1022 Weight 104.8 kg 107.1 kg Lab Results: Accuchecks Date 07/02/19 Date 07/01/19 Date 07/01/19 Date 07/01/19 Time 08:18 Time 21:30 Time 16:30 Time 11:30 Accucheck Value: 382 Accucheck Value: 369 Accucheck Value: 359 Accucheck Value: 321 Lab Results-Last 24 Hours 06/30/19 07/02/19 07/02/19 Range/Units 16:00 05:25 05:40 WBC 11.0 H (4.0-10.5) K/mm3 RBC 3.76 L (4.1-5.4) M/mm3 Hgb 10.9 L (12.0-16.0) gm/dl Hct 33.6 L (35-47) % MCV 89.4 (78-100) fl MCH 29.0 (26-32) pg MCHC 32.4 (32-36) g/dl RDW 14.3 H (11.5-14.0) % Plt Count 218 (150-450) K/mm3 MPV 11.0 (7.5-11.0) fl Gran % 93.3 H (36.0-66.0) % Eos # (Auto) 0 (0-0.5) Absolute Lymphs (auto) 0.50 L (1.0-4.6) Absolute Monos (auto) 0.23 (0.0-1.3) Lymphocytes % 4.5 L (24.0-44.0) % Monocytes % 2.1 (0.0-12.0) % Eosinophils % 0.0 (0.00-5.0) % Basophils % 0.1 (0.0-0.4) % Absolute Granulocytes 10.29 H (1.4-6.9) Basophils # 0.01 (0-0.4) Sodium 133 L (137-145) mmol/L Potassium 3.2 L (3.5-5.1) mmol/L Chloride 83 L (98-107) mmol/L Carbon Dioxide 38 H (22-30) mmol/L Anion Gap 15.2 H (5-15) MEQ/L BUN 78 H (7-17) mg/dL Creatinine 2.23 H (0.52-1.04) mg/dL Estimated GFR 23.2 ML/MIN Glucose 361 H (74-106) mg/dL Calcium 8.7 (8.4-10.2) mg/dL Magnesium 2.2 (1.6-2.3) mg/dL Total Bilirubin 0.50 (0.2-1.3) mg/dL AST 20 (14-36) U/L ALT 14 (0-35) U/L Alkaline Phosphatase 113 (38-126) U/L Serum Total Protein 6.5 (6.3-8.2) g/dL Albumin 3.6 (3.5-5.0) g/dL COVID-19 (MILAGROS) SEE SEPARATE REPORT Slides for Path Review YES Radiology Exams: Radiology Procedures Category Date Time Status CHEST 1 VIEW (PORTABLE) Stat Exams 04/10/20 15:18 Completed HEAD WITHOUT CONTRAST [CT] Stat Exams 06/30/19 15:16 Completed Assessment/Plan (1) COPD exacerbation Current Visit: No Status: Acute Assessment & Plan: covid swab negative, start duonebs. continue rocephin/zithromax and IV solu medrol Code(s): J44.1 - CHRONIC OBSTRUCTIVE PULMONARY DISEASE W (ACUTE) EXACERBATION (2) Acute on chronic kidney failure Current Visit: Yes Status: Acute Assessment & Plan: reduce bumex to 2mg once daily, on gentle hydration. slight improvement since admission. likely related to over-diuresis Code(s): N17.9 - ACUTE KIDNEY FAILURE, UNSPECIFIED; N18.9 - CHRONIC KIDNEY DISEASE, UNSPECIFIED (3) Altered mental status Current Visit: Yes Status: Acute Code(s): R41.82 - ALTERED MENTAL STATUS, UNSPECIFIED (4) CHF (congestive heart failure) Current Visit: No Status: Chronic Code(s): I50.9 - HEART FAILURE, UNSPECIFIED (5) Diabetes Current Visit: No Status: Chronic Qualifiers: Code(s): E11.9 - TYPE 2 DIABETES MELLITUS WITHOUT COMPLICATIONS (6) HTN (hypertension) Current Visit: No Status: Chronic Qualifiers: Code(s): I10 - ESSENTIAL (PRIMARY) HYPERTENSION (7) Weakness Current Visit: No Status: Resolved Code(s): R53.1 - WEAKNESS
[2019-07-02] MEDS: HUMALOG SQ SCH ×3 (08:50→17:28)
[2019-07-02] MEDS: SODIUM CHLORIDE 0.45% W/ 20 mEq KCL 1,000 ML IV SCH (08:53)
[2019-07-02] MEDS ORDERED: NON-FORMULARY ITEM (Aspirin [Aspirin] 325 MG) PO SCH (10:00)
[2019-07-02] MEDS: MAG-OX 400 PO SCH ×2 (10:00→21:04)
[2019-07-02] MEDS: hydroDIURIL 25 MG PO SCH (10:00)
[2019-07-02] MEDS: NORVASC 5 MG PO SCH (10:00)
[2019-07-02] MEDS: Klor Con 10 MEQ PO SCH ×2 (10:00→21:04)
[2019-07-02] MEDS: Ecotrin 325 MG PO SCH (10:00)
[2019-07-02] MEDS: REQUIP 2MG TAB PO SCH ×3 (10:00→21:03)
[2019-07-02] MEDS: BUMEX 1 MG PO SCH (10:01)
[2019-07-02] MEDS: PLAVIX 75 MG Tablet PO SCH (10:01)
[2019-07-02] MEDS: SYNTHROID 100 MCG PO SCH (10:01)
[2019-07-02] MEDS: TOPIRAMATE PO SCH (10:01)
[2019-07-02] MEDS: ENOXAPARIN SODIUM SQ SCH (10:02)
[2019-07-02] MEDS: Neurontin 400 MG PO SCH ×3 (10:02→21:03)
[2019-07-02] MEDS: ROCEPHIN 1 Gm-D5w 50 ml Bag** 1 G/50 ML IVPB IV SCH (10:02)
[2019-07-02] MEDS: Zithromax 500 MG/ 250 ML NaCl Premix 500 MG/250 ML IVPB IV SCH (10:02)
[2019-07-02] MEDS: SYNTHROID 88 MCG PO SCH (10:05)
[2019-07-02] MEDS: PATIENT OWN MEDICATION IH SCH (10:25)
[2019-07-02] MEDS ORDERED: HUMALOG SQ ONE (12:00)
[2019-07-02] MEDS ORDERED: DUONEB 0.5-3 MG/3 ml Neb IH SCH (13:00)
[2019-07-02 13:01] LABS: TSH, 3RD Generation 0.207 mIU/L (0.47-4.68)
[2019-07-02] MEDS: Lantus Insulin SQ SCH (13:02)
[2019-07-02] MEDS: Cymbalta 30 MG Capsule PO SCH (21:03)
[2019-07-02] MEDS: Toprol Xl 100 MG PO SCH (21:03)
[2019-07-02] MEDS: ZOCOR 20MG PO SCH (21:03)
[2019-07-03] MEDS: solu-MEDROL 125 MG IV SCH ×3 (00:16→11:18)
[2019-07-03] MEDS: SODIUM CHLORIDE 0.45% W/ 20 mEq KCL 1,000 ML IV SCH (01:04)
[2019-07-03 05:30] LABS: Absolute Neutrophil Ct (ANC) 8.01 (1.4-6.9); Basophil (Absolute #) 0 (0-0.4); Eosinophil (Absolute #) 0 (0-0.5); Hematocrit 32.4 % (35-47); Hemoglobin 10.6 gm/dl (12.0-16.0); Lymphocyte (Absolute #) 0.58 (1.0-4.6); Lymphocytes % 6.5 % (24.0-44.0); Mean Corpuscular Hemoglobin 29.1 pg (26-32); Mean Corpuscular Hgb Concent. 32.7 g/dl (32-36); Mean Platelet Volume 10.9 fl (7.5-11.0); Monocyte (Absolute #) 0.36 (0.0-1.3); Neutrophil % 89.5 % (36.0-66.0); Platelet Count 218 K/mm3 (150-450); Red Blood Count 3.64 M/mm3 (4.1-5.4)
[2019-07-03 05:39] LABS: ALBUMIN 3.5 g/dL (3.5-5.0); ANION GAP 13.2 MEQ/L (5-15); BILIRUBIN,TOTAL 0.3 mg/dL (0.2-1.3); Calcium 8.2 mg/dL (8.4-10.2); Creatinine 1 2.12 mg/dL (0.52-1.04); Potassium 3.1 mmol/L (3.5-5.1); Total Protein 6.4 g/dL (6.3-8.2)
[2019-07-03] MEDS: PATIENT OWN MEDICATION IH SCH ×2 (07:46→08:52)
[2019-07-03] MEDS: HUMALOG SQ SCH ×2 (08:21→11:18)
[2019-07-03 09:02] VITALS: O2SAT 97
[2019-07-03 09:18] LABS: Slide Review 1 YES
[2019-07-03] MEDS: Zithromax 500 MG/ 250 ML NaCl Premix 500 MG/250 ML IVPB IV SCH (09:51)
[2019-07-03] MEDS: TOPIRAMATE PO SCH (09:52)
[2019-07-03] MEDS: ROCEPHIN 1 Gm-D5w 50 ml Bag** 1 G/50 ML IVPB IV SCH (09:52)
[2019-07-03] MEDS: Ecotrin 325 MG PO SCH (09:53)
[2019-07-03] MEDS: BUMEX 1 MG PO SCH (09:53)
[2019-07-03] MEDS: Klor Con 10 MEQ PO SCH (09:53)
[2019-07-03] MEDS: SYNTHROID 100 MCG PO SCH (09:53)
[2019-07-03] MEDS: PLAVIX 75 MG Tablet PO SCH (09:53)
[2019-07-03] MEDS: MAG-OX 400 PO SCH (09:53)
[2019-07-03] MEDS: REQUIP 2MG TAB PO SCH ×2 (09:54→14:32)
[2019-07-03] MEDS: ENOXAPARIN SODIUM SQ SCH (09:55)
[2019-07-03] MEDS: hydroDIURIL 25 MG PO SCH (09:55)
[2019-07-03] MEDS: Neurontin 400 MG PO SCH ×2 (09:55→14:32)
[2019-07-03] MEDS: NORVASC 5 MG PO SCH (09:56)
[2019-07-03] MEDS: SYNTHROID 88 MCG PO SCH (09:56)
[2019-07-03] MEDS: Lantus Insulin SQ SCH (09:57)
--- NOTE | 2019-07-03 10:06 | XRAY ---
Indication: Dementia. Increased confusion. Sagittal, coronal, and axial MRI brain was performed without contrast using T1, T2, FLAIR, diffusion, and ADC sequences. Comparison: March 03, 2019. Stable age-appropriate global atrophy, moderate periventricular degenerative micro-ischemia signal bilaterally, and minimal brainstem degenerative micro-ischemia signal. Again no acute intracranial hemorrhage, abnormal extra-axial fluid collection, or mass effect. Diffusion images remain negative for restricted signal. Fourth ventricle is midline without hydrocephalus. 7/8 cranial nerve complex bilaterally symmetric. Normal flow-void signal within the major intracerebral circulation. Normal appearing craniocervical junction and sella turcica. Stable fluid signal in the right mastoid air cells again presumed inflammatory. Stable CT proven benign left scalp calcified mass near the vertex. Impression: 1. Stable atrophy and degenerative micro-ischemia within normal limits for patient's age. 2. Again no new/acute intracranial abnormalities or evidence for evolving large vessel territorial stroke. 3. Again incidental right mastoid fluid signal again presumed inflammatory and benign left scalp calcified mass.
[2019-07-03] MEDS: HUMALOG SQ PRN (11:19)
[2019-07-03 12:12] VITALS: BP 125/56; PULSE 75
[2019-07-03] MEDS ORDERED: K-LYTE 25 MEQ PO ONE (15:18)
--- NOTE | 2019-07-03 15:28 | PCM.DS ---
Discharge Summary Date of Admission: 07/01/19 10:26 Admitting Physician: MAYE PERRY Primary Care Provider: ROLANDO SALMERON Allergies Allergies No Known Drug Allergies Allergy (Verified 06/30/19 16:41) Hospital Summary - Hospital Course Hospital Course: Patient was admitted through ER with respiratory distress /COPD exacerbation and to rule out Covid. Patient was managed by Covid unit in negative pressure room and after covid tested negative she was transfered to Med Surg. Patient achieved baseline ,has been walking in the halls . She denies SOB or cough today.Sugars are up only after regular syurp and OJ this morning ,otherwise 170s per nursing. Patient has issue in the past with severe hypoglycemia so best to not increase insulin for tight control. Patient has been on Bumex 2 mg bid during hospitalization and this will be decreased to once daily at home. Potassium extra supplement given today to correct hypokalemia.She will have BMP and BNP in 3 days and follow with her PCP in a week.Home Health will be monitoring.Patient is listed as taking 100mcg plus 88mcg daily but TSH was 0.22 so decreasing dose to 100mcg plus 1/2 of 88mcg daily. - Vitals & Intake/Output Vital Signs: Vital Signs Temperature 98.5 F 07/03/19 12:00 Pulse Rate 75 07/03/19 12:00 Respiratory Rate 18 07/03/19 12:00 Blood Pressure 125/56 07/03/19 12:00 O2 Sat by Pulse Oximetry 97 07/03/19 12:00 Intake & Output: Intake & Output 07/01/19 07/02/19 07/03/19 07/04/19 11:59 11:59 11:59 11:59 Intake Total 718 2372 2949 240 Output Total 291 1350 1775 1400 Balance 93 1022 1174 -1160 Weight 104.8 kg 107.1 kg 108.5 kg 108.5 kg - Lab Result Diagrams: 07/03/19 05:00 07/03/19 05:00 Lab Results-Last 24 Hrs: Accuchecks Date 07/03/19 Date 07/03/19 Date 07/02/19 Date 07/02/19 Time 11:23 Time 07:17 Time 20:30 Time 16:30 Accucheck Value: 359 Accucheck Value: 197 Accucheck Value: 293 Accucheck Value: 396 Lab Results-Last 24 Hours 07/03/19 07/03/19 07/03/19 Range/Units 05:00 05:00 05:00 WBC 9.0 (4.0-10.5) K/mm3 RBC 3.64 L (4.1-5.4) M/mm3 Hgb 10.6 L (12.0-16.0) gm/dl Hct 32.4 L (35-47) % MCV 89.0 (78-100) fl MCH 29.1 (26-32) pg MCHC 32.7 (32-36) g/dl RDW 14.0 (11.5-14.0) % Plt Count 218 (150-450) K/mm3 MPV 10.9 (7.5-11.0) fl Gran % 89.5 H (36.0-66.0) % Eos # (Auto) 0 (0-0.5) Absolute Lymphs (auto) 0.58 L (1.0-4.6) Absolute Monos (auto) 0.36 (0.0-1.3) Lymphocytes % 6.5 L (24.0-44.0) % Monocytes % 4.0 (0.0-12.0) % Eosinophils % 0.0 (0.00-5.0) % Basophils % 0.0 (0.0-0.4) % Absolute Granulocytes 8.01 H (1.4-6.9) Basophils # 0 (0-0.4) Sodium 136 L (137-145) mmol/L Potassium 3.1 L (3.5-5.1) mmol/L Chloride 86 L (98-107) mmol/L Carbon Dioxide 40 H (22-30) mmol/L Anion Gap 13.2 (5-15) MEQ/L BUN 89 H (7-17) mg/dL Creatinine 2.12 H (0.52-1.04) mg/dL Estimated GFR 24.6 ML/MIN Glucose 197 H (74-106) mg/dL Calcium 8.2 L (8.4-10.2) mg/dL Magnesium 2.3 (1.6-2.3) mg/dL Total Bilirubin 0.30 (0.2-1.3) mg/dL AST 18 (14-36) U/L ALT 11 (0-35) U/L Alkaline Phosphatase 94 (38-126) U/L Serum Total Protein 6.4 (6.3-8.2) g/dL Albumin 3.5 (3.5-5.0) g/dL Slides for Path Review YES Micro Results-Entire Visit: Microbiology 06/30/19 16:00 Blood Culture Gram Stain - Final Blood Blood Culture - Preliminary Coagulase Negative Staph. Possible Contaminant. Clinical judgement required. NO FURTHER WORKUP WILL BE PERFORMED UNLESS PHYSICIAN REQUESTED WITHIN THE NEXT 72 HOURS Accuchecks Date 07/03/19 Date 07/03/19 Date 07/02/19 Date 07/02/19 Time 11:23 Time 07:17 Time 20:30 Time 16:30 Accucheck Value: 359 Accucheck Value: 197 Accucheck Value: 293 Accucheck Value: 396 - Radiology Exams Ordered Rad Exams-Entire Visit: Radiology Procedures Category Date Time Status MRI BRAIN W/O CONTRAST [MRI] Routine Exams 07/03/19 08:00 Completed - Procedures and Test Procedures and Tests throughout Hospitalization: Therapy Orders & Screens 06/30/19 19:15 Respiratory MDI PRN Comment: alb MDI inhaler use 4-6 hrs.prn-pt may use her own Diagnosis: COPD exacerbation 06/30/19 20:30 Oxygen Nasal Cannula 2 lpm Comment: Diagnosis: COPD exacerbation 06/30/19 20:51 Respiratory Therapy Assessment DAILY Comment: Diagnosis: COPD exacerbation 06/30/19 21:15 RT Screen per Nursing Assess ONCE Comment: Protocol Order Physician Instructions: Greater than 3 points order RT Admission Screen Reason For Exam: Triggered on Admission Diagnosis: COPD exacerbation Diagnosis: COPD exacerbation Pneumonia: No Home O2: Yes Asthma: No CHF: No Home CPAP/BIPAP: No Home Nebs/MDI: Yes Total Points: 10 07/01/19 07:00 Respiratory MDI DAILY Comment: PT OWN INCRUZE / 1 PUFF DAILY Diagnosis: COPD exacerbation Discharge Exam Neurologic Exam: alert, oriented x 3, cooperative Eye Exam: PERRL, EOMI, eyes nml inspection Ears, Nose, Throat Exam: normal ENT inspection Neck Exam: normal inspection Respiratory Exam: diminished breath sounds (left mid ,improved with deep cough, no ronchi or rales) Cardiovascular Exam: regular rate/rhythm, other (no pitting edema) Extremity Exam: normal range of motion Skin Exam: normal color, warm, dry - Discharge Disposition: Home, Self-Care Condition: Stable Prescriptions: New Insulin Glargine [Lantus Insulin] 20 unit SQ QAM unit Azithromycin 250 mg PO DAILY #6 tablet Bumetanide 1 mg [Bumex 1 mg] 1 mg PO DAILY #30 tablet Prednisone 10 mg [Deltasone 10 mg] 10 mg PO UD #30 tablet Continue Amlodipine Besylate 5 mg [Norvasc 5 mg] 5 mg DAILY calcitrioL [Calcitriol] 0.25 mcg PO DAILY Clopidogrel Bisulfate 75 mg [PLAVIX 75 MG Tablet] 75 mg PO DAILY Insulin Aspart [NovoLOG Insulin] 15 unit SQ AC Gabapentin 800 mg PO TID Potassium Chloride 10 Meq Tab* [Klor Con 10 MEQ] 20 meq PO BID Aspirin 325 mg PO DAILY Discontinued Bumetanide 1 mg [Bumex 1 mg] 2 mg PO BID #30 tablet Hydrochlorothiazide 25 mg [hydroDIURIL 25 MG] 25 mg PO DAILY No Action Metoprolol Succinate [Toprol Xl] 100 mg PO HS Duloxetine HCl [Cymbalta] 60 mg PO HS Ropinirole HCl 4 mg PO TID Topiramate 25 mg [Topamax 25 MG] 25 mg PO DAILY AMITRIPTYLINE HCL 50 mg Tab [AMITRIPTYLINE HCL 50 mg Tablet] 50 mg PO HS Atorvastatin Calcium [Lipitor] 40 mg PO HS Albuterol 8 gm Mdi Hfa [Ventolin Hfa MDI] 2 puff IH Q4HPRN PRN PRN Reason: Shortness Of Breath/Wheezing Albuterol/Ipratropium 3ml Neb* [DUONEB 0.5-3 MG/3 ml Neb] 3 ml NEBULIZE Q4H PRN PRN #1 box PRN Reason: Wheezing/Chest Congestion Ferrous Sulfate 325 mg [Feosol 325 mg] 325 mg PO BID Nitroglycerin 0.4 mg Tablet [Nitrostat 0.4 MG Tablet] 0.4 mg SL UD Umeclidinium [place] [Incruse Ellipta] 62.5 mcg IH DAILY Levothyroxine Sodium 88 mcg PO DAILY Levothyroxine Sodium 100 mcg PO DAILY Magnesium Oxide 400 mg [Mag-Ox 400] 400 mg PO BID #60 tablet Calcium Carbonate 750 mg [Tums EX 750 MG] 1,000 mg PO BID #1 bottle Ergocalciferol (Vitamin D2) [Vitamin D2] 50,000 unit PO Q7D #4 capsule Outpatient Orders: BMP Time Frame: 07/06/19, Location: LABORATORY NT PRO BNP Time Frame: 07/06/19, Location: LABORATORY Instructions: Chronic Obstructive Pulmonary Disease (COPD) (DC) Follow up with: DEVYN CRAFT DO [ACTIVE STAFF] - 07/10/19 8:30 am
== END 2019-07-03 16:49 | disposition home or self-care (01) | DRG 191 ==
LOC: ED 15:03 → MED SURG 18:43 → OBSVTOIN 07-01 10:26 → MED SURG 07-02 07:49
PROVIDERS: ADMIT Family Medicine; ATTEND Family Medicine
DX: J44.1 Chronic obstructive pulmonary disease with (acute) exacerbation (principal); J96.11 Chronic respiratory failure with hypoxia; N17.9 Acute kidney failure, unspecified; I13.0 Hypertensive heart and chronic kidney disease with heart failure and stage 1 through stage 4 chronic kidney disease, or unspecified chronic kidney disease; I50.9 Heart failure, unspecified; E11.22 Type 2 diabetes mellitus with diabetic chronic kidney disease; N18.9 Chronic kidney disease, unspecified; R41.82 Altered mental status, unspecified; E87.6 Hypokalemia; R53.1 Weakness; Z99.81 Dependence on supplemental oxygen; E78.00 Pure hypercholesterolemia, unspecified; I25.2 Old myocardial infarction; Z79.01 Long term (current) use of anticoagulants; Z79.899 Other long term (current) drug therapy; F17.200 Nicotine dependence, unspecified, uncomplicated
CPT/HCPCS: 36415; 36600; 51702; 70450; 70551; 71045; 80053; 81001; 82375; 82607; 82803; 82962; 83036; 83605; 83735; 83880; 83921; 84443; 84484; 85025; 85027; 85379; 85610; 85730; 87040; 87631; 93005; 93041; 93268; 94640; 94760; 94762; 96365; 96367; 96374; 99000; 99285; G0378; J0456; J0696; J1650; J1817; J2930; A9270-GY

== ENCOUNTER 2019-09-22 12:41 | Emergency (ER) | payer MEDICARE ==
[2019-09-22] MEDS ORDERED: Sodium Chloride 0.9% 1000 ML 1,000 ML IV SCH (13:00)
[2019-09-22 13:05] LABS: Hematocrit 30.5 % (35-47); Hemoglobin 8.6 gm/dl (12.0-16.0); Mean Cell Volume 100.3 fl (78-100); Mean Corpuscular Hemoglobin 28.3 pg (26-32); Mean Corpuscular Hgb Concent. 28.2 g/dl (32-36); Mean Platelet Volume 10.6 fl (7.5-11.0); Platelet Count 362 K/mm3 (150-450); Red Blood Count 3.04 M/mm3 (4.1-5.4); Red Cell Distribution Width 15.3 % (11.5-14.0)
[2019-09-22 13:16] LABS: INR 1.46 (0.8-3.0); PROTIME 16.6 SECONDS (9.95-12.35)
--- NOTE | 2019-09-22 13:16 | XRAY ---
Indication: Tube placement. Cardiac arrest. Comparison: June 30, 2019. Portable chest demonstrates new endotracheal tube tip 1 cm above the liliya and new NG tube tip traversing the chest with the tip presumed in the stomach. New borderline cardiomegaly with mild pulmonary edema. No pneumothorax. Bony thorax intact again with mild osteopenia and degenerative changes. Impression: 1. New endotracheal tube and NG tube in situ. 2. New borderline cardiomegaly with pulmonary edema.
[2019-09-22 13:18] LABS: PTT 33.2 SECONDS (25.3-37.0)
[2019-09-22 13:26] LABS: ALBUMIN 4.1 g/dL (3.5-5.0); ANION GAP 25.7 MEQ/L (5-15); Creatinine 1 3.94 mg/dL (0.52-1.04); MAGNESIUM 2.9 mg/dL (1.6-2.3)
[2019-09-22 13:29] LABS: VBG pH 6.96 (7.32-7.42)
[2019-09-22 13:30] LABS: VBG BASE EXCESS -18.1 (-2.0-2.0); VBG HCO3- 14.4 meq/L (22-28); VBG O2 SATURATION 82.2 (95-100)
[2019-09-22 13:31] LABS: Lactic Acid 9.8 (0.4-2.0); VBG CARBOXYHEMOGLOBIN 5.2 % T HGB (0.0-6.9)
[2019-09-22 13:35] LABS: Calcium 5.8 mg/dL (8.4-10.2)
[2019-09-22 13:36] LABS: BAND 13 % (0.0-2.0); Basophil 2 % (0.0-1.0); Lymphocytes 7 % (24-44); Metamyelocyte 1 %; Monocyte 11 % (0.0-12.0); Neutrophils 66 % (36.0-66.0); Total Cells Counted 100
[2019-09-22 13:38] LABS: ANISOCYTOSIS 1+; Macrocytosis 1+; Platelet Estimate NORMAL (NORMAL); Polychromasia 1+
[2019-09-22 14:15] LABS: Hematocrit 29.6 % (35-47); Hemoglobin 8.6 gm/dl (12.0-16.0); Mean Cell Volume 98.7 fl (78-100); Mean Corpuscular Hemoglobin 28.7 pg (26-32); Mean Corpuscular Hgb Concent. 29.1 g/dl (32-36); Mean Platelet Volume 9.8 fl (7.5-11.0); Platelet Count 343 K/mm3 (150-450); White Blood Count 21.6 K/mm3 (4.0-10.5)
[2019-09-22] MEDS ORDERED: Dopamine 400 MG/D5W 250ML PREMIX 250 ML IV ONE (14:19)
[2019-09-22 14:21] LABS: Amourphous Crystal FEW /HPF (NEGATIVE); Appearance CLOUDY (CLEAR); Bilirubin MODERATE (NEGATIVE); Blood SMALL Ery/ul (0-5); Epithelial Cells RARE /HPF (FEW); Glucose NEGATIVE (NEGATIVE); Ketones NEGATIVE (NEGATIVE); Leukocyte Esterase TRACE (NEGATIVE); Mucus SLIGHT /HPF (NEGATIVE); Nitrite NEGATIVE (NEGATIVE); Protein,Urine Dip 100 (Negative); RBC 51-100 /HPF (0-2); Specific Gravity 1.026 (1.005-1.025); Urobilinogen 4 mg/dL (0-1)
[2019-09-22] MEDS ORDERED: Dopamine 400 MG/D5W 250ML PREMIX 250 ML IV PRN ×2 (14:23→14:38)
[2019-09-22] MEDS ORDERED: Dopamine 400 MG/D5W 250ML PREMIX 250 ML IV STA (14:30)
[2019-09-22 14:31] LABS: ALBUMIN 3.9 g/dL (3.5-5.0); ANION GAP 27.5 MEQ/L (5-15); Creatinine 1 4.1 mg/dL (0.52-1.04); Total Protein 6.7 g/dL (6.3-8.2)
[2019-09-22] MEDS ORDERED: Kayexylate 15 GM/60 ML PO ONE (14:34)
[2019-09-22] MEDS ORDERED: SODIUM BICARBONATE 50 MEQ/50 ML ABBOJECT IV ONE (14:34)
[2019-09-22] MEDS ORDERED: HUMULIN R IV ONE (14:34)
[2019-09-22] MEDS ORDERED: PROVENTIL 2.5 MG/3 ML NEB IH ONE ×2 (14:34→14:43)
[2019-09-22] MEDS ORDERED: D50W 50 ml Abboject IV ONE ×2 (14:34→14:39)
[2019-09-22] MEDS ORDERED: Calcium Gluconate 10% 1000 MG IV ONE ×4 (14:34→15:17)
[2019-09-22] MEDS ORDERED: HUMULIN R ONE (14:39)
[2019-09-22 14:50] LABS: Calcium 5.5 mg/dL (8.4-10.2); Potassium 7.5 mmol/L (3.5-5.1)
--- NOTE | 2019-09-22 14:51 | ERPHSYRPT ---
- History of Present Illness Time Seen by Provider: 09/22/19 13:45 Source: family, EMS Exam Limitations: clinical condition Physician History: Patient is a 68-year-old female who was having difficulties thought to be related to her blood sugar EMS was called shortly after they got there she started to vomit and had a cardiac arrest with asystole of 78 minutes. When she arrived here she was intubated shortly after arrival she did have a pulse and blood pressure of 100 systolic caregiver reports that she has had rectal bleeding for a couple of weeks and then yesterday started vomiting was worse today. Does have known COPD chronic kidney disease and insulin-dependent diabetes. Timing/Duration: week(s) (2) Severity: moderate Allergies/Adverse Reactions: No Known Drug Allergies Allergy (Verified 06/30/19 16:41) Home Medications: Metoprolol Succinate [Toprol Xl] 100 mg PO HS 02/03/15 [History] Duloxetine HCl [Cymbalta] 60 mg PO HS 08/17/17 [History] AMITRIPTYLINE HCL 50 mg Tab [AMITRIPTYLINE HCL 50 mg Tablet] 50 mg PO HS 07/16/18 [History] Albuterol 8 gm Mdi Hfa [Ventolin Hfa MDI] 2 puff IH Q4HPRN PRN 07/16/18 [History] Atorvastatin Calcium [Lipitor] 40 mg PO HS 07/16/18 [History] Ropinirole HCl 4 mg PO TID 07/16/18 [History] Topiramate 25 mg [Topamax 25 MG] 25 mg PO DAILY 07/16/18 [History] Ferrous Sulfate 325 mg [Feosol 325 mg] 325 mg PO BID 02/26/19 [History] Levothyroxine Sodium 100 mcg PO DAILY 02/26/19 [History] Nitroglycerin 0.4 mg Tablet [Nitrostat 0.4 MG Tablet] 0.4 mg SL UD 02/26/19 [History] Umeclidinium [place] [Incruse Ellipta] 62.5 mcg IH DAILY 02/26/19 [History] Amlodipine Besylate 5 mg [Norvasc 5 mg] 5 mg DAILY 06/30/19 [History] Clopidogrel Bisulfate 75 mg [PLAVIX 75 MG Tablet] 75 mg PO DAILY 06/30/19 [History] calcitrioL [Calcitriol] 0.25 mcg PO DAILY 06/30/19 [History] Aspirin 325 mg PO DAILY 07/01/19 [History] Gabapentin 800 mg PO TID 07/01/19 [History] Insulin Aspart [NovoLOG Insulin] 15 unit SQ AC 07/01/19 [History] Potassium Chloride 10 Meq Tab* [Klor Con 10 MEQ] 20 meq PO BID 07/01/19 [History] Hx Tetanus, Diphtheria Vaccination/Date Given: Yes (5 years ago) Hx Influenza Vaccination/Date Given: Yes Hx Pneumococcal Vaccination/Date Given: No - Review of Systems All Other Systems: Unable due to condition - Past Medical History Pertinent Past Medical History: Yes Neurological History: No Pertinent History ENT History: No Pertinent History Cardiac History: High Cholesterol, Hypertension, Myocardial Infarction (ID) Respiratory History: COPD Endocrine Medical History: Diabetes Type II, Other Musculoskeletal History: Fractures, Osteoarthritis GI Medical History: No Pertinent History History: No Pertinent History Psycho-Social History: Depression Female Reproductive Disorders: No Pertinent History Other Medical History: THYROID NODULE, HX ID WITHOUT SURGERY, R ANKLE FX W/ ORIF 2007 - Past Surgical History Past Surgical History: Yes Neuro Surgical History: No Pertinent History Cardiac: No Pertinent History Respiratory: No Pertinent History Gastrointestinal: No Pertinent History, Other Genitourinary: No Pertinent History Musculoskeletal: Other Female Surgical History: Tubal Ligation Other Surgical History: RIGHT ANKLE SURGERY, thyroidectomy, left carotid endartertectomy - Social History Smoking Status: Current every day smoker How long have you smoked: 50 + year Exposure to second hand smoke: Yes Drug Use: none Patient Lives Alone: No - Nursing Vital Signs Nursing Vital Signs: Initial Vital Signs Pulse Rate 47 L 09/22/19 13:41 Respiratory Rate 18 09/22/19 13:41 Blood Pressure 62/0 09/22/19 13:41 O2 Sat by Pulse Oximetry 86 L 09/22/19 13:41 - Physical Exam General Appearance: severe distress Eye Exam: PERRL/EOMI, eyes nml inspection, other (The mouth and nose) Ears, Nose, Throat Exam: normal ENT inspection (From the mouth and nose) Neck Exam: supple Respiratory Exam: diminished breath sounds, rhonchi Cardiovascular Exam: regular rate/rhythm Gastrointestinal/Abdomen Exam: distention, No normal bowel sounds Rectal Exam: normal exam, blood Back Exam: normal inspection Extremity Exam: normal inspection Neurologic Exam: other (Patient is unresponsive) SpO2 Interpretation: normal SpO2: 86 O2 Delivery: Room Air - Course Nursing assessment & vital signs reviewed: Yes EKG Interpreted by Me: RATE (46), NORMAL AXIS, Non-specific ST Changes - Radiology Exams Chest X-ray Interpretation: Reviewed by me Ordered Tests: Active Orders 24 hr Category Date Time Status CO2 Monitoring STAT Care 09/22/19 13:24 Active Logistics Specialist STAT Care 09/22/19 12:55 Active EKG-ER Only STAT Care 09/22/19 12:55 Active Pulse Oximetry (ED) STAT Care 09/22/19 12:49 Active CHEST 1 VIEW (PORTABLE) Stat Exams 09/22/19 12:50 Completed AMYLASE Stat Lab 09/22/19 12:50 Completed CBC Stat Lab 09/22/19 13:57 Completed CBC W DIFF Stat Lab 09/22/19 12:50 Completed CMP Stat Lab 09/22/19 12:50 Completed CMP Stat Lab 09/22/19 13:57 Received CULTURE,URINE Stat Lab 09/22/19 14:15 Received CULTURE,URINE Stat Lab 09/22/19 14:15 Received D-DIMER QUANTITATIVE Stat Lab 09/22/19 12:50 Completed LIPASE Stat Lab 09/22/19 12:50 Completed Lactic Acid Stat Lab 09/22/19 12:49 Ordered Lactic Acid Stat Lab 09/22/19 12:51 Completed MAGNESIUM Stat Lab 09/22/19 12:50 Completed Manual Differential NC Stat Lab 09/22/19 12:50 Completed NT PRO BNP Stat Lab 09/22/19 12:50 Completed OCCULT BLOOD, EMESIS Stat Lab 09/22/19 Uncollected Occult Blood, Other Screening Stat Lab 09/22/19 14:33 Uncollected Occult Blood-Screening (Stool) [Occult Blood - Cancer Lab 09/22/19 13:29 Compl eted Screen] Stat PROTIME WITH INR Stat Lab 09/22/19 12:50 Completed PTT Stat Lab 09/22/19 12:50 Completed TROPONIN Q3H Lab 09/22/19 12:50 Completed TROPONIN Q3H Lab 09/22/19 16:00 Ordered TROPONIN Q3H Lab 09/22/19 19:00 Ordered TROPONIN Q3H Lab 09/22/19 22:00 Ordered TROPONIN Q3H Lab 09/23/19 01:00 Ordered UA W/RFX UR CULTURE Stat Lab 09/22/19 14:15 Completed VBG [VENOUS BLOOD GAS] Stat Lab 09/22/19 12:51 Completed Intubate Patient STAT RT 09/22/19 12:40 Active Standby STAT RT 09/22/19 13:24 Active Ventilator Management STAT RT 09/22/19 13:24 Active Medication Summary Generic Name Dose Route Start Last Admin Trade Name Freq PRN Reason Stop Dose Admin Sodium Chloride 1,000 mls @ 100 mls/hr 09/22/19 13:00 09/22/19 13:28 Sodium Chloride 0.9% 1000 Ml IV 10/22/19 12:59 100 mls/hr .Q10H ARELY Administration Dopamine HCl/Dextrose 250 mls @ 23.138 mls/hr 09/22/19 14:38 09/22/19 14:43 Dopamine 400 Mg/D5w 250ml Premix IV 10/22/19 14:37 5 mcg/kg/min .[id number] PRN 23.138 mls/hr SEVERE HYPOTENSION Administration Protocol 5 MCG/KG/MIN Discontinued Medications Generic Name Dose Route Start Last Admin Trade Name Freq PRN Reason Stop Dose Admin Albuterol Sulfate 2.5 mg 09/22/19 14:34 Proventil 2.5 Mg/3 Ml Neb IH 09/22/19 14:35 STAT ONE Albuterol Sulfate Confirm 09/22/19 14:43 Proventil 2.5 Mg/3 Ml Neb Administered 09/22/19 14:44 Dose 2.5 mg IH .STK-MED ONE Calcium Gluconate 1,000 mg 09/22/19 14:34 09/22/19 14:41 Calcium Gluconate 10% 1000 Mg IV 09/22/19 14:35 1,000 mg STAT ONE Administration Calcium Gluconate Confirm 09/22/19 14:41 Calcium Gluconate 10% 1000 Mg Administered 09/22/19 14:42 Dose 1,000 mg IV .STK-MED ONE Dextrose 50 ml 09/22/19 14:34 09/22/19 14:40 D50w 50 Ml Abboject IV 09/22/19 14:35 50 ml STAT ONE Administration Dextrose Confirm 09/22/19 14:39 D50w 50 Ml Abboject Administered 09/22/19 14:40 Dose 50 ml IV .STK-MED ONE Dopamine HCl/Dextrose Confirm 09/22/19 14:19 Dopamine 400 Mg/D5w 250ml Premix Administered 09/22/19 14:20 Dose 250 mls @ ud IV .STK-MED ONE Insulin Human Regular 10 unit 09/22/19 14:34 09/22/19 14:40 Humulin R IV 09/22/19 14:35 10 unit STAT ONE Administration Insulin Human Regular Confirm 09/22/19 14:39 Humulin R Administered 09/22/19 14:40 Dose 10 unit .ROUTE .STK-MED ONE Sodium Bicarbonate 50 meq 09/22/19 14:34 09/22/19 14:42 Sodium Bicarbonate 50 Meq/50 Ml Abboject IV 09/22/19 14:35 50 meq STAT ONE Administration Sodium Polystyrene Sulfonate 30 g 09/22/19 14:34 Kayexylate 15 Gm/60 Ml PO 09/22/19 14:35 STAT ONE Lab/Rad Data: Laboratory Result Diagrams 09/22/19 13:57 09/22/19 12:50 Laboratory Results 09/22/19 09/22/19 09/22/19 Range/Units 14:15 13:57 13:29 WBC 21.6 H (4.0-10.5) K/mm3 RBC 3.00 L (4.1-5.4) M/mm3 Hgb 8.6 L (12.0-16.0) gm/dl Hct 29.6 L (35-47) % MCV 98.7 (78-100) fl MCH 28.7 (26-32) pg MCHC 29.1 L (32-36) g/dl RDW 15.0 H (11.5-14.0) % Plt Count 343 (150-450) K/mm3 MPV 9.8 (7.5-11.0) fl Segmented Neutrophils (36.0-66.0) % Band Neutrophils (0.0-2.0) % Lymphocytes (Manual) (24-44) % Monocytes (Manual) (0.0-12.0) % Basophils (Manual) (0.0-1.0) % Metamyelocytes % Platelet Estimate (NORMAL) RBC Morphology Polychromasia Anisocytosis Macrocytosis PT (9.95-12.35) SECONDS INR (0.8-3.0) APTT (25.3-37.0) SECONDS D-Dimer (215-500) ng/mL pO2/FiO2 Ratio % VBG pH (7.32-7.42) VBG pCO2 at Pat Temp (42-55) mm/Hg VBG pO2 at Pat Temp (25-40) mm/Hg VBG HCO3 (22-28) meq/L VBG O2 Sat (Shanthi) (95-100) VBG Base Excess (-2.0-2.0) VBG Hemoglobin VBG Carboxyhemoglobin (0.0-6.9) % T HGB POC Potassium (3.5-5.1) Sodium (137-145) mmol/L Potassium (3.5-5.1) mmol/L Chloride (98-107) mmol/L Carbon Dioxide (22-30) mmol/L Anion Gap (5-15) MEQ/L BUN (7-17) mg/dL Creatinine (0.52-1.04) mg/dL Estimated GFR ML/MIN Glucose (74-106) mg/dL Lactic Acid (0.4-2.0) Calcium (8.4-10.2) mg/dL Magnesium (1.6-2.3) mg/dL Total Bilirubin (0.2-1.3) mg/dL AST (14-36) U/L ALT (0-35) U/L Alkaline Phosphatase (38-126) U/L Troponin I (0.000-0.034) ng/mL NT-Pro-B Natriuret Pep (0-900) pg/mL Serum Total Protein (6.3-8.2) g/dL Albumin (3.5-5.0) g/dL Amylase (30-110) U/L Lipase (23-300) U/L Urine Color [place] (YELLOW) Urine Appearance CLOUDY (CLEAR) Urine pH 5.0 (5-6) Ur Specific [place] 1.026 (1.005-1.025) Urine Protein 100 (Negative) Urine Ketones NEGATIVE (NEGATIVE) Urine Blood SMALL (0-5) Jose/ul Urine Nitrite NEGATIVE (NEGATIVE) Urine Bilirubin MODERATE (NEGATIVE) Urine Urobilinogen 4 (0-1) mg/dL Ur Leukocyte Esterase TRACE (NEGATIVE) Urine WBC (Auto) 6-10 (0-5) /HPF Urine RBC (Auto) 51-100 (0-2) /HPF U Hyaline Cast (Auto) 3-5 (0-2) /LPF U Epithel Cells (Auto) RARE (FEW) /HPF Urine Bacteria (Auto) NONE (NEGATIVE) /HPF Amorphous Crystals FEW (NEGATIVE) /HPF Urine Mucus (Auto) SLIGHT (NEGATIVE) /HPF Urine Culture Reflexed YES (NO) Urine Glucose NEGATIVE (NEGATIVE) mg/dL Stool Occult Bld Scrn POSITIVE A (NEGATIVE) 09/22/19 09/22/19 09/22/19 Range/Units 12:51 12:50 12:50 WBC (4.0-10.5) K/mm3 RBC (4.1-5.4) M/mm3 Hgb (12.0-16.0) gm/dl Hct (35-47) % MCV (78-100) fl MCH (26-32) pg MCHC (32-36) g/dl RDW (11.5-14.0) % Plt Count (150-450) K/mm3 MPV (7.5-11.0) fl Segmented Neutrophils (36.0-66.0) % Band Neutrophils (0.0-2.0) % Lymphocytes (Manual) (24-44) % Monocytes (Manual) (0.0-12.0) % Basophils (Manual) (0.0-1.0) % Metamyelocytes % Platelet Estimate (NORMAL) RBC Morphology Polychromasia Anisocytosis Macrocytosis PT 16.6 H (9.95-12.35) SECONDS INR 1.46 (0.8-3.0) APTT 33.2 (25.3-37.0) SECONDS D-Dimer 6316 H* (215-500) ng/mL pO2/FiO2 Ratio 100 % VBG pH 6.96 L* (7.32-7.42) VBG pCO2 at Pat Temp 64 H* (42-55) mm/Hg VBG pO2 at Pat Temp 64 H (25-40) mm/Hg VBG HCO3 14.4 L* (22-28) meq/L VBG O2 Sat (Shanthi) 82.2 L (95-100) VBG Base Excess -18.1 L (-2.0-2.0) VBG Hemoglobin 9.0 VBG Carboxyhemoglobin 5.2 (0.0-6.9) % T HGB POC Potassium 7.0 H* (3.5-5.1) Sodium (137-145) mmol/L Potassium (3.5-5.1) mmol/L Chloride (98-107) mmol/L Carbon Dioxide (22-30) mmol/L Anion Gap (5-15) MEQ/L BUN (7-17) mg/dL Creatinine (0.52-1.04) mg/dL Estimated GFR ML/MIN Glucose (74-106) mg/dL Lactic Acid 9.8 H (0.4-2.0) Calcium (8.4-10.2) mg/dL Magnesium (1.6-2.3) mg/dL Total Bilirubin (0.2-1.3) mg/dL AST (14-36) U/L ALT (0-35) U/L Alkaline Phosphatase (38-126) U/L Troponin I < 0.012 (0.000-0.034) ng/mL NT-Pro-B Natriuret Pep (0-900) pg/mL Serum Total Protein (6.3-8.2) g/dL Albumin (3.5-5.0) g/dL Amylase (30-110) U/L Lipase (23-300) U/L Urine Color (YELLOW) Urine Appearance (CLEAR) Urine pH (5-6) Ur Specific [place] (1.005-1.025) Urine Protein (Negative) Urine Ketones (NEGATIVE) Urine Blood (0-5) Jose/ul Urine Nitrite (NEGATIVE) Urine Bilirubin (NEGATIVE) Urine Urobilinogen (0-1) mg/dL Ur Leukocyte Esterase (NEGATIVE) Urine WBC (Auto) (0-5) /HPF Urine RBC (Auto) (0-2) /HPF U Hyaline Cast (Auto) (0-2) /LPF U Epithel Cells (Auto) (FEW) /HPF Urine Bacteria (Auto) (NEGATIVE) /HPF Amorphous Crystals (NEGATIVE) /HPF Urine Mucus (Auto) (NEGATIVE) /HPF Urine Culture Reflexed (NO) Urine Glucose (NEGATIVE) mg/dL Stool Occult Bld Scrn (NEGATIVE) 09/22/19 09/22/19 Range/Units 12:50 12:50 WBC 18.0 H (4.0-10.5) K/mm3 RBC 3.04 L (4.1-5.4) M/mm3 Hgb 8.6 L (12.0-16.0) gm/dl Hct 30.5 L (35-47) % MCV 100.3 H (78-100) fl MCH 28.3 (26-32) pg MCHC 28.2 L (32-36) g/dl RDW 15.3 H (11.5-14.0) % Plt Count 362 (150-450) K/mm3 MPV 10.6 (7.5-11.0) fl Segmented Neutrophils 66 (36.0-66.0) % Band Neutrophils 13 H (0.0-2.0) % Lymphocytes (Manual) 7 L (24-44) % Monocytes (Manual) 11 (0.0-12.0) % Basophils (Manual) 2 H (0.0-1.0) % Metamyelocytes 1 % Platelet Estimate NORMAL (NORMAL) RBC Morphology ABNORMAL Polychromasia 1+ Anisocytosis 1+ Macrocytosis 1+ PT (9.95-12.35) SECONDS INR (0.8-3.0) APTT (25.3-37.0) SECONDS D-Dimer (215-500) ng/mL pO2/FiO2 Ratio % VBG pH (7.32-7.42) VBG pCO2 at Pat Temp (42-55) mm/Hg VBG pO2 at Pat Temp (25-40) mm/Hg VBG HCO3 (22-28) meq/L VBG O2 Sat (Shanthi) (95-100) VBG Base Excess (-2.0-2.0) VBG Hemoglobin VBG Carboxyhemoglobin (0.0-6.9) % T HGB POC Potassium (3.5-5.1) Sodium 140 (137-145) mmol/L Potassium 7.0 H* (3.5-5.1) mmol/L Chloride 105 (98-107) mmol/L Carbon Dioxide 17 L (22-30) mmol/L Anion Gap 25.7 H (5-15) MEQ/L BUN 41 H (7-17) mg/dL Creatinine 3.94 H (0.52-1.04) mg/dL Estimated GFR 12.0 ML/MIN Glucose 64 L (74-106) mg/dL Lactic Acid (0.4-2.0) Calcium 5.8 L* (8.4-10.2) mg/dL Magnesium 2.9 H (1.6-2.3) mg/dL Total Bilirubin 1.00 (0.2-1.3) mg/dL AST 496 H (14-36) U/L ALT 274 H (0-35) U/L Alkaline Phosphatase 130 H (38-126) U/L Troponin I (0.000-0.034) ng/mL NT-Pro-B Natriuret Pep 4780 H (0-900) pg/mL Serum Total Protein 7.0 (6.3-8.2) g/dL Albumin 4.1 (3.5-5.0) g/dL Amylase 56 (30-110) U/L Lipase 137 (23-300) U/L Urine Color (YELLOW) Urine Appearance (CLEAR) Urine pH (5-6) Ur Specific [place] (1.005-1.025) Urine Protein (Negative) Urine Ketones (NEGATIVE) Urine Blood (0-5) Jose/ul Urine Nitrite (NEGATIVE) Urine Bilirubin (NEGATIVE) Urine Urobilinogen (0-1) mg/dL Ur Leukocyte Esterase (NEGATIVE) Urine WBC (Auto) (0-5) /HPF Urine RBC (Auto) (0-2) /HPF U Hyaline Cast (Auto) (0-2) /LPF U Epithel Cells (Auto) (FEW) /HPF Urine Bacteria (Auto) (NEGATIVE) /HPF Amorphous Crystals (NEGATIVE) /HPF Urine Mucus (Auto) (NEGATIVE) /HPF Urine Culture Reflexed (NO) Urine Glucose (NEGATIVE) mg/dL Stool Occult Bld Scrn (NEGATIVE) - Progress Progress: improved - Departure Departure Disposition: Transfer (Patient will be transferred to [facility] in [place] with Dr. Waters excepting.) Clinical Impression: Cardiac arrest, Hyperkalemia, Hypocalcemia, GI bleed, Chronic renal failure, COPD exacerbation, Acute on chronic kidney failure Condition: Critical Critical Care Time: Yes Critical Care Time(excluding separately billable procedures): Critical 105-134 mins Referrals: ROLANDO SALMERON [Primary Care Provider] - Instructions: Chronic Obstructive Pulmonary Disease
[2019-09-22] MEDS ORDERED: LEVOPHED 4 MG/4 ML 4,000 MCG in Dextrose 5%/Water IV Soln. 500 ML 500 ML IV PRN (15:17)
[2019-09-22 16:38] VITALS: BP 82/0; PULSE 46; O2SAT 96
== END 2019-09-22 17:15 | disposition short-term general hospital (02) ==
LOC: ED 12:41
DX: I46.9 Cardiac arrest, cause unspecified (principal); E87.5 Hyperkalemia; E58 Dietary calcium deficiency; K92.2 Gastrointestinal hemorrhage, unspecified; J44.1 Chronic obstructive pulmonary disease with (acute) exacerbation; Z79.899 Other long term (current) drug therapy; I12.9 Hypertensive chronic kidney disease with stage 1 through stage 4 chronic kidney disease, or unspecified chronic kidney disease; N18.9 Chronic kidney disease, unspecified; E78.00 Pure hypercholesterolemia, unspecified; E11.9 Type 2 diabetes mellitus without complications; Z79.4 Long term (current) use of insulin; Z72.0 Tobacco use
CPT/HCPCS: 31500; 36415; 71045; 80053; 81001; 82150; 82270; 82271; 82805; 83605; 83690; 83735; 83880; 84484; 85025; 85027; 85379; 85610; 85730; 87086; 93005; 93041; 94002; 94640; 94760; 94799; 96360; 96361; 96365; 96367; 96374; 96375; 96376; 99285; 99291; 99292; J0610; J1265; J1815; J7609; A9270-GY